=== PATIENT | male | born 1980 | race Caucasian/White ===

== ENCOUNTER 2025-07-14 10:48 | Outpatient (AMB) | payer OTHER, SELFPAY ==
--- OUTSIDE RECORDS SUMMARY | 2025-07-10 04:15 | XMS_ITS ---
Author Organization [facility] Address [address] [place] [address] Care Team Providers Care Foreman/Project Manager Name Role Phone FLORENCE WALKEREN Unavailable [phone] CESAR ADAMS Unavailable [phone] REASON FOR VISIT iv Medications Medication SIG (Take, Route, Frequency, Duration) Notes Start Date End Date Status Tamsulosin HCl 0.4 MG 2 cap Orally Once a day; Duration: 30 days 05/18/2025 Active Tamsulosin HCl 0.4 MG TAKE 1 CAPSULE BY MOUTH DAILY; Duration: 30 Active Vitamin B12 Active amLODIPine Besylate 5 MG 1 tablet Orally Once a day; Duration: 90 days 04/03/2025 Active B Complex - as directed Orally Active Magnesium Active Encounters Encounter Location Date Provider Diagnosis [facility] [address] [place] [address] 07/10/2025 CESAR ADAMS Plan Of Treatment Next Appt Details Provider Name:SERENASELINA WALKER, 08/18/2025 03:30:00 PM, [address] [facility], [place], [address], Progress Notes * Mack GOODSONDOB: [birth year] (44 yo M)Acc No.[id number]:07/10/2025 Progress Note Patient: Mack DE LA FUENTE Provider: Margo Adams MD :1980 A ge:44 Y S ex:Male Date:07/10/2025 Address:[address], [facility] [place], [id number] Subjective: * Chief Complaints: * 1 . Iv. * Medical History: * Medications: T aking Magnesium , Taking B Complex - Capsule as directed Orally , Taking Vitamin B12 , Taking amLODIPine Besylate 5 MG Tablet 1 tablet Orally Once a day , Taking Tamsulosin HCl 0.4 MG Capsule TAKE 1 CAPSULE BY MOUTH DAILY , Taking Tamsulosin HCl 0.4 MG Capsule 2 cap Orally Once a day Objective: * Vitals: Assessment: Plan: * Treatment: Care Plan: * Problems: * Images: Billing Information: * Visit Code: * Procedure Codes: Care Plan Details* * Electronic signature of MOISES ADAMS MD on 07/14/2025 at 01:00 PM EDT Sign off status: Pending * Provider: Margo Adams MD Date: 07/10/2025 Generated for Azam maher/Lj/Balwinder on: 07/14/2025 01:00 PM EDT
--- OUTSIDE RECORDS SUMMARY | 2025-07-10 05:15 | XMS_ITS ---
Author Organization [facility] [address] Address [address] [place] [address] Care Team Providers Care Plant Quality Manager Name Role Phone AARON SERENA Unavailable [phone] Allergies No Known Allergies REASON FOR VISIT patient presents for urgent visit; provider requesting 1 liter of NS be given to pt; 20 gauge IV inserted into left AC and established on first attempt; infusion began at 0835 and finished at 0925; pt tolerated well; IV removed Medications Medication SIG (Take, Route, Frequency, Duration) Notes Start Date End Date Status Tamsulosin HCl 0.4 MG 1 capsule Orally O nce a day; Duration: 90 days 07/10/2025 Active Methocarbamol 500 MG 1 tab Orally bedtim e; Duration: 14 days 07/10/2025 Active amLODIPine Besylate 5 MG 1 tablet Orally Once a day; Duration: 90 days 04/03/2025 Active B Complex - as directed Orally Active Vitamin B12 Active Magnesium Active Tamsulosin HCl 0.4 MG 2 cap Orally Once a day; Duration: 30 days 05/18/2025 Active Tamsulosin HCl 0.4 MG TAKE 1 CAPSULE BY MOUTH DAILY; Duration: 30 Active Social History Tobacco Use: Social History Observation Description Date Details (start date - stop date) Current Smoker NA - NA Tobacco Use/Smoking Question Answer Notes Are you a current smoker How often do you smoke cigarettes? 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 Patient reports severe muscle cramps at night. I suspect this is secondary to dehydration, as the patient reports that he has been having more diarrhea. We will check stool studies including C. difficile, Shigella, Salmonella, stool culture and fecal Maximus protein. If this comes back negative, we will add Imodium as needed. BRAT diet was recommended. Patient to stay hydrated with electrolytes. 1 L normal saline was administered in office today. This was performed by Allison Encarnacion RN. Patient does report overall improvement. Labs will be done to check his renal function tomorrow. Patient has an appointment with renal on the . # (?) [facility] on CKD III. Labs noted on a prephysical screening revealed a creatinine of 3.38. Patient has had been having symptoms of BPH with urinary hesitancy, and frequent bladder emptying. Patient was started on Flomax in March at 0.4 mg po daily. Will increase to Flomax 0.8 mg @ HS. There is a history of prostate cancer. PSA was negative. Due to possible KEYONNA on CKD versus regular CKD, Renal US was negative. AWaiting Urology appt, on 05/26/25, and nephrology appt for Nov 2025. I believe this is multifactorial, partially obstructive in nature, as well as uncontrolled blood pressure. Patient's systolic blood pressure on initial reading was noted to be in the 170s, repeat in the 160s. Patient attributes this to stress. He is not been checking his blood pressure at home. He denies any NSAID use. See below regarding PRABHA #HTN: BP in office was 150s. Increase to Amloidpine 10 mg po daily . Need to repeat labs. #Tobacco cessation: Patient wants to stop smoking. He has tried chantix with good results before. He has reduced to 1.25 packs per day. Will order a nicotine patch and gum. #Obstructive sleep apnea: Stable. Uses cpap. Case discussed with collaborating physician Ruchi Adams who reviewed the assessment and plan. Chart, medications, labs, vital signs reviewed. Dictation was accomplished with the use of [employer] voice recognition software, prone to medical misidentifications and grammatical errors. This is unintentional and the practitioner does try to identify and correct these, but some could still be present. Please do not hesitate to contact practitioner for clarification. All questions answered to patients satisfaction. Patient verbalized understanding of diagnosis and treatments explained. To call sooner prior to next visit it any questions/concerns arise. 07/10/2025 Diarrhea, unspecified (ICD-10 - R19.7) 44 year old male who presents for follow up # Muscle cramps. Patient reports severe muscle cramps at night. I suspect this is secondary to dehydration, as the patient reports that he has been having more diarrhea. We will check stool studies including C. difficile, Shigella, Salmonella, stool culture and fecal Maximus protein. If this comes back negative, we will add Imodium as needed. BRAT diet was recommended. Patient to stay hydrated with electrolytes. 1 L normal saline was administered in office today. This was performed by Allison Encarnacion RN. Patient does report overall improvement. Labs will be done to check his renal function tomorrow. Patient has an appointment with renal on the . # (?) [facility] on CKD III. Labs noted on a prephysical screening revealed a creatinine of 3.38. Patient has had been having symptoms of BPH with urinary hesitancy, and frequent bladder emptying. Patient was started on Flomax in March at 0.4 mg po daily. Will increase to Flomax 0.8 mg @ HS. There is a history of prostate cancer. PSA was negative. Due to possible KEYONNA on CKD versus regular CKD, Renal US was negative. AWaiting Urology appt, on 05/26/25, and nephrology appt for Nov 2025. I believe this is multifactorial, partially obstructive in nature, as well as uncontrolled blood pressure. Patient's systolic blood pressure on initial reading was noted to be in the 170s, repeat in the 160s. Patient attributes this to stress. He is not been checking his blood pressure at home. He denies any NSAID use. See below regarding PRABHA #HTN: BP in office was 150s. Increase to Amloidpine 10 mg po daily . Need to repeat labs. #Tobacco cessation: Patient wants to stop smoking. He has tried chantix with good results before. He has reduced to 1.25 packs per day. Will order a nicotine patch and gum. #Obstructive sleep apnea: Stable. Uses cpap. Case discussed with collaborating physician Ruchi Adams who reviewed the assessment and plan. Chart, medications, labs, vital signs reviewed. Dictation was accomplished with the use of [employer] voice recognition software, prone to medical misidentifications and grammatical errors. This is unintentional and the practitioner does try to identify and correct these, but some could still be present. Please do not hesitate to contact practitioner for clarification. All questions answered to patients satisfaction. Patient verbalized understanding of diagnosis and treatments explained. To call sooner prior to next visit it any questions/concerns arise. 07/10/2025 Essential (primary) hypertension (ICD-10 - I10) 44 year old male who presents for follow up # Muscle cramps. Patient reports severe muscle cramps at night. I suspect this is secondary to dehydration, as the patient reports that he has been having more diarrhea. We will check stool studies including C. difficile, Shigella, Salmonella, stool culture and fecal Maximus protein. If this comes back negative, we will add Imodium as needed. BRAT diet was recommended. Patient to stay hydrated with electrolytes. 1 L normal saline was administered in office today. This was performed by Allison Encarnacion RN. Patient does report overall improvement. Labs will be done to check his renal function tomorrow. Patient has an appointment with renal on the . # (?) [facility] on CKD III. Labs noted on a prephysical screening revealed a creatinine of 3.38. Patient has had been having symptoms of BPH with urinary hesitancy, and frequent bladder emptying. Patient was started on Flomax in March at 0.4 mg po daily. Will increase to Flomax 0.8 mg @ HS. There is a history of prostate cancer. PSA was negative. Due to possible KEYONNA on CKD versus regular CKD, Renal US was negative. AWaiting Urology appt, on 05/26/25, and nephrology appt for Nov 2025. I believe this is multifactorial, partially obstructive in nature, as well as uncontrolled blood pressure. Patient's systolic blood pressure on initial reading was noted to be in the 170s, repeat in the 160s. Patient attributes this to stress. He is not been checking his blood pressure at home. He denies any NSAID use. See below regarding PRABHA #HTN: BP in office was 150s. Increase to Amloidpine 10 mg po daily . Need to repeat labs. #Tobacco cessation: Patient wants to stop smoking. He has tried chantix with good results before. He has reduced to 1.25 packs per day. Will order a nicotine patch and gum. #Obstructive sleep apnea: Stable. Uses cpap. Case discussed with collaborating physician Ruchi Adams who reviewed the assessment and plan. Chart, medications, labs, vital signs reviewed. Dictation was accomplished with the use of [employer] voice recognition software, prone to medical misidentifications and grammatical errors. This is unintentional and the practitioner does try to identify and correct these, but some could still be present. Please do not hesitate to contact practitioner for clarification. All questions answered to patients satisfaction. Patient verbalized understanding of diagnosis and treatments explained. To call sooner prior to next visit it any questions/concerns arise. 07/10/2025 BPH loc w/o ur obs/LUTS (ICD-10 - N40.0) 44 year old male who presents for follow up # Muscle cramps. Patient reports severe muscle cramps at night. I suspect this is secondary to dehydration, as the patient reports that he has been having more diarrhea. We will check stool studies including C. difficile, Shigella, Salmonella, stool culture and fecal Maximus protein. If this comes back negative, we will add Imodium as needed. BRAT diet was recommended. Patient to stay hydrated with electrolytes. 1 L normal saline was administered in office today. This was performed by Allison Encarnacion RN. Patient does report overall improvement. Labs will be done to check his renal function tomorrow. Patient has an appointment with renal on the . # (?) [facility] on CKD III. Labs noted on a prephysical screening revealed a creatinine of 3.38. Patient has had been having symptoms of BPH with urinary hesitancy, and frequent bladder emptying. Patient was started on Flomax in March at 0.4 mg po daily. Will increase to Flomax 0.8 mg @ HS. There is a history of prostate cancer. PSA was negative. Due to possible KEYONNA on CKD versus regular CKD, Renal US was negative. AWaiting Urology appt, on 05/26/25, and nephrology appt for Nov 2025. I believe this is multifactorial, partially obstructive in nature, as well as uncontrolled blood pressure. Patient's systolic blood pressure on initial reading was noted to be in the 170s, repeat in the 160s. Patient attributes this to stress. He is not been checking his blood pressure at home. He denies any NSAID use. See below regarding PRABHA #HTN: BP in office was 150s. Increase to Amloidpine 10 mg po daily . Need to repeat labs. #Tobacco cessation: Patient wants to stop smoking. He has tried chantix with good results before. He has reduced to 1.25 packs per day. Will order a nicotine patch and gum. #Obstructive sleep apnea: Stable. Uses cpap. Case discussed with collaborating physician Ruchi Adams who reviewed the assessment and plan. Chart, medications, labs, vital signs reviewed. Dictation was accomplished with the use of [employer] voice recognition software, prone to medical misidentifications and grammatical errors. This is unintentional and the practitioner does try to identify and correct these, but some could still be present. Please do not hesitate to contact practitioner for clarification. All questions answered to patients satisfaction. Patient verbalized understanding of diagnosis and treatments explained. To call sooner prior to next visit it any questions/concerns arise. 07/10/2025 Chronic kidney disease, stage 3b (ICD-10 - N18.32) 44 year old male who presents for follow up # Muscle cramps. Patient reports severe muscle cramps at night. I suspect this is secondary to dehydration, as the patient reports that he has been having more diarrhea. We will check stool studies including C. difficile, Shigella, Salmonella, stool culture and fecal Maximus protein. If this comes back negative, we will add Imodium as needed. BRAT diet was recommended. Patient to stay hydrated with electrolytes. 1 L normal saline was administered in office today. This was performed by Allison Encarnacion RN. Patient does report overall improvement. Labs will be done to check his renal function tomorrow. Patient has an appointment with renal on the . # (?) [facility] on CKD III. Labs noted on a prephysical screening revealed a creatinine of 3.38. Patient has had been having symptoms of BPH with urinary hesitancy, and frequent bladder emptying. Patient was started on Flomax in March at 0.4 mg po daily. Will increase to Flomax 0.8 mg @ HS. There is a history of prostate cancer. PSA was negative. Due to possible KEYONNA on CKD versus regular CKD, Renal US was negative. AWaiting Urology appt, on 05/26/25, and nephrology appt for Nov 2025. I believe this is multifactorial, partially obstructive in nature, as well as uncontrolled blood pressure. Patient's systolic blood pressure on initial reading was noted to be in the 170s, repeat in the 160s. Patient attributes this to stress. He is not been checking his blood pressure at home. He denies any NSAID use. See below regarding PRABHA #HTN: BP in office was 150s. Increase to Amloidpine 10 mg po daily . Need to repeat labs. #Tobacco cessation: Patient wants to stop smoking. He has tried chantix with good results before. He has reduced to 1.25 packs per day. Will order a nicotine patch and gum. #Obstructive sleep apnea: Stable. Uses cpap. Case discussed with collaborating physician Ruchi Adams who reviewed the assessment and plan. Chart, medications, labs, vital signs reviewed. Dictation was accomplished with the use of [employer] voice recognition software, prone to medical misidentifications and grammatical errors. This is unintentional and the practitioner does try to identify and correct these, but some could still be present. Please do not hesitate to contact practitioner for clarification. All questions answered to patients satisfaction. Patient verbalized understanding of diagnosis and treatments explained. To call sooner prior to next visit it any questions/concerns arise. 07/10/2025 Tobacco abuse disorder (ICD-10 - Z72.0) 44 year old male who presents for follow up # Muscle cramps. Patient reports severe muscle cramps at night. I suspect this is secondary to dehydration, as the patient reports that he has been having more diarrhea. We will check stool studies including C. difficile, Shigella, Salmonella, stool culture and fecal Maximus protein. If this comes back negative, we will add Imodium as needed. BRAT diet was recommended. Patient to stay hydrated with electrolytes. 1 L normal saline was administered in office today. This was performed by Allison Encarnacion RN. Patient does report overall improvement. Labs will be done to check his renal function tomorrow. Patient has an appointment with renal on the . # (?) [facility] on CKD III. Labs noted on a prephysical screening revealed a creatinine of 3.38. Patient has had been having symptoms of BPH with urinary hesitancy, and frequent bladder emptying. Patient was started on Flomax in March at 0.4 mg po daily. Will increase to Flomax 0.8 mg @ HS. There is a history of prostate cancer. PSA was negative. Due to possible KEYONNA on CKD versus regular CKD, Renal US was negative. AWaiting Urology appt, on 05/26/25, and nephrology appt for Nov 2025. I believe this is multifactorial, partially obstructive in nature, as well as uncontrolled blood pressure. Patient's systolic blood pressure on initial reading was noted to be in the 170s, repeat in the 160s. Patient attributes this to stress. He is not been checking his blood pressure at home. He denies any NSAID use. See below regarding PRABHA #HTN: BP in office was 150s. Increase to Amloidpine 10 mg po daily . Need to repeat labs. #Tobacco cessation: Patient wants to stop smoking. He has tried chantix with good results before. He has reduced to 1.25 packs per day. Will order a nicotine patch and gum. #Obstructive sleep apnea: Stable. Uses cpap. Case discussed with collaborating physician Ruchi Adams who reviewed the assessment and plan. Chart, medications, labs, vital signs reviewed. Dictation was accomplished with the use of [employer] voice recognition software, prone to medical misidentifications and grammatical errors. This is unintentional and the practitioner does try to identify and correct these, but some could still be present. Please do not hesitate to contact practitioner for clarification. All questions answered to patients satisfaction. Patient verbalized understanding of diagnosis and treatments explained. To call sooner prior to next visit it any questions/concerns arise. 07/10/2025 Morbid obesity (ICD-10 - E66.01) 44 year old male who presents for follow up # Muscle cramps. Patient reports severe muscle cramps at night. I suspect this is secondary to dehydration, as the patient reports that he has been having more diarrhea. We will check stool studies including C. difficile, Shigella, Salmonella, stool culture and fecal Maximus protein. If this comes back negative, we will add Imodium as needed. BRAT diet was recommended. Patient to stay hydrated with electrolytes. 1 L normal saline was administered in office today. This was performed by Allison Encarnacion RN. Patient does report overall improvement. Labs will be done to check his renal function tomorrow. Patient has an appointment with renal on the . # (?) [facility] on CKD III. Labs noted on a prephysical screening revealed a creatinine of 3.38. Patient has had been having symptoms of BPH with urinary hesitancy, and frequent bladder emptying. Patient was started on Flomax in March at 0.4 mg po daily. Will increase to Flomax 0.8 mg @ HS. There is a history of prostate cancer. PSA was negative. Due to possible KEYONNA on CKD versus regular CKD, Renal US was negative. AWaiting Urology appt, on 05/26/25, and nephrology appt for Nov 2025. I believe this is multifactorial, partially obstructive in nature, as well as uncontrolled blood pressure. Patient's systolic blood pressure on initial reading was noted to be in the 170s, repeat in the 160s. Patient attributes this to stress. He is not been checking his blood pressure at home. He denies any NSAID use. See below regarding PRABHA #HTN: BP in office was 150s. Increase to Amloidpine 10 mg po daily . Need to repeat labs. #Tobacco cessation: Patient wants to stop smoking. He has tried chantix with good results before. He has reduced to 1.25 packs per day. Will order a nicotine patch and gum. #Obstructive sleep apnea: Stable. Uses cpap. Case discussed with collaborating physician Ruchi Adams who reviewed the assessment and plan. Chart, medications, labs, vital signs reviewed. Dictation was accomplished with the use of [employer] voice recognition software, prone to medical misidentifications and grammatical errors. This is unintentional and the practitioner does try to identify and correct these, but some could still be present. Please do not hesitate to contact practitioner for clarification. All questions answered to patients satisfaction. Patient verbalized understanding of diagnosis and treatments explained. To call sooner prior to next visit it any questions/concerns arise. 07/10/2025 HAYLEY (obstructive sleep apnea) (ICD-10 - G47.33) 44 year old male who presents for follow up # Muscle cramps. Patient reports severe muscle cramps at night. I suspect this is secondary to dehydration, as the patient reports that he has been having more diarrhea. We will check stool studies including C. difficile, Shigella, Salmonella, stool culture and fecal Maximus protein. If this comes back negative, we will add Imodium as needed. BRAT diet was recommended. Patient to stay hydrated with electrolytes. 1 L normal saline was administered in office today. This was performed by Allison Encarnacion RN. Patient does report overall improvement. Labs will be done to check his renal function tomorrow. Patient has an appointment with renal on the . # (?) [facility] on CKD III. Labs noted on a prephysical screening revealed a creatinine of 3.38. Patient has had been having symptoms of BPH with urinary hesitancy, and frequent bladder emptying. Patient was started on Flomax in March at 0.4 mg po daily. Will increase to Flomax 0.8 mg @ HS. There is a history of prostate cancer. PSA was negative. Due to possible KEYONNA on CKD versus regular CKD, Renal US was negative. AWaiting Urology appt, on 05/26/25, and nephrology appt for Nov 2025. I believe this is multifactorial, partially obstructive in nature, as well as uncontrolled blood pressure. Patient's systolic blood pressure on initial reading was noted to be in the 170s, repeat in the 160s. Patient attributes this to stress. He is not been checking his blood pressure at home. He denies any NSAID use. See below regarding PRABHA #HTN: BP in office was 150s. Increase to Amloidpine 10 mg po daily . Need to repeat labs. #Tobacco cessation: Patient wants to stop smoking. He has tried chantix with good results before. He has reduced to 1.25 packs per day. Will order a nicotine patch and gum. #Obstructive sleep apnea: Stable. Uses cpap. Case discussed with collaborating physician Ruchi Adams who reviewed the assessment and plan. Chart, medications, labs, vital signs reviewed. Dictation was accomplished with the use of [employer] voice recognition software, prone to medical misidentifications and grammatical errors. This is unintentional and the practitioner does try to identify and correct these, but some could still be present. Please do not hesitate to contact practitioner for clarification. All questions answered to patients satisfaction. Patient verbalized understanding of diagnosis and treatments explained. To call sooner prior to next visit it any questions/concerns arise. 07/10/2025 Encounter for examination of blood pressure with abnormal findings (ICD-10 - Z01.31) 44 year old male who presents for follow up # Muscle cramps. Patient reports severe muscle cramps at night. I suspect this is secondary to dehydration, as the patient reports that he has been having more diarrhea. We will check stool studies including C. difficile, Shigella, Salmonella, stool culture and fecal Maximus protein. If this comes back negative, we will add Imodium as needed. BRAT diet was recommended. Patient to stay hydrated with electrolytes. 1 L normal saline was administered in office today. This was performed by Allison Encarnacion RN. Patient does report overall improvement. Labs will be done to check his renal function tomorrow. Patient has an appointment with renal on the . # (?) [facility] on CKD III. Labs noted on a prephysical screening revealed a creatinine of 3.38. Patient has had been having symptoms of BPH with urinary hesitancy, and frequent bladder emptying. Patient was started on Flomax in March at 0.4 mg po daily. Will increase to Flomax 0.8 mg @ HS. There is a history of prostate cancer. PSA was negative. Due to possible KEYONNA on CKD versus regular CKD, Renal US was negative. AWaiting Urology appt, on 05/26/25, and nephrology appt for Nov 2025. I believe this is multifactorial, partially obstructive in nature, as well as uncontrolled blood pressure. Patient's systolic blood pressure on initial reading was noted to be in the 170s, repeat in the 160s. Patient attributes this to stress. He is not been checking his blood pressure at home. He denies any NSAID use. See below regarding PRABHA #HTN: BP in office was 150s. Increase to Amloidpine 10 mg po daily . Need to repeat labs. #Tobacco cessation: Patient wants to stop smoking. He has tried chantix with good results before. He has reduced to 1.25 packs per day. Will order a nicotine patch and gum. #Obstructive sleep apnea: Stable. Uses cpap. Case discussed with collaborating physician Ruchi Adams who reviewed the assessment and plan. Chart, medications, labs, vital signs reviewed. Dictation was accomplished with the use of Ceres voice recognition software, prone to medical misidentifications and grammatical errors. This is unintentional and the practitioner does try to identify and correct these, but some could still be present. Please do not hesitate to contact practitioner for clarification. All questions answered to patients satisfaction. Patient verbalized understanding of diagnosis and treatments explained. To call sooner prior to next visit it any questions/concerns arise. 07/10/2025 Dehydration (ICD-10 - E86.0) 44 year old male who presents for follow up # Muscle cramps. Patient reports severe muscle cramps at night. I suspect this is secondary to dehydration, as the patient reports that he has been having more diarrhea. We will check stool studies including C. difficile, Shigella, Salmonella, stool culture and fecal Maximus protein. If this comes back negative, we will add Imodium as needed. BRAT diet was recommended. Patient to stay hydrated with electrolytes. 1 L normal saline was administered in office today. This was performed by Allison Encarnacion RN. Patient does report overall improvement. Labs will be done to check his renal function tomorrow. Patient has an appointment with renal on the . # (?) KEYONNA on CKD III. Labs noted on a prephysical screening revealed a creatinine of 3.38. Patient has had been having symptoms of BPH with urinary hesitancy, and frequent bladder emptying. Patient was started on Flomax in March at 0.4 mg po daily. Will increase to Flomax 0.8 mg @ HS. There is a history of prostate cancer. PSA was negative. Due to possible KEYONNA on CKD versus regular CKD, Renal US was negative. AWaiting Urology appt, on 05/26/25, and nephrology appt for Nov 2025. I believe this is multifactorial, partially obstructive in nature, as well as uncontrolled blood pressure. Patient's systolic blood pressure on initial reading was noted to be in the 170s, repeat in the 160s. Patient attributes this to stress. He is not been checking his blood pressure at home. He denies any NSAID use. See below regarding PRABHA #HTN: BP in office was 150s. Increase to Amloidpine 10 mg po daily . Need to repeat labs. #Tobacco cessation: Patient wants to stop smoking. He has tried chantix with good results before. He has reduced to 1.25 packs per day. Will order a nicotine patch and gum. #Obstructive sleep apnea: Stable. Uses cpap. Case discussed with collaborating physician Ruchi Adams who reviewed the assessment and plan. Chart, medications, labs, vital signs reviewed. Dictation was accomplished with the use of Ce[employer] voice recognition software, prone to medical misidentifications and grammatical errors. This is unintentional and the practitioner does try to identify and correct these, but some could still be present. Please do not hesitate to contact practitioner for clarification. All questions answered to patients satisfaction. Patient verbalized understanding of diagnosis and treatments explained. To call sooner prior to next visit it any questions/concerns arise. Plan Of Treatment Medication Medication Name Sig Start Date Stop Date Notes Tamsulosin HCl 0.4 MG 1 capsule Orally O nce a day; Duration: 90 days 07/10/2025 Methocarbamol 500 MG 1 tab Orally bedtim e; Duration: 14 days 07/10/2025 Next Appt Details Provider Name:SERENA AARON, 08/18/2025 03:30:00 PM, [address] [place] [address], [place], [address], Progress Notes * Mack GOODSONDOB: [birth year] (44 yo M)Acc No.[id number]:07/10/2025 Progress Notes Patient: Mack DE LA FUENTE Provider: Olman WALKER PA-C :1980 A ge:44 Y S ex:Male Date:07/10/2025 Address:[address] [place] [address], [id number] Subjective: * Chief Complaints: * 1 . patient presents for urgent visit; provider requesting 1 liter of NS be given to pt; 20 gauge IV inserted into left AC and established on first attempt; infusion began at 0835 and finished at 0925; pt tolerated well; IV removed. * HPI: C onstitutional: Michele is a 44-year-old male with a past medical history of hypertension, asthma, previous tobacco use, sleep apnea with CPAP compliance, as well as new renal insufficiency who presents today for IV fluids. Patient reports over the past 2 weeks he has been having severe muscle cramps. He had a urology procedure done approximately 2 weeks ago, and since then has been having daily diarrhea. He reports that it is more foul-smelling in nature. He declines any recent antibiotic use. Patient states that he feels more tired and fatigued. Muscle cramps are so severe that they are waking him up at night. He is drinking Gatorade electrolytes, that do not appear to be helping his symptoms. He denies any dizziness or lightheadedness. There is no fevers or chills. Patient is scheduled to see renal in 10 days, and is rescheduled with urology next month. He is not compliant with his medications. He denies any excessive swelling, exertional dyspnea. * ROS: C onstitutional: +occassional lightheadedness, patient denies any excessive fatigue with exercise, no weight loss, no fever, no night sweats, no changes in sleep. Eyes: No eye discharge, no itching, no redness, no vision changes. Advised the significance of regular eye exams to screen for glaucoma and other eye problems. Ear nose throat: No ear pain, No sore throat, no postnasal drip, no runny nose, no sneezing, no hearing changes Cardiovascular: No chest pain, no dyspnea on exertion, no PND, no orthopnea, no irregular pulse, no palpitations, no claudication, no diaphoresis, no claudication. Respiratory: No chronic cough, no hemoptysis, no sputum, no wheezing, no SOB, no pleuritic pain. GI, No diarrhea, no constipation, no blood in the stools, no pain associated with eating, no indigestion, no difficulty swallowing, no appetite change. * Medical History: E ssential hypertension, Tobacco abuse, Gout, unspecified, Anxiety with depression, Hemorrhoids with complication, Obesity (BMI 30-39.9), Chronic kidney disease, stage 3a, Asthma, Polyp of colon, Obstructive sleep apnea, Enlarged prostate. * Surgical History: L eft inguinal herniorraphy 2009. * Hospitalization/Major Diagno stic Procedure: D enies Past Hospitalization. * Family History: F ather: . M other: . 2 son(s) , 1 daughter(s) . . Mother passed from heart attack- 50 years old family hx of polyps father passed from prostate cancer- 66 years old family hx of heart disease, hypertension and anxiety/depression. * Social History: T obacco Use: T obacco Use/Smoking A re you a c urrent smoker, H ow often do you smoke cigarettes? e very day. e gunnarineer smoking for 6 years , 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 * Medications: T aking Magnesium , Taking B Complex - Capsule as directed Orally , Taking Vitamin B12 , Taking amLODIPine Besylate 5 MG Tablet 1 tablet Orally Once a day , Taking Tamsulosin HCl 0.4 MG Capsule TAKE 1 CAPSULE BY MOUTH DAILY , Taking Tamsulosin HCl 0.4 MG Capsule 2 cap Orally Once a day * Allergies: N .K.D.A. Objective: * Vitals: * Examination: G eneral Examination: G eneral: Well appearing male, well nourished, age appropriate in no acute distress. Speaking in full, clear sentences. SKIN: Warm, dry intact. No rashes/lesions. Cap refill < 3 seconds. Tattoo noted over upper back HEENT: Normocephalic atraumatic. EOM intact. No nystagmus noted. PERRLA. No maxillary sinus tenderness. NECK: Supple without lymphadenopathy LUNGS: Clear to auscultation bilaterally, no wheezes, rales or rhonchi CARDIAC: Regular rate and rhythm, no murmurs, rubs or gallops. Abdomen: Soft, nontender, nondistended. Extremities: Warm and well perfused. No edema noted. MSK: Flexion extension bilaterally upper and lower extremities 5/5. Community Outreach Coordinator strength 5/5. Neuro: Speaking in full sentences. Hearing intact. Assessment: * Assessment: 1. M uscle cramp - R25.2 (Primary) 2 . D iarrhea, unspecified - R19.7 ? 3 . E ssential (primary) hypertension - I10 4 . B PH loc w/o ur obs/LUTS - N40.0 5 . C hronic kidney disease, stage 3b - N18.32 6 . T obacco abuse disorder - Z72.0 7 . M orbid obesity - E66.01 ?8. O SA (obstructive sleep apnea) - G47.33 9 . E ncounter for examination of blood pressure with abnormal findings - Z01.31 1 0. D ehydration - E86.0? 44 year old male who present s for follow up # Muscle cramps. Patient reports severe muscle cramps at night. I suspect this is secondary to dehydration, as the patient reports that he has been having more diarrhea. We will check stool studies including C. difficile, Shigella, Salmonella, stool culture and fecal Maximus protein. If this comes back negative, we will add Imodium as needed. BRAT diet was recommended. Patient to stay hydrated with electrolytes. 1 L normal saline was administered in office today. This was performed by Allison Encarnacion RN. Patient does report overall improvement. Labs will be done to check his renal function tomorrow. Patient has an appointment with renal on the . # (?) KEYONNA on CKD III. Labs noted on a prephysical screening revealed a creatinine of 3.38. Patient has had been having symptoms of BPH with urinary hesitancy, and frequent bladder emptying. Patient was started on Flomax in March at 0.4 mg po daily. Will increase to Flomax 0.8 mg @ HS. There is a history of prostate cancer. PSA was negative. Due to possible KEYONNA on CKD versus regular CKD, Renal US was negative. AWaiting Urology appt, on 05/26/25, and nephrology appt for Nov 2025. I believe this is multifactorial, partially obstructive in nature, as well as uncontrolled blood pressure. Patient's systolic blood pressure on initial reading was noted to be in the 170s, repeat in the 160s. Patient attributes this to stress. He is not been checking his blood pressure at home. He denies any NSAID use. See below regarding PRABHA #HTN: BP in office was 150s. Increase to A mloidpine 10 mg po daily . Need to repeat labs.? #Tobacco cessation: Patient wants to stop smoking. He has tried chantix with good results before. He has reduced to 1.25 packs per day. Will order a nicotine patch and gum. #Obstructive sleep apnea: Stable. Uses cpap. Case discussed with collaborating physician Ruchi Adams who reviewed the assessment and plan. Chart, medications, labs, vital signs reviewed. Dictation was accomplished with the use of Ceres voice recognition software, prone to medical misidentifications and grammatical errors. This is unintentional and the practitioner does try to identify and correct these, but some could still be present. Please do not hesitate to contact practitioner for clarification. All questions answered to patients satisfaction. Patient verbalized understanding of diagnosis and treatments explained. To call sooner prior to next visit it any questions/concerns arise. Plan: * Treatment: * Procedure Codes: 9 6360 HYDRATION IV INFUSION, INIT, [address] PLACE NEEDLE IN VEIN Care Plan: * Problems: * Images: Billing Information: * Visit Code: 27212 Office Visit, Est Pt., Level 5. Modifiers: SA * Procedure Codes: 85650 HYDRATION IV INFUSION, INIT. [address] PLACE NEEDLE IN VEIN. Care Plan Details* * Sign off status: Completed true * Provider: Olman WALKER PA-C Date: 0 07/10/2025 Generated for Azam maher/Lj/eTransmitting on: 0 07/14/2025 01:00 PM EDT History and Physical Notes * HPI (History of Present Illness) Category Sub-Category Detail Notes Category Not es Constitutional Michele is a 44- year-old male with a past medical history of hypertension, asthma, previous tobacco use, sleep apnea with CPAP compliance, as well as new renal insufficiency who presents today for IV fluids. Patient reports over the past 2 weeks he has been having severe muscle cramps. He had a urology procedure done approximately 2 weeks ago, and since then has been having daily diarrhea. He reports that it is more foul-smelling in nature. He declines any recent antibiotic use. Patient states that he feels more tired and fatigued. Muscle cramps are so severe that they are waking him up at night. He is drinking Gatorade electrolytes, that do not appear to be helping his symptoms. He denies any dizziness or lightheadedness. There is no fevers or chills. Patient is scheduled to see renal in 10 days, and is rescheduled with urology next month. He is not compliant with his medications. He denies any excessive swelling, exertional dyspnea. Examination Category Sub-Category Detail Notes Category Not es General Examination General: Well appearing male, well nourished, age appropriate in no acute distress. Speaking in full, clear sentences. SKIN: Warm, dry intact. No rashes/lesions. Cap refill < 3 seconds. Tattoo noted over upper back HEENT: Normocephalic atraumatic. EOM intact. No nystagmus noted. PERRLA. No maxillary sinus tenderness. NECK: Supple without lymphadenopathy LUNGS: Clear to auscultation bilaterally, no wheezes, rales or rhonchi CARDIAC: Regular rate and rhythm, no murmurs, rubs or gallops. Abdomen: Soft, nontender, nondistended. Extremities: Warm and well perfused. No edema noted. MSK: Flexion extension bilaterally upper and lower extremities 5/5. Community Outreach Coordinator strength 5/5. Neuro: Speaking in full sentences. Hearing intact.
--- OUTSIDE RECORDS SUMMARY | 2025-07-10 05:39 | XMS_ITS ---
Author Organization [facility] [address] Address [address] [place] [address] Care Team Providers Care Control Tower Operator Name Role Phone AARON, SERENA Unavailable [phone] REASON FOR VISIT Lab Orders Encounters Encounter Location Date Provider Diagnosis [facility] [address] [place] [address] 07/10/2025 SERENA WALKER Bilateral leg cramps R25.2 ; Abnormal metabolic state due to diabetes mellitus E11.9 ; Acute colitis K52.9 and Adult general medical exam Z00.00 Assessments Encounter Date Diagnosis (ICD Code) Assessment Notes Treatment Notes Treatment Clinical Notes Section Notes 07/10/2025 Bilateral leg cramps (ICD-10 - R25.2) 07/10/2025 Abnormal metabolic state due to diabetes mellitus (ICD-10 - E11.9) 07/10/2025 Acute colitis (ICD-10 - K52.9) 07/10/2025 Adult general medical exam (ICD-10 - Z00.00) Plan Of Treatment Pending Test Test Name Order Date C difficile Toxins A+B, EIA 07/10/2025 Microalb/Creat Ratio, Randm Ur Stool Culture -O&P 07/10/2025 CALPROTECTIN,FECAL 07/10/2025 Culture Salmonella and Shigella Screen 0 07/10/2025 COMPREHENSIVE METABOLIC PANEL 07/10/2025 CBC (INCLUDES DIFF/PLT) 07/10/2025 URINALYSIS, COMPLETE 07/10/2025 FECAL WHITE CELLS 07/10/2025 Next Appt Details Provider Name:SERENA WALKER, 08/18/2025 03:30:00 PM, [address] [facility], [place], [address], Progress Notes * Mack GOODSONDOB: [birth year] (44 yo M)Acc No.[id number]:07/10/2025 Patient: Mack DE LA FUENTE :1980 A ge:44 Y S ex:Male Address:[facility] [address] [facility] [place] [address] Subjective: * Chief Complaints: * L ab Orders * Medical History: * Surgical History: * Hospitalization/Major Diagno stic Procedure: * Medications: Objective: * Vitals: * Physical Examination: Assessment: * Assessment: 1. B ilateral leg cramps - R25.2 2 . A bnormal metabolic state due to diabetes mellitus - E11.9 3 . A cute colitis - K52.9 4 . A dult general medical exam - Z00.00 Plan: * Treatment: 2. A bnormal metabolic state due to diabetes mellitus L AB: Microalb/Creat Ratio, Randm Ur 3. A cute colitis L AB: C difficile Toxins A+B, EIA L AB: Stool Culture -O&P L AB: CALPROTECTIN,FECAL L AB: Culture Salmonella and Shigella Screen L AB: FECAL WHITE CELLS 4. A dult general medical exam L AB: URINALYSIS, COMPLETE * Procedure Codes: * true * Date: Generated for Azam maher/Lj/eTransmitting on: 0 07/14/2025 01:00 PM EDT
--- NOTE | 2025-07-14 10:58 | HO.NEPHOV_ITS ---
Vital Signs 07/14/25 11:01 Height 5 ft 8.5 in Weight 219 lb 8 oz BMI 32.9 BP 166/86 H Blood Pressure Location Lt brachial Position Sitting Pulse 56 Pulse Source Pulse Oximeter Pulse Oximetry (%) 98 Oxygen Delivery Method Room Air Intake Visit Reasons: ENP- Per Adult High School Instructor Required: No Accompanied by: Spouse Allergies No Known Allergies Allergy (Verified 07/14/25 12:20) HPI Comments Details: I had the privilege of seeing Mack in consultation for KEYONNA on CKD. He is 44 years of age who has H/O blood and protein in the urine in the past. He also had been hypertensive. He has seen Urology and was worked up including imaging studies which did not show any etiology for his M/S hematuria. He denied any H/O macroscopic heamturia. He was no ACEI in the past but was discontinued ( ? Had KEYONNA at that time). He had high BMI which has improved with exercise, diet and Ozempic for sometime. He has no H/O renal calculi but has been having cramps as well as joint pains which is affecting his quality of life. He is active and employed. He denies any regular excessive NSAID's. He has been having HAYLEY and is on CPAP. He has H/O gout with exacerbations more so when he was taking HCTZ for hypertension long ago. He has no H/O cardiac issues. He denies any neuropathic symptoms. CVA, CHF, CAD, PAD. He has no H/O blood clots but has was a smoker in the past. He has been having lower thoracic/ upper lumbar vertebral pain as well as B/L flank pain. He had a Urology procedure done 2 weeks ago and had some diarrhea following it. He has H/O smoking but no hemoptysis or unintentional weight loss. He is not a diabetic and has no H/O liver dysfunction. His creatinine has been in mid 3's three months ago which has gone upto 6.67 now. He has poor energy and feels cold most of the time. [facility] Medical History (Updated 07/14/25 @ 12:49 by Miguelito Chen MD) Enlarged prostate HAYLEY (obstructive sleep apnea) Polyp of colon Asthma Chronic kidney disease, stage 3a Obesity Hemorrhoids with complication Anxiety with depression Gout Tobacco use Essential (primary) hypertension Surgical History (Updated 07/14/25 @ 10:52 by Elisabet Fuentes MA) S/P left inguinal herniorrhaphy Family History Father Prostate cancer Mother Heart attack Hypertension Social History Alcohol intake: never Patient Tobacco Use Status: Current someday Tobacco user Review of Systems Const All systems reviewed & are unremarkable except as noted in HPI and below Physical Exam Vital Signs: Last Vital Signs Pulse 56 07/14/25 11:01 BP 166/86 H 07/14/25 11:01 Pulse Ox 98 07/14/25 11:01 Oxygen Delivery Method Room Air 07/14/25 11:01 BMI result Body Mass Index 32.9 Const General: comfortable and no acute distress Orientation/consciousness: patient oriented x3 HEENT Head: Yes normocephalic Mouth: Normal oral and palatal mucosa present Eyes EOM: EOMs intact bilaterally Neck Neck: Yes supple Resp Auscultation: clear to auscultation bilaterally Cardio Jugular venous distension: no JVD Rate: regular rate GI Palpation (GI): Soft to palpation Auscultation: normal bowel sounds General: Yes no CVA tenderness Back/Spine/Pelvis Back: no CVA tenderness Skin General skin exam: no rashes or lesions noted Neuro General: patient oriented x3 and moves all extremities Extrem General: Yes no pedal edema Results Reviewed Nephrology Results: Hgb, (14.0-18.0) 9.2 g/dl L Today WBC, (4.8-10.8) 9.2 X10*3/uL Today Plt Count, (160-400) 172 X10*3/uL Today Sodium Pending Today Potassium Pending Today Chloride Pending Today Carbon Dioxide Pending Today BUN Pending Today Creatinine Pending Today Calcium Pending Today Urine Protein Pending Today Assessment & Plan Assessment & Plan (1) KEYONNA (acute kidney injury): Code(s): N17.9 - Acute kidney failure, unspecified Category: Medical (2) Hypertension: Code(s): I10 - Essential (primary) hypertension Category: Medical Qualifiers: Hypertension type: secondary to other renal disorders Qualified Code(s): I15.1 - Hypertension secondary to other renal disorders (3) Proteinuria: Code(s): R80.9 - Proteinuria, unspecified Category: Medical Qualifiers: Proteinuria type: other Qualified Code(s): R80.8 - Other proteinuria Plan Mack has KEYONNA on CKD due to unknown etiology. He denies work up for hematuria/ proteinuria with hypertension many years ago. He never had a renal biopsy. DIfferential diagnosis is quite broad. Needs detailed work up, more imaging and urgent renal biopsy. He is not on any ACEI/ARB. His BP needs to be mainted at goal. He should avoid NSAID's. I have arranged hospital admission for work up and further continued care. All these have been explained in detail to him and his . I have spoken to our VULCANIZED FIBER UNIT OPERATOR Flaca Harris about the case and investigations . Patient has gone to ER for admission. Answered all questions. Further management is pending evolving data Coding Level of Care Code New Pt Level 4 (21647) Diagnoses KEYONNA (acute kidney injury) N17.9 Hypertension secondary to other renal disorders I15.1 Hypertension type: secondary to other renal disorders Other proteinuria R80.8 Proteinuria type: other
[2025-07-14 11:01] VITALS: BP 166/86; PULSE 56; O2SAT 98; BMI 32.9
--- OUTSIDE RECORDS SUMMARY | 2025-07-14 13:00 | XMS_ITS ---
Author Name [facility] Organization Unknown Care Team Organization Name Specialty Phone Email Start Date End Da te [facility] Termed, PROVIDER Primary Care 09/12/202206/05
--- OUTSIDE RECORDS SUMMARY | 2025-07-14 13:00 | XMS_ITS | Clinical Summary ---
Author Organization [address] Address [address] [place] [phone] Phone Care Team Providers Care Ragman Name Role Phone Lauren Adams MD Primary Care Provider [phone] Allergies No known active allergies Medications lisinopriL (PRINIVIL,ZESTR IL) 10 mg tablet Take 1 tablet (10 mg total) by mouth 1 (one) time each day. Active oxyBUTYnin XL (DITROPAN-XL) 10 mg 24 hr tablet Take by mouth. Do not crush, chew, or split. Active tamsulosin (FLOMAX) 0.4 mg 24 hr capsule Take 1 capsule (0.4 mg total) by mouth 1 (one) time each day. Capsules should be taken 30 minutes following the same meal each day. Active Encounters Date Type Department Care Team Description 07/02/2025 11:23 AM EDT Anesthesia Event [facility] OR [address] [place] [phone] Andre Simms DO Barnes, Tyanna R, BRIT 07/02/2025 10:30 AM EDT - 07/02/2025 12:00 PM EDT Surgery [facility] OR [address] [place] [phone] Uriel Izaguirre MD CYSTOSCOPY RANDOM BLADDER/ PROSTATE/URETHRA BIOPSIES, BILATERAL RETROGRADE PYELOGRAM SELECTIVE WASHING [83680 (CPT ) +1 more] 07/02/2025 8:59 AM EDT - 07/02/2025 2:13 PM EDT Hospital Encounter [facility] Main OR [address] [place] [address] Uriel Izaguirre MD Neoplasm of unspecified behavior of bladder; Other abnormal findings on cytological and histological examination of urine Discharge Disposition: Home or Self Care 07/02/2025 7:20 AM EDT - 07/02/2025 11:59 PM EDT Hospital Encounter [facility] Xray [address] [place] [phone] Pain Discharge Disposition: Home or Self Care 05/04/2025 Telephone Nephrology - [place] [id number] [place] [phone] Olegario Hough MD from Last 3 Months Surgical History Surgery Date Site/Laterality Comments COLONOSCOPY 2003 PROCEDURE: MS COLONOSCOPY STOMA DX INCLUDING COLLJ SPEC SPX; COMMENT: Nayeli; neg HERNIA REPAIR 10/14 PROCEDURE: REPAIR INGUINAL HERNIA; COMMENT: Left; Dr Galicia Medical History Medical History Date Comments Ankle fracture 08/06/2008 DX:Ankle fractur e; COMMENT: Leigh Ann; 07/13 Hematuria 05/17/2009 DX:Hematuria Hypertension Sleep apnea Family History Medical History Relation Name Comments Ovarian cancer Aunt Prostate cancer Father Colon cancer Maternal Grandmother Colon polyps Mother Hypertension Mother Other: Other Mother sudden d ysrhythmia Thyroid disease Mother Heart attack Paternal Grandfather Diabetes Neg Hx Relation Name Status Comments Aunt Father Maternal Grandmother Mother (Age 403/01/09) ID ag e 50 Paternal Grandfather Social History Tobacco Use Types Packs/Day Years Used Date Smoking Tobacco: Some Days Cigarettes Smokeless Tobacco: Never Alcohol Use Standard Drinks/Week Comments No 500 (1 standard drink = 0.6 oz p ure alcohol) Interpersonal Safety Answer Date Record ed Physical Abuse 07/02/2025 Verbal Abuse 07/02/2025 Sex and Gender Information Value Date Recorded Sex Assigned at Male 06/24/2025 3:17 PM EDT Legal Sex Male 7:04 PM EST Gender Identity Not on file Sexual Orientation Not on file Obstetrics History Last Filed Vital Signs Vital Sign Reading Time Taken Comments Blood Pressure 175/98 07/02/2025 1:16 PM EDT Pulse 50 07/02/2025 1:16 PM EDT Temperature 35.9 C (96.6 F) 07/02/2025 1:16 PM EDT Respiratory Rate 18 07/02/2025 1:16 PM EDT Oxygen Saturation 100% 07/02/2025 1:16 PM EDT Inhaled Oxygen Concentration - - Weight 97.1 kg (214 lb) 07/02/2025 9:20 AM EDT Height 174 cm (5' 8.5 ) 07/02/2025 9:20 AM EDT Body Mass Index 32.07 07/02/2025 9:20 AM EDT Plan of Treatment Upcoming Encounters Date Type Department Care Team (Late st Contact Info) Description 10/15/2025 3:20 PM EST Consult Gastroenterology - [place] [address] [facility] [address] [place] [phone] Sera Hunter PA [address] [facility] [address] [place] [address] 12/03/2025 4:00 PM EST Office Visit Nephrology [facility] [address] [place] [phone] Olegario Hough MD [address] [facility] [address] [place] [phone] Health Maintenance Due Date Last Done Comments Diabetes: Annual GFR (Glomerular Filtration Rate) 1978 Diabetes: Annual Foot Exam 1988 Diabetes: Annual Retina Eye Exam 1988 Hepatitis B Vaccines (1 of 3 - 19+ 3-dose series) 1997 Pneumococcal Vaccine: Pediatrics (0 to 5 Years) and At-Risk Patients (6 to 49 Years) (1 of 2 - PCV) 1997 Cholesterol Screening (Lipid Panel) 10/07/2022 Colorectal Cancer Screening: Colonoscopy 10/07/2022 HIV Screening 10/07/2022 Hepatitis C Screening 10/07/2022 Social Influencers of Health Screening 10/07/2022 Hypertension/CHF/CAD Annual BMP Blood Test 10/15/2022 Depression Screening 11/05/2024 COVID-19 Vaccine (2 - 2024-2 6 season) 2025 02/05/2021 Influenza Vaccine (#1) 2025 6, 10/31/2012 Diabetes: Annual Urine Albumin-Creatinine Ratio (uACR) 07/09/2025 Diabetes: Blood Sugar Contro l Test (HGBA1C) 07/09/2025 DTaP,Tdap,and Td Vaccines (4 - Td or Tdap) 03/12/2035 03/12/2025, 02/16/2015, 12/17/2007 Hepatitis A Vaccines Aged Out 02/16/2015 No long er eligible based on patient's age to complete this topic HIB Vaccines Aged Out No longer eligi ble based on patient's age to complete this topic HPV Vaccines Aged Out No longer eligi ble based on patient's age to complete this topic IPV Vaccines Aged Out No longer eligi ble based on patient's age to complete this topic MMR Vaccines Aged Out No longer eligi ble based on patient's age to complete this topic Meningococcal ACWY Vaccine Aged Out N o longer eligible based on patient's age to complete this topic Meningococcal B Vaccine Aged Out No l onger eligible based on patient's age to complete this topic RSV Immunization Patients Under 20 months Aged Out No longer eligible b ased on patient's age to complete this topic Varicella Vaccines Aged Out No longer eligible based on patient's age to complete this topic Procedures Procedure Name Priority Date/Time Associated Diagnosis Comments XR UROGRAM RETROGRADE Routine 07/02/2025 12:07 PM EDT Pain TISSUE EXAM Routine 07/02/2025 12:02 PM EDT Neoplasm of unspecified behavior of bladder Other abnormal findings on cytological and histological examination of urine MS BIOPSY PROSTATE NEEDLE/PUNCH SINGLE/MULTIPLE ANY APPROACH 07/02/2025 11:23 AM EDT Neoplasm of unspecified behavior of bladder Other abnormal findings on cytological and histological examination of urine Case Notes RESPIRATORY CARE ASSISTANT NEEDED Special Needs TIME CHANGE VIA PHONE W /LEILA HERRERA 06/29 MS CYSTOURETHROSCOPY WITH BIOPSY(S) 07/02/2025 11:23 AM EDT Neoplasm of unspecified behavior of bladder Other abnormal findings on cytological and histological examination of urine Case Notes RESPIRATORY CARE ASSISTANT NEEDED Special Needs TIME CHANGE VIA PHONE W /LEILA HERRERA 06/29 from Last 3 Months Results * XR Urogram Retrograde (07/02/2025 12:07 PM EDT) Anatomical Region Laterality Modality Body Radio Fluoroscop y 07/02/2025 12:1 0 PM EDT Narrative 07/02/2025 12:11 PM EDT Fluoroscopic spot radiographs obtained during a bilateral endourologic procedure are submitted. No radiologist consultation was requested or provided during this procedure and there is no radiologist professional charge. This report is generated for documentation purposes only. The dose-area product for this procedure was 3.257 Gy*cm2. PQRI CPT II G9500 -------- FINAL REPORT -------- Dictated By: Jim Bello Dictated Date: 07/02/2025 12:10 ET Assigned Physician: Jim Bello Reviewed and Electronically Signed By: Jim Bello Signed Date: 07/02/2025 12:11 ET Workstation ID: [id number] Transcribed By: Self Edit Transcribed Date: 07/02/2025 12:10 ET Procedure Note Jim Bello MD - 07/02/2025 Fluoroscopic spot radiographs obtained during a bilateral endourologicprocedure are submitted. No radiologist consultation was requested orprovided during this procedure and there is no radiologist professionalcharge. This report is generated for documentation purposes only. The dose-area product for this procedure was 3.257 Gy*cm2. PQRI CPT II G9500 -------- FINAL REPORT -------- Dictated By: Jim Bello Dictated Date: 07/02/2025 12:10 ET Assigned Physician: Jim Bello Reviewed and Electronically Signed By: Jim Bello Signed Date: 07/02/2025 12:11 ET Workstation ID: [id number] Transcribed By: Self Edit Transcribed Date: 07/02/2025 12:10 ET Uriel Izaguirre MD [facility] [place]EDURES Final Result * Tissue exam (07/02/2025 12:02 PM EDT) Final Diagnosis A. Urinary Bladder, Posterior wall, biopsy: - Benign urothelial mucosa. - Muscularis propria is present. - Negative for dysplasia. B. Urinary Bladder, Rright lateral wall, biopsy: - Benign urothelial mucosa. - Muscularis propria is present. - Negative for dysplasia. C. Urinary Bladder, Left lateral wall, biopsy: - Benign urothelial mucosa. - Muscularis propria is present. - Negative for dysplasia. D. Urethra, Prostatic, biopsy: - Benign prostatic urethral mucosa. - Negative for dysplasia. E. Urinary Bladder, Anterior wall, biopsy: - Benign urothelial mucosa. - Muscularis propria is present. - Negative for dysplasia. 07/03/2025 12:[address] [facility] Gross Description A. Urinary Bladder, Posterior wall: Labeled posterior bladder ID 4 . Received in formalin, on Telfa, is a soft, red-white, 0.35 cm in greatest diameter tissue fragment which is wrapped in paper and submitted in toto in one cassette, one piece, multiple levels. B. Urinary Bladder, Rright lateral wall: Labeled right la bladder ID 5 . Received in formalin, with Telfa is a soft, juarez-white to pink, 0.35 cm in greatest diameter tissue fragment which is wrapped in paper and submitted in toto in one cassette, one piece, multiple levels. C. Urinary Bladder, Left lateral wall: Labeled left late bladder ID 6 . Received in formalin, on Telfa, is a soft, juarez-pink to white, 0.35 cm in greatest diameter tissue fragment which is wrapped in paper and submitted in toto in one cassette, one piece, multiple levels. D. Urethra, Prostatic: Labeled prostatic urethra ID 7 . Received in formalin, on Telfa is a soft, juarez-pink, 0.3 cm in greatest diameter tissue fragment which is wrapped in paper and submitted in toto in one cassette, one piece, multiple levels. E. Urinary Bladder, Anterior wall: Labeled anterior bladder ID 8 . Received in formalin is a soft, red-white, 0.35 cm in greatest diameter tissue fragment which is wrapped in paper and submitted in toto in one cassette, one piece, multiple levels. TS 07/03/2025 12:[address] [facility] Disclaimer Unless otherwise specified, all tissue is 10% NB formalin fixed and paraffin embedded. 07/03/2025 12:35 PM EDT [facility] Tissue Urinary bladder structure / Unknown 07/02/2025 12:02 PM EDT 07/02/2025 1:12 PM EDT Tissue specimen (specimen) Urinary bladder structure / Unknown 07/02/2025 12:04 PM EDT 07/02/2025 1:12 PM EDT Tissue specimen (specimen) Urinary bladder structure / Unknown 07/02/2025 12:06 PM EDT 07/02/2025 1:12 PM EDT Tissue specimen (specimen) Urethral structure / Unknown 07/02/2025 12:06 PM EDT 07/02/2025 1:12 PM EDT Tissue specimen (specimen) Urinary bladder structure / Unknown 07/02/2025 12:10 PM EDT 07/02/2025 1:12 PM EDT us Uriel Izaguirre MD LAB PATHOLOGY ORDERABLES Final R esult [facility] [address] [place] [address], from Last 3 Months Insurance [employer] Advance Directives Documents on File Type Date Recorded Patient Outbound Call Center Representative Expl anation Health Care Decision (hx) 10/18/2010 SYLWIA MARVIN DIRECTIVE Care Teams Ragman Relationship Specialty Start Date End Date Lauren Adams MD [address] [place] [address] [facility] - General 06/28/23
--- OUTSIDE RECORDS SUMMARY | 2025-07-14 13:00 | XMS_ITS | Clinical Summary ---
Author Organization [facility] Address [address] [place] [phone] Phone Care Team Providers Care Shock Absorption Floor Layer Name Role Phone Susan Dsouza Primary Care Provider [phone] Encounters Date Type Department Care Team Description 06/16/2025 Telephone [facility] [address] [place] [address] [place], [place] new patient Appointment 06/01/2025 Telephone [facility] [address] [place] [phone] [facility] [place] New Patient Appointment from Last 3 Months Social History Tobacco Use Types Packs/Day Years Used Date Smoking Tobacco: Never Assessed Sex and Gender Information Value Date Recorded Sex Assigned at Not on file Legal Sex Male 7:24 AM MDT Gender Identity Not on file Sexual Orientation Not on file Plan of Treatment Upcoming Encounters Date Type Department Care Team (Late st Contact Info) Description 07/22/2025 9:40 AM EDT Office Visit [facility] [address] [place] [address] Kamilah Beach DO [address] [place] [address] Health Maintenance Due Date Last Done Comments Influenza Vaccine (#1) 2025 Insurance [employer] Care Teams Shock Absorption Floor Layer Relationship Specialty Start Date End Date Susan Dsouza PA [address] [place] [phone] PCP - General Internal Medicine 07/08/25
--- OUTSIDE RECORDS SUMMARY | 2025-07-14 13:01 | XMS_ITS | Patient Health Record ---
Author Organization [facility] [address] Address [address] [place] [address] Care Team Providers Care Associate Professor Of Law Name Role Phone SERENA WALKER Unavailable [phone] ADAMSCESAR RAYGOZA Unavailable [phone] ISIDRAPHU Unavailable [phone] Allergies No Known Allergies Results Component Value Reference Range Notes BASIC METABOLIC PANEL Reviewed date:03/09/2025 08:12:27 AM Interpretation: Performing Lab:[facility], [facility] [address] [place], [place] Elizabeth Ivey Notes/Report: FASTING:NO FASTING: NO GLUCOSE 101 65-139 mg/dL Non-fasting reference interval UREA NITROGEN (BUN) 64 7-25 mg/dL CREATININE 3.55 0.60-1.29 mg/dL EGFR 21 > OR = 60 mL/min/1.73m2 BUN/CREATININE RATIO 18 6-22 (calc) SODIUM 139 135-146 mmol/L POTASSIUM 4.8 3.5-5.3 mmol/L CHLORIDE 109 98-110 mmol/L CARBON DIOXIDE 24 20-32 mmol/L CALCIUM 8.5 8.6-10.3 mg/dL Your request to have a duplicate copy faxed has been acknowledged. Queued to: [id number] Comp. Metabolic Panel (14)-3 Reviewed date:07/13/2025 04:33:46 PM Interpretation: Performing Lab:[facility] Casarez, [address] [facility], Phone - [phone], Director - Job Notes/Report: Glucose 88 70-99 mg/dL BUN 97 6-24 mg/dL Creatinine 6.64 0.76-1.27 mg/dL eGFR 10 >59 mL/min/1.73 BUN/Creatinine Ratio 15 9-20 Sodium 141 134-144 mmol/L Potassium 4.9 3.5-5.2 mmol/L Chloride 108 96-106 mmol/L Carbon Dioxide, Total 12 20-29 mmol/L Veri fied by repeat analysis Calcium 8.3 8.7-10.2 mg/dL Protein, Total 5.5 6.0-8.5 g/dL Albumin 3.6 4.1-5.1 g/dL Globulin, Total 1.9 1.5-4.5 g/dL Bilirubin, Total 0.2 0.0-1.2 mg/dL Alkaline Phosphatase 48 44-121 IU/L Effective July 20, 2025 Alkaline Phosphatase reference interval will be changing to: Age Male Female 0 - 5 days 47 - 127 47 - 127 6 - 10 days 29 - 242 29 - 242 11 - 20 days 109 - 357 109 - 357 21 - 30 days 94 - 494 94 - 494 1 - 2 months 149 - 539 149 - 539 3 - 6 months 131 - 452 131 - 452 7 - 11 months 117 - 401 117 - 401 12 months - 6 years 158 - 369 158 - 369 7 - 12 years 150 - 409 150 - 409 13 years 156 - 435 78 - 227 14 years 114 - 375 64 - 161 15 years 88 - 279 56 - 134 16 years 74 - 207 51 - 121 17 years 63 - 161 47 - 113 18 - 20 years 51 - 125 42 - 106 21 - 50 years 47 - 123 41 - 116 51 - 80 years 49 - 135 51 - 125 >80 years 48 - 129 48 - 129 AST (SGOT) 36 0-40 IU/L ALT (SGPT) 31 0-44 IU/L Albumin/Creatinine Ratio,Uri [id number] Reviewed date:07/13/2025 04:34:06 PM Interpretation: Performing Lab:[facility] Casarez, [address] [facility] [address], [place], Phone - [phone], Director - Job Notes/Report: Creatinine, Urine 59.3 Not Estab. mg/dL Albumin, Urine 1234.7 Not Estab. ug/mL Results confirmed on dilution. Alb/Creat Ratio 2081 0-29 mg/g creat Normal: 0 - 29 Moderately increased: 30 - 300 Severely increased: >300 CBC With Differential/Platel et-[id number] Reviewed date:07/13/2025 04:33:56 PM Interpretation: Performing Lab:Anny Casarez, [address] [place] [address], Phone - [phone], Director - MDLorenay Notes/Report: WBC 8.2 3.4-10.8 x10E3/uL RBC 3.10 4.14-5.80 x10E6/uL Hemoglobin 9.3 13.0-17.7 g/dL Hematocrit 28.1 37.5-51.0 % MCV 91 79-97 fL MCH 30.0 26.6-33.0 pg MCHC 33.1 31.5-35.7 g/dL RDW 12.9 11.6-15.4 % Platelets 196 150-450 x10E3/uL Neutrophils 72 Not Estab. % Lymphs 17 Not Estab. % Monocytes 7 Not Estab. % Eos 2 Not Estab. % Basos 1 Not Estab. % Neutrophils (Absolute) 6.0 1.4-7.0 x10E3/uL Lymphs (Absolute) 1.4 0.7-3.1 x10E3/uL Monocytes(Absolute) 0.6 0.1-0.9 x10E3/uL Eos (Absolute) 0.1 0.0-0.4 x10E3/uL Baso (Absolute) 0.0 0.0-0.2 x10E3/uL Immature Granulocytes 1 Not Estab. % Immature Grans (Abs) 0.1 0.0-0.1 x10E3/uL Urinalysis, Complete-[id number] Reviewed date:07/13/2025 04:34:16 PM Interpretation: Performing Lab:Anny [place], [address] [facility], Phone - [phone], Director - MDJodry Notes/Report: Specific Atkins 1.013 1.005-1.030 pH 5.5 5.0-7.5 Urine-Color Yellow Yellow Appearance Clear Clear WBC Esterase Negative Negative Protein 3+ Negative/Trace Glucose Negative Negative Ketones Negative Negative Occult Blood 2+ Negative Bilirubin Negative Negative Urobilinogen,Semi-Qn 0.2 0.2-1.0 mg/dL Nitrite, Urine Negative Negative Microscopic Examination See below: Microscopic was indicated and was performed. WBC 0-5 0 - 5 /hpf RBC 3-10 0 - 2 /hpf Epithelial Cells (non renal) None seen 0 - 10 /hpf Casts None seen None seen /lpf Bacteria None seen None seen/Few T3, FREE Reviewed date:03/06/2025 08:09:24 AM Interpretation: Performing Lab:NL2, [facility] [place] [id number] [place] [address] Notes/Report: FASTING:YES FASTING: YES T3, FREE 3.0 2.3-4.2 pg/mL TSH Reviewed date:03/06/2025 08:09:24 AM Interpretation: Performing Lab:NL2, [facility] [address] Notes/Report: FASTING:YES FASTING: YES TSH 2.59 0.40-4.50 mIU/L T4, FREE Reviewed date:03/06/2025 08:09:24 AM Interpretation: Performing Lab:NL2, [facility] [address] Notes/Report: FASTING:YES FASTING: YES T4, FREE 1.2 0.8-1.8 ng/dL PSA (FREE AND TOTAL) Reviewed date:03/06/2025 12:15:53 PM Interpretation: Performing Lab:NL2, [facility] [place] [id number] [place] [address] Notes/Report: FASTING:YES FASTING: YES PSA, TOTAL 2.4 < OR = 4.0 ng/mL PSA, FREE 0.9 PSA, % FREE 38 >25 % (calc) PSA(ng/mL) Free PSA(%) Estimated(x) Probability of Cancer(as%) 0-2.5 (*) Approx. 1 2.6-4.0(1) 0-27(2) 24(3) 4.1-10(4) 0-10 56 11-15 28 16-20 20 21-25 16 >or =26 8 >10(+) N/A >50 References:(1)Greta et al.:Urology 60: 469-474 (2002) (2)Greta et al.:J.Urol 168: 922-925 (2002) Free PSA(%) Sensitivity(%) Specificity(%) < or = 25 85 19 < or = 30 93 9 (3)Catalona et al.:CUONG 277: 3072-6144 (1996) (4)Catalona et al.:CUONG 279: 5140-4146 (1997) (x)These estimates vary with age, ethnicity, family history and ERASTO results. (*)The diagnostic usefulness of % Free PSA has not been established in patients with total PSA below 2.6 ng/mL (+)In men with PSA above 10 ng/mL, prostate cancer risk is determined by total PSA alone. The Total PSA value from this assay system is standardized against the equimolar PSA standard. The test result will be approximately 20% higher when compared to the WHO-standardized Total PSA (Siemens assay). Comparison of serial PSA results should be interpreted with this fact in mind. PSA was performed using the Lauri [place] Immunoassay method. Values obtained from different assay methods cannot be used interchangeably. PSA levels, regardless of value, should not be interpreted as absolute evidence of the presence or absence of disease. VITAMIN B12 Reviewed date:03/06/2025 08:09:24 AM Interpretation: Performing Lab:NL2, [facility] Rashel Phillips Notes/Report: FASTING:YES FASTING: YES VITAMIN B12 751 196-5348 pg/mL HEMOGLOBIN A1c Reviewed date:03/06/2025 08:09:24 AM Interpretation: Performing Lab:NL2, [facility] Rashel Phillips Notes/Report: FASTING:YES FASTING: YES HEMOGLOBIN A1c 5.2 <5.7 % For the purpose of screening for the presence of diabetes: <5.7% Consistent with the absence of diabetes 5.7-6.4% Consistent with increased risk for diabetes (prediabetes) > or =6.5% Consistent with diabetes This assay result is consistent with a decreased risk of diabetes. Currently, no consensus exists regarding use of hemoglobin A1c for diagnosis of diabetes in children. According to [place] Diabetes Association (ADA) guidelines, hemoglobin A1c <7.0% represents optimal control in non- diabetic patients. Different metrics may apply to specific patient populations. Standards of Medical Care in Diabetes(ADA). URINALYSIS, COMPLETE Reviewed date:03/06/2025 08:09:14 AM Interpretation: Performing Lab:NL2, [facility] Rashel Phillips Notes/Report: FASTING:YES FASTING: YES COLOR YELLOW YELLOW APPEARANCE CLEAR CLEAR SPECIFIC GRAVITY 1.013 1.001-1.035 PH 5.5 5.0-8.0 GLUCOSE NEGATIVE NEGATIVE BILIRUBIN NEGATIVE NEGATIVE KETONES NEGATIVE NEGATIVE OCCULT BLOOD TRACE NEGATIVE PROTEIN 3+ NEGATIVE NITRITE NEGATIVE NEGATIVE LEUKOCYTE ESTERASE NEGATIVE NEGATIVE WBC 0-5 < OR = 5 /HPF RBC 3-10 < OR = 2 /HPF SQUAMOUS EPITHELIAL CELLS NONE SEEN < OR = 5 /HPF BACTERIA NONE SEEN NONE SEEN /HPF HYALINE CAST NONE SEEN NONE SEEN /LPF NOTE This urine was analyzed for the presence of WBC, RBC, bacteria, casts, and other formed elements. Only those elements seen were reported. CBC (INCLUDES DIFF/PLT) Reviewed date:03/06/2025 08:07:58 AM Interpretation: Performing Lab:NL2, [facility] [address] Rashel Phillips Notes/Report: FASTING:YES FASTING: YES WHITE BLOOD CELL COUNT 8.9 3.8-10.8 Thousand/uL RED BLOOD CELL COUNT 4.06 4.20-5.80 Million/uL HEMOGLOBIN 12.1 13.2-17.1 g/dL HEMATOCRIT 37.1 38.5-50.0 % MCV 91.4 80.0-100.0 fL MCH 29.8 27.0-33.0 pg MCHC 32.6 32.0-36.0 g/dL For adults, a slight decrease in the calculated MCHC value (in the range of 30 to 32 g/dL) is most likely not clinically significant; however, it should be interpreted with caution in correlation with other red cell parameters and the patient's clinical condition. RDW 12.7 11.0-15.0 % PLATELET COUNT 203 140-400 Thousand/uL MPV 10.9 7.5-12.5 fL ABSOLUTE NEUTROPHILS 6542 0634-0422 cells/uL ABSOLUTE LYMPHOCYTES 7385 857-8888 cells/uL ABSOLUTE MONOCYTES 721 200-950 cells/uL ABSOLUTE EOSINOPHILS 142 15-500 cells/uL ABSOLUTE BASOPHILS 36 0-200 cells/uL NEUTROPHILS 73.5 LYMPHOCYTES 16.4 MONOCYTES 8.1 EOSINOPHILS 1.6 BASOPHILS 0.4 [address]PREH[address]IVE METABOLIC PANE L Reviewed date:03/06/2025 09:49:26 AM Interpretation: Performing Lab:NL2, [facility] [address] Rashel Phillips Notes/Report: FASTING:YES FASTING: YES GLUCOSE 103 65-99 mg/dL Fasting reference interval For someone without known diabetes, a glucose value between 100 and 125 mg/dL is consistent with prediabetes and should be confirmed with a follow-up test. UREA NITROGEN (BUN) 71 7-25 mg/dL CREATININE 3.38 0.60-1.29 mg/dL EGFR 22 > OR = 60 mL/min/1.73m2 BUN/CREATININE RATIO 21 6-22 (calc) SODIUM 139 135-146 mmol/L POTASSIUM 5.2 3.5-5.3 mmol/L CHLORIDE 110 98-110 mmol/L CARBON DIOXIDE 24 20-32 mmol/L CALCIUM 8.8 8.6-10.3 mg/dL PROTEIN, TOTAL 5.7 6.1-8.1 g/dL ALBUMIN 3.6 3.6-5.1 g/dL GLOBULIN 2.1 1.9-3.7 g/dL (calc) ALBUMIN/GLOBULIN RATIO 1.7 1.0-2.5 (calc) BILIRUBIN, TOTAL 0.2 0.2-1.2 mg/dL ALKALINE PHOSPHATASE 46 36-130 U/L AST 28 10-40 U/L ALT 31 9-46 U/L LIPID PANEL, STANDARD Reviewed date:03/06/2025 08:09:24 AM Interpretation: Performing Lab:RAYSHAWN2, [facility] [address] Rashel Phillips Notes/Report: FASTING:YES FASTING: YES CHOLESTEROL, TOTAL 162 <200 mg/dL HDL CHOLESTEROL 53 > OR = 40 mg/dL TRIGLYCERIDES 78 <150 mg/dL LDL-CHOLESTEROL 92 Reference range: <100 Desirable range <100 mg/dL for primary prevention; <70 mg/dL for patients with CHD or diabetic patients with > or = 2 CHD risk factors. LDL-C is now calculated using the Aure calculation, which is a validated novel method providing better accuracy than the Friedewald equation in the estimation of LDL-C. Ramiro SHIPLEY et al. CUONG. 2013;310(19): 6540-6455 (http://education.[employer]/faq/F AQ164) CHOL/HDLC RATIO 3.1 <5.0 (calc) NON HDL CHOLESTEROL 109 <130 mg/dL (calc) For patients with diabetes plus 1 major ASCVD risk factor, treating to a non-HDL-C goal of <100 mg/dL (LDL-C of <70 mg/dL) is considered a therapeutic option. NON-GYNECOLOGIC CYTOLOGY Reviewed date:07/08/2025 11:09:57 AM Interpretation: Performing Lab: Notes/Report: Final Diagnosis A. Urinary Bladder, Urine, ThinPrep: Negative for high grade urothelial carcinoma. Note: UroVysion testing to follow. B. Ureter, Left, washing, ThinPrep: Negative for high grade urothelial carcinoma. Note: UroVysion testing to follow. C. Ureter, Right, washing, ThinPrep: Negative for high grade urothelial carcinoma. Note: UroVysion testing to follow. Specimen A Adequacy Satisfactory for evaluation Specimen B Adequacy Satisfactory for evaluation Gross Description A. Urinary Bladder, urovision and cytology: Received is 60 ml of clear yellow fluid. One ThinPrep and one Urovision slide made. B. Ureter, Left, washing -urovision and cytology: Recived is 10 ml of clear fluid. One ThinPrep and one Urovision slide made. C. Ureter, Right, washing - urovision and cytology: Received is 10 ml of clear fluid. One ThinPrep and one Urovision slide made. Disclaimer Unless otherwise specified, all tissue is 10% NB formalin fixed and paraffin embedded. Technical cytopathology services provided by [facility], at [address] [place] [address], [place] [address] (CLIA # [id number]/Marian Jerez MD, Manager Of Organizational Development.) Specimen C Adequacy Satisfactory for evaluation TISSUE EXAM Reviewed date:07/08/2025 11:09:57 AM Interpretation: Performing Lab: Notes/Report: Final Diagnosis A. Urinary Bladder, Posterior wall, [...] propria is present. - Negative for dysplasia. Gross Description A. Urinary Bladder, Posterior wall: [...] one cassette, one piece, multiple levels. TS Disclaimer Unless otherwise specified, all tissue is 10% NB formalin fixed and paraffin embedded. XR UROGRAM RETROGRADE Reviewed date:07/13/2025 02:57:05 PM Interpretation: Performing Lab: Notes/Report: Note See Note [facility], a member of [employer] Patient Name: MARIAN GOODSON Date of : 1980 Reason for Exam: pain Exam Date: 07/02/2025 [id number] EST Report Status: Final Ordering Provider: JULISSA WOODS PCP: CESAR ADAMS Fluoroscopic spot radiographs obtained during a bilateral endourologic procedure are submitted. No radiologist consultation was requested or provided during this procedure and there is no radiologist professional charge. This report is generated for documentation purposes only. The dose-area produc t for this procedure was 3.257 Gy*cm2. PQRI CPT II G9500 -------- FINAL REPOR T -------- Dictated By: Jim Bello Dictated Date: 07/02/2025 12:10 ET Assigned Physician: Jim Bello Reviewed and Electronically Signed By: Jim Bello Signed Date: 025 12:11 ET Workstation ID: [id number] Transcribed By: Self Edit Transcribed Date: 07/02/2025 12:10 ET Reason For Referral Reason evaluate & treat. (i ncrease sofyane) Diagnosis 1 Enlarged prostate (N 40.0) Referral Organization [facility] Referring Provider First Name SERENA Referring Provider Last Name AARON Referring Provider Speciality Internal edicine Referred Provider Specialty Urology Clinical Notes Grey Correia 07/2025 02:52:06 PM > faxed pt info to [facility]. p) [phone] f) [phone], David Sam 04/02/2025 01:29:45 PM > Spoke with Ada. Booked on April 16 1:40PM Referral Priority Routine Reason evaluate & treat. ( 3.38) Diagnosis 1 Creatinine elevation (R79.89) Diagnosis 2 Acute kidney failure , unspecified (N17.9) Diagnosis 3 Chronic kidney disea se, unspecified (N18.9) Referral Organization [facility] [address] Referring Provider First Name SERENA Referring Provider Last Name AARON Referring Provider Speciality Internal edicine Referred Provider Specialty Nephrology Clinical Notes Grey Correia 07/2025 02:56:50 PM > [facility] p) [phone] f) [phone], David Sam 03/24/2025 03:27:27 PM > Spoke with Maria C, she gave me this fax [phone]. Refaxed twice. Booking out until the end of the year. Sent task to MACecy Earl Bari 05/06/2025 03:21:20 PM > Spoke with Mayi, they called patient and lvm but they haven't heard back. Mayi said [facility] [place] can accommodate pt sooner. LVM to patient, David Sam 05/13/2025 02:21:44 PM > Spoke with the patient and gave him the number. [facility] call [facility], elma momin 05/19/2025 08:24:09 AM >olga into april 2026- needs scott sent to [facility], [address], [place] [address], , fax # [phone], and [facility] phone # [phone], fax# [phone], David Sam Bari 06/11/2025 01:51:55 PM > spoke with Elizabeth ([facility]), they left a msg on 06/01 to book an appt. LVM to ptCecy Earl Bari 07/08/2025 02:49:38 PM > He already have an appt in November but he was asking if there are offices having sooner appt. I gave him number of [facility]. Referral Priority Urgent Reason evaluate and treat colonic finding on ct Diagnosis 1 Abdominal pain, lowe r (R10.30) Referral Organization [facility] [address] Referring Provider First Name SERENA Referring Provider Last Name AARON Referring Provider Speciality Internal M edicine Referred Provider Specialty Gastrointest inal surgeon General Notes faxed to dr.muslu fuentes schafer seen there better for colonoscopy Clinical Notes elma momin 0 06/26/2025 08:53:16 AM > Referral Priority Routine Medications Medication SIG (Take, Route, Frequency, Duration) Notes Start Date End Date Status Magnesium Active Tamsulosin HCl 0.4 MG 1 capsule Orally O nce a day; Duration: 90 days 07/10/2025 Active Methocarbamol 500 MG 1 tab Orally bedtim e; Duration: 14 days 07/10/2025 Active Tamsulosin HCl 0.4 MG 2 cap Orally Once a day; Duration: 30 days 05/18/2025 Active amLODIPine Besylate 5 MG 1 tablet Orally Once a day; Duration: 90 days 04/03/2025 Active Tamsulosin HCl 0.4 MG TAKE 1 CAPSULE BY MOUTH DAILY; Duration: 30 Active B Complex - as directed Orally Active Vitamin B12 Active Immunizations Vaccine Route Administration Date Status Comme nts Tdap IM Intramuscular 03/12/2025 Administered Social History Tobacco Use: Social History Observation Description Date Details (start date - stop date) Current Smoker NA - NA Tobacco Use/Smoking Question Answer Notes Are you a current smoker How often do you smoke cigarettes? every day Alcohol Screen (Audit-C) Question Answer Notes Did you have a drink containing alcohol in the p ast year? 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 Problems Problem Type SNOMED Code ICD Code Onset Dates Problem Status W/U Status Risk Notes Problem Localized adiposity (112412963) Localized adiposity (E65) Active confirmed Problem Essential hypertension (21320366) Essential (primary) hypertension (I10) Active confirmed Problem Melena (0157621) Melena (K92.1) Active confirme d Problem Backache (590298010) Dorsalgia, unspecified (M54.9) Active confirmed Problem Chronic kidney disease (010968931) Chronic kidney disease, unspecified (N18.9) Active confirmed Problem Abnormal blood pressure (98301740) Encounter for examination of blood pressure with abnormal findings (Z01.31) Active confirmed Problem Screening for malignant neoplasm of prostate (846205174) Encounter for screening for malignant neoplasm of prostate (Z12.5) Active confirmed Problem Diabetes mellitus screening (574585239) Encounter for screening for diabetes mellitus (Z13.1) Active confirmed Problem Lipid screening (461866256) Encounter for screening for lipoid disorders (Z13.220) Active confirmed Problem Morbid obesity (757121411) Morbid obesity (E66.01) Active confirmed Problem Acquired hypothyroidism (127078570) Acquired hypothyroidism (E03.9) Active confirmed Problem Hyperlipoproteinemia (0889089) Acquired hyperlipoproteinemia (E78.5) Active confirmed Problem Adult health examination (438881582) Adult general medical exam (Z00.00) Active confirmed Problem Abdominal pain (15197106) Abdominal pain, unspecified abdominal location (R10.9) Active confirmed Problem Annual health maintenance examination (24584361) Annual physical exam (Z00.00) Active confirmed Problem Vitamin D deficiency (90198642) Vitamin D deficiency (E55.9) Active confirmed Problem Male hypogonadism (30886690) Hypogonadism in male (E29.1) Active confirmed Problem Enlarged prostate (697568302) Enlarged prostate (N40.0) Active confirmed Problem Blood in stool (511543953) Blood in stool (K92.1) Active confirmed Problem Obstructive sleep apnea syndrome (58178062) HAYLEY (obstructive sleep apnea) (G47.33) Active confirmed Problem Diabetes mellitus screening (974737824) Diabetes mellitus screening (Z13.1) Active confirmed Problem Obesity (365337439) Obesity (BMI 30-39.9) (E66.9) Active confirmed Problem Chronic kidney disease stage 3B (disorder) (607424691) Chronic kidney disease, stage 3b (N18.32) Active confirmed Problem Obese class II (007515088936694) BMI 37.0-37.9, adult (Z68.37) Active confirmed Problem Vitamin B>12< deficiency anaemia (18893882) Anemia due to vitamin B12 deficiency, 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) Active confirmed Problem Body mass index 30.0 0 to 34.99 (859297015155613) BMI 31.0-31.9,adult (Z68.31) Active confirmed Problem Blood chemistry abnormal (051008211) Creatinine elevation (R79.89) Active confirmed Problem Benign prostatic hypertrophy without outflow obstruction (092945858) BPH loc w/o ur obs/LUTS (N40.0) Active confirmed Problem Microcytic anemia (165099308) Microcytic anemia (D50.9) Active confirmed Problem Rib pain (257453493) Rib pain (R07.81) Active c onfirmed Problem Right sided abdomina l pain (692971408) Right sided abdominal pain (R10.9) Active confirmed Problem Avitaminosis D (31566072) Avitaminosis D (E55.9) Active confirmed Problem Endocrine/metabolic screening (141147127) Encounter for screening for endocrine disorder (Z13.29) Active confirmed Problem Abnormal metabolic state due to diabetes mellitus (413644714) Abnormal metabolic state due to diabetes mellitus (E11.9) Active confirmed Problem Lipid screening (430910255) Lipid screening (Z13.220) Active confirmed Problem Blood chemistry abnormal (168731210) Abnormal blood creatinine level (R79.89) Active confirmed Problem Chronic kidney disease stage 4 (020979206) CKD (chronic kidney disease), stage IV (N18.4) Active confirmed Vital Signs Heart Rate 91 /min 05/18/2025 Blood pressure diastolic 94 mm Hg 05/18/2025 Oximetry 98 % 05/18/2025 Height 68 in 05/18/2025 Blood pressure systolic 166 mm Hg 05/18/2025 Weight 215.4 lbs 05/18/2025 BMI 32.75 kg/m2 05/18/2025 Encounters Encounter Location Date Provider Diagnosis [facility] [address] [place], [place] 03/12/2025 SERENA WALKER Hematochezia K92.1 ; Annual physical exam Z00.00 ; Essential (primary) hypertension I10 ; Tobacco abuse disorder Z72.0 ; Morbid obesity E66.01 ; HAYLEY (obstructive sleep apnea) G47.33 ; Encounter for examination of blood pressure with abnormal findings Z01.31 ; Chronic kidney disease, stage 3b N18.32 and Encounter for immunization Z23 [address] 04/03/2025 SERENA WALKER Essential (primary) hypertension I10 ; Tobacco abuse disorder Z72.0 ; Morbid obesity E66.01 ; HAYLEY (obstructive sleep apnea) G47.33 ; Encounter for examination of blood pressure with abnormal findings Z01.31 ; Chronic kidney disease, stage 3b N18.32 ; Encounter for immunization Z23 ; KEYONNA (acute kidney injury) N17.9 and BPH loc w/o ur obs/LUTS N40.[address] 05/18/2025 SERENA WALKER Essential (primary) hypertension I10 ; BPH loc w/o ur obs/LUTS N40.0 ; KEYONNA (acute kidney injury) N17.9 ; Tobacco abuse disorder Z72.0 ; Morbid obesity E66.01 ; HAYLEY (obstructive sleep apnea) G47.33 ; Chronic kidney disease, stage 3b N18.32 and Encounter for examination of blood pressure with abnormal findings Z01.[address] 07/10/2025 SERENA WALKER Muscle cramp R25.2 ; Diarrhea, unspecified R19.7 ; Essential (primary) hypertension I10 ; BPH loc w/o ur obs/LUTS N40.0 ; Chronic kidney disease, stage 3b N18.32 ; Tobacco abuse disorder Z72.0 ; Morbid obesity E66.01 ; HAYLEY (obstructive sleep apnea) G47.33 ; Encounter for examination of blood pressure with abnormal findings Z01.31 and Dehydration E86.[address] 12/25/2024 SERENA WALKER Annual physical exam Z00.00 ; Lipid screening Z13.220 ; Encounter for screening for diabetes mellitus Z13.1 ; Acquired hypothyroidism E03.9 ; Anemia due to vitamin B12 deficiency, unspecified B12 deficiency type D51.9 and Encounter for screening for malignant neoplasm of prostate Z12.5 [facility] [address] [facility] [address] [place] [address] 03/06/2025 SERENA AARON Creatinine elevation R79.[address] [facility] [address] [place] [address] 03/06/2025 SERENA AARON [facility] [address] [facility] [address] [place] [address] 03/09/2025 SERENA AARON Creatinine elevation R79.[address] [address] [place], [place] 03/24/2025 SERENA AARON [facility] [address] [address] 06/26/2025 SERENA AARON [facility] [address] [place] [address] 07/10/2025 SERENA AARON Bilateral leg cramps R25.2 ; Abnormal metabolic state due to diabetes mellitus E11.9 ; Acute colitis K52.9 and Adult general medical exam Z00.[address] [facility] [address] [place] [address] 07/13/2025 SERENA AARON [facility] [address] [facility] [address] [place] [address] 07/13/2025 SERENA AARON Assessments Encounter Date Diagnosis (ICD Code) Assessment Notes Treatment Notes Treatment Clinical Notes Section Notes 12/25/2024 Annual physical exam (ICD-10 - Z00.00) 03/06/2025 Creatinine elevation (ICD-10 - R79.89) 03/09/2025 Creatinine elevation (ICD-10 - R79.89) 03/12/2025 Annual physical exam (ICD-10 - Z00.00) 44 year old male who presents for CPE # (?) KEYONNA on CKD III. Patient's last creatinine was mildly elevated at 1.3., Labs noted on a prephysical screening revealed a creatinine of 3.38. Patient has had been having symptoms of BPH with urinary hesitancy, and frequent bladder emptying. Patient was started on Flomax, has been taking about 5 days now. He denies any back discomfort, or difficulty moving his bowels. Patient reports that he is never seen a urologist in the past. There is a history of prostate cancer. PSA was negative. Due to possible KEYONNA on CKD versus regular CKD, I will order a urologist consultation, and will resume the Flomax until he sees. I believe this is multifactorial, partially obstructive in nature, as well as uncontrolled blood pressure. Patient's systolic blood pressure on initial reading was noted to be in the 170s, repeat in the 160s. Patient attributes this to stress. He is not been checking his blood pressure at home. He denies any NSAID use. #HTN: BP in office was 170/82. Patient is take blood pressure daily over the weekend, and call back with results. Patient will likely need to go back on antihypertensive medications however will be unable to go on an DIEGO or an ARB secondary to his renal dysfunction.Consider adding Jardiance for renal protection. Ultrasound of the kidneys and bladder was done, showing no intrinsic medical renal disease. We will check a microalbumin creatinine ratio. #Tobacco cessation: Patient wants to stop smoking. He has tried chantix with good results before. He has reduced to 1.25 packs per day. Will order a nicotine patch and gum. #Obstructive sleep apnea: Stable. Uses cpap. # Vaccines. Tdap given today # Screenings: Colonoscopy 2023. Physical Men Patient seen and examined. Comprehensive discussion was done on the following. 1. Nutrition: It is important to follow a healthy diet based on lots of vegetables and legumes and good fat. Avoid processed food and processed carbohydrates. Learn to prepare your own meals. Learn to read labels and avoid high fructose corn syrup, processed chemicals added to increase shelf life and preprepared meals. Avoid fast foods. Learn to eat slowly and plan meals for a week. Try to count calories and be mindful off daily calorie intake. Get into the habit of keeping an eye on your weight by using an appropriate scale. Learn to log exercise and discussed fitness Apps like BTCJam which can help keep log off calories taken versus calories burned. Local food should be preferred. Discussed Dirty Dozen Versus Clean Fifteen. Discussed healthy supplements like fish oil, Tumeric, Curcumin, Melatonin, Resveratrol, Probiotics, Vitamin-D, Alpha-Lipoic acid, Vitamin-D and coconut oil. 2. It is important to exercise regularly. Is a good habit to walk at least 30-45 minutes a day. Gentle weightlifting with standard precautions to protect the back. Finding activity like cycling or hiking and get into the habit of engaging in it. Stretching before and after the exercises important. It is also important to contact me if there are any problems like shortness of breath, chest pain, back pain and joint or muscle pain associated with the exercise. 3. Discussed age appropriate screening guidelines. Colonoscopy needs to start at age 50 with stool for occult blood as appropriate. There is a new test that can test for genetic abnormalities in the stool sample. This would not replace a colonoscopy but could be used as a screening tool for patients who do not want a colonoscopy. We discussed the importance of early detection of colon cancer. 4. Discussed current PSA screening. PSA screening can be done in most patients between age 50 and 65. However early detection of prostate cancer needs to carefully be balanced with complications with treatment. These include incontinence, impotence etc. Each patient should decide if they would like to have this test. 5. Discussed safe driving and no use of smart phone while driving 6. Age-appropriate immunizations were discussed. A tetanus booster is needed every 10 years. Flu vaccine is recommended every year just before the start of the flu season. Shingles vaccine is recommended after age 50 but not all insurances cover it. Pneumonia vaccine is given after age 65 unless there are certain comorbidities for which it is started earlier. 7. Diagnostic labs were discussed. These could include CBC CMP and lipids with fasting blood glucose and insulin levels. Vitamin D and hemoglobin A1c testing might be appropriate. Case discussed with collaborating physician Ruchi Adams who reviewed the assessment and plan. Chart, medications, labs, vital signs reviewed. Dictation was accomplished with the use of [employer] voice recognition software, prone to medical misidentifications and grammatical errors. This is unintentional and the practitioner does try to identify and correct these, but some could still be present. Please do not hesitate to contact practitioner for clarification. All questions answered to patients satisfaction. Patient verbalized understanding of diagnosis and treatments explained. To call sooner prior to next visit it any questions/concerns arise. 03/12/2025 Hematochezia (ICD-10 - K92.1) 44 year old male who presents for CPE # (?) KEYONNA on CKD III. Patient's last creatinine was mildly elevated at 1.3., Labs noted on a prephysical screening revealed a creatinine of 3.38. Patient has had been having symptoms of BPH with urinary hesitancy, and frequent bladder emptying. Patient was started on Flomax, has been taking about 5 days now. He denies any back discomfort, or difficulty moving his bowels. Patient reports that he is never seen a urologist in the past. There is a history of prostate cancer. PSA was negative. Due to possible KEYONNA on CKD versus regular CKD, I will order a urologist consultation, and will resume the Flomax until he sees. I believe this is multifactorial, partially obstructive in nature, as well as uncontrolled blood pressure. Patient's systolic blood pressure on initial reading was noted to be in the 170s, repeat in the 160s. Patient attributes this to stress. He is not been checking his blood pressure at home. He denies any NSAID use. #HTN: BP in office was 170/82. Patient is take blood pressure daily over the weekend, and call back with results. Patient will likely need to go back on antihypertensive medications however will be unable to go on an DIEGO or an ARB secondary to his renal dysfunction.Consider adding Jardiance for renal protection. Ultrasound of the kidneys and bladder was done, showing no intrinsic medical renal disease. We will check a microalbumin creatinine ratio. #Tobacco cessation: Patient wants to stop smoking. He has tried chantix with good results before. He has reduced to 1.25 packs per day. Will order a nicotine patch and gum. #Obstructive sleep apnea: Stable. Uses cpap. # Vaccines. Tdap given today # Screenings: Colonoscopy 2023. Physical Men Patient seen and examined. Comprehensive discussion was done on the following. 1. Nutrition: It is important to follow a healthy diet based on lots of vegetables and legumes and good fat. Avoid processed food and processed carbohydrates. Learn to prepare your own meals. Learn to read labels and avoid high fructose corn syrup, processed chemicals added to increase shelf life and preprepared meals. Avoid fast foods. Learn to eat slowly and plan meals for a week. Try to count calories and be mindful off daily calorie intake. Get into the habit of keeping an eye on your weight by using an appropriate scale. Learn to log exercise and discussed fitness Apps like myfitnesspal which can help keep log off calories taken versus calories burned. Local food should be preferred. Discussed Dirty Dozen Versus Clean Fifteen. Discussed healthy supplements like fish oil, Tumeric, Curcumin, Melatonin, Resveratrol, Probiotics, Vitamin-D, Alpha-Lipoic acid, Vitamin-D and coconut oil. 2. It is important to exercise regularly. Is a good habit to walk at least 30-45 minutes a day. Gentle weightlifting with standard precautions to protect the back. Finding activity like cycling or hiking and get into the habit of engaging in it. Stretching before and after the exercises important. It is also important to contact me if there are any problems like shortness of breath, chest pain, back pain and joint or muscle pain associated with the exercise. 3. Discussed age appropriate screening guidelines. Colonoscopy needs to start at age 50 with stool for occult blood as appropriate. There is a new test that can test for genetic abnormalities in the stool sample. This would not replace a colonoscopy but could be used as a screening tool for patients who do not want a colonoscopy. We discussed the importance of early detection of colon cancer. 4. Discussed current PSA screening. PSA screening can be done in most patients between age 50 and 65. However early detection of prostate cancer needs to carefully be balanced with complications with treatment. These include incontinence, impotence etc. Each patient should decide if they would like to have this test. 5. Discussed safe driving and no use of smart phone while driving 6. Age-appropriate immunizations were discussed. A tetanus booster is needed every 10 years. Flu vaccine is recommended every year just before the start of the flu season. Shingles vaccine is recommended after age 50 but not all insurances cover it. Pneumonia vaccine is given after age 65 unless there are certain comorbidities for which it is started earlier. 7. Diagnostic labs were discussed. These could include CBC CMP and lipids with fasting blood glucose and insulin levels. Vitamin D and hemoglobin A1c testing might be appropriate. Case discussed with collaborating physician Ruchi Adams who reviewed the assessment and plan. Chart, medications, labs, vital signs reviewed. Dictation was accomplished with the use of [employer] voice recognition software, prone to medical misidentifications and grammatical errors. This is unintentional and the practitioner does try to identify and correct these, but some could still be present. Please do not hesitate to contact practitioner for clarification. All questions answered to patients satisfaction. Patient verbalized understanding of diagnosis and treatments explained. To call sooner prior to next visit it any questions/concerns arise. 04/03/2025 Essential (primary) hypertension (ICD-10 - I10) 44 year old male who presents for CPE # (?) KEYONNA on CKD III. Labs noted on a prephysical screening revealed a creatinine of 3.38. Patient has had been having symptoms of BPH with urinary hesitancy, and frequent bladder emptying. Patient was started on Flomax, has been taking about 5 days now. He denies any back discomfort, or difficulty moving his bowels. Patient reports that he is never seen a urologist in the past. There is a history of prostate cancer. PSA was negative. Due to possible KEYONNA on CKD versus regular CKD, I will order a urologist consultation, and will resume the Flomax until he sees. I believe this is multifactorial, partially obstructive in nature, as well as uncontrolled blood pressure. Patient's systolic blood pressure on initial reading was noted to be in the 170s, repeat in the 160s. Patient attributes this to stress. He is not been checking his blood pressure at home. He denies any NSAID use. #HTN: BP in office was 140s. Add Amloidpine. Need to repeat labs. #Tobacco cessation: Patient [...] Dictation was accomplished with the use of [employer] voice recognition software, prone to medical misidentifications and grammatical errors. This is unintentional and the practitioner does try to identify and correct these, but some could still be present. Please do not hesitate to contact practitioner for clarification. All questions answered to patients satisfaction. Patient verbalized understanding of diagnosis and treatments explained. To call sooner prior to next visit it any questions/concerns arise. 04/03/2025 Tobacco abuse disorder (ICD-10 - Z72.0) 44 year old male who presents for CPE # (?) KEYONNA on CKD III. Labs noted on a prephysical screening revealed a creatinine of 3.38. Patient has had been having symptoms of BPH with urinary hesitancy, and frequent bladder emptying. Patient was started on Flomax, has been taking about 5 days now. He denies any back discomfort, or difficulty moving his bowels. Patient reports that he is never seen a urologist in the past. There is a history of prostate cancer. PSA was negative. Due to possible KEYONNA on CKD versus regular CKD, I will order a urologist consultation, and will resume the Flomax until he sees. I believe this is multifactorial, partially obstructive in nature, as well as uncontrolled blood pressure. Patient's systolic blood pressure on initial reading was noted to be in the 170s, repeat in the 160s. Patient attributes this to stress. He is not been checking his blood pressure at home. He denies any NSAID use. #HTN: BP in office was 140s. Add Amloidpine. Need to repeat labs. #Tobacco cessation: Patient [...] Dictation was accomplished with the use of [employer] voice recognition software, prone to medical misidentifications and grammatical errors. This is unintentional and the practitioner does try to identify and correct these, but some could still be present. Please do not hesitate to contact practitioner for clarification. All questions answered to patients satisfaction. Patient verbalized understanding of diagnosis and treatments explained. To call sooner prior to next visit it any questions/concerns arise. 05/18/2025 Essential (primary) hypertension (ICD-10 - I10) 44 year old male who presents for follow up # (?) KEYONNA on CKD III. Labs [...] Dictation was accomplished with the use of [employer] voice recognition software, prone to medical misidentifications and grammatical errors. This is unintentional and the practitioner does try to identify and correct these, but some could still be present. Please do not hesitate to contact practitioner for clarification. All questions answered to patients satisfaction. Patient verbalized understanding of diagnosis and treatments explained. To call sooner prior to next visit it any questions/concerns arise. 05/18/2025 BPH loc w/o ur obs/LUTS (ICD-10 - N40.0) 44 year old male who presents for follow up # (?) KEYONNA on CKD III. Labs [...] Dictation was accomplished with the use of [employer] voice recognition software, prone to medical misidentifications [...] in office today. This was performed by Phu Encarnacion RN. Patient does report overall improvement. [...] Dictation was accomplished with the use of [employer] voice recognition software, prone to medical misidentifications [...] next visit it any questions/concerns arise. 07/10/2025 Muscle cramp (ICD-10 - R25.2) 44 [...] in office today. This was performed by Phu Encarnacion RN. Patient does report overall improvement. [...] Dictation was accomplished with the use of [employer] voice recognition software, prone to medical misidentifications [...] next visit it any questions/concerns arise. 07/10/2025 Bilateral leg cramps (ICD-10 - R25.2) 07/10/2025 Abnormal metabolic state due to diabetes mellitus (ICD-10 - E11.9) 07/10/2025 Essential (primary) hypertension (ICD-10 - I10) [...] in office today. This was performed by Phu Encarnacion RN. Patient does report overall improvement. [...] Dictation was accomplished with the use of [employer] voice recognition software, prone to medical misidentifications and grammatical errors. This is unintentional and the practitioner does try to identify and correct these, but some could still be present. Please do not hesitate to contact practitioner for clarification. All questions answered to patients satisfaction. Patient verbalized understanding of diagnosis and treatments explained. To call sooner prior to next visit it any questions/concerns arise. 05/18/2025 KEYONNA (acute kidney injury) (ICD-10 - N17.9) 44 year old male who presents for follow up # (?) KEYONNA on CKD III. Labs [...] Dictation was accomplished with the use of [employer] voice recognition software, prone to medical misidentifications and grammatical errors. This is unintentional and the practitioner does try to identify and correct these, but some could still be present. Please do not hesitate to contact practitioner for clarification. All questions answered to patients satisfaction. Patient verbalized understanding of diagnosis and treatments explained. To call sooner prior to next visit it any questions/concerns arise. 04/03/2025 Morbid obesity (ICD-10 - E66.01) 44 year old male who presents for CPE # (?) KEYONNA on CKD III. Labs noted on a prephysical screening revealed a creatinine of 3.38. Patient has had been having symptoms of BPH with urinary hesitancy, and frequent bladder emptying. Patient was started on Flomax, has been taking about 5 days now. He denies any back discomfort, or difficulty moving his bowels. Patient reports that he is never seen a urologist in the past. There is a history of prostate cancer. PSA was negative. Due to possible KEYONNA on CKD versus regular CKD, I will order a urologist consultation, and will resume the Flomax until he sees. I believe this is multifactorial, partially obstructive in nature, as well as uncontrolled blood pressure. Patient's systolic blood pressure on initial reading was noted to be in the 170s, repeat in the 160s. Patient attributes this to stress. He is not been checking his blood pressure at home. He denies any NSAID use. #HTN: BP in office was 140s. Add Amloidpine. Need to repeat labs. #Tobacco cessation: Patient [...] Dictation was accomplished with the use of [employer] voice recognition software, prone to medical misidentifications and grammatical errors. This is unintentional and the practitioner does try to identify and correct these, but some could still be present. Please do not hesitate to contact practitioner for clarification. All questions answered to patients satisfaction. Patient verbalized understanding of diagnosis and treatments explained. To call sooner prior to next visit it any questions/concerns arise. 03/12/2025 Essential (primary) hypertension (ICD-10 - I10) 44 year old male who presents for CPE # (?) KEYONNA on CKD III. Patient's last creatinine was mildly elevated at 1.3., Labs noted on a prephysical screening revealed a creatinine of 3.38. Patient has had been having symptoms of BPH with urinary hesitancy, and frequent bladder emptying. Patient was started on Flomax, has been taking about 5 days now. He denies any back discomfort, or difficulty moving his bowels. Patient reports that he is never seen a urologist in the past. There is a history of prostate cancer. PSA was negative. Due to possible KEYONNA on CKD versus regular CKD, I will order a urologist consultation, and will resume the Flomax until he sees. I believe this is multifactorial, partially obstructive in nature, as well as uncontrolled blood pressure. Patient's systolic blood pressure on initial reading was noted to be in the 170s, repeat in the 160s. Patient attributes this to stress. He is not been checking his blood pressure at home. He denies any NSAID use. #HTN: BP in office was 170/82. Patient is take blood pressure daily over the weekend, and call back with results. Patient will likely need to go back on antihypertensive medications however will be unable to go on an DIEGO or an ARB secondary to his renal dysfunction.Consider adding Jardiance for renal protection. Ultrasound of the kidneys and bladder was done, showing no intrinsic medical renal disease. We will check a microalbumin creatinine ratio. #Tobacco cessation: Patient wants to stop smoking. He has tried chantix with good results before. He has reduced to 1.25 packs per day. Will order a nicotine patch and gum. #Obstructive sleep apnea: Stable. Uses cpap. # Vaccines. Tdap given today # Screenings: Colonoscopy 2023. Physical Men Patient seen and examined. Comprehensive discussion was done on the following. 1. Nutrition: It is important to follow a healthy diet based on lots of vegetables and legumes and good fat. Avoid processed food and processed carbohydrates. Learn to prepare your own meals. Learn to read labels and avoid high fructose corn syrup, processed chemicals added to increase shelf life and preprepared meals. Avoid fast foods. Learn to eat slowly and plan meals for a week. Try to count calories and be mindful off daily calorie intake. Get into the habit of keeping an eye on your weight by using an appropriate scale. Learn to log exercise and discussed fitness Apps like [employer]Jam which can help keep log off calories taken versus calories burned. Local food should be preferred. Discussed Dirty Dozen Versus Clean Fifteen. Discussed healthy supplements like fish oil, Tumeric, Curcumin, Melatonin, Resveratrol, Probiotics, Vitamin-D, Alpha-Lipoic acid, Vitamin-D and coconut oil. 2. It is important to exercise regularly. Is a good habit to walk at least 30-45 minutes a day. Gentle weightlifting with standard precautions to protect the back. Finding activity like cycling or hiking and get into the habit of engaging in it. Stretching before and after the exercises important. It is also important to contact me if there are any problems like shortness of breath, chest pain, back pain and joint or muscle pain associated with the exercise. 3. Discussed age appropriate screening guidelines. Colonoscopy needs to start at age 50 with stool for occult blood as appropriate. There is a new test that can test for genetic abnormalities in the stool sample. This would not replace a colonoscopy but could be used as a screening tool for patients who do not want a colonoscopy. We discussed the importance of early detection of colon cancer. 4. Discussed current PSA screening. PSA screening can be done in most patients between age 50 and 65. However early detection of prostate cancer needs to carefully be balanced with complications with treatment. These include incontinence, impotence etc. Each patient should decide if they would like to have this test. 5. Discussed safe driving and no use of smart phone while driving 6. Age-appropriate immunizations were discussed. A tetanus booster is needed every 10 years. Flu vaccine is recommended every year just before the start of the flu season. Shingles vaccine is recommended after age 50 but not all insurances cover it. Pneumonia vaccine is given after age 65 unless there are certain comorbidities for which it is started earlier. 7. Diagnostic labs were discussed. These could include CBC CMP and lipids with fasting blood glucose and insulin levels. Vitamin D and hemoglobin A1c testing might be appropriate. Case discussed with collaborating physician Ruchi Adams who reviewed the assessment and plan. Chart, medications, labs, vital signs reviewed. Dictation was accomplished with the use of [employer] voice recognition software, prone to medical misidentifications and grammatical errors. This is unintentional and the practitioner does try to identify and correct these, but some could still be present. Please do not hesitate to contact practitioner for clarification. All questions answered to patients satisfaction. Patient verbalized understanding of diagnosis and treatments explained. To call sooner prior to next visit it any questions/concerns arise. 12/25/2024 Lipid screening (ICD-10 - Z13.220) 12/25/2024 Encounter for screening for diabetes mellitus (ICD-10 - Z13.1) 04/03/2025 HAYLEY (obstructive sleep apnea) (ICD-10 - G47.33) 44 year old male who presents for CPE # (?) KEYONNA on CKD III. Labs noted on a prephysical screening revealed a creatinine of 3.38. Patient has had been having symptoms of BPH with urinary hesitancy, and frequent bladder emptying. Patient was started on Flomax, has been taking about 5 days now. He denies any back discomfort, or difficulty moving his bowels. Patient reports that he is never seen a urologist in the past. There is a history of prostate cancer. PSA was negative. Due to possible KEYONNA on CKD versus regular CKD, I will order a urologist consultation, and will resume the Flomax until he sees. I believe this is multifactorial, partially obstructive in nature, as well as uncontrolled blood pressure. Patient's systolic blood pressure on initial reading was noted to be in the 170s, repeat in the 160s. Patient attributes this to stress. He is not been checking his blood pressure at home. He denies any NSAID use. #HTN: BP in office was 140s. Add Amloidpine. Need to repeat labs. #Tobacco cessation: Patient [...] Dictation was accomplished with the use of [employer] voice recognition software, prone to medical misidentifications and grammatical errors. This is unintentional and the practitioner does try to identify and correct these, but some could still be present. Please do not hesitate to contact practitioner for clarification. All questions answered to patients satisfaction. Patient verbalized understanding of diagnosis and treatments explained. To call sooner prior to next visit it any questions/concerns arise. 03/12/2025 Tobacco abuse disorder (ICD-10 - Z72.0) 44 year old male who presents for CPE # (?) KEYONNA on CKD III. Patient's last creatinine was mildly elevated at 1.3., Labs noted on a prephysical screening revealed a creatinine of 3.38. Patient has had been having symptoms of BPH with urinary hesitancy, and frequent bladder emptying. Patient was started on Flomax, has been taking about 5 days now. He denies any back discomfort, or difficulty moving his bowels. Patient reports that he is never seen a urologist in the past. There is a history of prostate cancer. PSA was negative. Due to possible KEYONNA on CKD versus regular CKD, I will order a urologist consultation, and will resume the Flomax until he sees. I believe this is multifactorial, partially obstructive in nature, as well as uncontrolled blood pressure. Patient's systolic blood pressure on initial reading was noted to be in the 170s, repeat in the 160s. Patient attributes this to stress. He is not been checking his blood pressure at home. He denies any NSAID use. #HTN: BP in office was 170/82. Patient is take blood pressure daily over the weekend, and call back with results. Patient will likely need to go back on antihypertensive medications however will be unable to go on an DIEGO or an ARB secondary to his renal dysfunction.Consider adding Jardiance for renal protection. Ultrasound of the kidneys and bladder was done, showing no intrinsic medical renal disease. We will check a microalbumin creatinine ratio. #Tobacco cessation: Patient wants to stop smoking. He has tried chantix with good results before. He has reduced to 1.25 packs per day. Will order a nicotine patch and gum. #Obstructive sleep apnea: Stable. Uses cpap. # Vaccines. Tdap given today # Screenings: Colonoscopy 2023. Physical Men Patient seen and examined. Comprehensive discussion was done on the following. 1. Nutrition: It is important to follow a healthy diet based on lots of vegetables and legumes and good fat. Avoid processed food and processed carbohydrates. Learn to prepare your own meals. Learn to read labels and avoid high fructose corn syrup, processed chemicals added to increase shelf life and preprepared meals. Avoid fast foods. Learn to eat slowly and plan meals for a week. Try to count calories and be mindful off daily calorie intake. Get into the habit of keeping an eye on your weight by using an appropriate scale. Learn to log exercise and discussed fitness Apps like [employer] which can help keep log off calories taken versus calories burned. Local food should be preferred. Discussed Dirty Dozen Versus Clean Fifteen. Discussed healthy supplements like fish oil, Tumeric, Curcumin, Melatonin, Resveratrol, Probiotics, Vitamin-D, Alpha-Lipoic acid, Vitamin-D and coconut oil. 2. It is important to exercise regularly. Is a good habit to walk at least 30-45 minutes a day. Gentle weightlifting with standard precautions to protect the back. Finding activity like cycling or hiking and get into the habit of engaging in it. Stretching before and after the exercises important. It is also important to contact me if there are any problems like shortness of breath, chest pain, back pain and joint or muscle pain associated with the exercise. 3. Discussed age appropriate screening guidelines. Colonoscopy needs to start at age 50 with stool for occult blood as appropriate. There is a new test that can test for genetic abnormalities in the stool sample. This would not replace a colonoscopy but could be used as a screening tool for patients who do not want a colonoscopy. We discussed the importance of early detection of colon cancer. 4. Discussed current PSA screening. PSA screening can be done in most patients between age 50 and 65. However early detection of prostate cancer needs to carefully be balanced with complications with treatment. These include incontinence, impotence etc. Each patient should decide if they would like to have this test. 5. Discussed safe driving and no use of smart phone while driving 6. Age-appropriate immunizations were discussed. A tetanus booster is needed every 10 years. Flu vaccine is recommended every year just before the start of the flu season. Shingles vaccine is recommended after age 50 but not all insurances cover it. Pneumonia vaccine is given after age 65 unless there are certain comorbidities for which it is started earlier. 7. Diagnostic labs were discussed. These could include CBC CMP and lipids with fasting blood glucose and insulin levels. Vitamin D and hemoglobin A1c testing might be appropriate. Case discussed with collaborating physician Ruchi Adams who reviewed the assessment and plan. Chart, medications, labs, vital signs reviewed. Dictation was accomplished with the use of [employer] voice recognition software, prone to medical misidentifications and grammatical errors. This is unintentional and the practitioner does try to identify and correct these, but some could still be present. Please do not hesitate to contact practitioner for clarification. All questions answered to patients satisfaction. Patient verbalized understanding of diagnosis and treatments explained. To call sooner prior to next visit it any questions/concerns arise. 05/18/2025 Tobacco abuse disorder (ICD-10 - Z72.0) 44 year old male who presents for follow up # (?) KEYONNA on CKD III. Labs [...] Dictation was accomplished with the use of [employer] voice recognition software, prone to medical misidentifications [...] next visit it any questions/concerns arise. 07/10/2025 Acute colitis (ICD-10 - K52.9) 07/10/2025 BPH loc w/o ur obs/LUTS (ICD-10 [...] in office today. This was performed by Phu Encarnacion RN. Patient does report overall improvement. [...] Dictation was accomplished with the use of [employer] voice recognition software, prone to medical misidentifications [...] next visit it any questions/concerns arise. 07/10/2025 Adult general medical exam (ICD-10 - Z00.00) 07/10/2025 Chronic kidney disease, stage 3b (ICD-10 [...] in office today. This was performed by Phu Encarnacion RN. Patient does report overall improvement. [...] Dictation was accomplished with the use of [employer] voice recognition software, prone to medical misidentifications and grammatical errors. This is unintentional and the practitioner does try to identify and correct these, but some could still be present. Please do not hesitate to contact practitioner for clarification. All questions answered to patients satisfaction. Patient verbalized understanding of diagnosis and treatments explained. To call sooner prior to next visit it any questions/concerns arise. 03/12/2025 Morbid obesity (ICD-10 - E66.01) 44 year old male who presents for CPE # (?) KEYONNA on CKD III. Patient's last creatinine was mildly elevated at 1.3., Labs noted on a prephysical screening revealed a creatinine of 3.38. Patient has had been having symptoms of BPH with urinary hesitancy, and frequent bladder emptying. Patient was started on Flomax, has been taking about 5 days now. He denies any back discomfort, or difficulty moving his bowels. Patient reports that he is never seen a urologist in the past. There is a history of prostate cancer. PSA was negative. Due to possible KEYONNA on CKD versus regular CKD, I will order a urologist consultation, and will resume the Flomax until he sees. I believe this is multifactorial, partially obstructive in nature, as well as uncontrolled blood pressure. Patient's systolic blood pressure on initial reading was noted to be in the 170s, repeat in the 160s. Patient attributes this to stress. He is not been checking his blood pressure at home. He denies any NSAID use. #HTN: BP in office was 170/82. Patient is take blood pressure daily over the weekend, and call back with results. Patient will likely need to go back on antihypertensive medications however will be unable to go on an DIEGO or an ARB secondary to his renal dysfunction.Consider adding Jardiance for renal protection. Ultrasound of the kidneys and bladder was done, showing no intrinsic medical renal disease. We will check a microalbumin creatinine ratio. #Tobacco cessation: Patient wants to stop smoking. He has tried chantix with good results before. He has reduced to 1.25 packs per day. Will order a nicotine patch and gum. #Obstructive sleep apnea: Stable. Uses cpap. # Vaccines. Tdap given today # Screenings: Colonoscopy 2023. Physical Men Patient seen and examined. Comprehensive discussion was done on the following. 1. Nutrition: It is important to follow a healthy diet based on lots of vegetables and legumes and good fat. Avoid processed food and processed carbohydrates. Learn to prepare your own meals. Learn to read labels and avoid high fructose corn syrup, processed chemicals added to increase shelf life and preprepared meals. Avoid fast foods. Learn to eat slowly and plan meals for a week. Try to count calories and be mindful off daily calorie intake. Get into the habit of keeping an eye on your weight by using an appropriate scale. Learn to log exercise and discussed fitness Apps like [employer] which can help keep log off calories taken versus calories burned. Local food should be preferred. Discussed Dirty Dozen Versus Clean Fifteen. Discussed healthy supplements like fish oil, Tumeric, Curcumin, Melatonin, Resveratrol, Probiotics, Vitamin-D, Alpha-Lipoic acid, Vitamin-D and coconut oil. 2. It is important to exercise regularly. Is a good habit to walk at least 30-45 minutes a day. Gentle weightlifting with standard precautions to protect the back. Finding activity like cycling or hiking and get into the habit of engaging in it. Stretching before and after the exercises important. It is also important to contact me if there are any problems like shortness of breath, chest pain, back pain and joint or muscle pain associated with the exercise. 3. Discussed age appropriate screening guidelines. Colonoscopy needs to start at age 50 with stool for occult blood as appropriate. There is a new test that can test for genetic abnormalities in the stool sample. This would not replace a colonoscopy but could be used as a screening tool for patients who do not want a colonoscopy. We discussed the importance of early detection of colon cancer. 4. Discussed current PSA screening. PSA screening can be done in most patients between age 50 and 65. However early detection of prostate cancer needs to carefully be balanced with complications with treatment. These include incontinence, impotence etc. Each patient should decide if they would like to have this test. 5. Discussed safe driving and no use of smart phone while driving 6. Age-appropriate immunizations were discussed. A tetanus booster is needed every 10 years. Flu vaccine is recommended every year just before the start of the flu season. Shingles vaccine is recommended after age 50 but not all insurances cover it. Pneumonia vaccine is given after age 65 unless there are certain comorbidities for which it is started earlier. 7. Diagnostic labs were discussed. These could include CBC CMP and lipids with fasting blood glucose and insulin levels. Vitamin D and hemoglobin A1c testing might be appropriate. Case discussed with collaborating physician Ruchi Adams who reviewed the assessment and plan. Chart, medications, labs, vital signs reviewed. Dictation was accomplished with the use of [employer] voice recognition software, prone to medical misidentifications and grammatical errors. This is unintentional and the practitioner does try to identify and correct these, but some could still be present. Please do not hesitate to contact practitioner for clarification. All questions answered to patients satisfaction. Patient verbalized understanding of diagnosis and treatments explained. To call sooner prior to next visit it any questions/concerns arise. 05/18/2025 Morbid obesity (ICD-10 - E66.01) 44 year old male who presents for follow up # (?) KEYONNA on CKD III. Labs [...] Dictation was accomplished with the use of [employer] voice recognition software, prone to medical misidentifications and grammatical errors. This is unintentional and the practitioner does try to identify and correct these, but some could still be present. Please do not hesitate to contact practitioner for clarification. All questions answered to patients satisfaction. Patient verbalized understanding of diagnosis and treatments explained. To call sooner prior to next visit it any questions/concerns arise. 04/03/2025 Encounter for examination of blood pressure with abnormal findings (ICD-10 - Z01.31) 44 year old male who presents for CPE # (?) KEYONNA on CKD III. Labs noted on a prephysical screening revealed a creatinine of 3.38. Patient has had been having symptoms of BPH with urinary hesitancy, and frequent bladder emptying. Patient was started on Flomax, has been taking about 5 days now. He denies any back discomfort, or difficulty moving his bowels. Patient reports that he is never seen a urologist in the past. There is a history of prostate cancer. PSA was negative. Due to possible KEYONNA on CKD versus regular CKD, I will order a urologist consultation, and will resume the Flomax until he sees. I believe this is multifactorial, partially obstructive in nature, as well as uncontrolled blood pressure. Patient's systolic blood pressure on initial reading was noted to be in the 170s, repeat in the 160s. Patient attributes this to stress. He is not been checking his blood pressure at home. He denies any NSAID use. #HTN: BP in office was 140s. Add Amloidpine. Need to repeat labs. #Tobacco cessation: Patient [...] Dictation was accomplished with the use of [employer] voice recognition software, prone to medical misidentifications and grammatical errors. This is unintentional and the practitioner does try to identify and correct these, but some could still be present. Please do not hesitate to contact practitioner for clarification. All questions answered to patients satisfaction. Patient verbalized understanding of diagnosis and treatments explained. To call sooner prior to next visit it any questions/concerns arise. 12/25/2024 Acquired hypothyroidism (ICD-10 - E03.9) 05/18/2025 HAYLEY (obstructive sleep apnea) (ICD-10 - G47.33) 44 year old male who presents for follow up # (?) KEYONNA on CKD III. Labs [...] Dictation was accomplished with the use of [employer] voice recognition software, prone to medical misidentifications and grammatical errors. This is unintentional and the practitioner does try to identify and correct these, but some could still be present. Please do not hesitate to contact practitioner for clarification. All questions answered to patients satisfaction. Patient verbalized understanding of diagnosis and treatments explained. To call sooner prior to next visit it any questions/concerns arise. 03/12/2025 HAYLEY (obstructive sleep apnea) (ICD-10 - G47.33) 44 year old male who presents for CPE # (?) KEYONNA on CKD III. Patient's last creatinine was mildly elevated at 1.3., Labs noted on a prephysical screening revealed a creatinine of 3.38. Patient has had been having symptoms of BPH with urinary hesitancy, and frequent bladder emptying. Patient was started on Flomax, has been taking about 5 days now. He denies any back discomfort, or difficulty moving his bowels. Patient reports that he is never seen a urologist in the past. There is a history of prostate cancer. PSA was negative. Due to possible KEYONNA on CKD versus regular CKD, I will order a urologist consultation, and will resume the Flomax until he sees. I believe this is multifactorial, partially obstructive in nature, as well as uncontrolled blood pressure. Patient's systolic blood pressure on initial reading was noted to be in the 170s, repeat in the 160s. Patient attributes this to stress. He is not been checking his blood pressure at home. He denies any NSAID use. #HTN: BP in office was 170/82. Patient is take blood pressure daily over the weekend, and call back with results. Patient will likely need to go back on antihypertensive medications however will be unable to go on an DIEGO or an ARB secondary to his renal dysfunction.Consider adding Jardiance for renal protection. Ultrasound of the kidneys and bladder was done, showing no intrinsic medical renal disease. We will check a microalbumin creatinine ratio. #Tobacco cessation: Patient wants to stop smoking. He has tried chantix with good results before. He has reduced to 1.25 packs per day. Will order a nicotine patch and gum. #Obstructive sleep apnea: Stable. Uses cpap. # Vaccines. Tdap given today # Screenings: Colonoscopy 2023. Physical Men Patient seen and examined. Comprehensive discussion was done on the following. 1. Nutrition: It is important to follow a healthy diet based on lots of vegetables and legumes and good fat. Avoid processed food and processed carbohydrates. Learn to prepare your own meals. Learn to read labels and avoid high fructose corn syrup, processed chemicals added to increase shelf life and preprepared meals. Avoid fast foods. Learn to eat slowly and plan meals for a week. Try to count calories and be mindful off daily calorie intake. Get into the habit of keeping an eye on your weight by using an appropriate scale. Learn to log exercise and discussed fitness Apps like [employer] which can help keep log off calories taken versus calories burned. Local food should be preferred. Discussed Dirty Dozen Versus Clean Fifteen. Discussed healthy supplements like fish oil, Tumeric, Curcumin, Melatonin, Resveratrol, Probiotics, Vitamin-D, Alpha-Lipoic acid, Vitamin-D and coconut oil. 2. It is important to exercise regularly. Is a good habit to walk at least 30-45 minutes a day. Gentle weightlifting with standard precautions to protect the back. Finding activity like cycling or hiking and get into the habit of engaging in it. Stretching before and after the exercises important. It is also important to contact me if there are any problems like shortness of breath, chest pain, back pain and joint or muscle pain associated with the exercise. 3. Discussed age appropriate screening guidelines. Colonoscopy needs to start at age 50 with stool for occult blood as appropriate. There is a new test that can test for genetic abnormalities in the stool sample. This would not replace a colonoscopy but could be used as a screening tool for patients who do not want a colonoscopy. We discussed the importance of early detection of colon cancer. 4. Discussed current PSA screening. PSA screening can be done in most patients between age 50 and 65. However early detection of prostate cancer needs to carefully be balanced with complications with treatment. These include incontinence, impotence etc. Each patient should decide if they would like to have this test. 5. Discussed safe driving and no use of smart phone while driving 6. Age-appropriate immunizations were discussed. A tetanus booster is needed every 10 years. Flu vaccine is recommended every year just before the start of the flu season. Shingles vaccine is recommended after age 50 but not all insurances cover it. Pneumonia vaccine is given after age 65 unless there are certain comorbidities for which it is started earlier. 7. Diagnostic labs were discussed. These could include CBC CMP and lipids with fasting blood glucose and insulin levels. Vitamin D and hemoglobin A1c testing might be appropriate. Case discussed with collaborating physician Ruchi Adams who reviewed the assessment and plan. Chart, medications, labs, vital signs reviewed. Dictation was accomplished with the use of [employer] voice recognition software, prone to medical misidentifications and grammatical errors. This is unintentional and the practitioner does try to identify and correct these, but some could still be present. Please do not hesitate to contact practitioner for clarification. All questions answered to patients satisfaction. Patient verbalized understanding of diagnosis and treatments explained. To call sooner prior to next visit it any questions/concerns arise. 04/03/2025 Chronic kidney disease, stage 3b (ICD-10 - N18.32) 44 year old male who presents for CPE # (?) KEYONNA on CKD III. Labs noted on a prephysical screening revealed a creatinine of 3.38. Patient has had been having symptoms of BPH with urinary hesitancy, and frequent bladder emptying. Patient was started on Flomax, has been taking about 5 days now. He denies any back discomfort, or difficulty moving his bowels. Patient reports that he is never seen a urologist in the past. There is a history of prostate cancer. PSA was negative. Due to possible KEYONNA on CKD versus regular CKD, I will order a urologist consultation, and will resume the Flomax until he sees. I believe this is multifactorial, partially obstructive in nature, as well as uncontrolled blood pressure. Patient's systolic blood pressure on initial reading was noted to be in the 170s, repeat in the 160s. Patient attributes this to stress. He is not been checking his blood pressure at home. He denies any NSAID use. #HTN: BP in office was 140s. Add Amloidpine. Need to repeat labs. #Tobacco cessation: Patient [...] Dictation was accomplished with the use of [employer] voice recognition software, prone to medical misidentifications and grammatical errors. This is unintentional and the practitioner does try to identify and correct these, but some could still be present. Please do not hesitate to contact practitioner for clarification. All questions answered to patients satisfaction. Patient verbalized understanding of diagnosis and treatments explained. To call sooner prior to next visit it any questions/concerns arise. 12/25/2024 Anemia due to vitamin B12 deficiency, unspecified B12 deficiency type (ICD-10 - D51.9) 07/10/2025 Tobacco abuse disorder (ICD-10 - Z72.0) [...] in office today. This was performed by Phu Encarnacion RN. Patient does report overall improvement. [...] Dictation was accomplished with the use of [employer] voice recognition software, prone to medical misidentifications and grammatical errors. This is unintentional and the practitioner does try to identify and correct these, but some could still be present. Please do not hesitate to contact practitioner for clarification. All questions answered to patients satisfaction. Patient verbalized understanding of diagnosis and treatments explained. To call sooner prior to next visit it any questions/concerns arise. 12/25/2024 Encounter for screening for malignant neoplasm of prostate (ICD-10 - Z12.5) 03/12/2025 Encounter for examination of blood pressure with abnormal findings (ICD-10 - Z01.31) 44 year old male who presents for CPE # (?) KEYONNA on CKD III. Patient's last creatinine was mildly elevated at 1.3., Labs noted on a prephysical screening revealed a creatinine of 3.38. Patient has had been having symptoms of BPH with urinary hesitancy, and frequent bladder emptying. Patient was started on Flomax, has been taking about 5 days now. He denies any back discomfort, or difficulty moving his bowels. Patient reports that he is never seen a urologist in the past. There is a history of prostate cancer. PSA was negative. Due to possible KEYONNA on CKD versus regular CKD, I will order a urologist consultation, and will resume the Flomax until he sees. I believe this is multifactorial, partially obstructive in nature, as well as uncontrolled blood pressure. Patient's systolic blood pressure on initial reading was noted to be in the 170s, repeat in the 160s. Patient attributes this to stress. He is not been checking his blood pressure at home. He denies any NSAID use. #HTN: BP in office was 170/82. Patient is take blood pressure daily over the weekend, and call back with results. Patient will likely need to go back on antihypertensive medications however will be unable to go on an DIEGO or an ARB secondary to his renal dysfunction.Consider adding Jardiance for renal protection. Ultrasound of the kidneys and bladder was done, showing no intrinsic medical renal disease. We will check a microalbumin creatinine ratio. #Tobacco cessation: Patient wants to stop smoking. He has tried chantix with good results before. He has reduced to 1.25 packs per day. Will order a nicotine patch and gum. #Obstructive sleep apnea: Stable. Uses cpap. # Vaccines. Tdap given today # Screenings: Colonoscopy 2023. Physical Men Patient seen and examined. Comprehensive discussion was done on the following. 1. Nutrition: It is important to follow a healthy diet based on lots of vegetables and legumes and good fat. Avoid processed food and processed carbohydrates. Learn to prepare your own meals. Learn to read labels and avoid high fructose corn syrup, processed chemicals added to increase shelf life and preprepared meals. Avoid fast foods. Learn to eat slowly and plan meals for a week. Try to count calories and be mindful off daily calorie intake. Get into the habit of keeping an eye on your weight by using an appropriate scale. Learn to log exercise and discussed fitness Apps like [employer] which can help keep log off calories taken versus calories burned. Local food should be preferred. Discussed Dirty Dozen Versus Clean Fifteen. Discussed healthy supplements like fish oil, Tumeric, Curcumin, Melatonin, Resveratrol, Probiotics, Vitamin-D, Alpha-Lipoic acid, Vitamin-D and coconut oil. 2. It is important to exercise regularly. Is a good habit to walk at least 30-45 minutes a day. Gentle weightlifting with standard precautions to protect the back. Finding activity like cycling or hiking and get into the habit of engaging in it. Stretching before and after the exercises important. It is also important to contact me if there are any problems like shortness of breath, chest pain, back pain and joint or muscle pain associated with the exercise. 3. Discussed age appropriate screening guidelines. Colonoscopy needs to start at age 50 with stool for occult blood as appropriate. There is a new test that can test for genetic abnormalities in the stool sample. This would not replace a colonoscopy but could be used as a screening tool for patients who do not want a colonoscopy. We discussed the importance of early detection of colon cancer. 4. Discussed current PSA screening. PSA screening can be done in most patients between age 50 and 65. However early detection of prostate cancer needs to carefully be balanced with complications with treatment. These include incontinence, impotence etc. Each patient should decide if they would like to have this test. 5. Discussed safe driving and no use of smart phone while driving 6. Age-appropriate immunizations were discussed. A tetanus booster is needed every 10 years. Flu vaccine is recommended every year just before the start of the flu season. Shingles vaccine is recommended after age 50 but not all insurances cover it. Pneumonia vaccine is given after age 65 unless there are certain comorbidities for which it is started earlier. 7. Diagnostic labs were discussed. These could include CBC CMP and lipids with fasting blood glucose and insulin levels. Vitamin D and hemoglobin A1c testing might be appropriate. Case discussed with collaborating physician Ruchi Adams who reviewed the assessment and plan. Chart, medications, labs, vital signs reviewed. Dictation was accomplished with the use of [employer] voice recognition software, prone to medical misidentifications and grammatical errors. This is unintentional and the practitioner does try to identify and correct these, but some could still be present. Please do not hesitate to contact practitioner for clarification. All questions answered to patients satisfaction. Patient verbalized understanding of diagnosis and treatments explained. To call sooner prior to next visit it any questions/concerns arise. 05/18/2025 Chronic kidney disease, stage 3b (ICD-10 - N18.32) 44 year old male who presents for follow up # (?) KEYONNA on CKD III. Labs [...] Dictation was accomplished with the use of [employer] voice recognition software, prone to medical misidentifications and grammatical errors. This is unintentional and the practitioner does try to identify and correct these, but some could still be present. Please do not hesitate to contact practitioner for clarification. All questions answered to patients satisfaction. Patient verbalized understanding of diagnosis and treatments explained. To call sooner prior to next visit it any questions/concerns arise. 04/03/2025 Encounter for immunization (ICD-10 - Z23) 44 year old male who presents for CPE # (?) KEYONNA on CKD III. Labs noted on a prephysical screening revealed a creatinine of 3.38. Patient has had been having symptoms of BPH with urinary hesitancy, and frequent bladder emptying. Patient was started on Flomax, has been taking about 5 days now. He denies any back discomfort, or difficulty moving his bowels. Patient reports that he is never seen a urologist in the past. There is a history of prostate cancer. PSA was negative. Due to possible KEYONNA on CKD versus regular CKD, I will order a urologist consultation, and will resume the Flomax until he sees. I believe this is multifactorial, partially obstructive in nature, as well as uncontrolled blood pressure. Patient's systolic blood pressure on initial reading was noted to be in the 170s, repeat in the 160s. Patient attributes this to stress. He is not been checking his blood pressure at home. He denies any NSAID use. #HTN: BP in office was 140s. Add Amloidpine. Need to repeat labs. #Tobacco cessation: Patient [...] Dictation was accomplished with the use of [employer] voice recognition software, prone to medical misidentifications [...] in office today. This was performed by Phu Encarnacion RN. Patient does report overall improvement. [...] Dictation was accomplished with the use of [employer] voice recognition software, prone to medical misidentifications [...] in office today. This was performed by Phu Encarnacion RN. Patient does report overall improvement. [...] Dictation was accomplished with the use of [employer] voice recognition software, prone to medical misidentifications and grammatical errors. This is unintentional and the practitioner does try to identify and correct these, but some could still be present. Please do not hesitate to contact practitioner for clarification. All questions answered to patients satisfaction. Patient verbalized understanding of diagnosis and treatments explained. To call sooner prior to next visit it any questions/concerns arise. 05/18/2025 Encounter for examination of blood pressure with abnormal findings (ICD-10 - Z01.31) 44 year old male who presents for follow up # (?) KEYONNA on CKD III. Labs [...] Dictation was accomplished with the use of [employer] voice recognition software, prone to medical misidentifications and grammatical errors. This is unintentional and the practitioner does try to identify and correct these, but some could still be present. Please do not hesitate to contact practitioner for clarification. All questions answered to patients satisfaction. Patient verbalized understanding of diagnosis and treatments explained. To call sooner prior to next visit it any questions/concerns arise. 04/03/2025 KEYONNA (acute kidney injury) (ICD-10 - N17.9) 44 year old male who presents for CPE # (?) KEYONNA on CKD III. Labs noted on a prephysical screening revealed a creatinine of 3.38. Patient has had been having symptoms of BPH with urinary hesitancy, and frequent bladder emptying. Patient was started on Flomax, has been taking about 5 days now. He denies any back discomfort, or difficulty moving his bowels. Patient reports that he is never seen a urologist in the past. There is a history of prostate cancer. PSA was negative. Due to possible KEYONNA on CKD versus regular CKD, I will order a urologist consultation, and will resume the Flomax until he sees. I believe this is multifactorial, partially obstructive in nature, as well as uncontrolled blood pressure. Patient's systolic blood pressure on initial reading was noted to be in the 170s, repeat in the 160s. Patient attributes this to stress. He is not been checking his blood pressure at home. He denies any NSAID use. #HTN: BP in office was 140s. Add Amloidpine. Need to repeat labs. #Tobacco cessation: Patient [...] Dictation was accomplished with the use of [employer] voice recognition software, prone to medical misidentifications and grammatical errors. This is unintentional and the practitioner does try to identify and correct these, but some could still be present. Please do not hesitate to contact practitioner for clarification. All questions answered to patients satisfaction. Patient verbalized understanding of diagnosis and treatments explained. To call sooner prior to next visit it any questions/concerns arise. 03/12/2025 Chronic kidney disease, stage 3b (ICD-10 - N18.32) 44 year old male who presents for CPE # (?) KEYONNA on CKD III. Patient's last creatinine was mildly elevated at 1.3., Labs noted on a prephysical screening revealed a creatinine of 3.38. Patient has had been having symptoms of BPH with urinary hesitancy, and frequent bladder emptying. Patient was started on Flomax, has been taking about 5 days now. He denies any back discomfort, or difficulty moving his bowels. Patient reports that he is never seen a urologist in the past. There is a history of prostate cancer. PSA was negative. Due to possible KEYONNA on CKD versus regular CKD, I will order a urologist consultation, and will resume the Flomax until he sees. I believe this is multifactorial, partially obstructive in nature, as well as uncontrolled blood pressure. Patient's systolic blood pressure on initial reading was noted to be in the 170s, repeat in the 160s. Patient attributes this to stress. He is not been checking his blood pressure at home. He denies any NSAID use. #HTN: BP in office was 170/82. Patient is take blood pressure daily over the weekend, and call back with results. Patient will likely need to go back on antihypertensive medications however will be unable to go on an DIEGO or an ARB secondary to his renal dysfunction.Consider adding Jardiance for renal protection. Ultrasound of the kidneys and bladder was done, showing no intrinsic medical renal disease. We will check a microalbumin creatinine ratio. #Tobacco cessation: Patient wants to stop smoking. He has tried chantix with good results before. He has reduced to 1.25 packs per day. Will order a nicotine patch and gum. #Obstructive sleep apnea: Stable. Uses cpap. # Vaccines. Tdap given today # Screenings: Colonoscopy 2023. Physical Men Patient seen and examined. Comprehensive discussion was done on the following. 1. Nutrition: It is important to follow a healthy diet based on lots of vegetables and legumes and good fat. Avoid processed food and processed carbohydrates. Learn to prepare your own meals. Learn to read labels and avoid high fructose corn syrup, processed chemicals added to increase shelf life and preprepared meals. Avoid fast foods. Learn to eat slowly and plan meals for a week. Try to count calories and be mindful off daily calorie intake. Get into the habit of keeping an eye on your weight by using an appropriate scale. Learn to log exercise and discussed fitness Apps like [employer] which can help keep log off calories taken versus calories burned. Local food should be preferred. Discussed Dirty Dozen Versus Clean Fifteen. Discussed healthy supplements like fish oil, Tumeric, Curcumin, Melatonin, Resveratrol, Probiotics, Vitamin-D, Alpha-Lipoic acid, Vitamin-D and coconut oil. 2. It is important to exercise regularly. Is a good habit to walk at least 30-45 minutes a day. Gentle weightlifting with standard precautions to protect the back. Finding activity like cycling or hiking and get into the habit of engaging in it. Stretching before and after the exercises important. It is also important to contact me if there are any problems like shortness of breath, chest pain, back pain and joint or muscle pain associated with the exercise. 3. Discussed age appropriate screening guidelines. Colonoscopy needs to start at age 50 with stool for occult blood as appropriate. There is a new test that can test for genetic abnormalities in the stool sample. This would not replace a colonoscopy but could be used as a screening tool for patients who do not want a colonoscopy. We discussed the importance of early detection of colon cancer. 4. Discussed current PSA screening. PSA screening can be done in most patients between age 50 and 65. However early detection of prostate cancer needs to carefully be balanced with complications with treatment. These include incontinence, impotence etc. Each patient should decide if they would like to have this test. 5. Discussed safe driving and no use of smart phone while driving 6. Age-appropriate immunizations were discussed. A tetanus booster is needed every 10 years. Flu vaccine is recommended every year just before the start of the flu season. Shingles vaccine is recommended after age 50 but not all insurances cover it. Pneumonia vaccine is given after age 65 unless there are certain comorbidities for which it is started earlier. 7. Diagnostic labs were discussed. These could include CBC CMP and lipids with fasting blood glucose and insulin levels. Vitamin D and hemoglobin A1c testing might be appropriate. Case discussed with collaborating physician Ruchi Adams who reviewed the assessment and plan. Chart, medications, labs, vital signs reviewed. Dictation was accomplished with the use of [employer] voice recognition software, prone to medical misidentifications and grammatical errors. This is unintentional and the practitioner does try to identify and correct these, but some could still be present. Please do not hesitate to contact practitioner for clarification. All questions answered to patients satisfaction. Patient verbalized understanding of diagnosis and treatments explained. To call sooner prior to next visit it any questions/concerns arise. 04/03/2025 BPH loc w/o ur obs/LUTS (ICD-10 - N40.0) 44 year old male who presents for CPE # (?) KEYONNA on CKD III. Labs noted on a prephysical screening revealed a creatinine of 3.38. Patient has had been having symptoms of BPH with urinary hesitancy, and frequent bladder emptying. Patient was started on Flomax, has been taking about 5 days now. He denies any back discomfort, or difficulty moving his bowels. Patient reports that he is never seen a urologist in the past. There is a history of prostate cancer. PSA was negative. Due to possible KEYONNA on CKD versus regular CKD, I will order a urologist consultation, and will resume the Flomax until he sees. I believe this is multifactorial, partially obstructive in nature, as well as uncontrolled blood pressure. Patient's systolic blood pressure on initial reading was noted to be in the 170s, repeat in the 160s. Patient attributes this to stress. He is not been checking his blood pressure at home. He denies any NSAID use. #HTN: BP in office was 140s. Add Amloidpine. Need to repeat labs. #Tobacco cessation: Patient [...] Dictation was accomplished with the use of [employer] voice recognition software, prone to medical misidentifications and grammatical errors. This is unintentional and the practitioner does try to identify and correct these, but some could still be present. Please do not hesitate to contact practitioner for clarification. All questions answered to patients satisfaction. Patient verbalized understanding of diagnosis and treatments explained. To call sooner prior to next visit it any questions/concerns arise. 03/12/2025 Encounter for immunization (ICD-10 - Z23) 44 year old male who presents for CPE # (?) KEYONNA on CKD III. Patient's last creatinine was mildly elevated at 1.3., Labs noted on a prephysical screening revealed a creatinine of 3.38. Patient has had been having symptoms of BPH with urinary hesitancy, and frequent bladder emptying. Patient was started on Flomax, has been taking about 5 days now. He denies any back discomfort, or difficulty moving his bowels. Patient reports that he is never seen a urologist in the past. There is a history of prostate cancer. PSA was negative. Due to possible KEYONNA on CKD versus regular CKD, I will order a urologist consultation, and will resume the Flomax until he sees. I believe this is multifactorial, partially obstructive in nature, as well as uncontrolled blood pressure. Patient's systolic blood pressure on initial reading was noted to be in the 170s, repeat in the 160s. Patient attributes this to stress. He is not been checking his blood pressure at home. He denies any NSAID use. #HTN: BP in office was 170/82. Patient is take blood pressure daily over the weekend, and call back with results. Patient will likely need to go back on antihypertensive medications however will be unable to go on an DIEGO or an ARB secondary to his renal dysfunction.Consider adding Jardiance for renal protection. Ultrasound of the kidneys and bladder was done, showing no intrinsic medical renal disease. We will check a microalbumin creatinine ratio. #Tobacco cessation: Patient wants to stop smoking. He has tried chantix with good results before. He has reduced to 1.25 packs per day. Will order a nicotine patch and gum. #Obstructive sleep apnea: Stable. Uses cpap. # Vaccines. Tdap given today # Screenings: Colonoscopy 2023. Physical Men Patient seen and examined. Comprehensive discussion was done on the following. 1. Nutrition: It is important to follow a healthy diet based on lots of vegetables and legumes and good fat. Avoid processed food and processed carbohydrates. Learn to prepare your own meals. Learn to read labels and avoid high fructose corn syrup, processed chemicals added to increase shelf life and preprepared meals. Avoid fast foods. Learn to eat slowly and plan meals for a week. Try to count calories and be mindful off daily calorie intake. Get into the habit of keeping an eye on your weight by using an appropriate scale. Learn to log exercise and discussed fitness Apps like [employer] which can help keep log off calories taken versus calories burned. Local food should be preferred. Discussed Dirty Dozen Versus Clean Fifteen. Discussed healthy supplements like fish oil, Tumeric, Curcumin, Melatonin, Resveratrol, Probiotics, Vitamin-D, Alpha-Lipoic acid, Vitamin-D and coconut oil. 2. It is important to exercise regularly. Is a good habit to walk at least 30-45 minutes a day. Gentle weightlifting with standard precautions to protect the back. Finding activity like cycling or hiking and get into the habit of engaging in it. Stretching before and after the exercises important. It is also important to contact me if there are any problems like shortness of breath, chest pain, back pain and joint or muscle pain associated with the exercise. 3. Discussed age appropriate screening guidelines. Colonoscopy needs to start at age 50 with stool for occult blood as appropriate. There is a new test that can test for genetic abnormalities in the stool sample. This would not replace a colonoscopy but could be used as a screening tool for patients who do not want a colonoscopy. We discussed the importance of early detection of colon cancer. 4. Discussed current PSA screening. PSA screening can be done in most patients between age 50 and 65. However early detection of prostate cancer needs to carefully be balanced with complications with treatment. These include incontinence, impotence etc. Each patient should decide if they would like to have this test. 5. Discussed safe driving and no use of smart phone while driving 6. Age-appropriate immunizations were discussed. A tetanus booster is needed every 10 years. Flu vaccine is recommended every year just before the start of the flu season. Shingles vaccine is recommended after age 50 but not all insurances cover it. Pneumonia vaccine is given after age 65 unless there are certain comorbidities for which it is started earlier. 7. Diagnostic labs were discussed. These could include CBC CMP and lipids with fasting blood glucose and insulin levels. Vitamin D and hemoglobin A1c testing might be appropriate. Case discussed with collaborating physician Ruchi Adams who reviewed the assessment and plan. Chart, medications, labs, vital signs reviewed. Dictation was accomplished with the use of Storitz voice recognition software, prone to medical misidentifications [...] in office today. This was performed by Phu Encarnacion RN. Patient does report overall improvement. [...] Dictation was accomplished with the use of Storitz voice recognition software, prone to medical misidentifications [...] in office today. This was performed by Phu Encarnacion RN. Patient does report overall improvement. [...] Dictation was accomplished with the use of Storitz voice recognition software, prone to medical misidentifications [...] it any questions/concerns arise. Plan Of Treatment Pending Test Test Name Order Date X ray : Thoracic spine 2 views 3 C difficile Toxins A+B, EIA 07/10/2025 Microalb/Creat Ratio, Randm Ur 5 Microalb/Creat Ratio, Rand Ur 5 Stool Culture -O&P 07/10/2025 CT Abdomen and Pelvis 04/12/2023 CALPROTECTIN,FECAL 07/10/2025 SEX HORMONE BINDING GLOBULIN (SHBG) 05/05 TRANSFERRIN 05/11/2023 Culture Salmonella and Shigella Screen 0 07/10/2025 CT Abdomen w/o Contrast 12/20/2023 LIPID PANEL, STANDARD 12/25/2024 LIPID PANEL, STANDARD 01/21/2024 MICROALBUMIN, RANDOM URINE (W/CREATININE ) 03/12/2025 IRON, TIBC AND FERRITIN PANEL 05/11/2023 COMPREHENSIVE METABOLIC PANEL 05/18/2025 COMPREHENSIVE METABOLIC PANEL 07/10/2025 COMPREHENSIVE METABOLIC PANEL 03/12/2025 COMPREHENSIVE METABOLIC PANEL 12/25/2024 COMPREHENSIVE METABOLIC PANEL 01/21/2024 COMPREHENSIVE METABOLIC PANEL 01/29/2023 CBC (INCLUDES DIFF/PLT) 01/21/2024 CBC (INCLUDES DIFF/PLT) 12/25/2024 CBC (INCLUDES DIFF/PLT) 07/10/2025 CBC (INCLUDES DIFF/PLT) 05/18/2025 URINALYSIS, COMPLETE 05/18/2025 URINALYSIS, COMPLETE 07/10/2025 URINALYSIS, COMPLETE 12/25/2024 URINALYSIS, COMPLETE 03/12/2025 URINALYSIS, COMPLETE 01/29/2023 URINALYSIS, COMPLETE 01/21/2024 HEMOGLOBIN A1c 09/25/2022 HEMOGLOBIN A1c 01/21/2024 INSULIN 09/25/2022 VITAMIN B12 12/25/2024 PSA (FREE AND TOTAL) 12/25/2024 TSH 01/21/2024 VITAMIN D,25-OH,TOTAL,IA 01/21/2024 CT Abdomen Pelvis W Cont 12/25/2023 US Renal 03/09/2025 FECAL WHITE CELLS 07/10/2025 CT Chest W/ Contrast 04/12/2023 TESTOSTERONE 05/18/2025 Hemoglobin [id number] 12/25/2024 TSH+T4F+T3Free 12/25/2024 Next Appt Details Provider Name:SERENA WALKER, 08/18/2025 03:30:00 PM, [address], [place], [address], Insurance Providers Payer Name Payer Address Payer Phone Subscriber Number Group Number Insured Name Patient Relationship to Insured Coverage Start Date Coverage End Date [employer] [address] [place] [address] [phone] [id number] Marian Goodson Self - patient is the insured 9 Medications Administered Medication Instructions Date of Administration Dosage Notes MICC B12 INJECTION 03/12/2023 lot # [id number] Medical (General) History Medical History History ICD Code Essential hypertension I10 Tobacco abuse Z72.0 Gout, unspecified M10.9 Anxiety with depression F41.8 Hemorrhoids with complication K64.8 Obesity (BMI 30-39.9) E66.9 Chronic kidney disease, stage 3a N18.31 Asthma J45.909 Polyp of colon K63.5 Obstructive sleep apnea G47.33 Enlarged prostate N40.0 Surgical History Surgery Date(Month/Year) Left inguinal herniorraphy 2009
== END 2025-07-14 12:07 | disposition home or self-care (01) ==
LOC: HO.HKAS 10:48
PROVIDERS: PCP Internal Medicine; Visit Provider Internal Medicine Nephrology
DX: N17.9 Acute kidney failure, unspecified (principal); I15.1 Hypertension secondary to other renal disorders; R80.8 Other proteinuria
CPT/HCPCS: 99204

== ENCOUNTER 2025-07-14 11:53 | Inpatient (IN) | payer OTHER, SELFPAY ==
--- NOTE | ~2025-07-14 | US_ITS ---
. EXAMINATION: Ultrasound renal Doppler, bilaterally. CLINICAL INFORMATION: KEYONNA on CKD COMPARISON: Correlated to renal ultrasound dated July 14, 2025. TECHNIQUE: Ultrasound renal Doppler the main renal arteries the abdominal aorta at the main renal artery origin and segmental resistive indicis in the upper mid and lower poles of the kidneys. FINDINGS: SPECTRAL DOPPLER ANALYSIS: Right Kidney: -Peak systolic velocity in the proximal right renal artery = 92 cm/s. Normal waveforms. -Peak systolic velocity in the mid right renal artery = 63 cm/s. Normal waveforms. -Peak systolic velocity in the distal right renal artery = 56 cm/s. Normal waveforms. -Patent right renal vein. -Upper pole interlobar artery resistive index of 0.81. -Midpole interlobar artery resistive index of 0.84. -Lower pole interlobar artery resistive index of 0.81. RAR right = 2.19 Left Kidney: -Peak systolic velocity in the proximal left renal artery = 76 cm/s. Normal waveforms. -Peak systolic velocity in the mid left renal artery = 148 cm/s. Normal waveforms. -Peak systolic velocity in the distal left renal artery = 122 cm/s. Normal waveforms. -Patent left renal vein. -Upper pole interlobar artery resistive index of 0.77. -Mid pole interlobar artery resistive index of 0.77. -lower pole interlobar artery resistive index of 0.72. RAR left = 3.6 Aorta: -Peak systolic velocity = 42 cm/s. US/US renal doppler IMPRESSION: Abnormal segmental resistive indicis in the right kidney likely related to renal disease. Hemodynamically significant stenosis according to renal/ aorta ratio, left main renal artery. Electronically signed by: Willian Miller MD 07/15/2025 12:32 PM EDT
--- NOTE | ~2025-07-14 | US_ITS ---
EXAMINATION: US RETROPERITONEAL COMPLETE (RENAL) CLINICAL INFORMATION: KEYONNA on CKD, rhabdo. COMPARISON: Correlated to CT dated July 14, 2025 TECHNIQUE: Real-time imaging of the kidneys and bladder. FINDINGS: RIGHT KIDNEY: 10 x 5 x 6 cm (SAG x AP x TRV). Volume: 135 cc. Increased echotexture. Normal renal cortical thickness. No hydronephrosis. There are a 1.2 cm and a 2.1 cm anechoic lesions in the midportion without nodular components were flow on color Doppler interrogation. LEFT KIDNEY: 10 x 6 x 6 cm (SAG x AP x TRV). Volume: 180 cc. Increased echotexture. Normal renal cortical thickness. No hydronephrosis. There are multiple well-defined anechoic lesions without septations or nodular components in the midportion and lower pole measuring 1.3 cm, 1.7 cm and 1.6 cm. BLADDER: There are a few there are irregular isoechoic abnormality is seen in the urinary bladder wall without flow on color Doppler interrogation. Bilateral ureteral jets are demonstrated. Prevoid bladder volume is 299. mL. Postvoid bladder volume is 33 mL. The bladder has an heterogeneous morphology and measures 3.5 x 3.3 x 3.9 cm with volume: 24 cc. US/US retroperitoneal comp IMPRESSION: No hydronephrosis. Bilateral renal cysts. Concerning medical renal disease. 33 cc residual urine in a post void image. Prostate gland is not enlarged with volume: 24 cc... Electronically signed by: Willian Miller MD 07/14/2025 03:52 PM EDT
--- NOTE | ~2025-07-14 | XR_ITS ---
EXAMINATION: XR CHEST CLINICAL INFORMATION: esrd COMPARISON: None available. TECHNIQUE: Frontal view of the chest was obtained. FINDINGS: No significant abnormality is noted involving the heart, lungs, mediastinum, bony thorax or soft tissues. XR/XR chest 1V IMPRESSION: No acute disease. Electronically signed by: Daniel Luke MD 07/14/2025 04:49 PM EDT RP
--- NOTE | ~2025-07-14 | CT_ITS ---
EXAMINATION: CT ABDOMEN AND PELVIS WITHOUT CONTRAST CLINICAL INFORMATION: Chronic kidney disease with evidence of acute kidney injury COMPARISON: None available. TECHNIQUE: Multidetector volumetric imaging was performed from the superior aspect of the liver through the pubic symphysis. Sagittal and coronal reformatted images were obtained on the technologist's workstation. This CT examination was performed using dose optimization techniques as appropriate, variously including the following: *Automated exposure control *Adjustment of mA and/or kV according to patient size (this includes techniques or standardized protocols for targeted exams where dose is matched to indication/reason for exam; i.e. extremities or head) *Use of iterative reconstruction technique DLP: 597 mGY*cm FINDINGS: LUNG BASES: The visualized lung bases are unremarkable. LIVER, GALLBLADDER, AND BILIARY TREE: The liver is normal in size, shape, and attenuation. No focal hepatic lesion or biliary ductal dilatation is present. The gallbladder is unremarkable with no evidence of radiopaque gallstones, gallbladder wall thickening, or obvious pericholecystic inflammatory changes. PANCREAS: Unremarkable. SPLEEN: Unremarkable. ADRENAL GLANDS: Unremarkable. KIDNEYS AND URETERS: Benign simple renal cysts are present bilaterally. No kidney stones are evident. There is no hydronephrosis. BLADDER: Unremarkable. GASTROINTESTINAL TRACT: The small and large bowel are unremarkable. The appendix is unremarkable. ABDOMINAL WALL: No significant hernia is appreciated. LYMPH NODES: Normal. VASCULAR: Atherosclerotic calcifications are present. PELVIC VISCERA: Unremarkable. OSSEOUS STRUCTURES: Serpentine bands of hypoattenuation are present in the right femoral head involving 75% of the subchondral bone cephalad to the fovea. There is no subchondral lucency. Joint space is preserved. CT/CT abdomen pelvis wo IV con IMPRESSION: Unremarkable abdomen and pelvis CT. 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 Approximately 75% of the weightbearing subchondral bone is involved. Fleischner guidelines were followed. Electronically signed by: Daniel Luke MD 07/14/2025 03:03 PM EDT
--- NOTE | ~2025-07-14 | CT_ITS ---
PROCEDURE: CT GUIDED BIOPSY, KIDNEY CLINICAL INFORMATION: KEYONNA. COMPARISON: None available. TECHNIQUE: Following explaining CT fluoroscopy guided kidney biopsy procedure, benefits and risk, a written consent was obtained for conscious sedation and biopsy. Patient was placed prone on CT fluoroscopy table and preliminary CT imaging was obtained through the upper abdomen. An lead markers were placed along the left posterior lateral abdomen repeat CT imaging was performed. An axial slice was selected along the left posterior lateral abdomen and leg markers were placed over the skin. An optimal marker was selected and marked on the skin. The area was cleaned and draped with 2% chlorhexidine solution. 1% lidocaine was administered at puncture site. Conscious sedation was given during the exam. There is small skin incision a 20-gauge long guiding needle was advanced from this marked site into the lower pole cortex left kidney. Coaxially a 20-gauge achieve biopsy gun was administered and a 3 pass cortical biopsy was performed. Gelfoam was injected through the guide needle to achieve hemostasis. The guide and the biopsy was removed and repeat CT imaging was obtained. Sterile dressing applied at the puncture site. Patient tolerated procedure extremely well. Conscious sedation was administered during exam and patient monitored by a nurse and IR physician. This CT examination was performed using dose optimization techniques as appropriate, variously including the following: *Automated exposure control *Adjustment of mA and/or kV according to patient size (this includes techniques or standardized protocols for targeted exams where dose is matched to indication/reason for exam; i.e. extremities or head) *Use of iterative reconstruction technique FINDINGS: On preliminary CT imaging there are lower pole bilateral renal cysts. There is a 2.3 cm cyst lower pole right kidney and a smaller 10.4 cm cyst lower pole right kidney. CT fluoroscopy guided core biopsy lower pole right kidney was obtained x 3. Post procedure CT imaging revealed Gelfoam and minimal hematoma in the perinephric space. CT/CT biopsy renal LT IMPRESSION: Successful CT fluoroscopy guided right renal lower pole biopsy performed. Dose area product: 381 mGy/cm. Sedation time: 15 minutes. Electronically signed by: Jaylon Dhillon MD 07/16/2025 03:39 PM EDT
[2025-07-14 12:16] VITALS: BP 204/91; PULSE 59; RESP 18; TEMP 36.7; O2SAT 98; BMI 32.6
--- NOTE | 2025-07-14 12:17 | ED_ITS ---
HPI - General Adult General Chief complaint: Recheck/Abnormal Lab/Rx Stated complaint: Sent by KEYONNA Polo Time Seen by Provider: 07/14/25 14:03 Source: patient, RN notes reviewed and old records reviewed Mode of arrival: ambulatory Limitations: no limitations History of Present Illness ED Provider: [facility] narrative: Patient is a 44-year-old male with history of CKD, HTN referred to the emergency department by asphalt paving machine operator, Dr. Chen, for admission and evaluation of KEYONNA. Patient reports that he has had ongoing symptoms of hematuria and proteinuria in the past as well as hypertension, was evaluated by Urology and had imaging studies without any definite diagnosis regarding this hematuria and proteinuria. He states that for a time his symptoms of leg cramps, hand cramping, chills and urinary frequency were occasional but over the past few weeks have become constant. States that he does power lift several times per week. According to nephrology note, creatinine has been around 3 but recently increased to 6. Dr. Chen referred patient to the ED for inpatient admission for renal biopsy and additional imaging. MD complaint: abnormal creatinine Related Data Home Medications ?Medication ?Instructions ?Recorded ?Confirmed amlodipine 5 mg tablet 10 mg PO DAILY 07/14/25 oxybutynin chloride 10 mg 10 mg PO DAILY 07/14/25 tablet,extended release 24 hr tamsulosin 0.4 mg capsule 0.4 mg PO DAILY 07/14/25 Allergies Allergy/AdvReac Type Severity Reaction Status Date / Time No Known Allergies Allergy Verified 07/14/25 12:20 Review of Systems 2 Review of Systems: as per HPI Yes all other systems are reviewed and are negative Constitutional: Constitutional: Reports as per HPI [facility] Past Medical History Medical History (Updated 07/14/25 @ 16:04 by Sharita Martinez NP) Enlarged prostate HAYLEY (obstructive sleep apnea) Polyp of colon Asthma Chronic kidney disease, stage 3a Obesity Hemorrhoids with complication Anxiety with depression Gout Tobacco use Essential (primary) hypertension Surgical History (Updated 07/14/25 @ 10:52 by Elisabet Fuentes MA) S/P left inguinal herniorrhaphy Family History Family History Father Prostate cancer Mother Heart attack Hypertension Social History Social History Alcohol intake: never Patient Tobacco Use Status: Current someday Tobacco user Advance Directives: No Advance Directives Information Provided: Yes Physical Exam ED Vital Signs: Vital Signs - 24 hr 07/14/25 12:16 07/14/25 13:58 Temperature 98.1 F 98.3 F Pulse Rate 59 52 Respiratory Rate 18 16 Blood Pressure 204/91 H 157/70 H Pulse Oximetry 98 100 Oxygen Delivery Method Room Air Room Air BMI result Body Mass Index 32.6 Vital signs have been reviewed and appear to be correct. Blood pressure normal. Heart rate normal. Respiratory rate normal. Temperature normal. Oxygen saturation normal. Const General: cooperative, healthy appearing and no acute distress Orientation/consciousness: oriented to person, oriented to place, oriented to time and patient oriented x3 Limitations: no limitations HENMT Head: Yes normocephalic and Yes atraumatic Ears: external ears normal General nose exam: Normal external nose present Face and sinus: Yes face symmetric Mouth: oropharynx normal and moist mucous membranes Throat: Yes uvula midline Eyes Pupils: Equal, round and reactive pupils present Neck Neck: Yes normal visual inspection and Yes supple Resp Effort & Inspection: normal respiratory effort and able to speak in complete sentences Auscultation: clear to auscultation bilaterally Cardio Rate: regular rate Rhythm: regular rhythm Heart sounds: S1 normal heart sound present and S2 normal heart sound present GI Palpation (GI): Soft to palpation and nontender Auscultation: normoactive bowel sounds General: Yes no CVA tenderness Back/Spine/Pelvis Back: no CVA tenderness Skin General skin exam: elasticity normal and turgor normal Neuro General: oriented to person, oriented to place, oriented to time, patient oriented x3, moves all extremities, no focal motor deficits and CN's II-XI intact bilaterally Cranial nerves: Yes Equal, round and reactive pupils present Cognition (Neuro): normal cognition Extrem General: Yes full ROM, Yes no pedal edema and Yes no calf tenderness Psych Mental Status: mental status grossly normal Affect: normal affect Thought process: Normal thought process present Course Course Course Narrative: This is an RME: Additional HPI, ROS, PE not included below will be deferred to primary provider. RME assessment and note performed by: Leihgann Jaimes PA-C This is a 89-bmmh-fjy-male, with a hx of HTN, who presents to the ER with complaints of BL leg cramping, urinary frequency. Reports that his kidney function has been worsening over the last several days. Patient went to Dr. Leahy and was told to come to the emergency room as patient is in kidney failure. Patient does report he goes to the gym 4 to 5 times a week, primarily strength training. No supplement use. Does admit to having some shortness of breath. Plan: Labs, UA, EKG, further ER evaluation needed. Medications Administered Discontinued Medications Generic Name Dose Route Start Last Admin Trade Name Freq PRN Reason Stop Dose Admin Sodium Chloride 1,000 mls @ 999 mls/hr 07/14/25 14:15 07/14/25 14:14 Ns IV 07/14/25 15:15 999 mls/hr .Q1H1M [facility] Administration Medical Decision Making Medical Decision Making [facility] Narrative: Patient is a 44-year-old male with history of CKD, HTN referred to the emergency department by asphalt paving machine operator, Dr. Chen, for admission and evaluation of KEYONNA. On exam patient is awake, A+Ox3, VS WNL, afebrile, normal neurological exam without focal deficits, physical exam findings as above. Given reported symptoms and physical exam findings, initial differential includes but is not limited to KEYONNA on CKD, rhabdomyolysis, electrolyte abnormality. Labs notable for anemia of 9.2/26, BUN/Cr of 116/7.59, CK of 3202, mildly elevated transaminases. CT A/P unremarkable but notable for AVN of right femoral head. Retroperitoneum ultrasound notable for bilateral renal cysts, concerning medical renal disease. My interpretation is in agreement with the radiologist's interpretation. IV fluids ordered, case discussed with Dr. Campa who accepts admission to medicine. Differential Diagnosis Differential Diagnoses: The differential diagnosis associated with the presentation includes as per [facility] Admission/Observation Consideration of admission/observation: Escalation of care including admission/observation considered Consult Healthcare Provider Management of the patient was discussed with: Hospitalist Lab Data [facility] Lab Attestation statement: I reviewed the patient's lab results. as per [facility] 07/14/25 12:32 07/14/25 12:32 Labs: Lab Results 07/14/25 07/14/25 07/14/25 Range/Units 12:32 12:38 15:36 WBC 9.2 (4.8-10.8) X10*3/uL RBC 3.12 L (4.60-5.80) X10*6/uL Hgb 9.2 L (14.0-18.0) g/dl Hct 26.0 L (42.0-52.0) % MCV 83.3 (80.0-98.0) fL MCH 29.5 (27.0-33.0) pg MCHC 35.4 (31.0-36.0) g/dl RDW 13.0 (11.0-16.0) % Plt Count 172 (160-400) X10*3/uL MPV 9.3 L (9.4-12.4) fL Immature Gran % (Auto) 0.8 H (0.0-0.4) % Neut % (Auto) 77.7 H (45-73) % Lymph % (Auto) 13.7 L (20-40) % Lawrence % (Auto) 6.6 (2-11) % Eos % (Auto) 0.8 (0-4) % Baso % (Auto) 0.4 (0-2) % Lymph # (Auto) 1.3 (1.2-4.9) X10*3/uL Lawrence # (Auto) 0.6 (0.1-1.2) X10*3/uL Eos # (Auto) 0.1 (0.0-0.4) X10*3/uL Baso # (Auto) 0.0 (0.0-0.2) X10*3/uL Abs Immat Gran (auto) 0.07 H (0.00-0.03) X10*3/uL Absolute Neuts (auto) 7.1 (2.0-8.3) x10*3/uL Absolute Nucleated RBC 0.000 (0.0-0.012) X10*3/uL Nucleated RBC % (auto) 0.0 (0.0-0.2) /100WBC PT 10.9 (10.9-12.4) SEC INR 1.0 (0.9-1.1) Sodium 139 (135-145) mmol/L Potassium 4.9 (3.3-5.1) mmol/L Chloride 112 H (96-108) mmol/L Carbon Dioxide 17 L (22-29) mmol/L Anion Gap 15 (12-20) BUN 116 H (9-16) mg/dL Creatinine 7.59 H* (0.5-1.4) mg/dL Estim Creat Clear Calc 13.8 Estimated GFR 8 Random Glucose 102 (60-115) mg/dL Calcium 8.6 (8.4-10.2) mg/dL Magnesium 2.2 (1.6-2.6) mg/dL Total Bilirubin 0.3 (0.0-1.0) mg/dL Direct Bilirubin 0.1 (0.0-0.5) mg/dL AST 65 H (5-37) U/L ALT 43 H (0-40) U/L Alkaline Phosphatase 47 (39-117) U/L Total Creatine Kinase 3202 H (38-174) U/L Troponin I High Sens 7.0 (<3.5-35.0) ng/L B-Natriuretic Peptide 28 (<100) pg/mL Total Protein 6.3 L (6.5-8.0) g/dL Albumin 4.0 (3.5-5.0) g/dL Urine Color Yellow Urine Appearance Clear Urine pH 5.5 (5.0-9.0) Ur Specific [place] 1.010 (1.005-1.025) Urine Protein 300 (3+) H (Neg-Trace) mg/dL Urine Glucose (UA) Negative (Negative) mg/dL Urine Ketones Negative (Negative) mg/dL Urine Blood Moderate (2+) H (Negative) Urine Nitrite Negative (Negative) Ur Leukocyte Esterase Negative (Negative) Urine RBC 6-10 H (0-2) /HPF Urine WBC 0-5 (0-5) /HPF Ur Squamous Epith Cells 0-2 (0-2) /HPF Urine Bacteria None Seen (None Seen) Hyaline Casts 3-5 (0-2) /LPF Independent Interpretation I performed an independent interpretation of an: Ultrasound and CT Scan Interpretation: CT A/P unremarkable but notable for AVN of right femoral head. Retroperitoneum ultrasound notable for bilateral renal cysts, concerning medical renal disease. Radiology Impression Discussion of test interpretation with radiology: I have reviewed the radiologist's reading. Radiologist Impression: US/US retroperitoneal comp IMPRESSION: No hydronephrosis. Bilateral renal cysts. Concerning medical renal disease. 33 cc residual urine in a post void image. CT/CT abdomen pelvis wo IV con IMPRESSION: Unremarkable abdomen and pelvis CT. 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 Approximately 75% of the weightbearing subchondral bone is involved. External Record Review External record reviewed: Inpatient record, Office record and Outpatient record Discharge Plan Discharge Patient Disposition: Admitted As Inpatient Print Language: Macedonian
--- NOTE | 2025-07-14 12:20 | ECG_ITS ---
Test Reason : DYSPNEA Blood Pressure : */* mmHG Vent. Rate : 52 BPM Atrial Rate : 52 BPM P-R Int : 186 ms QRS Dur : 104 ms QT Int : 430 ms P-R-T Axes : 59 56 32 degrees QTcB Int : 399 ms Sinus bradycardia Otherwise normal ECG No previous ECGs available Referred By: Leighann Jaimes Electronically Signed By: HERRERA BRADEN MD
[2025-07-14 12:37] LABS: MANUAL DIFF FLAG NO
[2025-07-14 12:38] LABS: Hematocrit 26.0 % (42.0-52.0); Hemoglobin 9.2 g/dl (14.0-18.0); Imm Gran Abs Auto 0.07 X10*3/uL (0.00-0.03); Imm Gran Pct Auto 0.8 % (0.0-0.4); Lymphocytes Absolute Auto 1.3 X10*3/uL (1.2-4.9); Mean Corpuscular HGB Conc 35.4 g/dl (31.0-36.0); Mean Corpuscular Hemoglobin 29.5 pg (27.0-33.0); Mean Corpuscular Volume 83.3 fL (80.0-98.0); NRBC Abs Auto 0.000 X10*3/uL (0.0-0.012); NRBC Pct Auto 0.0 /100WBC (0.0-0.2); Platelet Count 172 X10*3/uL (160-400); Red Blood Count 3.12 X10*6/uL (4.60-5.80); White Blood Count 9.2 X10*3/uL (4.8-10.8)
[2025-07-14 12:57] LABS: Appearance Urine Clear; Glucose Urine UA Negative (Negative); PH 5.5 (5.0-9.0); Specific Gravity - Urine 1.010 (1.005-1.025); UMIC TRIGGER UACC YES
[2025-07-14 13:03] LABS: B Type Natriuretic Peptide 28 pg/mL (<100)
[2025-07-14 13:05] LABS: Troponin-I High Sensitivity 7.0 ng/L (<3.5-35.0)
[2025-07-14 13:09] LABS: Alanine Aminotransferase 43 U/L (0-40); Albumin Level 4.0 g/dL (3.5-5.0); Alkaline Phosphatase 47 U/L (39-117); Anion Gap 15 (12-20); Aspartate Amino Transferase 65 U/L (5-37); Blood Urea Nitrogen 116 mg/dL (9-16); Calcium 8.6 mg/dL (8.4-10.2); Carbon Dioxide 17 mmol/L (22-29); Chloride 112 mmol/L (96-108); Creatinine Clr Calc Pharmacy 13.8; Estimated Glomerular Filt Rate 8; Magnesium 2.2 mg/dL (1.6-2.6); Potassium 4.9 mmol/L (3.3-5.1); Sodium 139 mmol/L (135-145); Total Protein 6.3 g/dL (6.5-8.0)
[2025-07-14 13:58] VITALS: BP 157/70; PULSE 52; RESP 16; TEMP 36.8; O2SAT 100
--- OUTSIDE RECORDS SUMMARY | 2025-07-14 15:03 | XMS_ITS | Encounter Summary ---
Author Organization [facility] Address [address] [place] [address] Care Team Providers Care Manager Testing Name Role Phone Avinash Kwon MD Primary Care Provider Unavail able Alana David MD Primary Care Provider Susan Chowdhury PA-C Primary Care Provider Unavail able Lauren Adams MD Primary Care Provider Unavailabl e Encounter Details Date Type Department Care Team Description 01/29/2018 [facility] Medical Records [address] [place] [address] Abstract, Provider Social History Tobacco Use Types Packs/Day Years Used Date Smoking Tobacco: Some Days Cigarettes 1 Last attempted to quit: 11/28/2014 Smokeless Tobacco: Never Alcohol Use Standard Drinks/Week Comments No 500 (1 standard drink = 0.6 oz p ure alcohol) stopped 3 yrs ago 02/2013 Sex Assigned at Date Recorded Male 11/11/2020 6:[address] documented as of this encounter Plan of Treatment Not on file documented as of this encounter Visit Diagnoses Not on filedocumented in this encounter Care Teams Manager Testing Relationship Specialty Start Date End Date Avinash Kwon MD PCP - General 08/21/05 05/14/22 Alana David MD PCP - General Family Practice 05/15/22 10/23/22 Susan Dsouza PA-C PCP - General Internal Medicine 10/24/22 06/27/23 Lauren Adams MD PCP - General Internal Medicine 06/28/23 documented as of this encounter
--- OUTSIDE RECORDS SUMMARY | 2025-07-14 15:03 | XMS_ITS | Encounter Summary ---
Author Organization [facility] Address [address] [place] [address] Care Team Providers Care Cutter Operator Helper Name Role Phone Avinash Kwon MD Primary Care Provider Unavail able Alana David MD Primary Care Provider Susan Chowdhury PA-C Primary Care Provider Unavail able Lauren Adams MD Primary Care Provider Unavailabl e Encounter Details Date Type Department Care Team Description 10/18/2010 [facility] Medical Records [address] [place] [address] Seb Galicia MD Social History Tobacco Use Types Packs/Day Years Used Date Smoking Tobacco: Some Days Cigarettes 1 2.5 Smokeless Tobacco: Never Alcohol Use Standard Drinks/Week Comments No 500 (1 standard drink = 0.6 oz p ure alcohol) stopped 3 yrs ago 02/2013 Sex Assigned at Date Recorded Male 11/11/2020 6:[address] documented as of this encounter Plan of Treatment Not on file documented as of this encounter Visit Diagnoses Not on filedocumented in this encounter Care Teams Cutter Operator Helper Relationship Specialty Start Date End Date Avinash Kwon MD PCP - General 08/21/05 05/14/22 Alana David MD PCP - General Family Practice 05/15/22 10/23/22 Susan Dsouza PA-C PCP - General Internal Medicine 10/24/22 06/27/23 Lauren Adams MD PCP - General Internal Medicine 06/28/23 documented as of this encounter
--- OUTSIDE RECORDS SUMMARY | 2025-07-14 15:03 | XMS_ITS | Encounter Summary ---
Author Organization [facility] Address [address] [place] [address] Care Team Providers Care Costing Manager Name Role Phone Alana David MD Primary Care Provider Susan Chowdhury PA-C Primary Care Provider Lauren Palencia MD Primary Care Provider Unavailabl e Reason for Visit * Reason Comments E-prescribe Rx Request Encounter Details Date Type Department Care Team Description 07/14/2022 Refill Adult Medicine - [place] [address] [place] [address] Alana David MD E-prescribe Rx Request Social History Tobacco Use Types Packs/Day Years Used Date Smoking Tobacco: Some Days Cigarettes 1 Last attempted to quit: 03/05/2019 Smokeless Tobacco: Never Comments:1.5 pack per week Alcohol Use Standard Drinks/Week Comments No 500 (1 standard drink = 0.6 oz p ure alcohol) stopped 3 yrs ago 02/2013 Sex Assigned at Date Recorded Male 11/11/2020 6:[address] documented as of this encounter Miscellaneous Notes * Telephone Encounter - Alana David MD - 07/17/2022 8:59 AM EDT 90-day supply can be sent at upcoming visit. Patient had recent cancellation and not seen since October 2021. New to me. * Telephone Encounter - Karly Segovia M.A. - 07/17/2022 8:30 AM EDT Pt requesting 90 day supply Last Office Visit: 10/11/2021, pending appt 08/23/22 * Telephone Encounter - Paola Cruz - 07/16/2022 3:50 PM EDT Patient would like script to be: E-PRESCRIBED/FAXED TO PHARMACY WHEN WAS THE PATIENT'S LAST APPOINTMENT IN ADULT MEDICINE? 10-11-21 WHEN WAS THE LAST TIME THE PATIENT SAW THEIR PCP? Has not seen pcp Does patient have an upcoming appointment? Yes 08-23-22 (THE MEDICATION REQUESTED IS ON THE MED LIST ABOVE) All of the medications requested were on the CURRENT MEDS list Did you check the Pharmacy information above?: YES Patient wants: 30 -day supply Is this a mail order prescription request ? NO If the refill is from a FAXED refill request what is the RX # listed on the fax? N/A Patients current insurance carrier is: Payor: AC / Plan: PPO $0 BRANDI [id number] / Product Type: PPO [id number] documented in this encounter Plan of Treatment Not on file documented as of this encounter Visit Diagnoses Not on filedocumented in this encounter Care Teams Costing Manager Relationship Specialty Start Date End Date Alana David MD PCP - General Family Practice 05/15/22 10/23/22 Susan Dsouza PA-C PCP - General Internal Medicine 10/24/22 06/27/23 Lauren Adams MD PCP - General Internal Medicine 06/28/23 documented as of this encounter
--- OUTSIDE RECORDS SUMMARY | 2025-07-14 15:03 | XMS_ITS | Encounter Summary ---
Author Organization [facility] Address [address] [place] [address] Care Team Providers Care Scalp Treatment Operator Name Role Phone Avinash Kwon MD Primary Care Provider Unavail Alana King MD Primary Care Provider Susan Chowdhury PA-C Primary Care Provider Unavail able Lauren Adams MD Primary Care Provider Unavailabl e Reason for Referral * Non XAVI (Routine) - Authorized/Booked Specialty Diagnoses / Procedures Referred By Ricardo jarvis Referred To Contact Physical Therapy Procedures REFERRAL TO PHYSICAL THERAPY Avinash Kwon MD [address] [place] [address] External Phys Thrpy Referral ID Status Reason Start Date Expiration Date V isits Requested Visits Authorized SEE NOTE Authorized/B ooked 11/29/2015 11/28/2016 1 1 Reason for Visit * Reason Onset Date Comments Switch Operators Supervisor Feedback 11/29/2015 Encounter Details Date Type Department Care Team Description 11/29/2015 Telephone Medicine/Pediatrics [address] [phone] Avinash Kwon MD Switch Operators Supervisor Feedback Social History Tobacco Use Types Packs/Day Years Used Date Smoking Tobacco: Former Cigarettes 1 Q uit: 11/28/2014 Smokeless Tobacco: Never Alcohol Use Standard Drinks/Week Comments No 500 (1 standard drink = 0.6 oz p ure alcohol) stopped 3 yrs ago 02/2013 Sex Assigned at Date Recorded Male 11/11/2020 6:[address] documented as of this encounter Miscellaneous Notes * Telephone Encounter - Sunitha Connors - 11/29/2015 10:43 AM EST Please review this patients new referral request. The referral has been pended. Please complete thefollowing: If approved> sign order If denied>please give instructions and route to your practice nursing pool. Practice nurse should inform referrals and the patient if denied. * Telephone Encounter - Paula Mckeon - 11/29/2015 10:39 AM EST Did you verify this is patients current insurance? YES Payor: AC / Plan: PPO $0 BRANDI [id number] / Product Type: PPO [id number] Effective 08/05/09: [employer] will not retro referral requests over 90 days. If request is for this please instruct patient to call the 800# on their insurance card to appeal. Do not submit a request. Referrals cannot be processed if the insurance is not accurate. If the insurance listed above in red is NO BILLING INFORMATION FOUND FOR THIS ENCOUTNER The patients correct insurance must be obtained and registered in [facility] or their referral can not be processed. Who is calling to request this referral? Mack If the caller is not the patient, what is their name? N/A FIRST and LAST NAME of SPECIALIST PATIENT is seeing: Attain therapy What specialty is this? Physical therapy DIAGNOSIS Patient is being seen for (Not a body part or a procedure): vertigo Have you seen this SPECIALIST for this PROBLEM/DX before?YES If YES, when:10/19/2015 Have you checked REVIEW or the APPT DESK to see if this referral has already been done or has visits left? YES Who referred the patient to this specialty? Avinash Kwon Is this visit:Follow Up Address of Specialist: [address] [place] [address] Phone # of Specialist:[phone] Fax #: (if applicable):[phone] Does patient have an appointment scheduled?: YES Date of appointment- (including a retro-request): 12/03/2015 - past referral has run out Is this appointment related to: Not MVA, WC or Surgery related documented in this encounter Plan of Treatment Not on file documented as of this encounter Visit Diagnoses Not on filedocumented in this encounter Care Teams Scalp Treatment Operator Relationship Specialty Start Date End Date Avinash Kwon MD PCP - General 08/21/05 05/14/22 Alana David MD PCP - General Family Practice 05/15/22 10/23/22 Susan Dsouza PA-C PCP - General Internal Medicine 10/24/22 06/27/23 Lauren Adams MD PCP - General Internal Medicine 06/28/23 documented as of this encounter
--- OUTSIDE RECORDS SUMMARY | 2025-07-14 15:03 | XMS_ITS | Encounter Summary ---
Author Organization [facility] Address [address] [place] [address] Care Team Providers Care Weatherization And Housing Inspector Name Role Phone Avinash Kwon MD Primary Care Provider Unavail able Alana David MD Primary Care Provider Susan Chowdhury PA-C Primary Care Provider Unavail able Lauren Adams MD Primary Care Provider Unavailabl e Reason for Visit * Reason Onset Date Comments Prior Authorization 08/12/2019 Sidenafil Ci trate Encounter Details Date Type Department Care Team Description 08/12/2019 Telephone Medicine/Pediatrics - [address] [phone] Avinash Kwon MD Prior Authorization (Sidenafil Citrate ) Social History Tobacco Use Types Packs/Day Years Used Date Smoking Tobacco: Former Cigarettes 1 Q uit: 03/05/2019 Smokeless Tobacco: Never Alcohol Use Standard Drinks/Week Comments No 500 (1 standard drink = 0.6 oz p ure alcohol) stopped 3 yrs ago 02/2013 Sex Assigned at Date Recorded Male 11/11/2020 6:[address] documented as of this encounter Miscellaneous Notes * Telephone Encounter - Jeanette Thurman M.A. - 08/14/2019 8:37 AM EDT Prior authorization for the sildenafil 100mg tablet Approved Approved from 07/13/19 until 08/11/2020 Approval faxed to [facility] at [phone] * Telephone Encounter - Jeanette Thurman M.A. - 08/12/2019 3:34 PM EDT Prior auth completed on cover my meds for [facility], it wouldn't go through and then I did iton arianne and it stated that the date of service was keeping it from being accepted. Called [facility] and spoke with anton who stated this goes through [facility] and connected me with Vijaya who did the prior authorization over the phone. Its been approved from 07/13/19 until 08/11/2020 * Telephone Encounter - Teresa Henry - 08/12/2019 2:02 PM EDT Prior Authorization for Medication-do not complete and send this encounter unless you have the fax from the pharmacy. Is this a Cover My Meds request: Yes -- Miller Code [id number] Name of Medication Sildenafil Citrate Dose of Medication 100 mg What is the RX # from the faxed refill? N/a How does patient take this med? unknown What Pharmacy did the fax come from: [facility] fax #: n/a [facility] Party Information from fax: What Prescription Plan does the patient have? [facility] BIN/PCN if applicable: na Cardholder ID: n/a Person Code: n/a Relationship Code: na Help desk phone: [phone] documented in this encounter Plan of Treatment Not on file documented as of this encounter Visit Diagnoses Not on filedocumented in this encounter Care Teams Weatherization And Housing Inspector Relationship Specialty Start Date End Date Avinash Kwon MD PCP - General 08/21/05 05/14/22 Alana David MD PCP - General Family Practice 05/15/22 10/23/22 Susan Dsouza PA-C PCP - General Internal Medicine 10/24/22 06/27/23 Laruen Adams MD PCP - General Internal Medicine 06/28/23 documented as of this encounter
--- OUTSIDE RECORDS SUMMARY | 2025-07-14 15:03 | XMS_ITS | Encounter Summary ---
Author Organization [facility] Address [address] [place] [address] Care Team Providers Care Security Engineer Name Role Phone Avinash Kwon MD Primary Care Provider Unavail able Alana David MD Primary Care Provider Susan Chowdhury PA-C Primary Care Provider Unavail able Lauren Adams MD Primary Care Provider Unavailabl e Encounter Details Date Type Department Care Team Description 04/04/2015 Transfer Records Medical Records [address] [place] [address] Abstract, Provider Social History Tobacco Use Types Packs/Day Years Used Date Smoking Tobacco: Former Cigarettes 1 Q uit: 11/28/2014 Smokeless Tobacco: Never Alcohol Use Standard Drinks/Week Comments Yes 500 (1 standard drink = 0.6 oz p ure alcohol) occ glass of wine Sex Assigned at Date Recorded Male 11/11/2020 6:[address] documented as of this encounter Plan of Treatment Not on file documented as of this encounter Visit Diagnoses Not on filedocumented in this encounter Care Teams Security Engineer Relationship Specialty Start Date End Date Avinash Kwon MD PCP - General 08/21/05 05/14/22 Alana David MD PCP - General Family Practice 05/15/22 10/23/22 Susan Dsouza PA-C PCP - General Internal Medicine 10/24/22 06/27/23 Lauren Adams MD PCP - General Internal Medicine 06/28/23 documented as of this encounter
--- OUTSIDE RECORDS SUMMARY | 2025-07-14 15:03 | XMS_ITS | Encounter Summary ---
Author Organization [facility] Address [address] [place] [address] Care Team Providers Care Driver Helper Name Role Phone Avinash Kwon MD Primary Care Provider Unavail Alana King MD Primary Care Provider Susan Chowdhury PA-C Primary Care Provider Unavail able Lauren Adams MD Primary Care Provider Unavailabl e Reason for Visit * Reason Onset Date Comments Faxed Refill 05/16/2016 Encounter Details Date Type Department Care Team Description 05/16/2016 Refill Medicine/Pediatrics [address] [phone] Avinash Kwon MD Faxed Refill Social History Tobacco Use Types Packs/Day Years Used Date Smoking Tobacco: Former Cigarettes 1 Q uit: 11/28/2014 Smokeless Tobacco: Never Alcohol Use Standard Drinks/Week Comments No 500 (1 standard drink = 0.6 oz p ure alcohol) stopped 3 yrs ago 02/2013 Sex Assigned at Date Recorded Male 11/11/2020 6:[address] documented as of this encounter Miscellaneous Notes * Telephone Encounter - Janny Harper M.A. - 05/16/2016 11:30 AM EDT Last office visit 12/27/15 no pending appt Not on contract Last filled 03/08/16 #60 * Telephone Encounter - Monica Mcneil - 05/16/2016 8:57 AM EDT Patient would like script to be: E-PRESCRIBED/FAXED TO PHARMACY WHEN WAS THE PATIENT'S LAST APPOINTMENT IN ADULT MEDICINE? 12/27/2015 WHEN WAS THE LAST TIME THE PATIENT SAW THEIR PCP? Same as above Does patient have an upcoming appointment? no (THE MEDICATION REQUESTED IS ON THE MED LIST ABOVE) All of the medications requested were on the CURRENT MEDS list Did you check the Pharmacy information above?: NO Patient wants: 30 -day supply Is this a mail order prescription request ? NO Patients current insurance carrier is: Payor: AC / Plan: PPO $0 BRANDI [id number] / Product Type: PPO [id number] documented in this encounter Plan of Treatment Not on file documented as of this encounter Visit Diagnoses Not on filedocumented in this encounter Care Teams Driver Helper Relationship Specialty Start Date End Date Avinash Kwon MD PCP - General 08/21/05 05/14/22 Alana David MD PCP - General Family Practice 05/15/22 10/23/22 Susan Dsouza PA-C PCP - General Internal Medicine 10/24/22 06/27/23 Lauren Adams MD PCP - General Internal Medicine 06/28/23 documented as of this encounter
--- OUTSIDE RECORDS SUMMARY | 2025-07-14 15:03 | XMS_ITS | Encounter Summary ---
Author Organization [facility] Address [address] [place] [address] Care Team Providers Care Front End Driver Name Role Phone Alana David MD Primary Care Provider Susan Chowduhry PA-C Primary Care Provider Lauren Palencia MD Primary Care Provider Unavailabl e Encounter Details Date Type Department Care Team Description 10/23/2022 Pt. Non Urgent Medical Question Medicine/Pediatrics - [place] [address] [place] [address] Alana David MD Social History Tobacco Use Types Packs/Day Years Used Date Smoking Tobacco: Some Days Cigarettes 1 2.5 Smokeless Tobacco: Never Alcohol Use Standard Drinks/Week Comments No 500 (1 standard drink = 0.6 oz p ure alcohol) stopped 3 yrs ago 02/2013 Sex Assigned at Date Recorded Male 11/11/2020 6:[address] COVID-19 Exposure Response Date Recorded In the last 10 days, have yo u been in contact with someone who was confirmed or suspected to have Coronavirus/COVID-19? Unable to assess 10/03/2022 8:34 AM EST documented as of this encounter Miscellaneous Notes * Telephone Encounter - Laura Delaney M.A. - 10/23/2022 9:06 AM ESTFrom: Mack Goodson To: Margo David Sent: 10/23/2022 9:05 AM EST Subject: Gastroenterology Hello, I still have not received a referral for a colonoscopy. Please send me confirmation of the referralso I can give it to gastroenterology personally. documented in this encounter Plan of Treatment Not on file documented as of this encounter Visit Diagnoses Not on filedocumented in this encounter Care Teams Front End Driver Relationship Specialty Start Date End Date Alana David MD PCP - General Family Practice 05/15/22 10/23/22 Susan Dsouza PA-C PCP - General Internal Medicine 10/24/22 06/27/23 Lauren Adams MD PCP - General Internal Medicine 06/28/23 documented as of this encounter
--- OUTSIDE RECORDS SUMMARY | 2025-07-14 15:03 | XMS_ITS | Encounter Summary ---
Author Organization [facility] Address [address] [place] [address] Care Team Providers Care Assistant Financial Accountant Name Role Phone Avinash Kwon MD Primary Care Provider Unavail able Alana David MD Primary Care Provider Susan Chowdhury PA-C Primary Care Provider Unavail able Lauren Adams MD Primary Care Provider Unavailabl e Encounter Details Date Type Department Care Team Description 06/10/2010 Retail Sales Consultant Report Medical Records [address] [place] [address] Matti Christine MD [address] [place] [address] Social History Tobacco Use Types Packs/Day Years Used Date Smoking Tobacco: Every Day Cigarettes 0.5 Alcohol Use Standard Drinks/Week Comments Yes 500 (1 standard drink = 0.6 oz p ure alcohol) 10-12 oz liquor/every 3 days Sex Assigned at Date Recorded Male 11/11/2020 6:[address] documented as of this encounter Plan of Treatment Not on file documented as of this encounter Visit Diagnoses Not on filedocumented in this encounter Care Teams Assistant Financial Accountant Relationship Specialty Start Date End Date Avinash Kwon MD PCP - General 08/21/05 05/14/22 Alana David MD PCP - General Family Practice 05/15/22 10/23/22 Susan Dsouza PA-C PCP - General Internal Medicine 10/24/22 06/27/23 Lauren Adams MD PCP - General Internal Medicine 06/28/23 documented as of this encounter
--- OUTSIDE RECORDS SUMMARY | 2025-07-14 15:03 | XMS_ITS | Encounter Summary ---
Author Organization [facility] Address [address] [place] [address] Care Team Providers Care Dehydrator Name Role Phone Avinash Kwon MD Primary Care Provider Unavail Alana King MD Primary Care Provider Susan Chowdhury PA-C Primary Care Provider Unavail able Lauren Adams MD Primary Care Provider Unavailabl e Encounter Details Date Type Department Care Team Description 10/21/2021 Pt. Non Urgent Medical Question Medicine/Pediatrics - [address] [phone] Andrzej Thornton PA-C Social History Tobacco Use Types Packs/Day Years [...] Exposure Response Date Recorded In the last month, have you been in contact with someone who was confirmed or suspected to have Coronavirus / COVID-19? No / Unsure 10/11/2021 10:08 AM EST documented as of this encounter Miscellaneous Notes * Telephone Encounter - Iram Augustine M.A. - 10/21/2021 9:31 AM ESTFrom: Mack Hamzah To: Chris Thornton Sent: 10/21/2021 8:27 AM EST Subject: Orthopedic Hi Andrzej, Would it be possible to get me into see an orthopedic immediately, or as soon as possible? I fell on my left shoulder yesterday and now I cannot lift it up far at all and I am in a lot of pain. I think I may have damaged the shoulder/back more. Thanks, Michele documented in this encounter Plan of Treatment Not on file documented as of this encounter Visit Diagnoses Not on filedocumented in this encounter Care Teams Dehydrator Relationship Specialty Start Date End Date Avinash Kwon MD PCP - General 08/21/05 05/14/22 Alana David MD PCP - General Family Practice 05/15/22 10/23/22 Susan Dsouza PA-C PCP - General Internal Medicine 10/24/22 06/27/23 Lauren Adams MD PCP - General Internal Medicine 06/28/23 documented as of this encounter
--- OUTSIDE RECORDS SUMMARY | 2025-07-14 15:03 | XMS_ITS | Encounter Summary ---
Author Organization [facility] Address [address] [place] [address] Care Team Providers Care Airframe Design Engineer Name Role Phone Avinash Kwon MD Primary Care Provider Unavail Alana King MD Primary Care Provider Susan Chowdhury PA-C Primary Care Provider Unavail Lauren Esparza MD Primary Care Provider Unavailabl e Encounter Details Date Type Department Care Team Description 10/05/2021 Pt. Non Urgent Medical Question Medicine/Pediatrics - [address] [phone] Avinash Kwon MD Social History Tobacco Use Types Packs/Day [...] have Coronavirus / COVID-19? No / Unsure 09/12/2021 8:54 AM EST documented as of this encounter Miscellaneous Notes * Telephone Encounter - Barbara Velazquez M.A. - 10/05/2021 8:41 AM ESTFrom: Mack Goodson To: Mary Beth Kwon Sent: 10/05/2021 8:38 AM EST Subject: Back Issues Sohan Da Silva, Would I be able to come in for a back issue I am having? It has been happening off and on for some time, becoming constant about a month or so ago, and now I think it is affecting my shoulders and sciatica. I am hesitant to go to a chiropractor for obvious reasons, but would if you suggested it. Also, I have booked my appointment with Nephrology. Let me know your thoughts, Michele documented in this encounter Plan of Treatment Not on file documented as of this encounter Visit Diagnoses Not on filedocumented in this encounter Care Teams Airframe Design Engineer Relationship Specialty Start Date End Date Avinash Kwon MD PCP - General 08/21/05 05/14/22 Alana David MD PCP - General Family Practice 05/15/22 10/23/22 Susan Dsouza PA-C PCP - General Internal Medicine 10/24/22 06/27/23 Lauren Adams MD PCP - General Internal Medicine 06/28/23 documented as of this encounter
--- OUTSIDE RECORDS SUMMARY | 2025-07-14 15:03 | XMS_ITS | Encounter Summary ---
Author Organization [facility] Address [address] [place] [address] Care Team Providers Care Skilled Labor Name Role Phone Avinash Kwon MD Primary Care Provider Unavail Alana King MD Primary Care Provider Susan Chowdhury PA-C Primary Care Provider Unavail able Lauren Adams MD Primary Care Provider Unavailabl e Encounter Details Date Type Department Care Team Description 06/28/2013 Telephone Adult Medicine - [address] [address] Cody Dolan PA-C Social History Tobacco Use Types Packs/Day Years Used Date Smoking Tobacco: Every Day Cigarettes 0.5 Last attempted to quit: 10/16/2010 Smokeless Tobacco: Never Alcohol Use Standard Drinks/Week Comments Yes 500 (1 standard drink = 0.6 oz p ure alcohol) occ glass of wine Sex Assigned at Date Recorded Male 11/11/2020 6:[address] documented as of this encounter Miscellaneous Notes * Telephone Encounter - Cody Dolan PA-C - 06/28/2013 12:39 PM EDT I spoke with the patient regarding his recent uric acid level test. I informed him that it appears that he has a gouty flare in the right knee. I have called in a prescription for indomethacin to [facility] for him to be taking as directed. He understands and agrees with this plan. I have answered all of his questions to his satisfaction. documented in this encounter Plan of Treatment Not on file documented as of this encounter Visit Diagnoses Not on filedocumented in this encounter Care Teams Skilled Labor Relationship Specialty Start Date End Date Avinash Kwon MD PCP - General 08/21/05 05/14/22 Alana David MD PCP - General Family Practice 05/15/22 10/23/22 Susan Dsouza PA-C PCP - General Internal Medicine 10/24/22 06/27/23 Lauren Adams MD PCP - General Internal Medicine 06/28/23 documented as of this encounter
--- OUTSIDE RECORDS SUMMARY | 2025-07-14 15:03 | XMS_ITS | Encounter Summary ---
Author Organization [facility] Address [address] [place] [address] Care Team Providers Care Operational Intelligence Officer Name Role Phone Avinash Kwon MD Primary Care Provider Unavail able Alana David MD Primary Care Provider Susan Chowdhury PA-C Primary Care Provider Unavail able Lauren Adams MD Primary Care Provider Unavailabl e Encounter Details Date Type Department Care Team Description 02/25/2020 Guard Range Report Medical Records [address] [place] [address] Jere Shen MD Social History Tobacco Use Types Packs/Day [...] on filedocumented in this encounter Care Teams Operational Intelligence Officer Relationship Specialty Start Date End Date Avinash Kwon MD PCP - General 08/21/05 05/14/22 Alana David MD PCP - General Family Practice 05/15/22 10/23/22 Susan Dsouza PA-C PCP - General Internal Medicine 10/24/22 06/27/23 Lauren Adams MD PCP - General Internal Medicine 06/28/23 documented as of this encounter
--- OUTSIDE RECORDS SUMMARY | 2025-07-14 15:03 | XMS_ITS | Encounter Summary ---
Author Organization [facility] Address [address] [place] [address] Care Team Providers Care Industrial Truck Mechanic Name Role Phone Avinash Kwon MD Primary Care Provider Unavail able Alana David MD Primary Care Provider Susan Chowdhury PA-C Primary Care Provider Unavail able Lauren Adams MD Primary Care Provider Unavailabl e Encounter Details Date Type Department Care Team Description 06/28/2013 Orders Only Adult Medicine - [address] [address] Cody Dolan PA-C Social History Tobacco Use [...] on filedocumented in this encounter Care Teams Industrial Truck Mechanic Relationship Specialty Start Date End Date Avinash Kwon MD PCP - General 08/21/05 05/14/22 Alana David MD PCP - General Family Practice 05/15/22 10/23/22 Susan Dsouza PA-C PCP - General Internal Medicine 10/24/22 06/27/23 Lauren Adams MD PCP - General Internal Medicine 06/28/23 documented as of this encounter
--- OUTSIDE RECORDS SUMMARY | 2025-07-14 15:03 | XMS_ITS | Encounter Summary ---
Author Organization [facility] Address [address] [place] [address] Care Team Providers Care Medical Sociologist Name Role Phone Alana David MD Primary Care Provider Susan Chowdhury PA-C Primary Care Provider Lauren Palencia MD Primary Care Provider Unavailabl e Encounter Details Date Type Department Care Team Description 10/02/2022 Pt. Non Urgent Medical Question Medicine/Pediatrics - [address] [phone] Alana David MD Social History Tobacco Use [...] Telephone Encounter - Laura Delaney M.A. - 10/02/2022 2:28 PM ESTFrom: Mack Guzmangan To: Margo David Sent: 10/02/2022 2:17 PM EST Subject: Gastroenterology Referral Per your instructions, I called [facility] today to check about the referral you sent. They have no such referral. Nor do they have the one that Ms. Min sent. Currently they are booking out to the middle of next year, which is a concern since I am troubled by the blood in my stool and my family history, compounded by the length of time from my last screening. Please resend the referral and possibly antonino it urgent so I can have some peace of mind. Regards, documented in this encounter Plan of Treatment Not on file documented as of this encounter Visit Diagnoses Not on filedocumented in this encounter Care Teams Medical Sociologist Relationship Specialty Start Date End Date Alana David MD PCP - General Family Practice 05/15/22 10/23/22 Susan Dsouza PA-C PCP - General Internal Medicine 10/24/22 06/27/23 Lauren Adams MD PCP - General Internal Medicine 06/28/23 documented as of this encounter
--- OUTSIDE RECORDS SUMMARY | 2025-07-14 15:03 | XMS_ITS | Encounter Summary ---
Author Organization [facility] Address [address] [place] [address] Care Team Providers Care Forging Engineer Name Role Phone Avinash Kwon MD Primary Care Provider Unavail Alana King MD Primary Care Provider Susan Chowdhury PA-C Primary Care Provider Unavail able Lauren Adams MD Primary Care Provider Unavailabl e Reason for Visit * Reason Onset Date Comments Faxed Refill 12/10/2017 Encounter Details Date Type Department Care Team Description 12/10/2017 Refill Adult Medicine [facility] [address] [place] [address] Avinash Kwon MD Faxed Refill Social History [...] encounter Miscellaneous Notes * Telephone Encounter - Luda Montero L.P.NRobert - 12/10/2017 11:36 AM EST Last office visit 11/13/17 Lab Results Component Value Date ALB 4.5 01/26/2017 SGOT 23 01/26/2017 SGPT 56 01/26/2017 TBILI 0.6 01/26/2017 ALKPHOS 67 01/26/2017 TP 7.2 01/26/2017 * Telephone Encounter - Evangelina Chapman - 12/10/2017 8:51 AM EST Patient would like script to be: E-PRESCRIBED/FAXED TO PHARMACY WHEN WAS THE PATIENT'S LAST APPOINTMENT IN ADULT MEDICINE? 11/13/17 WHEN WAS THE LAST TIME THE PATIENT SAW THEIR PCP? 01/26/17 Does patient have an upcoming appointment? no (THE MEDICATION REQUESTED IS ON THE MED LIST ABOVE) All of the medications requested were on the CURRENT MEDS list Did you check the Pharmacy information above?: YES Patient wants: 30 -day supply Is this a mail order prescription request ? NO Patients current insurance carrier is: Payor: [employer] / Plan: PPO $0 [id number] / Product Type: PPO [id number] documented in this encounter Plan of Treatment Not on file documented as of this encounter Visit Diagnoses Not on filedocumented in this encounter Care Teams Forging Engineer Relationship Specialty Start Date End Date Avinash Kwon MD PCP - General 08/21/05 05/14/22 Alana David MD PCP - General Family Practice 05/15/22 10/23/22 Susan Dsouza PA-C PCP - General Internal Medicine 10/24/22 06/27/23 Lauren Adams MD PCP - General Internal Medicine 06/28/23 documented as of this encounter
--- OUTSIDE RECORDS SUMMARY | 2025-07-14 15:03 | XMS_ITS | Encounter Summary ---
Author Organization [facility] Address [address] [place] [address] Care Team Providers Care Ceramic Tile Installer Name Role Phone Avinash Kwon MD Primary Care Provider Unavail Alana King MD Primary Care Provider Susan Chowdhury PA-C Primary Care Provider Unavail able Lauren Adams MD Primary Care Provider Unavailabl e Encounter Details Date Type Department Care Team Description 10/05/2020 Pt. Non Urgent Medical Question Pulmonology - [address] [place] [id number] Rakel Simental FNP [address] [place] [address] Social History Tobacco Use Types Packs/Day Years [...] E ST documented as of this encounter Progress Notes * DANIEL Escobar - 10/05/2020 10:22 AM ESTFrom: Mack Goodson To: DANIEL Escobar Sent: 10/05/2020 9:33 AM EST Subject: PAP pressure change Sohan Ellington, I wonder if my machine needs to be adjusted. My has reported that I still snore while using the mask. Currently, I use a medium sized nasal mask. Please adviseMichele documented in this encounter Plan of Treatment Not on file documented as of this encounter Visit Diagnoses Not on filedocumented in this encounter Care Teams Ceramic Tile Installer Relationship Specialty Start Date End Date Avinash Kwon MD PCP - General 08/21/05 05/14/22 Alana David MD PCP - General Family Practice 05/15/22 10/23/22 Susan Dsouza PA-C PCP - General Internal Medicine 10/24/22 06/27/23 Lauren Adams MD PCP - General Internal Medicine 06/28/23 documented as of this encounter
--- OUTSIDE RECORDS SUMMARY | 2025-07-14 15:03 | XMS_ITS | Clinical Summary ---
Author Organization [facility] Address [address] [place] [address] Care Team Providers Care Public Utilities Sales Representative Name Role Phone Lauren Adams MD Primary Care Provider Unavailabl e Allergies Active Allergy Reactions Severity Noted Date Comments Sulfisoxazole 12/01/2005 Unsure reaction Medications Medication Sig Dispensed Refills Start Date End Date Status lisinopril (PRINIVIL,ZESTRIL) 20 MG tabletIndications:Es sential hypertension, benign Take 1.5 Tablets by mouth daily. 135 Tablet 1 08/23/2022 Active amlodipine (NORVASC) 10 MG tabletIndications:Es sential hypertension, benign Take 1 Tablet by mouth daily. 90 Tablet 1 08/23/2022 Active citalopram (CELEXA) 20 MG tabletIndications:An xiety and depression TAKE 1 AND 1/2 TABLETS BY MOUTH DAILY 135 Tablet 1 08/23/2022 Active Dulaglutide 0.75 MG/0.5ML Solution Pen-injector Inject 0.75 mg into the skin every 7 days. 0 Active Active Problems Problem Noted Date Hyperlipidemia 08/27/2021 Overview: [place] 6.5% Elevated serum creatinine 08/15/2021 Erectile dysfunction 04/12/2021 Obstructive sleep apnea mild AHI 12 08/06 Overview: [facility] Polysomnogram: Date 08/22/2019; Wt 250#; BMI 38; SE 87%; SM 91%; REM 11%; RDI 20 (AHI 12), REM (RDI 51 - AHI 48), Central apneas 0; Obstructive apneas 1; Mixed apneas 0; hypopneas 82; RERAs 56; average oxygen saturation 91% (lowest 78% - with saturations <88% for 5% or more of study); PLMs 0. Prestudy ESS 10; 3/4 RLS symptoms. - Obstructive Sleep Apnea - mild overall and severe in REM; mostly hypopneas; with sleep related hypoventilation by 2019 polysomnogram. Snoring 06/06/2019 Overview: 05/2019 Home Sleep Study did not reveal sleep apnea or nocturnal hypoxia. Tobacco use disorder 01/29/2018 Gout 01/28/2018 Overview: likely RAD (reactive airway disease) 05/28/2017 Anxiety state, unspecified 07/07/2015 History of alcohol abuse 08/26/2011 Overview: None since 2012 Family history of colon cancer 0 Overview: Needs colo 2011 Palpitations 06/16/2010 Overview: 06/14 Dr Christine; sinus tach, no arrythmias on loop recorder Depression 11/08/2007 HYPERTENSION 12/01/2005 GERD 12/01/2005 Obesity (BMI 30.0-34.9) 12/01/2005 Resolved Problems Problem Noted Date Resolved Date Hyperuricemia 09/14/2012 01/27/2017 Dysfunctional alcohol use 08/24/20112010 Tobacco use disorder 09/28/2010 01/23/2011 Family history of colonic polyps 09/01/2010 01/27/2017 Left inguinal hernia 06/26/2010 10/23/2010 Ulcerative colitis 05/09/2010 09/28/2010 Overview: Per patient; however, colonoscopy reports from 04/08 and 05/11, both by Dr Tyler, do not mention anything along these lines; colonoscopy 04/08 showed diverticulosis, and 05/11 was normal, with repeat recommended in 5yrs due to FH colon polyps Alcohol abuse 11/07/2009 01/23/2011 Hematuria 05/17/2009 01/27/2017 Ankle fracture 08/06/2008 09/28/2010 Overview: Leigh Ann; 07/13 Mild intermittent asthma 05/03/2006 017 Immunizations Name Administration Dates Next Due COVID-19 (JUSTIN AND JUSTIN) 02/05/2021 Hepatitis A-2 dose (<19yrs) 02/16/2015 Influenza (> 6 Months) 11/12/2015,10/31/2012 Tdap 02/16/2015,12/17/2007 Typhoid 02/16/2015 Family History Medical History Relation Name Comments CA Ovarian Aunt CA Prostate Father Cancer of the Colon Maternal Grandmother Colon Polyps Mother Hypertension Mother Other Mother sudden d ysrhythmia Thyroid Disorder Mother AR Paternal Grandfather Diabetes Negative Hx Relation Name Status Comments Aunt Father Maternal Grandmother Mother (Age 403/01/09) AR ag e 50 Paternal Grandfather Social History Tobacco Use Types Packs/Day Years Used Date Smoking Tobacco: Some Days Cigarettes 1 2.5 Smokeless Tobacco: Never Tobacco Cessation:Ready to Q uit: Not Asked; Counseling Given: Not Answered Alcohol Use Standard Drinks/Week Comments No 500 (1 standard drink = 0.6 oz p ure alcohol) stopped 3 yrs ago 02/2013 Sex Assigned at Date Recorded Male 11/11/2020 6:[address] Last Filed Vital Signs Vital Sign Reading Time Taken Comments Blood Pressure 134/84 09/26/2022 3:18 PM EST Pulse 68 09/26/2022 2:35 PM EST Temperature 36.7 C (98 F) 08/08/2018 11:33 AM EDT Respiratory Rate 14 08/23/2022 8:48 AM EDT Oxygen Saturation 96% 08/08/2018 11: 33 AM EDT Inhaled Oxygen Concentration - - Weight 113.8 kg (250 lb 12.8 oz) 09/26/2022 2:35 PM EST Height 172.7 cm (5' 8 ) 09/26/2022 2:35 PM EST Body Mass Index 38.13 09/26/2022 2:35 PM EST Plan of Treatment Health Maintenance Due Date Last Done Comments BASELINE HEALTH EXAM 40-64 2018 11/12/2015, BMI CHECK/ADVISE 11/05/2024 09/26/2022, , 08/23/2022 (Completed), Additional history exists DTAP/TDAP/TD (3 - Td or Tdap) 02/16/2025 02/16/2015, 12/17/2007 Covid-19 Vaccine (2 - 2022-2 4 season) 2025 02/05/2021 INFLUENZA (#1) 2025 11/12/2015, 10/31/2012 CHOLESTEROL SCREENING 10/03/2027 10/03/2022 , 08/12/2021, 01/26/2017, Additional history exists PNEUMOCOCCAL VACCINE FOR HIG H RISK PATIENTS (#2) 2043 08/23/2017 (Refused) Care Teams Public Utilities Sales Representative Relationship Specialty Start Date End Date Lauren Adams MD PCP - General Internal Medicine 06/28/23
--- OUTSIDE RECORDS SUMMARY | 2025-07-14 15:03 | XMS_ITS | Encounter Summary ---
Author Organization [facility] Address [address] [place] [address] Care Team Providers Care Cna Gna Name Role Phone Avinash Kwon MD Primary Care Provider Unavail able Alana David MD Primary Care Provider Susan Chowdhury PA-C Primary Care Provider Unavail able Lauren Adams MD Primary Care Provider Unavailabl e Encounter Details Date Type Department Care Team Description 12/05/2021 Crusher Loader Equipment Operator Report Medical Records [address] [place] [address] William Iniguez Social History Tobacco Use Types Packs/Day Years [...] on filedocumented in this encounter Care Teams Cna Gna Relationship Specialty Start Date End Date Avinash Kwon MD PCP - General 08/21/05 05/14/22 Aalna David MD PCP - General Family Practice 05/15/22 10/23/22 Susan Dsouza PA-C PCP - General Internal Medicine 10/24/22 06/27/23 Lauren Adams MD PCP - General Internal Medicine 06/28/23 documented as of this encounter
--- NOTE | 2025-07-14 15:20 | P.CONNP_ITS ---
History of Present Illness Reason for Consult Consult date: 07/14/25 Chief Complaint Chief complaint: Sent by KEYONNA Polo History of Present Illness Narrative: 44 y/o male with history of blood and protein in the urine, HTN, gout, former smoker who has been feeling unwell for some, with significant cramping that has gotten severe, worse at nighttime but significant during the day as well in legs, hands chest and neck. He has also been having significant low back pain in his spine. He is also having chills and feels very cold. Had recent significant weight loss with ozempic and lifestyle changes. Reports he had a recent urethral biopsy through urology due to microscopic hematuria (denies gross hematuria in urine). Has been on nicolasa inhibitor in the past but was discontinued due to KEYONNA. He was seen in the outpatient nephrology office for a new patient visit by Dr Gustavo king, who sent patient to the ED due to his symptoms along with creatinine of almost 7, three months ago was around 3. patient denies chest pain, dizziness, shortness of breath, abdominal pain, flank pain. He is making urine regularly and denies urinary symptoms. Review of Systems Review of Systems Yes all other systems are reviewed and are negative PMFSH Past Medical History Medical History (Updated 07/14/25 @ 15:28 by Flaca Harris, DNP, PHOTO STYLIST-BC) Enlarged prostate HAYLEY (obstructive sleep apnea) Polyp of colon Asthma Chronic kidney disease, stage 3a Obesity Hemorrhoids with complication Anxiety with depression Gout Tobacco use Essential (primary) hypertension Family History Family History Father Prostate cancer Mother Heart attack Hypertension Surgical History Surgical History (Updated 07/14/25 @ 10:52 by Elisabet Fuentes MA) S/P left inguinal herniorrhaphy Social History Social History Alcohol intake: never Patient Tobacco Use Status: Current someday Tobacco user Advance Directives: No Advance Directives Information Provided: Yes Meds Allergies Allergy/AdvReac Type Severity Reaction Status Date / Time No Known Allergies Allergy Verified 07/14/25 12:20 Active Medications: Current Medications Desmopressin Acetate 20 mcg/ (Sodium Chloride) 55 mls @ 100 mls/hr IV ONCE ONE Stop: 07/15/25 08:32 Home Medications ?Medication ?Instructions ?Recorded ?Confirmed ?Last Taken ?Type amlodipine 5 mg tablet 10 mg PO DAILY 07/14/25 Unk nown History oxybutynin chloride 10 mg 10 mg PO DAILY 07/14/25 Unk nown History tablet,extended release 24 hr tamsulosin 0.4 mg capsule 0.4 mg PO DAILY 07/14/25 Un known History Physical Exam Vital Signs: Last Vital Signs Temp 98.3 F 07/14/25 13:58 Pulse 52 07/14/25 13:58 Resp 16 07/14/25 13:58 BP 157/70 H 07/14/25 13:58 Pulse Ox 100 07/14/25 13:58 O2 Del Method Room Air 07/14/25 13:58 BMI result Body Mass Index 32.6 Const General: no acute distress, alert and awake Resp Effort & Inspection: normal respiratory effort and able to speak in complete sentences Auscultation: clear to auscultation bilaterally Cardio Rate: regular rate Rhythm: regular rhythm Heart sounds: S1 normal heart sound present and S2 normal heart sound present GI Palpation (GI): Soft to palpation and nontender Skin Lesions: no lesions Rashes: no rashes Neuro Other: no asterixis Extrem General: No edema Results Lab Results 07/14/25 12:32 07/14/25 12:32 Lab results: Chemistry 07/14/25 12:32 Sodium 139 Potassium 4.9 Carbon Dioxide 17 L BUN 116 H Creatinine 7.59 H* Calcium 8.6 Hematology 07/14/25 12:32 WBC 9.2 Hgb 9.2 L Plt Count 172 Urinalysis 07/14/25 12:38 Urine Color Yellow Urine Appearance Clear Urine pH 5.5 Ur Specific [place] 1.010 Urine Protein 300 (3+) H Urine Glucose (UA) Negative Urine Ketones Negative Urine Blood Moderate (2+) H Urine Nitrite Negative Ur Leukocyte Esterase Negative Urine RBC 6-10 H Urine WBC 0-5 Ur Squamous Epith Cells 0-2 Hyaline Casts 3-5 Assessment and Plan (1) Acute kidney injury superimposed on CKD: Status: Acute (2) KEYONNA (acute kidney injury): Status: Acute (3) Proteinuria: Qualifiers: Proteinuria type: other Qualified Code(s): R80.8 - Other proteinuria Status: Acute (4) Hypertension: Qualifiers: Hypertension type: secondary to other renal disorders Qualified Code(s): I15.1 - Hypertension secondary to other renal disorders Status: Acute Plan New KEYONNA on CKD with significant muscle cramps, joint pain and chills. Differential is broad and includes vasculitis and proliferating GN. Will check GN serologies including serum/urine immunofixation, ANCA vasculitides, complements, antiGM antibody, phospholipase receptor ab, hepatitis panel, LDH, liver function tests. Will check echocardiogram given chills, rule out subacute endocarditis. Will check chest xray as well. he has not been on any recent medication that would explain his symptoms and renal function decline. He will need an urgent renal biopsy- discussed with IR who will perform tomorrow. I've ordered DDAVP to be administered beforehand given patient's elevated BUN he is at higher risk for bleeding. Recommend amlodipine 5mg PO daily and add hydralazine 25mg PO TID for blood pressure control prior to biopsy (SBP needs to be <140 for biopsy). Discussed with Dr Chen and Dr Macedo. Procedures Date of Service Date of Service: 07/14/25
[2025-07-14 15:52] LABS: INTERNATIONAL NORM RATIO 1.0 (0.9-1.1); Prothrombin Time 10.9 SEC (10.9-12.4)
[2025-07-14 16:07] LABS: Hemoglobin A1C 64.5526 umol/L; Total Hemoglobin (HGBA1C) 2246.9665 umol/L
[2025-07-14] MEDS: Lactated Ringers 1,000 ML 100 ML IVCONT (17:15)
--- NOTE | 2025-07-14 18:39 | PM.IMHP ---
History of Present Illness Date of Service: 08/12/25 Attending physician on admission: Kelvin Bishop Chief Complaint: renal failure 44y/o M with past medical history of hypertension, protein in the urine, also had urological workup recently with bladder biopsy as per the patient(with [facility])-he says he has proteinuria from long time (? Since 2004), not on any RONNELL inhibitors or NSAID use, he had high BMI-which it tried exercise, diet,? Ozempic use in the past, he says he lost weight. He was still doing exercise, before exercise in beginning of this year 3-4 month he was using pre exercise wrap with the caffeine?, Recently from last 3-4 months patient was having excessive cramping to the point that he has to wake up in the night due to pain and cramping for which she decided to go to his primary doctor and renal function was checked which was elevated, subsequently referred to the Nephrology and was being followed there for last few months and creatinine is keep getting worsen. He has H/O gout with exacerbations more so when he was taking HCTZ for hypertension long ago, denies any new rash. Patient denies any family history of any vascular disease or renal disease . Has history of hypertension. Mother from [place] He has HAYLEY uses CPAP. He uses half pack a day for smoking every day Denies any recreational drugs or alcohol use. Lab imaging reviewed: H&H .12/31 Mild elevated LFTs, LDH CPK is 3202 bnp: 28 EKG NSR sinus bradycardia Review of Systems Review of Systems: as above. Yes all other systems are reviewed and are negative [facility] Medical History Enlarged prostate HAYLEY (obstructive sleep apnea) Polyp of colon Asthma Chronic kidney disease, stage 3a Obesity Hemorrhoids with complication Anxiety with depression Gout Tobacco use Essential (primary) hypertension Family History Father Prostate cancer Mother Heart attack Hypertension Surgical History S/P left inguinal herniorrhaphy Social History Alcohol intake: never Patient Tobacco Use Status: Current someday Tobacco user Meds Allergies Allergy/AdvReac Type Severity Reaction Status Date / Time No Known Allergies Allergy Verified 07/14/25 12:20 Active Medications: Current Medications Acetaminophen (Acetaminophen 325 Mg Tablet) 650 mg PO Q6H PRN PRN Reason: Pain, Mild 1-3,fever,headache Al Hydroxide/Mg Hydroxide (Magnesium Hydrox/Alum Hydrox 30 Ml Oral.Susp) 30 ml PO Q4H PRN PRN Reason: Heartburn Calcium Carbonate (Calcium Carbonate 750 Mg Tab.Chew) 750 mg PO Q4H PRN PRN Reason: Heartburn Enoxaparin Sodium (Enoxaparin Sodium 30 Mg/0.3 Ml Syringe) 30 mg SUBCUT DAILY [facility] Desmopressin Acetate 20 mcg/ (Sodium Chloride) 55 mls @ 100 mls/hr IV ONCE ONE Stop: 07/15/25 08:32 Lactated Ringer's (Lr) 1,000 mls @ 100 mls/hr IVCONT .Q10H NAYLA Last Admin: 07/14/25 17:15 Dose: 100 mls/hr Magnesium Hydroxide (Milk Of Magnesia 30 Ml Oral.Susp) 30 ml PO DAILY PRN PRN Reason: Constipation Melatonin (Melatonin 3 Mg Tablet) 6 mg PO BEDTIME PRN PRN Reason: Insomnia Melatonin (Melatonin 3 Mg Tablet) 6 mg PO BEDTIME PRN PRN Reason: Insomnia Polyethylene Glycol (Polyethylene Glycol 3350 17 Gm Powd.Pack) 17 gm PO DAILY PRN PRN Reason: Constipation Sodium Chloride (0.9 % Sodium Chloride Flush 3 Ml Syringe) 3 ml IVFLUSH QSHIFT [facility] Sodium Chloride (0.9 % Sodium Chloride Flush 3 Ml Syringe) 3 ml IVFLUSH QSHIFT [facility] Home Medications ?Medication ?Instructions ?Recorded ?Confirmed ?Last Taken ?Type amlodipine 5 mg tablet 10 mg PO DAILY 07/14/25 Unknown History oxybutynin chloride 10 mg 10 mg PO DAILY 07/14/25 Unknown History tablet,extended release 24 hr tamsulosin 0.4 mg capsule 0.4 mg PO DAILY 07/14/25 Unknown History Physical Exam Vital Signs and Narrative: Vital Signs: Last Vital Signs Temp 98.3 F 07/14/25 13:58 Pulse 52 07/14/25 13:58 Resp 16 07/14/25 13:58 BP 157/70 H 07/14/25 13:58 Pulse Ox 100 07/14/25 13:58 O2 Del Method Room Air 07/14/25 13:58 BMI result Body Mass Index 32.6 Appearance: Alert.? Oriented X3.? cvs: rrr, [id number]. res: clear to auscultation ,no rhonchii or wheezing abd: no rebound or guarding ,nt, bs present. ext pulses present , no cyanosis . skin-no rash neuro: axo3 , nonfocal. Results Labs 07/14/25 12:32 07/14/25 12:32 Labs: Laboratory Results - last 24 hr 07/14/25 07/14/25 07/14/25 12:32 12:38 15:36 MCV 83.3 MCH 29.5 MCHC 35.4 RDW 13.0 Plt Count 172 MPV 9.3 L Immature Gran % (Auto) 0.8 H Neut % (Auto) 77.7 H Lymph % (Auto) 13.7 L [place] % (Auto) 6.6 Eos % (Auto) 0.8 Baso % (Auto) 0.4 Lymph # (Auto) 1.3 [place] # (Auto) 0.6 Eos # (Auto) 0.1 Baso # (Auto) 0.0 Abs Immat Gran (auto) 0.07 H Absolute Neuts (auto) 7.1 Absolute Nucleated RBC 0.000 Nucleated RBC % (auto) 0.0 PT 10.9 INR 1.0 Anion Gap 15 Estim Creat Clear Calc 13.8 Estimated GFR 8 Random Glucose 102 Estimat Average Glucose 91 Hemoglobin A1c % 4.8 Calcium 8.6 Magnesium 2.2 Total Bilirubin 0.3 Direct Bilirubin 0.1 AST 65 H ALT 43 H Alkaline Phosphatase 47 Lactate Dehydrogenase 292 H Total Creatine Kinase 3202 H B-Natriuretic Peptide 28 Total Protein 6.3 L Albumin 4.0 Urine Color Yellow Urine Appearance Clear Urine pH 5.5 Ur Specific [place] 1.010 Urine Protein 300 (3+) H Urine Glucose (UA) Negative Urine Ketones Negative Urine Blood Moderate (2+) H Urine Nitrite Negative Ur Leukocyte Esterase Negative Urine RBC 6-10 H Urine WBC 0-5 Ur Squamous Epith Cells 0-2 Urine Bacteria None Seen Hyaline Casts 3-5 Imaging Radiologist's Impressions: Impressions Abdomen/Pelvis CT 07/14/25 14:23 IMPRESSION: Unremarkable abdomen and pelvis CT. 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 Approximately 75% of the weightbearing subchondral bone is involved. Fleischner guidelines were followed. Retroperitoneum Ultrasound 07/14/25 14:51 IMPRESSION: No hydronephrosis. Bilateral renal cysts. Concerning medical renal disease. 33 cc residual urine in a post void image. Prostate gland is not enlarged with volume: 24 cc... Chest X-Ray 07/14/25 16:38 IMPRESSION: No acute disease. Assessment and Plan (1) KEYONNA (acute kidney injury): Status: Acute (2) Hypertension: Qualifiers: Hypertension type: secondary to other renal disorders Qualified Code(s): I15.1 - Hypertension secondary to other renal disorders Status: Acute (3) Proteinuria: Qualifiers: Proteinuria type: other Qualified Code(s): R80.8 - Other proteinuria Status: Acute Plan 44-year-old male with advanced renal failure-unclear etiology KEYONNA : Unclear etiology Rhabdomyolysis Differential is broad and includes vasculitis and proliferating GN. ua -shows proteinuria Retroperitoneal ultrasound-no hydronephrosis GN serologies,echocardiogram. renal biopsy- discussed with IR who will perform tomorrow per Nephrology chest xray-negative . added ivf considering KEYONNA/rhabdo. nephrology eval -please check nephro notes for further info. Avoid NSAID or Ronnell or any medications that can cause anal function deterioration. Elevated LFTs: Mild ? Related to rhabdo versus underlying or assess seem as KEYONNA Hepatitis serology added, continue to monitor LFTs if needed consider GI evaluation. Hypotension: Continue amlodipine once reconciled Sleep apnea: Continue CPAP Asthma mild intermittent not in exacerbation P.r.n. 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 Approximately 75% of the weightbearing subchondral bone is involved. he says joint pain/cramps consider checking with ortho if need any intervention. DVT prophylaxis: SCD in case need biopsy Ongoing need for stay-Keyonna, rhabdomyolysis unclear etiology-need IV hydration, renal function electrolyte monitoring, close monitoring of blood pressure. Need further workup. Above management discussed with the patient and his sister at bedside in detail length they both understand and in agreement with the above plan, time spent 70 minute, all question answered. Patient is full code. Quality Stroke Does the patient have a stroke diagnosis?: No VTE Prior VTE?: No VTE Risk Level:: Medical - moderate - high VTE Device Contraindication: Treatment Not Indicated VTE Drug Contraindication: N/A - Med Ordered
--- NOTE | 2025-07-14 19:17 | PHA.MEDREC ---
Addendum entered by Ruby Amos RPh 07/14/25 19:20: REVIEWED BY PHARMACIST Original Note: Pharmacy Consult ? Medication Reconciliation Pharmacy has completed the medication reconciliation. Patient was able to confirm all his medications. Patient states he takes Amlodipine 10 mg , however there are claim for Amlodipine 5 mg daily.
[2025-07-14 19:55] VITALS: BP 158/84; PULSE 61; RESP 20; TEMP 36.5; O2SAT 98
--- NOTE | 2025-07-14 20:34 | PC.NURSE ---
RT came down and provided sterile water to pt for his home CPAP machine.
[2025-07-14 20:35] VITALS: O2SAT 96
--- NOTE | 2025-07-14 21:52 | MHC.EDTECH ---
called [facility] service entered a routine consult for the morning
[2025-07-14 23:38] LABS: Protein/Creatinine Ratio, Ur 3.69 (<0.2); Total Protein Urine Random 150 mg/dL (<12)
[2025-07-15] VITALS (17 sets, daily range): BP systolic 136–168; BP diastolic 60–92; PULSE 55–77; RESP 14–20; TEMP 36.6–37.7; O2SAT 97–99; BMI 32.6; BMI 31.7
[2025-07-15] MEDS: Lactated Ringers 1,000 ML 100 ML IVCONT ×3 (03:23→23:43)
--- NOTE | 2025-07-15 03:24 | PC.NURSE ---
pt LR switched out. Pt wearing Cpap, respirations even and unlabored.
[2025-07-15 03:53] LABS: HBS Num1 1.09 mIU/mL (0-7.99); HBc Num1 0.08 S/CO (0.00-0.79); HBsAGNum1 0.48 S/CO (0.00-0.99); Hepatitis B Surface Antigen Negative (Negative); ~HepC Num1 0.06 S/CO (0.00-0.79); ~Hepatitis B Surface Antibody NONREACTIVE (Nonreactive); ~Hepatitis C Antibody Nonreactive (Nonreactive)
[2025-07-15 05:12] LABS: INTERNATIONAL NORM RATIO 1.0 (0.9-1.1); Prothrombin Time 11.1 SEC (10.9-12.4)
[2025-07-15 05:28] LABS: Parathyroid Hormone Intact 298.2 pg/mL (8.7-77.1)
[2025-07-15 05:54] LABS: Alanine Aminotransferase 33 U/L (0-40); Albumin Level 3.2 g/dL (3.5-5.0); Alkaline Phosphatase 38 U/L (39-117); Anion Gap 14 (12-20); Aspartate Amino Transferase 53 U/L (5-37); Blood Urea Nitrogen 107 mg/dL (9-16); Calcium 7.9 mg/dL (8.4-10.2); Carbon Dioxide 16 mmol/L (22-29); Chloride 115 mmol/L (96-108); Creatinine Clr Calc Pharmacy 13.8; Estimated Glomerular Filt Rate 8; Iron 82 mcg/dL (45-160); Percent Iron Saturation 37 % (15-50); Potassium 4.2 mmol/L (3.3-5.1); Sodium 141 mmol/L (135-145); Total Iron Binding Capacity 221 mcg/dL (228-428); Total Protein 5.2 g/dL (6.5-8.0); Unsaturated Iron Binding 139 ug/dL
--- NOTE | 2025-07-15 06:40 | PC.NURSE ---
pt resting, no distress, respirations even and unlabored with Cpap.
--- NOTE | 2025-07-15 07:00 | CA_ITS ---
Transthoracic Echocardiogram Patient (Last, First, Middle): Mack Goodson, Gender: Gerry Date of : 1980 Age: 44 Procedure Date: 07/15/2025 Procedure Type: Transthoracic Echocardiogram Location: [facility] [place] Height: 172.72 cm Weight: 98.43 kg BSA: 2.12 m2 Heart Rate: bpm Roll Threader Operator: BUBBA/QUOC Referring MD: Flaca Harris DNP [facility]- Sonar Technician: Zaid Gramajo MD Symptoms: Acute renal failure, chills Study Quality: Adequate ECG Rhythm: Sinus Conclusions: - 1. Normal LV systolic function 2. Mildly dilated left atrium 3. Normal cardiac valvular Dopplers 4. Normal RVSP 5. No pericardial effusion. Findings Left Ventricle Normal left ventricular size, thickness, and systolic function. The visually estimated ejection fraction is between 55-60%. Spectral Doppler is indicative of a normal filling pattern. Right Ventricle Normal right ventricular cavity size and systolic function. Atria The left atrium is mildly dilated. There is no evidence of interatrial shunt. The right atrium is normal in size. Aortic Valve Normal aortic valve structure and function. There is mild calcification of the aortic valve. There is mild thickening of the aortic valve. There is no aortic valve stenosis. There is no aortic valve regurgitation. Mitral Valve Normal mitral valve structure and function. There is trace mitral valve regurgitation. There is no mitral valve stenosis. Pulmonic Valve The pulmonic valve was not well visualized. Tricuspid Valve Normal tricuspid valve structure. There is trace tricuspid valve regurgitation. The right ventricular systolic pressure is 23 mmHg. Normal right atrial pressure. There is no evidence of pulmonary hypertension. Great Vessels All visible segments of the aorta are normal in size. The pulmonary artery was not well visualized. Venous The inferior vena cava is normal in size and collapses greater than 50% with inspiration. Pericardium/Pleural There is no evidence of pericardial effusion. Prior Study Comparison No prior study available for comparison. Measurements 2D Linear Measurements IVSd: 1.08 0.6-0.9/0.6-1.0 cm LVIDd: 5.53 3.9-5.3/4.2-5.9 cm LVIDd Index: 2.61 2.4-3.2/2.2-3.1 cm/m2 LVIDs: 2.99 2.0-3.6 cm LVPWd: 1.10 0.7-1.1 cm Ao Root: 3.20 2.1-3.5 cm LA Diam: 4.30 2.7-3.8/3.0-4.0 cm LAIDs Index: 2.03 1.5-2.3 cm/m2 LV Mass: 300.77 67-162/88-224 g LV Mass Index: 141.87 43-95/49-115 g/m2 LVOT Diam: 2.30 3.0+(-)1.3 cm 2D Systolic Function EF 4C: 57.60 >55% EF 2C: 60.50 >55% EF BiP: 58.90 >55% Mitral Valve MV Pk E: 1.27 MV PK A: 0.95 MV Decel Time: 240.00 E/A: 1.30 E'Lateral: 9.14 E'Medial: 11.60 E/E' Med: 10.90 E/E' Lat: 13.90 PHT: 70.00 MVA PHT: 3.14 Decel [place]: 5.29 Aortic Valve AoV Pk Jalen: 1.83 AoV Mn Jalen: 1.30 AoV VTI: 0.42 AoV Pk Grad: 13.00 Aov Mn Grad: 7.00 MARCELLA Cont.VTI: 3.78 LVOT LVOT Pk Jalen: 1.74 LVOT Mn Jalen: 1.08 LVOT VTI: 0.38 LVOT Pk Grad: 12.00 LVOT Mn Grad: 6.00 LVOT Diam: 2.30 LVOT Area: 4.15 Diastolic Function MV Pk E: 1.27 MV Pk A: 0.95 E/A: 1.30 E'Medial: 11.60 E/E' Med: 10.90 E' Laterial: 9.14 E/E' Lat: 13.90 Tricuspid Valve TR Pk Jalen: 1.92 TR Pk Grad: 15.00 RA Press: 8.00 RVSP: 23.00 Great Vessels Aorta Ao Root-2D: 3.20 2.0-3.7 cm Ao Asc: 3.90 2.1-3.4 cm Ao Arch: 3.30 Pulmonary Veins Pulm Vein S/D 1.40 Pulmonary Valve PV Pk Jalen: 1.26 Peak PV Grad: 6.00 Updated in Other Vendor System with Status of Final Zaid Gramajo MD electronically signed on 07/15/2025 1:13:27 PM with status of Final
--- NOTE | 2025-07-15 11:33 | PM.PNNEP ---
Subjective Subjective Date of Service: 07/15/25 Interval history: Patient with CKD here with acute renal failure. Reports he is feeling significant improvement in his muscle cramping since IVF started yesterday. No other complaints/concerns. Denies nausea/vomiting, shortness of breath, chest pain, abdominal pain, flank pain, urinary symptoms, reduced urination, pruritus, confusion/lethargy. No events noted overnight. Physical Exam Vital Signs: Vital Signs: Last Vital Signs Temp 98 F 07/15/25 06:39 Pulse 58 07/15/25 11:15 Resp 16 07/15/25 10:41 BP 144/77 H 07/15/25 11:15 Pulse Ox 99 07/15/25 10:41 O2 Del Method Room Air 07/15/25 10:41 BMI result Body Mass Index 32.6 Const: General: no acute distress, alert and awake Resp: Effort & Inspection: normal respiratory effort and able to speak in complete sentences Auscultation: clear to auscultation bilaterally Cardio: Rate: regular rate Rhythm: regular rhythm Heart sounds: S1 normal heart sound present and S2 normal heart sound present GI: Palpation (GI): Soft to palpation and nontender Skin: Lesions: no lesions Rashes: no rashes Neuro: Other: no asterixis Extrem: General: No edema Objective Data Labs 07/14/25 12:32 07/15/25 03:54 Labs: Laboratory Results - last 24 hr 07/14/25 07/14/25 07/14/25 12:32 12:38 15:36 WBC 9.2 RBC 3.12 L Hgb 9.2 L Hct 26.0 L MCV 83.3 MCH 29.5 MCHC 35.4 RDW 13.0 Plt Count 172 MPV 9.3 L Immature Gran % (Auto) 0.8 H Neut % (Auto) 77.7 H Lymph % (Auto) 13.7 L [place] % (Auto) 6.6 Eos % (Auto) 0.8 Baso % (Auto) 0.4 Lymph # (Auto) 1.3 [place] # (Auto) 0.6 Eos # (Auto) 0.1 Baso # (Auto) 0.0 Abs Immat Gran (auto) 0.07 H Absolute Neuts (auto) 7.1 Absolute Nucleated RBC 0.000 Nucleated RBC % (auto) 0.0 PT 10.9 INR 1.0 Sodium 139 Potassium 4.9 Chloride 112 H Carbon Dioxide 17 L Anion Gap 15 BUN 116 H Creatinine 7.59 H* Estim Creat Clear Calc 13.8 Estimated GFR 8 Random Glucose 102 Estimat Average Glucose 91 Hemoglobin A1c % 4.8 Calcium 8.6 Magnesium 2.2 Iron TIBC % Saturation Unsat Iron Binding Total Bilirubin 0.3 Direct Bilirubin 0.1 AST 65 H ALT 43 H Alkaline Phosphatase 47 Lactate Dehydrogenase 292 H Total Creatine Kinase 3202 H Troponin I High Sens 7.0 B-Natriuretic Peptide 28 Total Protein 6.3 L Albumin 4.0 25-OH Vitamin D Total PTH Intact Urine Color Yellow Urine Appearance Clear Urine pH 5.5 Ur Specific [place] 1.010 Urine Protein 300 (3+) H Urine Glucose (UA) Negative Urine Ketones Negative Urine Blood Moderate (2+) H Urine Nitrite Negative Ur Leukocyte Esterase Negative Urine RBC 6-10 H Urine WBC 0-5 Ur Squamous Epith Cells 0-2 Urine Bacteria None Seen Hyaline Casts 3-5 U Random Total Protein Urine Creatinine Protein/Creatinin Ratio Hep Bs Antigen Negative Hep Bs Antibody NONREACTIVE Hep B Core Total Ab Nonreactive Hepatitis C Ab (EIA) Nonreactive 07/14/25 07/15/25 23:10 03:54 WBC RBC Hgb Hct MCV MCH MCHC RDW Plt Count MPV Immature Gran % (Auto) Neut % (Auto) Lymph % (Auto) [place] % (Auto) Eos % (Auto) Baso % (Auto) Lymph # (Auto) [place] # (Auto) Eos # (Auto) Baso # (Auto) Abs Immat Gran (auto) Absolute Neuts (auto) Absolute Nucleated RBC Nucleated RBC % (auto) PT 11.1 INR 1.0 Sodium 141 Potassium 4.2 Chloride 115 H Carbon Dioxide 16 L Anion Gap 14 BUN 107 H Creatinine 7.60 H* Estim Creat Clear Calc 13.8 Estimated GFR 8 Random Glucose 86 Estimat Average Glucose Hemoglobin A1c % Calcium 7.9 L D Magnesium Iron 82 TIBC 221 L % Saturation 37 Unsat Iron Binding 139 Total Bilirubin 0.2 Direct Bilirubin AST 53 H ALT 33 Alkaline Phosphatase 38 L Lactate Dehydrogenase 229 Total Creatine Kinase Troponin I High Sens B-Natriuretic Peptide Total Protein 5.2 L Albumin 3.2 L 25-OH Vitamin D Total 30.5 PTH Intact 298.2 H Urine Color Urine Appearance Urine pH Ur Specific [place] Urine Protein Urine Glucose (UA) Urine Ketones Urine Blood Urine Nitrite Ur Leukocyte Esterase Urine RBC Urine WBC Ur Squamous Epith Cells Urine Bacteria Hyaline Casts U Random Total Protein 150 H Urine Creatinine 40.61 Protein/Creatinin Ratio 3.69 H Hep Bs Antigen Hep Bs Antibody Hep B Core Total Ab Hepatitis C Ab (EIA) Procedures Date of Service Date of Service: 07/15/25 Assessment & Plan Assessment and plan (1) Acute kidney injury superimposed on CKD: Status: Acute (2) Proteinuria: Status: Acute Plan New KEYONNA on CKD with significant muscle cramps, joint pain and chills. Differential is broad and includes vasculitis and proliferating GN. creatinine relatively stable from yesterday- 7.66. serum bicarb is 16, started sodium bicarbonate 650mg PO TID. continue IV hydration Imaging: echocardiogram- pending chest xray- unremarkable CT abdomen/pelvis- unremarkable renal US- no hydronephrosis. bilateral renal cysts. Increased echotexture with normal cortical thickness bilaterally. Abnormal segmental resistive indices in the right kidney related to renal disease; hemodynamically significant stenosis according to renal/aorta ratio, left main renal artery Hematology/chemistry/urine: CBC- H&H 9.2/26, platelets within normal limits 172. WBC normal. Transferrin saturation 27%. CMP- mild AST/ALT elevation 65/43, respectively. Bilirubin 0.2. Serum albumin 4.0. Potassium 4.2. Serum bicarb 16. LDH normal. CK 3202. Hgb A1c 4.8. Calcium mildly low at 7.9, phosphorus pending. vitamin D levels normal at 30.5. PTH 298.2. UA- + blood, +protein. No WBCs or other cells. urine protein/creatinine ratio 3.69 Immunology: serum and urine immunofixation pending CEASAR and titers pending ANCA vasculitides pending DS DNA ab pending glomerular basement membrane antibody pending complements pending Serology- Hep C and Hep B screening negative HIV - pending phospholipase A2 receptor ab - pending he has not been on any recent medication that would explain his symptoms and renal function decline. He will need an urgent renal biopsy- discussed with IR, plan for first thing tomorrow morning. DDAVP ordered to be administered prior to biospy due to elevated bleeding risk with BUN>100. Continue amlodipine 5mg PO daily and hydralazine 50mg PO TID. Labetolol IVP PRN ordered for elevated pressures to ensure BP control prior to renal biopsy. Goal of SBP<140 for renal biopsy 07/15/25 at 07:30. recommend daily electrolyte and renal function studies. Recommend regular blood pressure checks, I&O monitoring avoid nephrotoxins continue supportive care Discussed with Dr Chen and Dr Remington Stringer. Time Spent With Patient Time: Total time managing care of this patient today ____ minutes. Progress Note: Quality Stroke Does the patient have a stroke diagnosis?: No
--- NOTE | 2025-07-15 12:03 | PC.NURSE ---
Pt A&O X4 VSS, Bp elevated after renal US. Pt in NAD. Transport taking to inpatient bed.
--- NOTE | 2025-07-15 12:19 | HO.PM.IMPN ---
Subjective Subjective Date of Service: 07/15/25 Interval History: no complaints Physical Exam Exam: Exam: General: AO X 3, no acute distress Resp: CTA bilateral, no accessory muscles used CVS: S1,S2,RRR GI: soft, non tender, non distended Neuro: motor grossly intact, alert Psych: appropriate affect, appropriate insight Vital Signs: Vital Signs: Last Vital Signs Temp 98 F 07/15/25 06:39 Pulse 58 07/15/25 12:00 Resp 15 07/15/25 12:00 BP 154/81 H 07/15/25 12:00 Pulse Ox 99 07/15/25 12:00 O2 Del Method Room Air 07/15/25 12:00 BMI result Body Mass Index 32.6 Objective Data Active Medications Acetaminophen (Acetaminophen 325 Mg Tablet) 650 mg PO Q6H PRN PRN Reason: Pain, Mild 1-3,fever,headache Al Hydroxide/Mg Hydroxide (Magnesium Hydrox/Alum Hydrox 30 Ml Oral.Susp) 30 ml PO Q4H PRN PRN Reason: Heartburn Amlodipine Besylate (Amlodipine Besylate 5 Mg Tablet) 5 mg PO DAILY [facility]; Protocol Last Admin: 07/15/25 09:45 Dose: 5 mg Documented By: AHSAN Calcium Carbonate (Calcium Carbonate 750 Mg Tab.Chew) 750 mg PO Q4H PRN PRN Reason: Heartburn Enoxaparin Sodium (Enoxaparin Sodium 30 Mg/0.3 Ml Syringe) 30 mg SUBCUT DAILY [facility] Last Admin: 07/15/25 07:50 Dose: Not Given Documented By: AHSAN Non-Admin Reason: amadeo Harris PA- pt is preop renal BX Hydralazine HCl (Hydralazine Hcl 50 Mg Tablet) 50 mg PO TID [facility]; Protocol Last Admin: 07/15/25 07:42 Dose: 50 mg Documented By: AHSAN Lactated Ringer's (Lr) 1,000 mls @ 100 mls/hr IVCONT .Q10H NAYLA Last Admin: 07/15/25 03:23 Dose: 100 mls/hr Documented By: LAURA Labetalol HCl (Labetalol Hcl 100 Mg/20 Ml Vial) 20 mg IVPUSH Q10M PRN PRN Reason: SBP > 140 Last Admin: 07/15/25 11:15 Dose: 20 mg Documented By: AHSAN Magnesium Hydroxide (Milk Of Magnesia 30 Ml Oral.Susp) 30 ml PO DAILY PRN PRN Reason: Constipation Melatonin (Melatonin 3 Mg Tablet) 6 mg PO BEDTIME PRN PRN Reason: Insomnia Melatonin (Melatonin 3 Mg Tablet) 6 mg PO BEDTIME PRN PRN Reason: Insomnia Polyethylene Glycol (Polyethylene Glycol 3350 17 Gm Powd.Pack) 17 gm PO DAILY PRN PRN Reason: Constipation Sodium Bicarbonate (Sodium Bicarbonate 650 Mg Tablet) 650 mg PO TID [facility] Sodium Chloride (0.9 % Sodium Chloride Flush 3 Ml Syringe) 3 ml IVFLUSH [facility] Last Admin: 07/15/25 08:41 Dose: Not Given Documented By: AHSAN Non-Admin Reason: IV Running Sodium Chloride (0.9 % Sodium Chloride Flush 3 Ml Syringe) 3 ml IVFLUSH [facility] Last Admin: 07/15/25 08:41 Dose: Not Given Documented By: AHSAN Non-Admin Reason: IV Running Tamsulosin HCl (Tamsulosin Hcl 0.4 Mg Capsule) 0.4 mg PO BEDTIME [facility] Labs 07/14/25 12:32 07/15/25 03:54 Labs: Laboratory Results - last 24 hr 07/14/25 07/14/25 07/14/25 12:32 12:38 15:36 MCV 83.3 MCH 29.5 MCHC 35.4 RDW 13.0 Plt Count 172 MPV 9.3 L Immature Gran % (Auto) 0.8 H Neut % (Auto) 77.7 H Lymph % (Auto) 13.7 L [place] % (Auto) 6.6 Eos % (Auto) 0.8 Baso % (Auto) 0.4 Lymph # (Auto) 1.3 [place] # (Auto) 0.6 Eos # (Auto) 0.1 Baso # (Auto) 0.0 Abs Immat Gran (auto) 0.07 H Absolute Neuts (auto) 7.1 Absolute Nucleated RBC 0.000 Nucleated RBC % (auto) 0.0 PT 10.9 INR 1.0 Anion Gap 15 Estim Creat Clear Calc 13.8 Estimated GFR 8 Random Glucose 102 Estimat Average Glucose 91 Hemoglobin A1c % 4.8 Calcium 8.6 Magnesium 2.2 Iron TIBC % Saturation Unsat Iron Binding Total Bilirubin 0.3 Direct Bilirubin 0.1 AST 65 H ALT 43 H Alkaline Phosphatase 47 Lactate Dehydrogenase 292 H Total Creatine Kinase 3202 H B-Natriuretic Peptide 28 Total Protein 6.3 L Albumin 4.0 25-OH Vitamin D Total PTH Intact Urine Color Yellow Urine Appearance Clear Urine pH 5.5 Ur Specific [place] 1.010 Urine Protein 300 (3+) H Urine Glucose (UA) Negative Urine Ketones Negative Urine Blood Moderate (2+) H Urine Nitrite Negative Ur Leukocyte Esterase Negative Urine RBC 6-10 H Urine WBC 0-5 Ur Squamous Epith Cells 0-2 Urine Bacteria None Seen Hyaline Casts 3-5 U Random Total Protein Urine Creatinine Protein/Creatinin Ratio Hep Bs Antigen Negative Hep Bs Antibody NONREACTIVE Hep B Core Total Ab Nonreactive Hepatitis C Ab (EIA) Nonreactive 07/14/25 07/15/25 23:10 03:54 MCV MCH MCHC RDW Plt Count MPV Immature Gran % (Auto) Neut % (Auto) Lymph % (Auto) [place] % (Auto) Eos % (Auto) Baso % (Auto) Lymph # (Auto) [place] # (Auto) Eos # (Auto) Baso # (Auto) Abs Immat Gran (auto) Absolute Neuts (auto) Absolute Nucleated RBC Nucleated RBC % (auto) PT 11.1 INR 1.0 Anion Gap 14 Estim Creat Clear Calc 13.8 Estimated GFR 8 Random Glucose 86 Estimat Average Glucose Hemoglobin A1c % Calcium 7.9 L D Magnesium Iron 82 TIBC 221 L % Saturation 37 Unsat Iron Binding 139 Total Bilirubin 0.2 Direct Bilirubin AST 53 H ALT 33 Alkaline Phosphatase 38 L Lactate Dehydrogenase 229 Total Creatine Kinase B-Natriuretic Peptide Total Protein 5.2 L Albumin 3.2 L 25-OH Vitamin D Total 30.5 PTH Intact 298.2 H Urine Color Urine Appearance Urine pH Ur Specific [place] Urine Protein Urine Glucose (UA) Urine Ketones Urine Blood Urine Nitrite Ur Leukocyte Esterase Urine RBC Urine WBC Ur Squamous Epith Cells Urine Bacteria Hyaline Casts U Random Total Protein 150 H Urine Creatinine 40.61 Protein/Creatinin Ratio 3.69 H Hep Bs Antigen Hep Bs Antibody Hep B Core Total Ab Hepatitis C Ab (EIA) Assessment and Plan (1) KEYONNA (acute kidney injury): Status: Acute Plan 44M PMH hypertension, proteinuria, CKD 4, obesity, 0SA, sent in for worsening renal function Acute kidney injury on CKD 4 with proteinuria and acute metabolic acidosis Plan for renal biopsy today Nephrology following Monitor Sodium bicarb p.o. HAYLEY CPAP at night Hypertension Amlodipine, hydralazine BPH Flomax Obesity Weight loss recommended DVT prophylaxis with Lovenox Full Code reason for continued hospitalization: Renal failure workup Quality Stroke Does the patient have a stroke diagnosis?: No VTE Prior VTE?: No VTE Risk Level:: Medical - moderate - high VTE Device Contraindication: Treatment Not Indicated VTE Drug Contraindication: N/A - Med Ordered
--- NOTE | 2025-07-15 13:33 | MHC.CM.PN ---
pt lives with is working dc plan home n/s
[2025-07-15 16:30] LABS: Appearance Urine Clear; Glucose Urine UA 100 mg/dL (Negative); PH 5.5 (5.0-9.0); Specific Gravity - Urine 1.010 (1.005-1.025); UMIC TRIGGER UA YES
--- NOTE | 2025-07-15 18:05 | PC.NURSE ---
Pt rang for the nurse to report a breif but severe cramp in his left index finger. Pt states that hi [employer] salesperson told him to report any cramps immediately. Pt denies need for pain medication at this time and reports that the cramping and pain has since resolved. Will cotninue to monitor/;
[2025-07-15 21:04] LABS: Anti Glomerular Basement Memb <1.0 AI; Proteinase 3 PR3 Antibodies <1.0 AI
[2025-07-16] VITALS (11 sets, daily range): BP systolic 140–187; BP diastolic 71–98; PULSE 57–77; RESP 11–18; TEMP 36.3–36.6; O2SAT 95–100
[2025-07-16 06:33] LABS: Hematocrit 24.4 % (42.0-52.0); Hemoglobin 8.5 g/dl (14.0-18.0); Mean Corpuscular HGB Conc 34.8 g/dl (31.0-36.0); Mean Corpuscular Hemoglobin 29.5 pg (27.0-33.0); Mean Corpuscular Volume 84.7 fL (80.0-98.0); NRBC Abs Auto 0.000 X10*3/uL (0.0-0.012); NRBC Pct Auto 0.0 /100WBC (0.0-0.2); Platelet Count 161 X10*3/uL (160-400); Red Blood Count 2.88 X10*6/uL (4.60-5.80); White Blood Count 10.0 X10*3/uL (4.8-10.8)
[2025-07-16 06:59] LABS: Anion Gap 15 (12-20); Blood Urea Nitrogen 98 mg/dL (9-16); Calcium 8.0 mg/dL (8.4-10.2); Carbon Dioxide 16 mmol/L (22-29); Chloride 113 mmol/L (96-108); Creatinine Clr Calc Pharmacy 14.6; Estimated Glomerular Filt Rate 8; Potassium 4.1 mmol/L (3.3-5.1); Sodium 140 mmol/L (135-145)
[2025-07-16] MEDS: Lidocaine HCl 1 % MPF 30 ML VIAL 10 ML SUBCUT (08:38)
[2025-07-16] MEDS: 0.9 % Sodium Chloride Flush 3 ML SYRINGE IVFLUSH ×2 (09:47→09:55)
--- NOTE | 2025-07-16 11:42 | PM.DS ---
DS: Providers Provider Date of Service: 07/16/25 Date of admission: 07/14/25 16:21 Date of discharge: 07/16/25 Primary care physician: Lauren Adams MD Consults: 07/14/25 16:32 Consult to Nephrology Routine Consulting Provider: [facility] Reason for consultation: esrd DS: Diagnosis Discharge Diagnosis (1) Acute kidney injury superimposed on CKD: Status: Acute (2) Proteinuria: Status: Acute DS: Summary Hospital Course Hospital Course: from initial hpi: 44y/o M with past medical history of hypertension, protein in the urine, also had urological workup recently with bladder biopsy as per the patient(with [facility])-he says he has proteinuria from long time (? Since 2004), not on any DIEGO inhibitors or NSAID use, he had high BMI-which it tried exercise, diet,? Ozempic use in the past, he says he lost weight. He was still doing exercise, before exercise in beginning of this year 3-4 month he was using pre exercise wrap with the caffeine?, Recently from last 3-4 months patient was having excessive cramping to the point that he has to wake up in the night due to pain and cramping for which she decided to go to his primary doctor and renal function was checked which was elevated, subsequently referred to the Nephrology and was being followed there for last few months and creatinine is keep getting worsen. He has H/O gout with exacerbations more so when he was taking HCTZ for hypertension long ago, denies any new rash. Patient denies any family history of any vascular disease or renal disease . Has history of hypertension. Mother from [place] He has HAYLEY uses CPAP. He uses half pack a day for smoking every day Denies any recreational drugs or alcohol use. Lab imaging reviewed: H&H .12/31 Mild elevated LFTs, LDH CPK is 3202 bnp: 28 EKG NSR sinus bradycardia hospital course: Patient was admitted for acute kidney injury on CKD 4 with proteinuria and acute metabolic acidosis. Underwent kidney biopsy and results are pending and should be follow up with Nephrology. Was seen by Nephrology started patient on phosphate binder, sodium bicarb. For hypertension which was uncontrolled was continued on amlodipine and added hydralazine. Blood pressure became better controlled. For HAYLEY was continued on CPAP at night. For BPH who was continued on Flomax. For obesity weight loss recommended. Patient tolerated biopsy well and will be discharged home. Time Attestation Discharge Coordination Time (in mins): 34 Quality: Safe Use of Opioids Does Pt have an Active Cancer Diagnosis on the Problem List?: No Quality: Stroke Does the patient have a stroke diagnosis?: No Physical Exam Exam: Exam: General: AO X 3, no acute distress Resp: CTA bilateral, no accessory muscles used CVS: S1,S2,RRR GI: soft, non tender, non distended Neuro: motor grossly intact, alert Psych: appropriate affect, appropriate insight Vital Signs: Vital Signs: Last Vital Signs Temp 97.8 F 07/16/25 11:14 Pulse 64 07/16/25 11:14 Resp 18 07/16/25 11:14 BP 145/75 H 07/16/25 11:14 Pulse Ox 96 07/16/25 11:14 O2 Del Method Room Air 07/16/25 11:14 O2 Flow Rate 2 07/16/25 08:05 BMI result Body Mass Index 31.7 DS: Data Data Completed and Pending Completed studies during hospitalization [Text1]: Pending at discharge 07/16/25 08:11 Surgical [PTH] Routine Labs on day of discharge: Laboratory Results - last 24 hr 07/14/25 07/15/25 07/16/25 15:36 16:08 06:03 WBC 10.0 RBC 2.88 L Hgb 8.5 L Hct 24.4 L MCV 84.7 MCH 29.5 MCHC 34.8 RDW 13.2 Plt Count 161 MPV 9.9 Absolute Nucleated RBC 0.000 Nucleated RBC % (auto) 0.0 Sodium 140 Potassium 4.1 Chloride 113 H Carbon Dioxide 16 L Anion Gap 15 BUN 98 H Creatinine 7.07 H* Estim Creat Clear Calc 14.6 Estimated GFR 8 Random Glucose 98 Calcium 8.0 L Phosphorus 6.6 H Urine Color Yellow Urine Appearance Clear Urine pH 5.5 Ur Specific [place] 1.010 Urine Protein 300 (3+) H Urine Glucose (UA) 100 H Urine Ketones Negative Urine Blood Moderate (2+) H Urine Nitrite Negative Ur Leukocyte Esterase Negative Urine RBC >20 H Urine WBC 0-5 Ur Squamous Epith Cells 0-2 Urine Bacteria None Seen Hyaline Casts 0-2 Proteinase 3 (PR3) Ab <1.0 Myeloperoxidase Ab <1.0 Double Strand DNA Ab <1 Glomerular Base Memb Ab <1.0 Complement C3 90 Complement C4 25 Discharge Plan Discharge Anticipated Discharge Date/Time: 07/16/25 11:39 Patient Disposition: Home, Self-Care Discharge Diagnosis: james Referrals: Miguelito Chen MD [Physician, Nephrology] - 1 Week Lauren Adams MD [Primary Care Provider, Primary Care] - 1 Week Discharge Medications: New hydralazine 25 mg Tablet 75 mg PO TID 90 Days Qty: 810 0RF Protocol: Hold for SBP< HOLD for SBP < : 90 sodium bicarbonate 650 mg Tablet 650 mg PO TID 90 Days Qty: 270 0RF amlodipine 10 mg Tablet 10 mg PO DAILY Qty: 90 0RF Protocol: Hold for SBP< HOLD for SBP < : 90 calcitriol 0.25 mcg Capsule 0.25 mcg PO MoWeFr 90 Days Qty: 39 0RF calcium acetate(phosphat bind) 667 mg Capsule 667 mg PO TIDWM 90 Days Qty: 270 0RF Continued methocarbamol 500 mg tablet 500 mg PO BEDTIME PRN (Reason: Muscle Spasm) oxybutynin chloride 10 mg tablet extended release 24hr 10 mg PO DAILY tamsulosin 0.4 mg capsule 0.4 mg PO BEDTIME Discontinued amlodipine 5 mg tablet 10 mg PO DAILY Discharge Orders: Discharge Order (Routine); Ordered 07/16/25 Ordered By: Yovany Fay Diet: Advance to usual diet Activity on Discharge: As tolerated Stand Alone Forms: Patient Portal Discharge page Print Language: Uz[place] Care Plan Goals: work up james Health Concerns: james on ckd Plan of Treatment: med changes per med rec, follow up with nephro for biopsy results Assessment: see above
--- NOTE | 2025-07-16 11:54 | MHC.CM.PN ---
Pt has been medically cleared to MD, he will go home via private transport, plan is self care.
--- NOTE | 2025-07-16 12:28 | P.PNNP_ITS ---
Subjective Subjective Date of Service: 07/16/25 Interval history: Patient with CKD here with acute renal failure. Some muscle cramping has returned but not as significant as pre-admission. No other complaints/concerns. Denies nausea/vomiting, shortness of breath, chest pain, abdominal pain, flank pain, urinary symptoms, reduced urination, pruritus, confusion/lethargy. He had his renal biopsy this a.m. and tolerated well. Denies dez hematuria. No events noted overnight. Physical Exam 2 Vital Signs: Vital Signs: Last Vital Signs Temp 97.8 F 07/16/25 11:14 Pulse 64 07/16/25 11:14 Resp 18 07/16/25 11:14 BP 145/75 H 07/16/25 11:14 Pulse Ox 96 07/16/25 11:14 O2 Del Method Room Air 07/16/25 11:14 O2 Flow Rate 2 07/16/25 08:05 BMI result Body Mass Index 31.7 Const: General: no acute distress, alert and awake Resp: Effort & Inspection: normal respiratory effort and able to speak in complete sentences Auscultation: clear to auscultation bilaterally Cardio: Rate: regular rate Rhythm: regular rhythm Heart sounds: S1 normal heart sound present and S2 normal heart sound present GI: Palpation (GI): Soft to palpation and nontender Skin: Lesions: no lesions Rashes: no rashes Neuro: Other: no asterixis Extrem: General: No edema Objective Data Labs 07/16/25 06:03 07/16/25 06:03 Labs: Laboratory Results - last 24 hr 07/14/25 07/15/25 07/16/25 15:36 16:08 06:03 WBC 10.0 RBC 2.88 L Hgb 8.5 L Hct 24.4 L MCV 84.7 MCH 29.5 MCHC 34.8 RDW 13.2 Plt Count 161 MPV 9.9 Absolute Nucleated RBC 0.000 Nucleated RBC % (auto) 0.0 Sodium 140 Potassium 4.1 Chloride 113 H Carbon Dioxide 16 L Anion Gap 15 BUN 98 H Creatinine 7.07 H* Estim Creat Clear Calc 14.6 Estimated GFR 8 Random Glucose 98 Calcium 8.0 L Phosphorus 6.6 H Urine Color Yellow Urine Appearance Clear Urine pH 5.5 Ur Specific [place] 1.010 Urine Protein 300 (3+) H Urine Glucose (UA) 100 H Urine Ketones Negative Urine Blood Moderate (2+) H Urine Nitrite Negative Ur Leukocyte Esterase Negative Urine RBC >20 H Urine WBC 0-5 Ur Squamous Epith Cells 0-2 Urine Bacteria None Seen Hyaline Casts 0-2 IgG Total 599 L IgA Total 222 IgM 74 DAISY Interpretation SEE NOTE Proteinase 3 (PR3) Ab <1.0 Myeloperoxidase Ab <1.0 Double Strand DNA Ab <1 Glomerular Base Memb Ab <1.0 Complement C3 90 Complement C4 25 Procedures Date of Service Date of Service: 07/16/25 Assessment & Plan Assessment and plan (1) Acute kidney injury superimposed on CKD: Status: Acute (2) Proteinuria: Status: Acute Plan New KEYONNA on CKD with significant muscle cramps, joint pain and chills. Differential is broad and includes vasculitis and proliferating GN. May have burnt out IgA nephropathy. creatinine relatively stable from yesterday, slight improvement- 7.07 today. serum bicarb is 16- continue sodium bicarbonate 650mg PO TID. continue to encourage oral hydration. calcium is 8.0, phos 6.6- added calcitriol 0.25mcg PO 3x weekly and calcium acetate 667mg PO TID, which will also help with cramping. Will also add gabapentin to help with cramping. Imaging: echocardiogram- normal LV systolic function, normal valvular dopplers, mildly dilated left atrium. chest xray- unremarkable CT abdomen/pelvis- unremarkable renal US- no hydronephrosis. bilateral renal cysts. Increased echotexture with normal cortical thickness bilaterally. Abnormal segmental resistive indices in the right kidney related to renal disease; hemodynamically significant stenosis according to renal/aorta ratio, left main renal artery Hematology/chemistry/urine: CBC- H&H 9.2/26, platelets within normal limits 172. WBC normal. Transferrin saturation 27%. CMP- mild AST/ALT elevation 65/43, respectively. Bilirubin 0.2. Serum albumin 4.0. Potassium 4.2. Serum bicarb 16. LDH normal. CK 3202. Hgb A1c 4.8. Calcium mildly low at 8.0, phosphorus 6.6. vitamin D levels normal at 30.5. PTH 298.2. UA- + blood, +protein. No WBCs or other cells. urine protein/creatinine ratio 3.69 Immunology: serum immunofixation- no monoclonal proteins detected. urine immunofixation- pending CEASAR and titers pending ANCA vasculitides- negative DS DNA ab- negative glomerular basement membrane antibody- negative complements- normal Serology- Hep C and Hep B screening negative HIV - pending phospholipase A2 receptor ab - pending he has not been on any recent medication that would explain his symptoms and renal function decline. Blood pressures suboptimal- increase amlodipine to 10mg daily, hydralazine to 75mg PO TID. Patient is ok for discharge this evening if he continues to have normal- appearing urine without dez hematuria. We will arrange close outpatient follow up. Discussed with Dr Chen and Dr Chen, Dr Macedo. Time Spent With Patient Time: Total time managing care of this patient today ____ minutes. Progress Note: Quality Stroke Does the patient have a stroke diagnosis?: No
[2025-07-17 10:18] LABS: Anti Nuclear Antibody Screen NEGATIVE (NEGATIVE)
[2025-07-19 00:18] LABS: Phospholipase A2 IgG ELISA <4 RU/mL; Phospholipase A2 IgG IFA NEGATIVE (NEGATIVE)
[2025-07-20 20:48] LABS: HIV RNA PCR Qn Copies Not Detected Copies/mL; HIV RNA PCR Qn Log Copies Not Detected Log cps/mL
== END 2025-07-16 18:35 | disposition home or self-care (01) | DRG 683 ==
LOC: HO.ED 16:04 → HO.EDOVER 16:41 → HO.S3 07-15 10:16 → HO.IMC 07-15 19:00
PROVIDERS: Internal Medicine; Internal Medicine Nephrology; Nurse Practitioner Family; Physician Assistant Medical; Radiology Diagnostic Radiology; Admitting Provider Internal Medicine; Emergency Provider Emergency Medicine; PCP Internal Medicine; Visit Provider Internal Medicine
PROC: 0TB03ZX Excision of Right Kidney, Percutaneous Approach, Diagnostic (ICD-10-PCS; principal; 2025-07-16 07:30)
DX: N17.9 Acute kidney failure, unspecified (principal); E87.21 Acute metabolic acidosis; M62.82 Rhabdomyolysis; M87.9 Osteonecrosis, unspecified; G47.33 Obstructive sleep apnea (adult) (pediatric); J45.20 Mild intermittent asthma, uncomplicated; I12.9 Hypertensive chronic kidney disease with stage 1 through stage 4 chronic kidney disease, or unspecified chronic kidney disease; N18.4 Chronic kidney disease, stage 4 (severe); F17.210 Nicotine dependence, cigarettes, uncomplicated; Z71.6 Tobacco abuse counseling; I95.9 Hypotension, unspecified; N40.0 Benign prostatic hyperplasia without lower urinary tract symptoms; E66.9 Obesity, unspecified; Z68.31 Body mass index [BMI] 31.0-31.9, adult; Z71.3 Dietary counseling and surveillance; Z79.899 Other long term (current) drug therapy
CPT/HCPCS: 36415; 50200; 71045; 74176; 76770; 77012; 80048; 80053; 80076; 81001; 82306; 82550; 82570; 82784; 83036; 83520; 83540; 83615; 83735; 83880; 83970; 84100; 84156; 84484; 85025; 85027; 85610; 86021; 86038; 86160; 86225; 86255; 86334; 86335; 86704; 86706; 86803; 87340; 87536; 87900; 88300; 88305; 88313; 88346; 88348; 88350; 93005; 93306; 93975; 99152; 99285; J1920; J2003; J2250; J2597; J3010; J7120; Q5106; Q9957

== ENCOUNTER → 2025-07-14 12:20 | Outpatient (BNV) | payer OTHER, SELFPAY | PROVIDERS: Emergency Provider Emergency Medicine; PCP Internal Medicine; Visit Provider Internal Medicine Cardiovascular Disease | DX: R00.1 Bradycardia, unspecified (principal) | CPT/HCPCS: 93010 ==

== ENCOUNTER → 2025-07-14 12:34 | Outpatient (BNV) | payer OTHER, SELFPAY | PROVIDERS: Emergency Provider Emergency Medicine; PCP Internal Medicine; Visit Provider Nurse Practitioner Family | DX: N17.9 Acute kidney failure, unspecified (principal); N18.9 Chronic kidney disease, unspecified; R80.8 Other proteinuria | CPT/HCPCS: 99223; 99233 ==

== ENCOUNTER → 2025-07-14 14:16 | Outpatient (BNV) | payer OTHER, SELFPAY | PROVIDERS: Emergency Provider Emergency Medicine; PCP Internal Medicine; Visit Provider Radiology Diagnostic Radiology | DX: M87.851 Other osteonecrosis, right femur (principal); N17.9 Acute kidney failure, unspecified | CPT/HCPCS: 71045; 74176; 76770 ==

== ENCOUNTER 2025-07-14 16:21 | Outpatient (BNV) | payer OTHER, SELFPAY | END 2025-07-15 07:00 | PROVIDERS: Admitting Provider Internal Medicine; Emergency Provider Emergency Medicine; PCP Internal Medicine; Visit Provider Internal Medicine Cardiovascular Disease | DX: I35.8 Other nonrheumatic aortic valve disorders (principal) | CPT/HCPCS: 93306 ==

== ENCOUNTER 2025-07-14 16:21 | Outpatient (BNV) | payer OTHER, SELFPAY | END 2025-07-16 07:27 | PROVIDERS: Admitting Provider Internal Medicine; Emergency Provider Emergency Medicine; PCP Internal Medicine; Visit Provider Radiology Diagnostic Radiology | DX: N17.9 Acute kidney failure, unspecified (principal) | CPT/HCPCS: 50200; 77012 ==

== ENCOUNTER 2025-07-14 16:21 | Outpatient (BNV) | payer OTHER, SELFPAY | END 2025-07-15 07:00 | PROVIDERS: Admitting Provider Internal Medicine; Emergency Provider Emergency Medicine; PCP Internal Medicine; Visit Provider Radiology Diagnostic Radiology | DX: I70.1 Atherosclerosis of renal artery (principal) | CPT/HCPCS: 93975 ==

== ENCOUNTER → 2025-07-14 16:21 | Outpatient (BNV) | payer OTHER, SELFPAY | PROVIDERS: Admitting Provider Internal Medicine; Emergency Provider Emergency Medicine; PCP Internal Medicine; Visit Provider Internal Medicine | DX: N17.9 Acute kidney failure, unspecified (principal) | CPT/HCPCS: 99222; 99232 ==

== ENCOUNTER 2025-07-23 10:23 | Outpatient (AMB) | payer OTHER, SELFPAY ==
--- NOTE | 2025-07-23 10:27 | HO.NEPHOV ---
Vital Signs 07/23/25 10:34 Height 5 ft 8.5 in Weight 220 lb 6 oz BMI 33.0 BP 160/90 H Blood Pressure Location Lt brachial Position Sitting Pulse 60 Pulse Source Pulse Oximeter Pulse Oximetry (%) 97 Oxygen Delivery Method Room Air Intake Visit Reasons: [facility] [place] [facility] General Ophthalmologist Required: No Accompanied by: Spouse Allergies No Known Allergies Allergy (Verified 07/23/25 10:34) HPI Comments Details: Mack was seen in follow up for CKD and hypertension . He is 44 years of age who has hypertension as well as H/O blood and protein in the urine in the past.He has seen Urology and was worked up including imaging studies which did not show any etiology for his M/S hematuria. He denied any H/O macroscopic heamturia. He was no ACEI in the past but was discontinued ( ? Had KEYONNA at that time). He had high BMI which has improved with exercise, diet and Ozempic for sometime. He has no H/O renal calculi . He recently had cramps as well as joint pains which is better. He is active and employed. He denies any regular excessive NSAID's. He has been having HAYLEY and is on CPAP. He has H/O gout with exacerbations more so when he was taking HCTZ for hypertension long ago. He has no H/O cardiac issues. He denies any neuropathic symptoms. CVA, CHF, CAD, PAD. He has no H/O blood clots but has was a smoker in the past. He had a Urology procedure done few weeks ago and had some diarrhea following it. He has H/O smoking but no hemoptysis or unintentional weight loss. He is not a diabetic and has no H/O liver dysfunction. His creatinine has been in mid 3's three months ago which has gone up over 7 now. He has poor energy but better. He underwent extensive work up including renal biopsy. Renal biopsy showed advanced chronic changes with close to 70 % glomerulosclerosis as well as interstitial fibrosis. He also had marked vascular sclerosis. His BP has been high and carvedilol has been initiated with improvement [facility] Medical History Enlarged prostate HAYLEY (obstructive sleep apnea) Polyp of colon Asthma Chronic kidney disease, stage 3a Obesity Hemorrhoids with complication Anxiety with depression Gout Tobacco use Essential (primary) hypertension Surgical History S/P left inguinal herniorrhaphy Family History Father Prostate cancer Mother Heart attack Hypertension Social History Household Members: Spouse and Children Housing: House Do you presently have visiting nurse or other home services: No Alcohol intake: never Patient Tobacco Use Status: Current everyday Tobacco user Tobacco use type: Cigarette Second Hand Smoke Exposure: No service: No Review of Systems Const All systems reviewed & are unremarkable except as noted in HPI and below Physical Exam Vital Signs: Last Vital Signs Pulse 60 07/23/25 10:34 BP 160/90 H 07/23/25 10:34 Pulse Ox 97 07/23/25 10:34 Oxygen Delivery Method Room Air 07/23/25 10:34 BMI result Body Mass Index 33.0 Const General: comfortable and no acute distress Orientation/consciousness: patient oriented x3 HEENT Head: Yes normocephalic Mouth: Normal oral and palatal mucosa present Eyes EOM: EOMs intact bilaterally Neck Neck: Yes supple Resp Auscultation: clear to auscultation bilaterally Cardio Jugular venous distension: no JVD Rate: regular rate GI Palpation (GI): Soft to palpation Auscultation: normal bowel sounds General: Yes no CVA tenderness Back/Spine/Pelvis Back: no CVA tenderness Skin General skin exam: no rashes or lesions noted Neuro General: patient oriented x3 and moves all extremities Extrem General: Yes no pedal edema Results Reviewed Nephrology Results: Hgb, (14.0-18.0) 8.5 g/dl L 07/16/25 WBC, (4.8-10.8) 10.0 X10*3/uL 07/16/25 Plt Count, (160-400) 161 X10*3/uL 07/16/25 Sodium, (135-145) 140 mmol/L 07/16/25 Potassium, (3.3-5.1) 4.1 mmol/L 07/16/25 Chloride, (96-108) 113 mmol/L H 07/16/25 Carbon Dioxide, (22-29) 16 mmol/L L 07/16/25 BUN, (9-16) 98 mg/dL H 07/16/25 Creatinine, (0.5-1.4) 7.07 mg/dL H* 07/16/25 Calcium, (8.4-10.2) 8.0 mg/dL L 07/16/25 Phosphorus, (2.7-4.5) 6.6 mg/dL H 07/16/25 PTH Intact, (8.7-77.1) 298.2 pg/mL H 07/15/25 Urine Protein, (Neg-Trace) 300 (3+) mg/dL H 07/15/25 Urine Creatinine 40.61 mg/dL 07/14/25 Protein/Creatinin Ratio, (<0.2) 3.69 H 07/14/25 Renal US 07/15/25 Assessment & Plan Assessment & Plan (1) Acute kidney injury superimposed on CKD: Code(s): N17.9 - Acute kidney failure, unspecified; N18.9 - Chronic kidney disease, unspecified Category: Medical (2) Proteinuria: Code(s): R80.9 - Proteinuria, unspecified Category: Medical Qualifiers: Proteinuria type: other Qualified Code(s): R80.8 - Other proteinuria (3) Hypertension: Code(s): I10 - Essential (primary) hypertension Category: Medical Qualifiers: Hypertension type: secondary to other renal disorders Qualified Code(s): I15.1 - Hypertension secondary to other renal disorders (4) IgA nephropathy: Code(s): N02.B9 - Other recurrent and persistent immunoglobulin A nephropathy Category: Medical (5) High phosphate levels: Code(s): E83.39 - Other disorders of phosphorus metabolism Category: Medical (6) Iron deficiency: Code(s): E61.1 - Iron deficiency Category: Medical (7) Anemia in chronic kidney disease: Code(s): N18.9 - Chronic kidney disease, unspecified; D63.1 - Anemia in chronic kidney disease Category: Medical Qualifiers: Chronic kidney disease stage: stage 5 (GFR < 15), not on chronic dialysis Qualified Code(s): N18.5 - Chronic kidney disease, stage 5; D63.1 - Anemia in chronic kidney disease (8) Secondary hyperparathyroidism (of renal origin): Code(s): N25.81 - Secondary hyperparathyroidism of renal origin Category: Medical Plan Mack has a new KEYONNA on CKD from biopsy proven IgA nephropathy. Clinically denying uremic symptoms; Serum HCO3 better on replacement Phosphorus high- counseled about low Phos containing food- On Ca acetate( before meals) On calcitriol 0.25mcg PO 3x weekly and calcium acetate 667mg PO TID Asked to take Iron tablets. When T Sat is > 20 %, will need Procrit( through my office) Discontinued Amlodipine and started Nifedipine, dose of which may have to be increased Discussed about biopsy report, advanced CKD, need for HD/ renal transplantation Referral made for renal transplant evaluation to get listed Discussed about waiting list on Tx as well living donor tx( Blood type A +) Copy of biopsy report given to patient; Answered his and his 's questions Follow up appointment given Investigation done so far Renal Biopsy- report scanned in chart Imagin. echocardiogram- normal LV systolic function, normal valvular dopplers, mildly dilated left atrium. 2. chest xray- unremarkable 3. CT abdomen/pelvis- unremarkable 4. renal US- no hydronephrosis. bilateral renal cysts. Increased echotexture with normal cortical thickness bilaterally. Abnormal segmental resistive indices in the right kidney related to renal disease; hemodynamically significant stenosis according to renal/aorta ratio, left main renal artery Hematology/chemistry/urine: CBC- H&H 9.2/26, platelets within normal limits 172. WBC normal. Transferrin saturation 27%. - being monitored CMP- mild AST/ALT elevation 65/43, respectively. Bilirubin 0.2. Serum albumin 4.0. Potassium 4.2. Serum bicarb 16. LDH normal. CK 3202. Hgb A1c 4.8. Calcium mildly low at 8.0, phosphorus 6.6. - being monitored vitamin D levels normal at 30.5. PTH 298.2. UA- + blood, +protein. No WBCs or other cells. urine protein/creatinine ratio 3.69 Immunology: 1. serum immunofixation- no monoclonal proteins detected. 2.urine immunofixation reviewed 3. CEASAR and titers reviewed 4. ANCA vasculitides- negative 5. DS DNA ab- negative 6. glomerular basement membrane antibody- negative 7. complements- normal Serology- 1. Hep C and Hep B screening negative 2. HIV - negative 3. phospholipase A2 receptor ab - reviewed Time spent reviewing records, biopsy, patient encounter, phone calls , documentation included 50 minutes; Follow up given Orders: Orders ABO RH Type 07/23/25 I15.1 - Hypertension secondary to other renal disorders, N02.B9 - Other recurrent and persistent immunoglobulin A nephropathy, N17.9 - Acute kidney failure, unspecified, N18.9 - Chronic kidney disease, unspecified, R80.8 - Other proteinuria Creatinine 07/23/25 I15.1 - Hypertension secondary to other renal disorders, N02.B9 - Other recurrent and persistent immunoglobulin A nephropathy, N17.9 - Acute kidney failure, unspecified, N18.9 - Chronic kidney disease, unspecified, R80.8 - Other proteinuria Blood Urea Nitrogen 07/23/25 I15.1 - Hypertension secondary to other renal disorders, N02.B9 - Other recurrent and persistent immunoglobulin A nephropathy, N17.9 - Acute kidney failure, unspecified, N18.9 - Chronic kidney disease, unspecified, R80.8 - Other proteinuria Electrolytes 07/23/25 I15.1 - Hypertension secondary to other renal disorders, N02.B9 - Other recurrent and persistent immunoglobulin A nephropathy, N17.9 - Acute kidney failure, unspecified, N18.9 - Chronic kidney disease, unspecified, R80.8 - Other proteinuria Calcium 07/23/25 I15.1 - Hypertension secondary to other renal disorders, N02.B9 - Other recurrent and persistent immunoglobulin A nephropathy, N17.9 - Acute kidney failure, unspecified, N18.9 - Chronic kidney disease, unspecified, R80.8 - Other proteinuria Phosphorus 07/23/25 I15.1 - Hypertension secondary to other renal disorders, N02.B9 - Other recurrent and persistent immunoglobulin A nephropathy, N17.9 - Acute kidney failure, unspecified, N18.9 - Chronic kidney disease, unspecified, R80.8 - Other proteinuria IRON PROFILE 07/23/25 I15.1 - Hypertension secondary to other renal disorders, N02.B9 - Other recurrent and persistent immunoglobulin A nephropathy, N17.9 - Acute kidney failure, unspecified, N18.9 - Chronic kidney disease, unspecified, R80.8 - Other proteinuria Complete Blood Count Auto Diff 3 Weeks I15.1 - Hypertension secondary to other renal disorders, N02.B9 - Other recurrent and persistent immunoglobulin A nephropathy, N17.9 - Acute kidney failure, unspecified, N18.9 - Chronic kidney disease, unspecified, R80.8 - Other proteinuria Blood Urea Nitrogen 3 Weeks I15.1 - Hypertension secondary to other renal disorders, N02.B9 - Other recurrent and persistent immunoglobulin A nephropathy, N17.9 - Acute kidney failure, unspecified, N18.9 - Chronic kidney disease, unspecified, R80.8 - Other proteinuria Creatinine 3 Weeks I15.1 - Hypertension secondary to other renal disorders, N02.B9 - Other recurrent and persistent immunoglobulin A nephropathy, N17.9 - Acute kidney failure, unspecified, N18.9 - Chronic kidney disease, unspecified, R80.8 - Other proteinuria Phosphorus 3 Weeks I15.1 - Hypertension secondary to other renal disorders, N02.B9 - Other recurrent and persistent immunoglobulin A nephropathy, N17.9 - Acute kidney failure, unspecified, N18.9 - Chronic kidney disease, unspecified, R80.8 - Other proteinuria Vitamin D 25-OH Total 07/23/25 I15.1 - Hypertension secondary to other renal disorders, N02.B9 - Other recurrent and persistent immunoglobulin A nephropathy, N17.9 - Acute kidney failure, unspecified, N18.9 - Chronic kidney disease, unspecified, R80.8 - Other proteinuria Complete Blood Count Auto Diff 07/23/25 I15.1 - Hypertension secondary to other renal disorders, N02.B9 - Other recurrent and persistent immunoglobulin A nephropathy, N17.9 - Acute kidney failure, unspecified, N18.9 - Chronic kidney disease, unspecified, R80.8 - Other proteinuria Electrolytes 3 Weeks I15.1 - Hypertension secondary to other renal disorders, N02.B9 - Other recurrent and persistent immunoglobulin A nephropathy, N17.9 - Acute kidney failure, unspecified, N18.9 - Chronic kidney disease, unspecified, R80.8 - Other proteinuria Calcium 3 Weeks I15.1 - Hypertension secondary to other renal disorders, N02.B9 - Other recurrent and persistent immunoglobulin A nephropathy, N17.9 - Acute kidney failure, unspecified, N18.9 - Chronic kidney disease, unspecified, R80.8 - Other proteinuria Parathyroid Hormone Intact 07/23/25 I15.1 - Hypertension secondary to other renal disorders, N02.B9 - Other recurrent and persistent immunoglobulin A nephropathy, N17.9 - Acute kidney failure, unspecified, N18.9 - Chronic kidney disease, unspecified, R80.8 - Other proteinuria Medications: New nifedipine ER 30 mg PO DAILY 90 tabs 2RF Discontinued amlodipine Discontinued Reason: Doctor's Order 10 mg See Protocol PO DAILY 90 tabs 0RF Coding Level of Care Code Est Pt Level 5 (43986) Diagnoses Acute kidney injury superimposed on CKD N17.9; N18.9 Other proteinuria R80.8 Proteinuria type: other Hypertension secondary to other renal disorders I15.1 Hypertension type: secondary to other renal disorders IgA nephropathy N02.B9 High phosphate levels E83.39 Iron deficiency E61.1 Anemia in stage 5 chronic kidney disease, not on chronic dialysis N18.5; D63.1 Chronic kidney disease stage: stage 5 (GFR < 15), not on chronic dialysis Secondary hyperparathyroidism (of renal origin) N25.81
[2025-07-23 10:34] VITALS: BP 160/90; PULSE 60; O2SAT 97; BMI 33.0
--- OUTSIDE RECORDS SUMMARY | 2025-07-23 12:22 | XMS_ITS | Clinical Summary ---
Author Organization [facility] Address [address] [place] [id number] Phone Care Team Providers Care Weapons Engineer Name Role Phone Susan Dsouza Primary Care Provider [phone] Encounters Date Type Department Care Team Description 06/16/2025 Telephone [facility] [address] [place] [id number] [facility] Appointment 06/01/2025 Telephone [facility] [address] [place] [id number] [facility] Patient Appointment from Last 3 Months Social History Tobacco Use Types Packs/Day Years Used Date Smoking Tobacco: Never Assessed Sex and Gender Information Value Date Recorded Sex Assigned at Not on file Legal Sex Male 7:24 AM MDT Gender Identity Not on file Sexual Orientation Not on file Plan of Treatment Health Maintenance Due Date Last Done Comments Influenza Vaccine (#1) 2025 Insurance [employer] Care Teams Weapons Engineer Relationship Specialty Start Date End Date Susan Dsouza PA [address] [place] [id number] PCP - General Internal Medicine 07/08/25
--- OUTSIDE RECORDS SUMMARY | 2025-07-23 12:22 | XMS_ITS | Clinical Summary ---
Author Organization [address] Address [address] [place] [phone] Phone Care Team Providers Care Emergency Telecommunications Dispatcher Name Role Phone Lauren Adams MD Primary Care Provider [phone] Allergies No known active allergies Medications lisinopriL [...] Description 07/02/2025 11:23 AM EDT Anesthesia Event [facility] OR [address] [place] [phone] Andre Simms DO Barnes, Tyanna R, BRIT 07/02/2025 10:30 AM EDT - 07/02/2025 12:00 PM EDT Surgery [facility] OR [address] [place] [phone] Uriel Izaguirre MD CYSTOSCOPY RANDOM BLADDER/ PROSTATE/URETHRA BIOPSIES, BILATERAL RETROGRADE PYELOGRAM SELECTIVE WASHING [39408 (CPT ) +1 more] 07/02/2025 8:59 AM EDT - 07/02/2025 2:13 PM EDT Hospital Encounter [facility] Main OR [address] [place] [phone] Uriel Izaguirre MD Neoplasm of unspecified behavior of bladder; Other abnormal findings on cytological and histological examination of urine Discharge Disposition: Home or Self Care 07/02/2025 7:20 AM EDT - 07/02/2025 11:59 PM EDT Hospital Encounter [facility] Xray [address] [place] [phone] Pain Discharge Disposition: Home or Self Care 05/04/2025 Telephone Nephrology - [place] [id number] [place] [phone] Olegario Hough MD from Last 3 Months Surgical History Surgery Date Site/Laterality Comments COLONOSCOPY 2003 PROCEDURE: TN COLONOSCOPY STOMA DX INCLUDING COLLJ SPEC SPX; [...] Aunt Father Maternal Grandmother Mother (Age 403/01/09) [place] ag e 50 Paternal Grandfather Social History [...] 10/15/2025 3:20 PM EST Consult Gastroenterology - [place] [address] [facility] [address] [place] [phone] Sera Hunter PA [address] [facility] [address] [place] [address] 12/03/2025 4:00 PM EST Office Visit Nephrology [facility] [address] [place] [phone] Olegario Hough MD [address] [facility] [address] [place] [phone] Health Maintenance Due Date Last Done Comments [...] on cytological and histological examination of urine NON-GYNECOLOGIC CYTOLOGY Routine 07/02/2025 11:41 AM EDT Neoplasm of unspecified behavior of bladder Other abnormal findings on cytological and histological examination of urine TN BIOPSY PROSTATE NEEDLE/PUNCH SINGLE/MULTIPLE ANY APPROACH 07/02/2025 11:23 AM EDT Neoplasm of unspecified behavior of bladder Other abnormal findings on cytological and histological examination of urine Case Notes PICTURE FRAMES INSPECTOR NEEDED Special Needs TIME CHANGE VIA PHONE W /LEILA CB 06/29 TN CYSTOURETHROSCOPY WITH BIOPSY(S) 07/02/2025 11:23 AM EDT Neoplasm of unspecified behavior of bladder Other abnormal findings on cytological and histological examination of urine Case Notes PICTURE FRAMES INSPECTOR NEEDED Special Needs TIME CHANGE VIA PHONE [...] Signed Date: 07/02/2025 12:11 ET Workstation ID: [id number] Transcribed By: Self Edit Transcribed Date: 07/02/2025 [...] Signed Date: 07/02/2025 12:11 ET Workstation ID: [id number] Transcribed By: Self Edit Transcribed Date: 07/02/2025 12:10 ET us Uriel Izaguirre MD IMG FLUOROSCOPY PROCEDURES Final Result * Tissue exam [...] Negative for dysplasia. 07/03/2025 12:35 PM EDT [facility] Gross Description A. Urinary Bladder, [...] multiple levels. TS 07/03/2025 12:35 PM EDT [facility] Disclaimer Unless otherwise specified, all tissue is 10% NB formalin fixed and paraffin embedded. 07/03/2025 12:35 PM EDT [facility] Tissue Urinary bladder structure / Unknown [...] MD LAB PATHOLOGY ORDERABLES Final R esult [facility]) [facility] [address] [place] [address], * Non-gynecologic cytology (07/02/2025 11:41 AM EDT) Addendum A. Urinary Bladder, urovision: Results of UroVysion fluorescence in situ hybridization (FISH) testing: CEP3: Normal CEP7: Normal CEP17: Normal LSI 9p21: Normal Interpretation: Normal profile Controls stained appropriately. Note: The results are intended as a screening device and should be interpreted in association with other clinical and pathological findings. B. Ureter, Left, washing -urovision: Results of UroVysion fluorescence in situ hybridization (FISH) testing: CEP3: Normal CEP7: Normal CEP17: Normal LSI 9p21: Normal Interpretation: Normal profile Controls stained appropriately. Note: The results are intended as a screening device and should be interpreted in association with other clinical and pathological findings. C. Ureter, Right, washing - urovision: Results of UroVysion fluorescence in situ hybridization (FISH) testing: CEP3: Normal CEP7: Normal CEP17: Normal LSI 9p21: Normal Interpretation: Normal profile Controls stained appropriately. Note: The results are intended as a screening device and should be interpreted in association with other clinical and pathological findings. 07/15/2025 2:39 PM [facility] Addendum electronically signed by Mack Jerez MD on 07/15/2025 at 2:39 PM Final Diagnosis A. Urinary Bladder, Urine, ThinPrep: Negative for high grade urothelial carcinoma. Note: UroVysion testing to follow. B. Ureter, Left, washing, ThinPrep: Negative for high grade urothelial carcinoma. Note: UroVysion testing to follow. C. Ureter, Right, washing, ThinPrep: Negative for high grade urothelial carcinoma. Note: UroVysion testing to follow. 07/15/2025 2:39 PM [facility] Specimen A Adequacy Satisfactory for evaluation 07/15/2025 2:39 PM [facility] Specimen B Adequacy Satisfactory for evaluation 07/15/2025 2:39 PM [facility] Specimen C Adequacy Satisfactory for evaluation 07/15/2025 2:39 PM [facility] Gross Description A. Urinary Bladder, urovision and [...] One ThinPrep and one Urovision slide made. 07/15/2025 2:39 PM [facility] Disclaimer Unless otherwise specified, all tissue is 10% NB formalin fixed and paraffin embedded. Technical cytopathology services provided by [facility], at [address] [place] [address] ([facility] # [id number]/Tino Jerez MD, Vice President Sales.) 07/15/2025 2:39 PM EDT [facility] Urine Urinary bladder structure / Unknown 07/02/2025 11:41 AM EDT 07/03/2025 4:33 AM EDT Urine specimen (specimen) Structure of left ureter / Unknown 07/02/2025 11:44 AM EDT 07/03/2025 4:33 AM EDT Urine specimen (specimen) Structure of right ureter / Unknown 07/02/2025 11:44 AM EDT 07/03/2025 4:33 AM EDT us Uriel Izaguirre MD LAB CYTOLOGY ORDERABLES Edited R esult - Final [facility] [address] [place] [address], from Last 3 Months Insurance [employer] Advance Directives Documents on File Type Date Recorded Patient Mortuary Operations Manager Expl anation Health Care Decision (hx) 10/18/2010 AD SHAVONNE DIRECTIVE Care Teams Emergency Telecommunications Dispatcher Relationship Specialty Start Date End Date Lauren Adams MD [address] [place] [phone] PCP - General 06/28/23
== END 2025-07-23 11:28 | disposition home or self-care (01) ==
LOC: HO.HKAS 10:24
PROVIDERS: PCP Internal Medicine; Visit Provider Internal Medicine Nephrology
DX: N17.9 Acute kidney failure, unspecified (principal); N18.5 Chronic kidney disease, stage 5; I15.1 Hypertension secondary to other renal disorders; N02.B9 Other recurrent and persistent immunoglobulin A nephropathy; R80.8 Other proteinuria; E83.39 Other disorders of phosphorus metabolism; E61.1 Iron deficiency; D63.1 Anemia in chronic kidney disease; N25.81 Secondary hyperparathyroidism of renal origin
CPT/HCPCS: 99215

== ENCOUNTER 2025-08-20 13:28 | Outpatient (AMB) | payer OTHER, SELFPAY ==
--- OUTSIDE RECORDS SUMMARY | 2025-07-10 04:15 | XMS_ITS ---
Author Organization [facility] Address [address] [place] [address] Care Team Providers Care Mapping Editor Name Role Phone SERENA WALKER Unavailable [phone] CESAR ADAMS Unavailable [phone] REASON FOR VISIT iv Medications Medication SIG [...] Active Encounters Encounter Location Date Provider Diagnosis [facility] [address] [place] [address] 07/10/2025 CESAR ADAMS Plan Of Treatment Next Appt Details Provider Name:SERENASELINA WALKER, 10/19/2025 03:30:00 PM, [address] [facility], [place], [address], Progress Notes * Mack GOODSONDOB: [birth year] (44 yo M)Acc No.[id number]:07/10/2025 Progress Note Patient: Mack DE LA FUENTE Provider: Margo Adams MD :1980 A ge:44 Y S ex:Male Date:07/10/2025 Address:[address], [facility] [place], [id number] Subjective: * Chief Complaints: * 1 . [...] Electronic signature of MOISES ADAMS MD on 08/20/2025 at 04:56 PM EDT Sign off status: Pending * Provider: Margo Adams MD Date: 0 07/10/2025 Generated for Azam maher/Lj/Balwinder on: 04:56 PM EDT
--- OUTSIDE RECORDS SUMMARY | 2025-08-18 11:30 | XMS_ITS ---
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 Manager Name Role Phone SERENA WALKER Unavailable [phone] Allergies No Known Allergies REASON FOR VISIT pt here for a f/u Medications Medication SIG (Take, Route, Frequency, Duration) Notes Start Date End Date Status B Complex - as directed Orally Active Magnesium Active hydrALAZINE HCl 25 MG TAKE 3 TABLETS BY MOUTH THREE TIMES DAILY Oral; Duration: 30 Days Active Sodium Bicarbonate 650 MG TAKE 1 TABLET BY MOUTH THREE TIMES DAILY Oral; Duration: 30 Days Active Calcium Acetate (Phos Binder) 667 MG TAKE 1 CAPSULE BY MOUTH THREE TIMES DAILY WITH MEALS Oral; Duration: 30 Days Active Calcitriol 0.25 MCG 1 capsule Oral daily ; Duration: 30 days Active Carvedilol 6.25 MG 1 tablet with food O rally Twice a day; Duration: 30 days 07/17/2025 Active Ondansetron HCl 4 MG 1 tablet Orally Onc e a day; Duration: 30 days 07/17/2025 Active amLODIPine Besylate 5 MG 1 tablet Orally Once a day; Duration: 90 days 04/03/2025 Active Vitamin B12 Active Tamsulosin HCl 0.4 MG 2 cap Orally Once a day; Duration: 30 days 05/18/2025 Active Social History Tobacco Use: Social History Observation Description Date Details (start date - stop date) Current Smoker NA - NA Tobacco Use/Smoking Question Answer Notes Are you a current smoker How often do you smoke cigarettes? 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 Problems Problem Type SNOMED Code ICD Code Onset Dates Problem Status W/U Status Risk Notes Problem End stage renal disease (59610174) End stage renal disease (N18.6) Active confirmed Vital Signs Blood pressure systolic 148 mm Hg 08/18/20 25 Blood pressure diastolic 80 mm Hg 025 Heart Rate 89 /min 08/18/2025 Height 68 in 08/18/2025 Weight 206 lbs 08/18/2025 BMI 31.32 kg/m2 08/18/2025 Oximetry 99 % 08/18/2025 Encounters Encounter Location Date Provider Diagnosis [facility] [address] [place] [address] 08/18/2025 SERENA WALKER Essential (primary) hypertension I10 ; End stage renal disease N18.6 ; BPH loc w/o ur obs/LUTS N40.0 ; Tobacco abuse disorder Z72.0 ; HAYLEY (obstructive sleep apnea) G47.33 and Encounter for examination of blood pressure with abnormal findings Z01.31 Assessments Encounter Date Diagnosis (ICD Code) Assessment Notes Treatment Notes Treatment Clinical Notes Section Notes 08/18/2025 Essential (primary) hypertension (ICD-10 - I10) 44 year old male who presents for follow up # IgA Nephropathy: Following Dr. Leahy. Going on transplant list. Still making urine. Seeing them on . Questions about diet, as well as possible fistula. Continue Calcitriol, and Phos binder. #HTN: Carvedilol 6.25 mg and Hydralazine. Continue Amloidipine. #Tobacco cessation: No longer smoking #Obstructive sleep apnea: Stable. Uses cpap. Case discussed with collaborating physician Ruchi Adams who reviewed the assessment and plan. Chart, medications, labs, vital signs reviewed. Dictation was accomplished with the use of [employer] voice recognition software, prone to medical misidentifications and grammatical errors. This is unintentional and the practitioner does try to identify and correct these, but some could still be present. Please do not hesitate to contact practitioner for clarification. All questions answered to patients satisfaction. Patient verbalized understanding of diagnosis and treatments explained. To call sooner prior to next visit it any questions/concerns arise. 08/18/2025 End stage renal disease (ICD-10 - N18.6) 44 year old male who presents for follow up # IgA Nephropathy: Following Dr. Leahy. Going on transplant list. Still making urine. Seeing them on . Questions about diet, as well as possible fistula. Continue Calcitriol, and Phos binder. #HTN: Carvedilol 6.25 mg and Hydralazine. Continue Amloidipine. #Tobacco cessation: No longer smoking #Obstructive sleep apnea: Stable. Uses cpap. Case discussed with collaborating physician Ruchi Adams who reviewed the assessment and plan. Chart, medications, labs, vital signs reviewed. Dictation was accomplished with the use of [employer] voice recognition software, prone to medical misidentifications and grammatical errors. This is unintentional and the practitioner does try to identify and correct these, but some could still be present. Please do not hesitate to contact practitioner for clarification. All questions answered to patients satisfaction. Patient verbalized understanding of diagnosis and treatments explained. To call sooner prior to next visit it any questions/concerns arise. 08/18/2025 BPH loc w/o ur obs/LUTS (ICD-10 - N40.0) 44 year old male who presents for follow up # IgA Nephropathy: Following Dr. Leahy. Going on transplant list. Still making urine. Seeing them on . Questions about diet, as well as possible fistula. Continue Calcitriol, and Phos binder. #HTN: Carvedilol 6.25 mg and Hydralazine. Continue Amloidipine. #Tobacco cessation: No longer smoking #Obstructive sleep apnea: Stable. Uses cpap. Case discussed with collaborating physician Ruchi Adams who reviewed the assessment and plan. Chart, medications, labs, vital signs reviewed. Dictation was accomplished with the use of [employer] voice recognition software, prone to medical misidentifications and grammatical errors. This is unintentional and the practitioner does try to identify and correct these, but some could still be present. Please do not hesitate to contact practitioner for clarification. All questions answered to patients satisfaction. Patient verbalized understanding of diagnosis and treatments explained. To call sooner prior to next visit it any questions/concerns arise. 08/18/2025 Tobacco abuse disorder (ICD-10 - Z72.0) 44 year old male who presents for follow up # IgA Nephropathy: Following Dr. Leahy. Going on transplant list. Still making urine. Seeing them on . Questions about diet, as well as possible fistula. Continue Calcitriol, and Phos binder. #HTN: Carvedilol 6.25 mg and Hydralazine. Continue Amloidipine. #Tobacco cessation: No longer smoking #Obstructive sleep apnea: Stable. Uses cpap. Case discussed with collaborating physician Ruchi Adams who reviewed the assessment and plan. Chart, medications, labs, vital signs reviewed. Dictation was accomplished with the use of [employer] voice recognition software, prone to medical misidentifications and grammatical errors. This is unintentional and the practitioner does try to identify and correct these, but some could still be present. Please do not hesitate to contact practitioner for clarification. All questions answered to patients satisfaction. Patient verbalized understanding of diagnosis and treatments explained. To call sooner prior to next visit it any questions/concerns arise. 08/18/2025 HAYLEY (obstructive sleep apnea) (ICD-10 - G47.33) 44 year old male who presents for follow up # IgA Nephropathy: Following Dr. Leahy. Going on transplant list. Still making urine. Seeing them on . Questions about diet, as well as possible fistula. Continue Calcitriol, and Phos binder. #HTN: Carvedilol 6.25 mg and Hydralazine. Continue Amloidipine. #Tobacco cessation: No longer smoking #Obstructive sleep apnea: Stable. Uses cpap. Case discussed with collaborating physician Ruchi Adams who reviewed the assessment and plan. Chart, medications, labs, vital signs reviewed. Dictation was accomplished with the use of [employer] voice recognition software, prone to medical misidentifications and grammatical errors. This is unintentional and the practitioner does try to identify and correct these, but some could still be present. Please do not hesitate to contact practitioner for clarification. All questions answered to patients satisfaction. Patient verbalized understanding of diagnosis and treatments explained. To call sooner prior to next visit it any questions/concerns arise. 08/18/2025 Encounter for examination of blood pressure with abnormal findings (ICD-10 - Z01.31) 44 year old male who presents for follow up # IgA Nephropathy: Following Dr. Leahy. Going on transplant list. Still making urine. Seeing them on . Questions about diet, as well as possible fistula. Continue Calcitriol, and Phos binder. #HTN: Carvedilol 6.25 mg and Hydralazine. Continue Amloidipine. #Tobacco cessation: No longer smoking #Obstructive sleep apnea: Stable. Uses cpap. Case discussed with collaborating physician Ruchi Adams who reviewed the assessment and plan. Chart, medications, labs, vital signs reviewed. Dictation was accomplished with the use of [employer] voice recognition software, prone to medical misidentifications [...] it any questions/concerns arise. Plan Of Treatment Next Appt Details Provider Name:SERENA AARON, 10/19/2025 03:30:00 PM, [address], [place], [phone], Progress Notes * Mack GOODSONDOB: [birth year] (44 yo M)Acc No.[id number]:08/18/2025 Progress Notes Patient: Mack DE LA FUENTE Provider: Olman WALKER PA-C :1980 A ge:44 Y S ex:Male Date:08/18/2025 Address:[address] [place] [address], [place], [phone] Subjective: * Chief Complaints: * 1 . Pt here for a f/u. * HPI: C onstitutional: Michele is a 44 year old male with a pmhx of obesity, HTN, hyperlipidemia, HAYLEY who presents today after being hospitalized for worsening renal function. Patient was last seen about 6 weeks ago for severe muscle cramps.Patient had blood work done, and showed a creatinine of greater than 6. He was sent to [facility], where he had a renal biopsy which showed IgA nephropathy. Patient had difficult to control blood pressure, and medications were changed around. Since then, he has had several appointments with nephrology, and is currently being awaited to put on a transplant list through [facility]. Patient has been compliant with his medications. He denies any chest pain. He denies any shortness of breath. He is made several dietary changes. He denies any dizziness or lightheadedness.Patient reports that he has a follow-up with Dr. Chen on . He denies any nausea or vomiting. Patient reports that he is still making plenty urine, and his nocturia has improved. * ROS: C onstitutional: +occassional lightheadedness, patient [...] depression, Hemorrhoids with complication, Obesity (BMI 30-39.9), Asthma, Polyp of colon, Obstructive sleep apnea, Enlarged prostate, Blood Type A+, IgA Nephropathy, ESRD. * Surgical History: L eft inguinal herniorraphy [...] you smoke cigarettes? e very day. e ngineer smoking for 6 years , 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 * Medications: T aking Magnesium , Taking B Complex - Capsule as directed Orally , Taking Vitamin B12 , Taking amLODIPine Besylate 5 MG Tablet 1 tablet Orally Once a day , Taking Tamsulosin HCl 0.4 MG Capsule 2 cap Orally Once a day , Taking Ondansetron HCl 4 MG Tablet 1 tablet Orally Once a day , Taking Carvedilol 6.25 MG Tablet 1 tablet with food Orally Twice a day , Taking Calcium Acetate (Phos Binder) 667 MG Capsule TAKE 1 CAPSULE BY MOUTH THREE TIMES DAILY WITH MEALS Oral , Taking Sodium Bicarbonate 650 MG Tablet TAKE 1 TABLET BY MOUTH THREE TIMES DAILY Oral , Taking Calcitriol 0.25 MCG Capsule 1 capsule Oral daily , Taking hydrALAZINE HCl 25 MG Tablet TAKE 3 TABLETS BY MOUTH THREE TIMES DAILY Oral , Discontinued Tamsulosin HCl 0.4 MG Capsule TAKE 1 CAPSULE BY MOUTH DAILY , Discontinued Tamsulosin HCl 0.4 MG Capsule 1 capsule Orally Once a day , Medication List reviewed and reconciled with the patient * Allergies: N .K.D.A. Objective: * Vitals: H R:89/min, BP:148/80mm Hg, Wt:206lbs, BMI:31.32Index, Ht: 68 in, Oxygen sat %:99%. * Examination: G eneral Examination: G eneral: Well appearing male, well nourished, age appropriate in no acute distress. Speaking in full, clear sentences. SKIN: Warm, dry intact. No rashes/lesions. Cap refill < 3 seconds. Tattoo noted over upper back HEENT: Normocephalic atraumatic. EOM intact. No nystagmus noted. PERRLA. No maxillary sinus tenderness. LUNGS: Clear to auscultation bilaterally, no wheezes, rales or rhonchi CARDIAC: Regular rate and rhythm, no murmurs, rubs or gallops. Abdomen: Soft, nontender, nondistended. Extremities: Warm and well perfused. No edema noted. MSK: Flexion extension bilaterally upper and lower extremities 5/5. Jig Grinder strength 5/5. Neuro: Speaking in full sentences. Hearing intact. Assessment: * Assessment: 1. E ssential (primary) hypertension - I10 (Primary) 2 . E nd stage renal disease - N18.6 3 . B PH loc w/o ur obs/LUTS - N40.0 4 . T obacco abuse disorder - Z72.0 5 . O SA (obstructive sleep apnea) - G47.33 & #160; 6 . E ncounter for examination of blood pressure with abnormal findings - Z01.31 ? 44 year old male who present s for follow up # IgA Nephropathy: Following Dr. Leahy. Going on transplant list. Still making urine. Seeing them on . Questions about diet, as well as possible fistula. Continue Calcitriol, and Phos binder. #HTN: Carvedilol 6.25 mg and Hydralazine. Continue Amloidipine. #Tobacco cessation: No longer smoking #Obstructive sleep apnea: Stable. Uses cpap. Case discussed with collaborating physician Ruchi Adams who reviewed the assessment and plan. Chart, medications, labs, vital signs reviewed. Dictation was accomplished with the use of [employer] voice recognition software, prone to medical misidentifications [...] arise. Plan: * Treatment: * Procedure Codes: 3 077F SYST BP = 140 MM HG6 IT, 3079F DIAST BP 80-89 MM HG * Images: Billing Information: * Visit Code: 96063 Office Visit, Est Pt., Level 4. Modifiers: SA * Procedure Codes: 3077F SYST BP = 140 MM HG6 IT. 3079F DIAST BP 80-89 MM HG. Care Plan Details* * Sign off status: Completed true * Provider: Olman WALKER PA-C Date: Generated for Azam maher/Lj/Sjitting on: 04:56 PM EDT History and Physical Notes * HPI (History of Present Illness) Category Sub-Category Detail Notes Category Not es Constitutional Michele is a 44 year old male with a pmhx of obesity, HTN, hyperlipidemia, HAYLEY who presents today after being hospitalized for worsening renal function. Patient was last seen about 6 weeks ago for severe muscle cramps.Patient had blood work done, and showed a creatinine of greater than 6. He was sent to [facility], where he had a renal biopsy which showed IgA nephropathy. Patient had difficult to control blood pressure, and medications were changed around. Since then, he has had several appointments with nephrology, and is currently being awaited to put on a transplant list through [facility]. Patient has been compliant with his medications. He denies any chest pain. He denies any shortness of breath. He is made several dietary changes. He denies any dizziness or lightheadedness.Patient reports that he has a follow-up with Dr. Chen on . He denies any nausea or vomiting. Patient reports that he is still making plenty urine, and his nocturia has improved. Examination Category Sub-Category Detail Notes Category Not es General Examination General: Well appearing male, well nourished, age appropriate in no acute distress. Speaking in full, clear sentences. SKIN: Warm, dry intact. No rashes/lesions. Cap refill < 3 seconds. Tattoo noted over upper back HEENT: Normocephalic atraumatic. EOM intact. No nystagmus noted. PERRLA. No maxillary sinus tenderness. LUNGS: Clear to auscultation bilaterally, no wheezes, rales or rhonchi CARDIAC: Regular rate and rhythm, no murmurs, rubs or gallops. Abdomen: Soft, nontender, nondistended. Extremities: Warm and well perfused. No edema noted. MSK: Flexion extension bilaterally upper and lower extremities 5/5. Jig Grinder strength 5/5. Neuro: Speaking in full sentences. Hearing intact.
--- NOTE | 2025-08-20 13:33 | HO.NEPHOV ---
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 He is 44 years of age who has hypertension as well as H/O blood and protein in the urine in the past.He has seen Urology and was worked up including imaging studies which did not show any etiology for his M/S hematuria. He denied any H/O macroscopic heamturia. He was no ACEI in the past but was discontinued ( ? Had KEYONNA at that time). He had high BMI which has improved with exercise, diet and Ozempic for sometime. He has no H/O renal calculi . He recently had cramps as well as joint pains which is better. He is active and employed. He denies any regular excessive NSAID's. He has been having HAYLEY and is on CPAP. He has H/O gout with exacerbations more so when he was taking HCTZ for hypertension long ago. He has no H/O cardiac issues. He denies any neuropathic symptoms. CVA, CHF, CAD, PAD. He has no H/O blood clots but has was a smoker in the past. He has H/O smoking but no hemoptysis or unintentional weight loss( quit now) . He is not a diabetic and has no H/O liver dysfunction. His creatinine has been in mid 3's three months ago which has gone up over 7 now. He has poor energy but better. He underwent extensive work up including renal biopsy. Renal biopsy showed advanced chronic changes with close to 70 % glomerulosclerosis as well as interstitial fibrosis( IgA nephropathy). He also had marked vascular sclerosis. His BP has been high and carvedilol has been initiated with improvement. He denies uremic symptoms. [facility] Medical History Enlarged prostate HAYLEY (obstructive sleep apnea) Polyp of colon Asthma Chronic kidney disease, stage 3a Obesity Hemorrhoids with complication Anxiety with depression Gout Tobacco use Essential (primary) hypertension Surgical History S/P left inguinal herniorrhaphy Family History Father Prostate cancer Mother Heart attack Hypertension Social History Household Members: Spouse and Children Housing: House Do you presently have visiting nurse or other home services: No Alcohol intake: never Patient Tobacco Use Status: Current everyday Tobacco user Tobacco use type: Cigarette Second Hand Smoke Exposure: No service: No Review of Systems Const All systems reviewed & are unremarkable except as noted in HPI and below Physical Exam Vital Signs: Last Vital Signs Pulse 54 08/20/25 13:35 BP 148/90 H 08/20/25 13:35 Pulse Ox 98 08/20/25 13:35 Oxygen Delivery Method Room Air 08/20/25 13:35 BMI result Body Mass Index 30.5 Const General: comfortable and no acute distress Orientation/consciousness: patient oriented x3 HEENT Head: Yes normocephalic Mouth: Normal oral and palatal mucosa present Eyes EOM: EOMs intact bilaterally Neck Neck: Yes supple Resp Auscultation: clear to auscultation bilaterally Cardio Jugular venous distension: no JVD Rate: regular rate GI Palpation (GI): Soft to palpation Auscultation: normal bowel sounds General: Yes no CVA tenderness Back/Spine/Pelvis Back: no CVA tenderness Skin General skin exam: no rashes or lesions noted Neuro General: patient oriented x3 and moves all extremities Extrem General: Yes no pedal edema Results Reviewed Nephrology Results: Hgb, (14.0-18.0) 8.5 g/dl L 07/16/25 WBC, (4.8-10.8) 10.0 X10*3/uL 07/16/25 Plt Count, (160-400) 161 X10*3/uL 07/16/25 Sodium, (135-145) 140 mmol/L 07/16/25 Potassium, (3.3-5.1) 4.1 mmol/L 07/16/25 Chloride, (96-108) 113 mmol/L H 07/16/25 Carbon Dioxide, (22-29) 16 mmol/L L 07/16/25 BUN, (9-16) 98 mg/dL H 07/16/25 Creatinine, (0.5-1.4) 7.07 mg/dL H* 07/16/25 Calcium, (8.4-10.2) 8.0 mg/dL L 07/16/25 Phosphorus, (2.7-4.5) 6.6 mg/dL H 07/16/25 PTH Intact, (8.7-77.1) 298.2 pg/mL H 07/15/25 Urine Protein, (Neg-Trace) 300 (3+) mg/dL H 07/15/25 Urine Creatinine 40.61 mg/dL 07/14/25 Protein/Creatinin Ratio, (<0.2) 3.69 H 07/14/25 Renal US 07/15/25 Assessment & Plan Assessment & Plan (1) Hypertension: Code(s): I10 - Essential (primary) hypertension Category: Medical Qualifiers: Hypertension type: secondary to other renal disorders Qualified Code(s): I15.1 - Hypertension secondary to other renal disorders (2) CKD (chronic kidney disease) stage 5, GFR less than 15 ml/min: Code(s): N18.5 - Chronic kidney disease, stage 5 Category: Medical (3) IgA nephropathy: Code(s): N02.B9 - Other recurrent and persistent immunoglobulin A nephropathy Category: Medical (4) Anemia in chronic kidney disease: Code(s): N18.9 - Chronic kidney disease, unspecified; D63.1 - Anemia in chronic kidney disease Category: Medical Qualifiers: Chronic kidney disease stage: stage 5 (GFR < 15), not on chronic dialysis Qualified Code(s): N18.5 - Chronic kidney disease, stage 5; D63.1 - Anemia in chronic kidney disease (5) High phosphate levels: Code(s): E83.39 - Other disorders of phosphorus metabolism Category: Medical Plan Mack has CKD 5 from biopsy proven IgA nephropathy. Clinically denying uremic symptoms; Serum HCO3 better on replacement Phosphorus high/better- counseled about low Phos containing food- On Ca acetate( before meals) On calcitriol 0.25mcg PO 3x weekly and calcium acetate 667mg PO TID C/W Iron tablets. When T Sat is > 20 %, will need Procrit( through my office)- likely at nexy visit On Nifedipine, dose of which may have to be increased Discussed about biopsy report, advanced CKD, need for HD/ renal transplantation Referral made for renal transplant evaluation to get listed Discussed about waiting list on Tx as well living donor tx( Blood type A +) Copy of biopsy report was given to patient; Answered his and his 's questions Follow up appointment given Investigation done so far Renal Biopsy- report scanned in chart Imagin. echocardiogram- normal LV systolic function, normal valvular dopplers, mildly dilated left atrium. 2. chest xray- unremarkable 3. CT abdomen/pelvis- unremarkable 4. renal US- no hydronephrosis. bilateral renal cysts. Increased echotexture with normal cortical thickness bilaterally. Abnormal segmental resistive indices in the right kidney related to renal disease; hemodynamically significant stenosis according to renal/aorta ratio, left main renal artery Hematology/chemistry/urine: CBC- H&H 9.2/26, platelets within normal limits 172. WBC normal. Transferrin saturation 27%. - being monitored CMP- mild AST/ALT elevation 65/43, respectively. Bilirubin 0.2. Serum albumin 4.0. Potassium 4.2. Serum bicarb 16. LDH normal. CK 3202. Hgb A1c 4.8. Calcium mildly low at 8.0, phosphorus 6.6. - being monitored vitamin D levels normal at 30.5. PTH 298.2. UA- + blood, +protein. No WBCs or other cells. urine protein/creatinine ratio 3.69 Immunology: 1. serum immunofixation- no monoclonal proteins detected. 2.urine immunofixation reviewed 3. CEASAR and titers reviewed 4. ANCA vasculitides- negative 5. DS DNA ab- negative 6. glomerular basement membrane antibody- negative 7. complements- normal Serology- 1. Hep C and Hep B screening negative 2. HIV - negative 3. phospholipase A2 receptor ab - reviewed Orders: Orders Ferritin 3 Weeks I15.1 - Hypertension secondary to other renal disorders, N18.5 - Chronic kidney disease, stage 5 Electrolytes 3 Weeks I15.1 - Hypertension secondary to other renal disorders, N18.5 - Chronic kidney disease, stage 5 Blood Urea Nitrogen 3 Weeks I15.1 - Hypertension secondary to other renal disorders, N18.5 - Chronic kidney disease, stage 5 Creatinine 3 Weeks I15.1 - Hypertension secondary to other renal disorders, N18.5 - Chronic kidney disease, stage 5 Complete Blood Count Auto Diff 3 Weeks I15.1 - Hypertension secondary to other renal disorders, N18.5 - Chronic kidney disease, stage 5 IRON PROFILE 3 Weeks I15.1 - Hypertension secondary to other renal disorders, N18.5 - Chronic kidney disease, stage 5 Calcium 3 Weeks I15.1 - Hypertension secondary to other renal disorders, N18.5 - Chronic kidney disease, stage 5 Phosphorus 3 Weeks I15.1 - Hypertension secondary to other renal disorders, N18.5 - Chronic kidney disease, stage 5 Referrals Transplant Surgery Referral N02.B9 - Other recurrent and persistent immunoglobulin A nephropathy, N18.5 - Chronic kidney disease, stage 5 Transplant Surgery Referral N02.B9 - Other recurrent and persistent immunoglobulin A nephropathy, N18.5 - Chronic kidney disease, stage 5 Coding Level of Care Code Est Pt Level 4 (51260) Diagnoses Hypertension secondary to other renal disorders I15.1 Hypertension type: secondary to other renal disorders CKD (chronic kidney disease) stage 5, GFR less than 15 ml/min N18.5 IgA nephropathy N02.B9 Anemia in stage 5 chronic kidney disease, not on chronic dialysis N18.5; D63.1 Chronic kidney disease stage: stage 5 (GFR < 15), not on chronic dialysis High phosphate levels E83.39
[2025-08-20 13:35] VITALS: BP 148/90; PULSE 54; O2SAT 98; BMI 30.5
--- OUTSIDE RECORDS SUMMARY | 2025-08-20 16:56 | XMS_ITS | Patient Health Record ---
[facility] Address [address] [place] [address] Care Team Providers Care Tailor Apprentice Name Role Phone SERENA WALKER Unavailable [phone] CESAR ADAMS Unavailable [phone] ISIDRAPHU Gardner Unavailable [phone] Allergies No Known Allergies Results Component Value Reference Range Notes NON-GYNECOLOGIC CYTOLOGY Reviewed date:07/28/2025 03:17:46 PM Interpretation: Performing Lab: Notes/Report: Results of UroVysion fluorescence in situ hybridization [...] association with other clinical and pathological findings. Addendum electronically signed by Marian Jerez MD on 07/15/2025 at 2:39 PM [...] paraffin embedded. Technical cytopathology services provided by [facility], at [address] [place] [address] (CLIA # [id number]/Marian Jerez MD, Seed Cleaning Manager.) Addendum A. Urinary Bladder, urovision: Specimen C Adequacy Satisfactory for evaluation Comp. Metabolic Panel (14)-[id number] Reviewed date:07/13/2025 04:33:46 PM Interpretation: Performing Lab:[facility], [address] [place] [address], [place], Phone - [phone], Director - Job Notes/Report: Glucose 88 70-99 [...] ALT (SGPT) 31 0-44 IU/L Albumin/Creatinine Ratio,Uri ne-[id number] Reviewed date:07/13/2025 04:34:06 PM Interpretation: Performing Lab:Anny Casarez, [address] [facility], Phone - [phone], Director - MDJodry Notes/Report: Creatinine, Urine 59.3 Not Estab. mg/dL Albumin, Urine 1234.7 Not Estab. ug/mL Results confirmed on dilution. Alb/Creat Ratio 2081 0-29 mg/g creat Normal: 0 - 29 Moderately increased: 30 - 300 Severely increased: >300 CBC With Differential/Platel et-[id number] Reviewed date:07/13/2025 04:33:56 PM Interpretation: Performing Lab:[facility] Casarez, [address] [facility], [place], Phone - [phone], Director - MDJodry Notes/Report: WBC 8.2 3.4-10.8 x10E3/uL RBC 3.10 [...] Immature Grans (Abs) 0.1 0.0-0.1 x10E3/uL Urinalysis, Complete-[id number] Reviewed date:07/13/2025 04:34:16 PM Interpretation: Performing Lab:[facility], [address] [place] [address], Phone - [phone], Director - Job Notes/Report: Specific [place] 1.013 1.005-1.030 pH 5.5 5.0-7.5 Urine-Color Yellow Yellow Appearance Clear Clear WBC Esterase Negative Negative Protein 3+ Negative/Trace Glucose Negative Negative Ketones Negative Negative Occult Blood 2+ Negative Bilirubin Negative Negative Urobilinogen,Semi-Qn 0.2 0.2-1.0 mg/dL Nitrite, Urine Negative Negative Microscopic Examination See below: Micr oscopic was indicated and was performed. WBC 0-5 0 - 5 /hpf RBC 3-10 0 - 2 /hpf Epithelial Cells (non renal) None seen 0 - 10 /hpf Casts None seen None seen /lpf Bacteria None seen None seen/Few XR UROGRAM RETROGRADE Reviewed date:07/13/2025 02:57:05 PM Interpretation: Performing Lab: Notes/Report: Note See Note [facility], a member of [employer] Patient Name: MARIAN GOODSON Date of : 1980 Reason for Exam: pain Exam Date: 07/02/2025 [id number] EST Report Status: Final Ordering Provider: JULISSA [...] Signed Date: 025 12:11 ET Workstation ID: [id number] Transcribed By: Self Edit Transcribed Date: 07/02/2025 12:10 ET TISSUE EXAM Reviewed date:07/08/2025 11:09:57 AM Interpretation: [...] 10% NB formalin fixed and paraffin embedded. Calprotectin, Fecal-[id number] Reviewed date:07/17/2025 08:13:56 AM Interpretation: Performing Lab:[facility] [place], [address] [place] [address], Phone - [phone], Director - Job Notes/Report: Clinical Information:SRC:[facility] SRC:AM Calprotectin, Fecal 84 0-120 ug/g Concentration Interpretation Follow-Up < 5 - 50 ug/g Normal None >50 -120 ug/g Borderline Re-evaluate in 4-6 weeks >120 ug/g Abnormal Repeat as clinically indicated C difficile Toxins A+B, EIA- [id number] Reviewed date:07/17/2025 08:13:45 AM Interpretation: Performing Lab:[facility] [place], [address] [place] [address], Phone - [phone], Director - Job Notes/Report: Clinical Information:SRC:[facility] SRC:AM C difficile Toxins A+B, EIA Negative Negative White Blood Cells (WBC), Rust ol-[id number] Reviewed date:07/17/2025 08:13:28 AM Interpretation: Performing Lab:[facility] [address], Phone - [phone], Director - Job Notes/Report: Clinical Information:SRC:[facility] SRC:AM White Blood Cells (WBC), Stool TNP Test not performed. No Ova / Parasite transport containers received. Request Problem TNP Test not performed. No Ova / Parasite transport containers received. TEST: [id number] Ova + Parasite Exam [id number] White Blood Cells (WBC), Stool Ova + Parasite Exam-[id number] Reviewed date:07/17/2025 08:13:15 AM Interpretation: Performing Lab:[facility] [place], [address] [place] [address], [place], Phone - [phone], Director - Job Notes/Report: Clinical Information:SRC:[facility] SRC:AM Ova + Parasite Exam TNP Test not performed. No Ova / Parasite transport containers received. These results were obtained using wet preparation(s) and trichrome stained smear. This test does not include testing for Cryptosporidium parvum, Cyclospora, or Microsporidia. Stool Culture-[id number] Reviewed date:07/17/2025 08:13:41 AM Interpretation: Performing Lab:[facility] [place], [address] [place] [address], [place], Phone - [phone], Director - Job Notes/Report: Clinical Information:SRC:[facility] SRC:AM Clinical Information:SRC:[facility] SRC:AM Clinical Information:SRC:[facility] SRC:AM Salmonella/Shigella Screen Final report Campylobacter Culture Final report E coli Shiga Toxin EIA Negative Negative Result 1 No Salmonella o r Shigella recovered. Result 1 No Campylobacte r species isolated. URINALYSIS, COMPLETE Reviewed date:03/06/2025 08:09:14 AM Interpretation: Performing Lab:[facility], [facility] [place], [place] [address] Rashel Phillips Notes/Report: FASTING: YES FASTING:YES COLOR YELLOW YELLOW APPEARANCE CLEAR CLEAR SPECIFIC [...] Reviewed date:03/06/2025 08:07:58 AM Interpretation: Performing Lab:NL2, [facility] [place], [place] [address] Rashel Phillips Notes/Report: FASTING: YES FASTING:YES WHITE BLOOD CELL COUNT 8.9 3.8-10.8 Thousand/uL [...] MPV 10.9 7.5-12.5 fL ABSOLUTE NEUTROPHILS 6542 7470-7371 cells/uL ABSOLUTE LYMPHOCYTES 3594 758-5379 cells/uL ABSOLUTE MONOCYTES 721 200-950 cells/uL ABSOLUTE EOSINOPHILS 142 15-500 cells/uL ABSOLUTE BASOPHILS 36 0-200 cells/uL NEUTROPHILS 73.5 LYMPHOCYTES 16.4 MONOCYTES 8.1 EOSINOPHILS 1.6 BASOPHILS 0.4 [address]PREHENSIVE METABOLIC PANE L Reviewed date:03/06/2025 09:49:26 AM Interpretation: Performing Lab:NL2, Mister [facility] Pnfacuaa[address] Rashel Phillips Notes/Report: FASTING:YES FASTING: YES [...] 28 10-40 U/L ALT 31 9-46 U/L T3, FREE Reviewed date:03/06/2025 08:09:24 AM Interpretation: Performing Lab:NL2, [facility] Boys[facility]ionizStephan[place] [phone] [place] [address] Notes/Report: FASTING: YES FASTING:YES T3, FREE 3.0 2.3-4.2 pg/mL TSH Reviewed date:03/06/2025 08:09:24 AM Interpretation: Performing Lab:NAIF, [facility]Ste[facility] [place] [id number] Notes/Report: FASTING:YES FASTING: YES TSH 2.59 0.40-4.50 mIU/L T4, FREE Reviewed date:03/06/2025 08:09:24 AM Interpretation: Performing Lab:NAIF, [facility] [place] [id number] Notes/Report: FASTING:YES FASTING: YES T4, FREE 1.2 0.8-1.8 ng/dL PSA (FREE AND TOTAL) Reviewed date:03/06/2025 12:15:53 PM Interpretation: Performing Lab:Quip [facility] [phone] [place] [address] Notes/Report: FASTING:YES FASTING: YES PSA, TOTAL 2.4 < OR = 4.0 ng/mL PSA, FREE 0.9 PSA, % FREE 38 >25 % (calc) PSA(ng/mL) Free PSA(%) Estimated(x) Probability of Cancer(as%) 0-2.5 (*) Approx. 1 2.6-4.0(1) 0-27(2) 24(3) 4.1-10(4) 0-10 56 11-15 28 16-20 20 21-25 16 >or =26 8 >10(+) N/A >50 References:(1)Greta et al.:Urology 60: 469-474 (2002) (2)Greta et al.:J.Urol 168: 922-925 (2001) Free PSA(%) Sensitivity(%) Specificity(%) < or = 25 85 19 < or = 30 93 9 (3)Catalona et al.:CUONG 277: 8549-0504 (1996) (4)Catalona et al.:CUONG 279: 5478-9166 (1997) (x)These estimates vary with age, ethnicity, [...] mind. PSA was performed using the Lauri Willis Immunoassay method. Values obtained from different assay methods cannot be used interchangeably. PSA levels, regardless of value, should not be interpreted as absolute evidence of the presence or absence of disease. VITAMIN B12 Reviewed date:03/06/2025 08:09:24 AM Interpretation: Performing Lab:[facility], [facility] Rashel Phillips Notes/Report: FASTING:YES FASTING: YES VITAMIN B12 879 934-0241 pg/mL HEMOGLOBIN A1c Reviewed date:03/06/2025 08:09:24 AM Interpretation: Performing Lab:NL2, [facility] Rashel Phillips Notes/Report: FASTING:YES FASTING: YES [...] diagnosis of diabetes in children. According to [place] Diabetes Association (ADA) guidelines, hemoglobin A1c <7.0% represents optimal control in non- diabetic patients. Different metrics may apply to specific patient populations. Standards of Medical Care in Diabetes(ADA). BASIC METABOLIC PANEL Reviewed date:03/09/2025 08:12:27 AM Interpretation: Performing Lab:LizWA [facility] [address] [address]mygFT[address] Elizabeth Ivey Notes/Report: FASTING:NO FASTING: NO GLUCOSE [...] copy faxed has been acknowledged. Queued to: [phone] LIPID PANEL, STANDARD Reviewed date:03/06/2025 08:09:24 AM Interpretation: Performing Lab:NL2, Mister [facility] [place] Prakiujg[address] [facility] PennsylvaniaMoxbeovbubvKT[address] Jarvisbrad Cash Phillips Notes/Report: FASTING:YES FASTING: YES CHOLESTEROL, TOTAL [...] LDL-C. Ramiro SHIPLEY et al. CUONG. 2013;310(19): 2242-5737 (http://education.NitroSecurity.com/faq/F AQ164) CHOL/HDLC RATIO 3.1 <5.0 (calc) NON HDL CHOLESTEROL 109 <130 mg/dL (calc) For patients with diabetes plus 1 major ASCVD risk factor, treating to a non-HDL-C goal of <100 mg/dL (LDL-C of <70 mg/dL) is considered a therapeutic option. Reason For Referral Reason evaluate & treat. (i montserrat cook) Diagnosis 1 Enlarged prostate (N 40.0) Referral Organization [facility] [address] Referring Provider First Name SERENA Referring Provider Last Name AARON Referring Provider Speciality Internal edicine Referred Provider Specialty Urology Clinical Notes Grey Correia 07/2025 02:52:06 PM > faxed pt info to [facility]. p) [phone] f) [phone] Earl Adam 04/02/2025 01:29:45 PM > Spoke with Radha. Booked on April 16 1:40PM Referral Priority Routine Reason evaluate & treat. ( 3.38) Diagnosis 1 Creatinine elevation (R79.89) Diagnosis 2 Acute kidney failure , unspecified (N17.9) Diagnosis 3 Chronic kidney disea se, unspecified (N18.9) Referral Organization [facility] [address] Referring Provider First Name SERENA Referring Provider Last Name AARON [facility] Referred Provider Specialty Nephrology Clinical Notes Grey Correia 07/2025 02:56:50 PM > [facility] p) [phone] f) [phone] Earl Adam 03/24/2025 03:27:27 PM > Spoke with Maria C, she gave me this fax [phone]. Refaxed twice. Booking out until the end of the year. Sent task to Cecy CASTANEDA Earl Adam 05/06/2025 03:21:20 PM > Spoke with Mayi, they called patient and lvm but they haven't heard back. Mayi said [facility] [place] can accommodate pt sooner. LVM to Cecy ruff Earl Adam 05/13/2025 02:21:44 PM > Spoke with the patient and gave him the number. [facility] 05/19/2025 08:24:09 AM >latoniaIngewhitney into april 2026- needs scott sent to [facility] [address], [address], [place] [address], , fax # [phone], and [facility] phone # [phone], fax# [phone], David Sam 06/11/2025 01:51:55 PM > spoke with Elizabeth ([facility]), they left a msg on 06/01 to book an appt. LVM to pt, David Sam 07/08/2025 02:49:38 PM > He already have an appt in November but he was asking if there are offices having sooner appt. I gave him number of [facility]. Referral Priority Urgent Reason evaluate and treat colonic finding on ct Diagnosis 1 Abdominal pain, lowe r (R10.30) Referral Organization [facility] Referring Provider First Name SERENA Referring Provider Last Name AARON Referring Provider Speciality Internal M edicine Referred Provider Specialty Gastrointest inal surgeon General Notes faxed to dr.muslu dill s seen there better for colonoscopy Clinical Notes elma momin 0 06/26/2025 08:53:16 AM > Referral Priority Routine Medications Medication SIG (Take, Route, Frequency, Duration) Notes Start Date End Date Status B Complex - as directed Orally Active Magnesium Active amLODIPine Besylate 5 MG 1 tablet Orally Once a day; Duration: 90 days 04/03/2025 Active Vitamin B12 Active Sodium Bicarbonate 650 MG TAKE 1 TABLET BY MOUTH THREE TIMES DAILY Oral; Duration: 30 Days Active Calcium Acetate (Phos Binder) 667 MG TAKE 1 CAPSULE BY MOUTH THREE TIMES DAILY WITH MEALS Oral; Duration: 30 Days Active hydrALAZINE HCl 25 MG TAKE 3 TABLETS BY MOUTH THREE TIMES DAILY Oral; Duration: 30 Days Active Calcitriol 0.25 MCG 1 capsule Oral daily ; Duration: 30 days Active Carvedilol 6.25 MG 1 tablet with food O rally Twice a day; Duration: 30 days 07/17/2025 Active Ondansetron HCl 4 MG 1 tablet Orally Onc e a day; Duration: 30 days 07/17/2025 Active Tamsulosin HCl 0.4 MG 2 cap Orally Once a day; Duration: 30 days 05/18/2025 Active Immunizations Vaccine Route Administration Date Status [...] Yes Points 0 Interpretation Negative Section Notes: 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 Problems Problem Type SNOMED Code ICD Code Onset Dates Problem Status W/U Status Risk Notes Problem Localized adiposity (469847911) Localized adiposity (E65) Active confirmed Problem Essential hypertension (11449498) Essential (primary) hypertension (I10) Active confirmed Problem Melena (0247336) Melena (K92.1) Active confirme d Problem Backache (579373418) Dorsalgia, unspecified (M54.9) Active confirmed Problem End stage renal disease (46871102) End stage renal disease (N18.6) Active confirmed Problem Chronic kidney disease (222101660) Chronic kidney disease, unspecified (N18.9) Active confirmed Problem Abnormal blood pressure (37288471) Encounter for examination of blood pressure with abnormal findings (Z01.31) Active confirmed Problem Screening for malignant neoplasm of prostate (347430460) Encounter for screening for malignant neoplasm of prostate (Z12.5) Active confirmed Problem Diabetes mellitus screening (982903127) Encounter for screening for diabetes mellitus (Z13.1) Active confirmed Problem Lipid screening (504730921) Encounter for screening for lipoid disorders (Z13.220) Active confirmed Problem Morbid obesity (775721036) Morbid obesity (E66.01) Active confirmed Problem Acquired hypothyroidism (190436227) Acquired hypothyroidism (E03.9) Active confirmed Problem Hyperlipoproteinemia (6537131) Acquired hyperlipoproteinemia (E78.5) Active confirmed Problem Adult health examination (517439308) Adult general medical exam (Z00.00) Active confirmed Problem Abdominal pain (20020243) Abdominal pain, unspecified abdominal location (R10.9) Active confirmed Problem Annual health maintenance examination (74016246) Annual physical exam (Z00.00) Active confirmed Problem Vitamin D deficiency (21241763) Vitamin D deficiency (E55.9) Active confirmed Problem Male hypogonadism (18331650) Hypogonadism in male (E29.1) Active confirmed Problem Enlarged prostate (466474744) Enlarged prostate (N40.0) Active confirmed Problem Blood in stool (265949507) Blood in stool (K92.1) Active confirmed Problem Obstructive sleep apnea syndrome (71564425) HAYLEY (obstructive sleep apnea) (G47.33) Active confirmed Problem Diabetes mellitus screening (159975877) Diabetes mellitus screening (Z13.1) Active confirmed Problem Obesity (900572654) Obesity (BMI 30-39.9) (E66.9) Active confirmed Problem Chronic kidney disease stage 3B (disorder) (719139776) Chronic kidney disease, stage 3b (N18.32) Active confirmed Problem Obese class II (336305186772092) BMI 37.0-37.9, adult (Z68.37) Active confirmed Problem Vitamin B>12< deficiency anaemia (94837491) Anemia due to vitamin B12 deficiency, 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) Active confirmed Problem Body mass index 30.0 0 to 34.99 (199166528607301) BMI 31.0-31.9,adult (Z68.31) Active confirmed Problem Blood chemistry abnormal (336360775) Creatinine elevation (R79.89) Active confirmed Problem Benign prostatic hypertrophy without outflow obstruction (387977365) BPH loc w/o ur obs/LUTS (N40.0) Active confirmed Problem Microcytic anemia (616152357) Microcytic anemia (D50.9) Active confirmed Problem Rib pain (529470139) Rib pain (R07.81) Active c onfirmed Problem Right sided abdomina l pain (421750397) Right sided abdominal pain (R10.9) Active confirmed Problem Avitaminosis D (09678228) Avitaminosis D (E55.9) Active confirmed Problem Endocrine/metabolic screening (246193577) Encounter for screening for endocrine disorder (Z13.29) Active confirmed Problem Abnormal metabolic state due to diabetes mellitus (064234026) Abnormal metabolic state due to diabetes mellitus (E11.9) Active confirmed Problem Lipid screening (555929295) Lipid screening (Z13.220) Active confirmed Problem Blood chemistry abnormal (719511101) Abnormal blood creatinine level (R79.89) Active confirmed Problem Chronic kidney disease stage 4 (639190913) CKD (chronic kidney disease), stage IV (N18.4) Active confirmed Vital Signs Heart Rate 89 /min 08/18/2025 Oximetry 99 % 08/18/2025 Blood pressure diastolic 80 mm Hg 08/18/2025 Height 68 in 08/18/2025 Blood pressure systolic 148 mm Hg 08/18/2025 Weight 206 lbs 08/18/2025 BMI 31.32 kg/m2 08/18/2025 Encounters Encounter Location Date Provider Diagnosis [facility] [address] [place] [address] 03/12/2025 SERENA WALKER Hematochezia K92.1 ; Annual physical exam Z00.00 ; Essential (primary) hypertension I10 ; Tobacco abuse disorder Z72.0 ; Morbid obesity E66.01 ; HAYLEY (obstructive sleep apnea) G47.33 ; Encounter for examination of blood pressure with abnormal findings Z01.31 ; Chronic kidney disease, stage 3b N18.32 and Encounter for immunization Z23 [facility] [address] [place] [address] 04/03/2025 SERENA AARON Essential (primary) hypertension I10 ; Tobacco abuse disorder Z72.0 ; Morbid obesity E66.01 ; HAYLEY (obstructive sleep apnea) G47.33 ; Encounter for examination of blood pressure with abnormal findings Z01.31 ; Chronic kidney disease, stage 3b N18.32 ; Encounter for immunization Z23 ; KEYONNA (acute kidney injury) N17.9 and BPH loc w/o ur obs/LUTS N40.0 [facility] [address] [place] [address] 05/18/2025 SERENA AARON Essential (primary) hypertension I10 ; BPH loc w/o ur obs/LUTS N40.0 ; KEYONNA (acute kidney injury) N17.9 ; Tobacco abuse disorder Z72.0 ; Morbid obesity E66.01 ; HAYLEY (obstructive sleep apnea) G47.33 ; Chronic kidney disease, stage 3b N18.32 and Encounter for examination of blood pressure with abnormal findings Z01.31 [facility] [address] [place] [address] 07/10/2025 SERENA AARON Muscle cramp R25.2 ; Diarrhea, unspecified R19.7 ; Essential (primary) hypertension I10 ; BPH loc w/o ur obs/LUTS N40.0 ; Chronic kidney disease, stage 3b N18.32 ; Tobacco abuse disorder Z72.0 ; Morbid obesity E66.01 ; HAYLEY (obstructive sleep apnea) G47.33 ; Encounter for examination of blood pressure with abnormal findings Z01.31 and Dehydration E86.0 [facility] [address] [place] [address] 08/18/2025 SERENA AARON Essential (primary) hypertension I10 ; End stage renal disease N18.6 ; BPH loc w/o ur obs/LUTS N40.0 ; Tobacco abuse disorder Z72.0 ; HAYLEY (obstructive sleep apnea) G47.33 and Encounter for examination of blood pressure with abnormal findings Z01.31 [facility] [address] [place] [address] 12/25/2024 SERENA WALKER Annual physical exam Z00.00 ; Lipid screening Z13.220 ; Encounter for screening for diabetes mellitus Z13.1 ; Acquired hypothyroidism E03.9 ; Anemia due to vitamin B12 deficiency, unspecified B12 deficiency type D51.9 and Encounter for screening for malignant neoplasm of prostate Z12.5 [facility] [address] [facility] [address] [place], [place] 03/06/2025 SERENA AARON Creatinine elevation R79.[address] [facility] [address] [place] [address] 03/06/2025 SERENA AARON [facility] [address] [facility] [address] [place], [place] 03/09/2025 SERENA AARON Creatinine elevation R79.[address] [facility] [address] [place] [address] 03/24/2025 SERENA AARON [facility] [address] [facility] [address] [place], [place] 06/26/2025 SERENA AARON [facility] [address] [place] [address] 07/10/2025 SERENA AARON Bilateral leg cramps R25.2 ; Abnormal metabolic state due to diabetes mellitus E11.9 ; Acute colitis K52.9 and Adult general medical exam Z00.[address] [facility] [address] [place] [address] 07/13/2025 SERENA AARON [facility] [address] [facility] [address] [place], [place] 07/13/2025 SERENA AARON [facility] [address] [place] [address] 07/17/2025 TALAL ADAMS [facility] [address] [place], [place] 07/30/2025 SERENA WALKER Assessments Encounter Date Diagnosis (ICD Code) Assessment [...] log exercise and discussed fitness Apps like [employer] which can help keep log off calories [...] Dictation was accomplished with the use of [employer] voice recognition software, prone to medical misidentifications [...] log exercise and discussed fitness Apps like [employer] which can help keep log off calories [...] Dictation was accomplished with the use of [employer] voice recognition software, prone to medical misidentifications [...] Dictation was accomplished with the use of [employer] voice recognition software, prone to medical misidentifications [...] Dictation was accomplished with the use of [employer] voice recognition software, prone to medical misidentifications [...] Dictation was accomplished with the use of [employer] voice recognition software, prone to medical misidentifications [...] Dictation was accomplished with the use of [employer] voice recognition software, prone to medical misidentifications [...] Dictation was accomplished with the use of [employer] voice recognition software, prone to medical misidentifications [...] Dictation was accomplished with the use of [employer] voice recognition software, prone to medical misidentifications [...] 07/10/2025 Bilateral leg cramps (ICD-10 - R25.2) 08/18/2025 Essential (primary) hypertension (ICD-10 - I10) [...] Dictation was accomplished with the use of [employer] voice recognition software, prone to medical misidentifications [...] Dictation was accomplished with the use of [employer] voice recognition software, prone to medical misidentifications [...] next visit it any questions/concerns arise. 07/10/2025 Abnormal metabolic state due to diabetes mellitus (ICD-10 - E11.9) 08/18/2025 BPH loc w/o ur obs/LUTS (ICD-10 [...] Dictation was accomplished with the use of [employer] voice recognition software, prone to medical misidentifications [...] Dictation was accomplished with the use of [employer] voice recognition software, prone to medical misidentifications [...] Dictation was accomplished with the use of Dragon voice recognition software, prone to medical misidentifications [...] Dictation was accomplished with the use of [employer] voice recognition software, prone to medical misidentifications [...] arise. 12/25/2024 Lipid screening (ICD-10 - Z13.220) 03/12/2025 Essential (primary) hypertension (ICD-10 - I10) [...] log exercise and discussed fitness Apps like [employer] which can help keep log off calories [...] Dictation was accomplished with the use of [employer] voice recognition software, prone to medical misidentifications [...] questions/concerns arise. 12/25/2024 Encounter for screening for diabetes mellitus (ICD-10 - Z13.1) 03/12/2025 Tobacco abuse disorder (ICD-10 - Z72.0) [...] log exercise and discussed fitness Apps like [employer] which can help keep log off calories [...] Dictation was accomplished with the use of [employer] voice recognition software, prone to medical misidentifications [...] next visit it any questions/concerns arise. 04/03/2025 HAYLEY (obstructive sleep apnea) (ICD-10 - [...] Dictation was accomplished with the use of [employer] voice recognition software, prone to medical misidentifications [...] Dictation was accomplished with the use of [employer] voice recognition software, prone to medical misidentifications [...] Dictation was accomplished with the use of [employer] voice recognition software, prone to medical misidentifications [...] Dictation was accomplished with the use of [employer] voice recognition software, prone to medical misidentifications [...] Dictation was accomplished with the use of [employer] voice recognition software, prone to medical misidentifications [...] Dictation was accomplished with the use of Dragon voice recognition software, prone to medical misidentifications [...] log exercise and discussed fitness Apps like [employer] which can help keep log off calories [...] Dictation was accomplished with the use of [employer] voice recognition software, prone to medical misidentifications [...] Dictation was accomplished with the use of [employer] voice recognition software, prone to medical misidentifications [...] Dictation was accomplished with the use of [employer] voice recognition software, prone to medical misidentifications [...] arise. 12/25/2024 Acquired hypothyroidism (ICD-10 - E03.9) 12/25/2024 Anemia due to vitamin B12 deficiency, unspecified B12 deficiency type (ICD-10 - D51.9) 03/12/2025 HAYLEY (obstructive sleep apnea) (ICD-10 - [...] log exercise and discussed fitness Apps like [employer] which can help keep log off calories [...] Dictation was accomplished with the use of [employer] voice recognition software, prone to medical misidentifications [...] next visit it any questions/concerns arise. 05/18/2025 HAYLEY (obstructive sleep apnea) (ICD-10 - [...] Dictation was accomplished with the use of [employer] voice recognition software, prone to medical misidentifications [...] Dictation was accomplished with the use of [employer] voice recognition software, prone to medical misidentifications [...] Dictation was accomplished with the use of [employer] voice recognition software, prone to medical misidentifications [...] Dictation was accomplished with the use of [employer] voice recognition software, prone to medical misidentifications [...] Dictation was accomplished with the use of [employer] voice recognition software, prone to medical misidentifications [...] Dictation was accomplished with the use of [employer] voice recognition software, prone to medical misidentifications [...] malignant neoplasm of prostate (ICD-10 - Z12.5) 04/03/2025 Encounter for immunization (ICD-10 - Z23) [...] Dictation was accomplished with the use of [employer] voice recognition software, prone to medical misidentifications [...] it any questions/concerns arise. 03/12/2025 Encounter for examination of blood pressure [...] log exercise and discussed fitness Apps like [employer] which can help keep log off calories [...] Dictation was accomplished with the use of [employer] voice recognition software, prone to medical misidentifications [...] log exercise and discussed fitness Apps like [employer] which can help keep log off calories [...] Dictation was accomplished with the use of [employer] voice recognition software, prone to medical misidentifications [...] Dictation was accomplished with the use of [employer] voice recognition software, prone to medical misidentifications [...] Dictation was accomplished with the use of [employer] voice recognition software, prone to medical misidentifications [...] Dictation was accomplished with the use of [employer] voice recognition software, prone to medical misidentifications [...] Dictation was accomplished with the use of [employer] voice recognition software, prone to medical misidentifications [...] Dictation was accomplished with the use of [employer] voice recognition software, prone to medical misidentifications [...] log exercise and discussed fitness Apps like [employer] which can help keep log off calories [...] Dictation was accomplished with the use of [employer] voice recognition software, prone to medical misidentifications [...] Dictation was accomplished with the use of [employer] voice recognition software, prone to medical misidentifications [...] Microalb/Creat Ratio, [facility] Ur 5 Microalb/Creat Ratio, [facility] Ur Stool Culture -O&P 07/10/2025 CT Abdomen and Pelvis 04/12/2023 CALPROTECTIN,FECAL 07/10/2025 SEX HORMONE BINDING GLOBULIN (SHBG) 05/05 TRANSFERRIN 05/11/2023 Culture Salmonella and Shigella Screen 0 07/10/2025 CT Abdomen w/o Contrast 12/20/2023 LIPID PANEL, STANDARD 01/21/2024 LIPID PANEL, STANDARD 12/25/2024 MICROALBUMIN, RANDOM URINE (W/CREATININE ) 03/12/2025 IRON, TIBC AND FERRITIN PANEL 05/11/2023 COMPREHENSIVE METABOLIC PANEL 01/21/2024 COMPREHENSIVE METABOLIC PANEL 03/12/2025 COMPREHENSIVE METABOLIC PANEL 01/29/2023 COMPREHENSIVE METABOLIC PANEL 12/25/2024 COMPREHENSIVE METABOLIC PANEL 05/18/2025 COMPREHENSIVE METABOLIC PANEL 07/10/2025 CBC (INCLUDES DIFF/PLT) 07/10/2025 CBC (INCLUDES DIFF/PLT) 05/18/2025 CBC (INCLUDES DIFF/PLT) 12/25/2024 CBC (INCLUDES DIFF/PLT) 01/21/2024 URINALYSIS, COMPLETE 01/21/2024 URINALYSIS, COMPLETE 03/12/2025 URINALYSIS, COMPLETE 01/29/2023 URINALYSIS, COMPLETE 12/25/2024 URINALYSIS, COMPLETE 05/18/2025 URINALYSIS, COMPLETE 07/10/2025 HEMOGLOBIN A1c 09/25/2022 HEMOGLOBIN A1c 01/21/2024 INSULIN 09/25/2022 VITAMIN B12 12/25/2024 PSA (FREE AND TOTAL) 12/25/2024 TSH 01/21/2024 VITAMIN D,25-OH,TOTAL,IA 01/21/2024 CT Abdomen Pelvis W Cont 12/25/2023 US Renal 03/09/2025 FECAL WHITE CELLS 07/10/2025 CT Chest W/ Contrast 04/12/2023 TESTOSTERONE 05/18/2025 Hemoglobin [id number] 12/25/2024 TSH+T4F+T3Free 12/25/2024 Next Appt Details Provider Name:SERENA WALKER, 10/19/2025 03:30:00 PM, [address], [place], [address], Insurance Providers Payer Name Payer Address Payer Phone Subscriber Number Group Number Insured Name Patient Relationship to Insured Coverage Start Date Coverage End Date [employer] [address] [place] [address] [id number] Marian Goodson Self - patient is the insured 9 Medications Administered Medication Instructions Date of Administration Dosage Notes MICC B12 INJECTION 03/12/2023 lot # [id number] Medical (General) History Medical History History ICD Code Essential hypertension I10 Tobacco abuse Z72.0 Gout, unspecified M10.9 Anxiety with depression F41.8 Hemorrhoids with complication K64.8 Obesity (BMI 30-39.9) E66.9 Asthma J45.909 Polyp of colon K63.5 Obstructive sleep apnea G47.33 Enlarged prostate N40.0 Blood Type A+ IgA Nephropathy ESRD Surgical History Surgery Date(Month/Year) Left inguinal herniorraphy 2009
--- OUTSIDE RECORDS SUMMARY | 2025-08-20 16:56 | XMS_ITS | Clinical Summary ---
Author Organization [address] Address [address] [place] [phone] Phone Care Team Providers Care Overhead Worker Name Role Phone Lauren Adams MD Primary Care Provider [phone] Allergies No known active allergies Medications lisinopriL [...] Description 07/02/2025 11:23 AM EDT Anesthesia Event [facility] OR [address] [place] [phone] Andre Simms DO Barnes, Tyanna R, BRTI 07/02/2025 10:30 AM EDT - 07/02/2025 12:00 PM EDT Surgery [facility] OR [address] [place] [phone] Uriel Izaguirre MD CYSTOSCOPY RANDOM BLADDER/ PROSTATE/URETHRA BIOPSIES, BILATERAL RETROGRADE PYELOGRAM SELECTIVE WASHING [65363 (CPT ) +1 more] 07/02/2025 8:59 AM EDT - 07/02/2025 2:13 PM EDT Hospital Encounter [facility] Main OR [address] [place] [address] Uriel Izaguirre MD Neoplasm of unspecified behavior of bladder; Other abnormal findings on cytological and histological examination of urine Discharge Disposition: Home or Self Care 07/02/2025 7:20 AM EDT - 07/02/2025 11:59 PM EDT Hospital Encounter [facility] Xray [address] [place] [phone] Pain Discharge Disposition: Home or Self Care from Last 3 Months Surgical History Surgery Date Site/Laterality Comments COLONOSCOPY 2003 PROCEDURE: UT COLONOSCOPY STOMA DX INCLUDING COLLJ SPEC SPX; [...] Aunt Father Maternal Grandmother Mother (Age 403/01/09) [place] ag e 50 Paternal Grandfather Social History Tobacco Use Types Packs/Day Years Used Date Smoking Tobacco: Some Days Cigarettes Smokeless Tobacco: Never Alcohol Use Standard Drinks/Week Comments No 500 (1 standard drink = 0.6 oz p ure alcohol) Interpersonal Safety Answer Date Record ed Physical Abuse Unrecognized value 07/02/2025 Verbal Abuse Unrecognized value 07/02/2025 Sex and Gender Information Value Date [...] 10/15/2025 3:20 PM EST Consult Gastroenterology - [place] [address] [facility] [address] [place] [address] Sera Hunter PA [address] [facility] [address] [place] [address] 12/03/2025 4:00 PM EST Office Visit [facility]ph[facility] [place] [address] [place] [address] Olegario Hough MD [address] [facility] [address] [place] [phone] Health Maintenance Due Date Last Done Comments Colorectal Cancer Screening: Colonoscopy 1978 Diabetes: Annual GFR (Glomerular Filtration Rate) 1978 Diabetes: Annual Foot Exam 1988 Diabetes: Annual Retina Eye Exam 1988 Hepatitis B Vaccines (1 of 3 - 19+ 3-dose series) 1997 Pneumococcal Vaccine: Pediatrics (0 to 5 Years) and At-Risk Patients (6 to 49 Years) (1 of 2 - PCV) 1997 Cholesterol Screening (Lipid Panel) 10/07/2022 HIV Screening 10/07/2022 Hepatitis C Screening [...] Td or Tdap) 03/12/2035 03/12/2025, 02/16/2015, 12/17/2007 RSV Immunization Adult Patients (1 - 1-dose 75+ series) 2053 Hepatitis A Vaccines Aged Out 02/16/2015 No [...] on cytological and histological examination of urine UT BIOPSY PROSTATE NEEDLE/PUNCH SINGLE/MULTIPLE ANY APPROACH 07/02/2025 11:23 AM EDT Neoplasm of unspecified behavior of bladder Other abnormal findings on cytological and histological examination of urine Case Notes ELECTRIC APPLIANCE INSTALLER NEEDED Special Needs TIME CHANGE VIA PHONE W /LEILA HERRERA 06/29 UT CYSTOURETHROSCOPY WITH BIOPSY(S) 07/02/2025 11:23 AM EDT Neoplasm of unspecified behavior of bladder Other abnormal findings on cytological and histological examination of urine Case Notes ELECTRIC APPLIANCE INSTALLER NEEDED Special Needs TIME CHANGE VIA PHONE [...] Signed Date: 07/02/2025 12:11 ET Workstation ID: [id number] Transcribed By: Self Edit Transcribed Date: 07/02/2025 [...] Signed Date: 07/02/2025 12:11 ET Workstation ID: [id number] Transcribed By: Self Edit Transcribed Date: 07/02/2025 12:10 ET Uriel Izaguirre MD IM FLUOROSCOPY PROCEDURES Final Result * Tissue exam [...] Negative for dysplasia. 07/03/2025 12:35 PM EDT [email or web address] Gross Description A. Urinary [...] multiple levels. TS 07/03/2025 12:35 PM EDT [facility] Disclaimer Unless otherwise specified, all tissue is 10% NB formalin fixed and paraffin embedded. 07/03/2025 12:35 PM EDT [facility] Tissue Urinary bladder structure / [...] MD LAB PATHOLOGY ORDERABLES Final R esult [facility] [address] [place] [address], * Non-gynecologic cytology (07/02/2025 11:41 AM EDT) [...] clinical and pathological findings. 07/15/2025 2:39 PM [facility] Addendum electronically signed by Mack [...] UroVysion testing to follow. 07/15/2025 2:39 PM [facility] Specimen A Adequacy Satisfactory for evaluation 07/15/2025 2:39 PM [facility] Specimen B Adequacy Satisfactory for evaluation 07/15/2025 2:39 PM [facility] Specimen C Adequacy Satisfactory for evaluation 07/15/2025 2:39 PM [facility] Gross Description A. Urinary Bladder, [...] one Urovision slide made. 07/15/2025 2:39 PM [facility] Disclaimer Unless otherwise specified, all tissue is 10% NB formalin fixed and paraffin embedded. Technical cytopathology services provided by [facility], at [address] [place] [id number] (CLIA # [id number]/Tino Jerez MD, Purchasing Manager.) 07/15/2025 2:39 PM EDT [email or web address] Urine Urinary bladder structure / Unknown 07/02/2025 11:41 AM EDT 07/03/2025 4:33 AM EDT Urine specimen (specimen) Structure of left ureter / Unknown 07/02/2025 11:44 AM EDT 07/03/2025 4:33 AM EDT Urine specimen (specimen) Structure of right ureter / Unknown 07/02/2025 11:44 AM EDT 07/03/2025 4:33 AM EDT us Ureil Izaguirre MD LAB CYTOLOGY ORDERABLES Edited R esult - Final [email or web address] [address] [place] [address], from Last 3 Months Insurance [employer] Advance Directives Documents on File Type Date Recorded Patient Senior Escrow Officer Expl anation Health Care Decision (hx) 10/18/2010 AD SHAVONNE DIRECTIVE Care Teams Overhead Worker Relationship Specialty Start Date End Date Lauren Adams MD [address] [place] [phone] PCP - General 06/28/23
== END 2025-08-20 14:16 | disposition home or self-care (01) ==
LOC: HO.HKAS 13:29
PROVIDERS: PCP Internal Medicine; Visit Provider Internal Medicine Nephrology
DX: I15.1 Hypertension secondary to other renal disorders (principal); N18.5 Chronic kidney disease, stage 5; N02.B9 Other recurrent and persistent immunoglobulin A nephropathy; D63.1 Anemia in chronic kidney disease; E83.39 Other disorders of phosphorus metabolism
CPT/HCPCS: 99214

== ENCOUNTER 2025-10-08 15:11 | Outpatient (AMB) | payer OTHER, SELFPAY ==
--- OUTSIDE RECORDS SUMMARY | 2025-02-17 09:30 | XMS_ITS ---
Author Organization [facility] [address] Address [address] [place] [address] Care Team Providers Care Ct Manager Name Role Phone AARONFLORENCE ZaidiEN Unavailable [phone] PHU MINER Unavailable [phone] Encounters Encounter Location Date Provider Diagnosis [facility] [address] [place] [address] 02/17/2025 PHU MINER Plan Of Treatment Next Appt Details Provider Name:SERENA WALKER, 10/19/2025 03:30:00 PM, [address], [place], [address], Progress Notes * HAMZAH MichelealiciaDOB: [birth year] (44 yo M)Acc No.[id number]:02/17/2025 CPE Patient: Mack Morrissey Provider: Seth MINER PA-C :1980 A ge:44 Y S ex:Male Date:02/17/2025 Address:[address], [place], [id number] Care Plan Details* * Electronic signature of NAV MINER PA-C on 10/08/2025 at 11:46 AM EST Sign off status: Pending * Provider: Seth MINER PA-C Date: 0 02/17/2025 Generated for Azam maher/Fafarhat/eTransmitting on: 1 12/09/2024 11:46 AM EST
--- OUTSIDE RECORDS SUMMARY | 2025-10-05 10:30 | XMS_ITS | Encounter Summary ---
Author Organization [facility] Address [address] [place] [address] Care Team Providers Care Personal Caregiver Name Role Phone Lauren Adams MD Primary Care Provider [phone] Reason for Visit * Transplant (Routine) - Closed Specialty Diagnoses / Procedures Referred By Contact Referred To Contact Surgery, Transplant / Transplant Diagnoses ESRD (end stage renal disease) ([facility]) Miguelito Chen MD [address] [place] [address] [place] [address] Phone: tel: fax: [facility] & [address] [address] Phone: tel: fax: Referral ID Status Reason Start Date Expiration Date V isits Requested Visits Authorized [id number] Closed Consult 08/25/2025 08/26/2026 1 1 Encounter Details Date Type Department Care Team (Late st Contact Info) Description 10/05/2025 10:30 AM EST Clinical Support [facility] & [facility] Liver [address] [phone] Yusuf Samson MD [address] [place] [address] Ruth Villagran MD [address] [place] [address] Pietro Gamboa RN [address] [place] [address], [place] [address] Social History Tobacco Use Types Packs/Day Years Used Date Smoking Tobacco: Never Assessed Sex and Gender Information Value Date Recorded Sex Assigned at Male 08/28/2025 3:07 PM EDT Legal Sex Male 4:38 PM EDT Gender Identity Male 08/28/2025 3:07 PM EDT Sexual Orientation Heterosexual (straight) 08/28 3:07 PM EDT documented as of this encounter Last Filed Vital Signs Vital Sign Reading Time Taken Comments Blood Pressure 140/80 10/05/2025 10:24 AM EST Pulse 60 10/05/2025 10:24 AM EST Temperature 36.3 C (97.4 F) 10/05/2025 10:24 AM EST Respiratory Rate - - Oxygen Saturation 99% 10/05/2025 10:24 AM EST Inhaled Oxygen Concentration - - Weight 96.4 kg (212 lb 8.4 oz) 10/05/2025 10:24 AM EST Height 170 cm (5' 6.93 ) 10/05/2025 10:24 AM EST Body Mass Index 33.36 10/05/2025 10:24 AM EST documented in this encounter Plan of Treatment Upcoming Encounters Date Type Department Care Team (Late st Contact Info) Description 10/19/2025 3:00 PM EST Appointment [facility] [address] [facility], [address] [place] [phone] Ruth Villagran MD [address] [facility] [address] [place] [address] documented as of this encounter Visit Diagnoses Not on filedocumented in this encounter Care Teams Personal Caregiver Relationship Specialty Start Date End Date Lauren Adams MD [address] [place] [phone] PCP - General Internal Medicine 08/28/25 documented as of this encounter
--- OUTSIDE RECORDS SUMMARY | 2025-10-05 11:30 | XMS_ITS | Encounter Summary ---
Author Organization [facility] Address [address] [place] [address] Care Team Providers Care Data Reporting Analyst Name Role Phone Lauren Adams MD Primary Care Provider [phone] Encounter Details Date Type Department Care Team (Latest Contact Info) Description 10/05/2025 11:30 AM EST Clinical Support [facility] Transplant Program & [facility] Liver [address] [phone] Ruth Villagran MD [address] [address] Maria Teresa Mercado LCSW [address] [address] Pre-transplant evaluation for kidney transplant (Primary Dx) Social History Tobacco Use Types Packs/Day Years Used Date Smoking Tobacco: Never Assessed Sex and Gender Information Value Date Recorded Sex Assigned at Male 08/28/2025 3:07 PM EDT Legal Sex Male 4:38 PM EDT Gender Identity Male 08/28/2025 3:07 PM EDT Sexual Orientation Heterosexual (straight) 08/28 3:07 PM EDT documented as of this encounter Progress Notes * Maria Teresa Mercado LCSW - 10/05/2025 1:01 PM EST A note to patients: The below note is a summary used to inform our assessment and treatment recommendations. For reasons of privacy and briefness, this note does not attempt to highlight all topics discussed during the visit. In documenting, we may use certain medical or psychiatric terms or abbreviations that have been agreed upon by the medical community. These terms/abbreviations may have different meanings when used here than how you may be used to seeing them. If you have any questions or concerns about this note, please discuss with me via phone or at our next appointment. Social Work Initial Assessment Patient is a 44 y.o., male accompanied by Veronica seen for initial kidney pre-transplant evaluation. Pt presented alert and oriented x3 and oriented to person, place, time and situation during the initial evaluation. Transplant Treatment Plan Summary: Follow up: Annually / As needed Recommendations: Notify team of any changes to support, Notify team when initiating dialysis, and Adherence to medical recommendation and medication regimen Concerns: The following absolute contraindication(s) have been identified: N/A. The following relative contraindication(s) have been identified: Pt states he's fine with pain meds under supervision Plan for Recovery: Pt presents with a realistic and safe plan for recovery. The patient will be primarily supported by Veronica, [facility] and Dtr Silke (23). Transportation Plan: Veronica SIPAT Total Score & Interpretation SIPAT: 8 (Good Candidate) Patient was informed the evaluation was requested to assess their current levels of psychiatric functioning and to determine psychosocial risk factors as they relate to his candidacy for a kidney transplant. Pt expressed an understanding of this information and agreed to proceed with evaluation. Pt presented with basic understanding of the short and buttermaker helper medical and psychosocial risks related to transplant. Pt presents with basic understanding of the process and appears motivated to move forward with the transplant process. The following risks were identified from this psychosocial evaluation that may complicate the recovery and could be identified as risks for poor psychosocial outcome: History/cause of organ failure: ESRD secondary to IgA Nephropathy and HTN. Pt is not on dialysis at this time. Pt also with h/o KD stones, enlarged prostate, HAYLEY, asthma, Obesity (BMI 36.48), Anxiety and Depression, Gout and smoking hx. Potential living donors identified: Son Nate (21) and possibly Friend Jesus Advance Directives: Yes Legal NoK: Veronica is HCR Developmental history: Preferred Name: Michele Preferred Language: Jamaican Preferred Pronouns: He/Him Relationship status: x 24 years Children (Names/Ages): 3 kids: Silke (23; with pt), Nate (21; [place])- Graduating college in October, Calin (15; home) Pt was born in [place], [place], raised primarily by Mom, noting father wasn't around. Pt is 1 of 3 children. Pt graduated college; denies learning or behavioral concerns during upbringing. They don'trepot any financial concerns. Pt, and kids reside in a [facility] 2 levels with their 3 cats (2 normal and 1 murder cat) and pt reports knowing precautions. The patient will be primarily supported by Veronica, [facility] and Dtr Silke (23). Pt reports he is fully independent with ADL's at this time. Substance use history: ETOH: Reports social use in the past; No use currently Tobacco: Started at age 15, smoked 1 PPD x 40 years until quitting 2 years ago Cannabis: Started age 15, currently uses vape pen 3-4 times/week before bed and has THC drinks a few times per week (educated about about only edibles post transplant) Cocaine: Tried when younger Pain Medications: Pt reports he is fine with pain medication under supervision BEHAVIORAL HEALTH CONSULTANT: Checked Mental health history: Pt stated, I'm fine . Pt reports having a long h/o depression and anxiety, but notes he is coping well at this time and actually is taking a break from his therapist until November 2025 . Pt reportsmeds in the past, but nothing at this time. Pt reports his appetite is good, notes he falls asleep but wakes up and can't fall back to sleep and reports after a long day at work, pt states he's wiped by the end of the day. Pt reports his memory and concentration are ok except he has some issues with recall. Pt denies any history or current suicidal ideation, suicide attempts or self-injurious behaviors. Based on this evaluation, pt presents without concerns related to the ability to make an in formed decision about transplant. Pt presents with the ability to cope with the major surgery and related stress. 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 They're supportedby pt's income and covered by [employer]. Pt presents with basic understanding of the potential financial implications of transplant. Adherence: Pt states he is able to manage his medical appointments and medications and feels he will be able to manage the complex regimen associated with transplant. SW reviewed post txp medication regimen andrisks of non-adherence post txp with pt. Screening Tools PHQ9: 1 - Minimal Depression GAD7: - Negative anxiety DAST: - Negative substance use AUDIT: - Negative alcohol use PTSD: Negative MMAS-4: 11/08 - Intermediate Adherence SF-12: physical health subscore 17 out of 20, or 79% of optimal mental health subscore 23 out of 27, or 81% of optimal total score 40 out of 47, or 80% of optimal SUICIDE RISK ASSESSMENT MODULE [place]-SUICIDE SEVERITY RATING SCALE Screen Version - Recent In the past month, Have you wished you were or wished you could go to sleep and not wake up?: No Have you actually had thoughts about killing yourself?: No Have you done anything, started to do anything, prepared to do anything to end your life?: No CSSRS Risk Level: Low documented in this encounter Plan of Treatment Upcoming Encounters Date Type Department Care Team (Late st Contact Info) Description 10/19/2025 3:00 PM EST Appointment [facility] Rehabilitation [address] [facility], [address] [place] [phone] Ruth Villagran MD [address] [address] documented as of this encounter Visit Diagnoses Diagnosis Pre-transplant evaluation for kidney transplant- Primary documented in this encounter Care Teams Data Reporting Analyst Relationship Specialty Start Date End Date Lauren Adams MD [address] [place] [id number] PCP - General Internal Medicine 08/28/25 documented as of this encounter
--- OUTSIDE RECORDS SUMMARY | 2025-10-05 12:00 | XMS_ITS | Encounter Summary ---
Author Organization [facility] Address [address] [place] [address] Care Team Providers Care Marine Oiler Name Role Phone Lauren Adams MD Primary Care Provider [phone] Encounter Details Date Type Department Care Team (Latest Contact Info) Description 10/05/2025 12:00 PM EST Clinical Support [facility] Transplant Program & [facility] Liver [address] [phone] Ruth Villagran MD [address] [phone] Pietro Gamboa RN [address] [phone] CKD (chronic kidney disease) stage 5, GFR less than 15 ml/min (HCC) (Primary Dx) Social History Tobacco Use Types Packs/Day Years Used Date Smoking Tobacco: Never Assessed Sex and Gender Information Value Date Recorded Sex Assigned at Male 08/28/2025 3:07 PM EDT Legal Sex Male 4:38 PM EDT Gender Identity Male 08/28/2025 3:07 PM EDT Sexual Orientation Heterosexual (straight) 08/28 3:07 PM EDT documented as of this encounter Progress Notes * Pietro Gamboa RN - 10/05/2025 10:58 AM EST New Patient Kidney Transplant Evaluation Coordinator Consult: The patient came to the office today for his initial evaluation visit accompanied by his . The patient is preemptive with a very low GFR. 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 We discussed medication compliance, partnership, the risks of the transplant surgery, and the side effects of immunosuppression. Additional material was provided for review and direct contact informationwas provided if questions arise in the future. The patient was seen by Dr. Villagran, surgical consult/consenting by Dr. Sorenson, living donor coordinator, financial, social work, dietitian, and this airport operations coordinator. The patient appeared attentive and eager to proceed. The patient has [employer] coverage. PLAN: Cardiology consult, nuclear stress testing, and risk stratification with Consulting Cardiologists (echo done in OR, need report) Imaging:CT ap done, need report and images from [facility] screening: colonoscopy done 2022 at [facility], need report Labs: ABO, PRA, HLA, serologies- [facility] Additional testing: PFTs- smoker, at Time Spent: Face to face-30 Documentation-20 Pre-Kidney Transplant Nurse Education Patient Information Patient ID: [id number] [id number] Functional Status this encounter: 100% - Normal, No Complaints, No Evidence of Disease Patient Education Primary Learner: Patient and Family Preferred Learning Styles: Reading Material/Handout, Demonstration, TV/Video if available, and Discussion Barriers to Learning: None Identified Date/Initials Patient Outcomes Primary learner shows evidence of comprehension at assessment or following instruction by verbalizing an understanding of: P Prior Knowledge T/R Taught But Needs Reinforcement O Taught and Outcome Met Pre-Transplant Evaluation process including pre-transplant testing, members of the transplant team and notification of activation of transplant list. Importance of remaining reachable via telephone or pager. 10/06/25 Details of hospitalization including time needed to arrive at the hospital, ICU stay and length of hospital stay. 10/06/25 Feelings associated with waiting for a transplant and importance of support from family and friends. Identifies availability of support group. At least two people. 10/06/25 Expectation that transplant patients are to remain free of substance use, including prescription drugs, alcohol and smoking. 10/06/25 Needs to continue follow-up lab work and outpatient visits during pre-transplant period. 10/06/25 Life long commitment to good health practices. 10/06/25 Date/Initials Patient Outcomes Primary learner shows evidence of comprehension at assessment or following instruction by verbalizing an understanding of: P Prior Knowledge T/R Taught But Needs Reinforcement O Taught and Outcome Met Transplant Possible short-term and long-term complications of transplant including rejection, infections, diabetes, cancers, nephrotoxicity and reoccurence of disease. 10/06/25 Importance of taking all immunosuppressive medications forever as directed and basic knowledge of possible side effects. 10/06/25 Possibility of need for taking other medications as directed if side effects develop. 10/06/25 Basic knowledge of required pre and post longterm dietary and activity changes. 10/06/25 Demonstrates an understanding of the consent form for [employer] TR[employer]ES [employer]IST[employer] donors. 10/06/25 Date/Initials Patient Outcomes Primary learner shows evidence of comprehension at assessment or following instruction by verbalizing an understanding of: P Prior Knowledge T/R Taught But Needs Reinforcement O Taught and Outcome Met Follow-Up Care Intensity and frequency of post transplant monitoring including self vital sign monitoring, clinic visits, biopsies, blood work, medication changes and cardiac rehabilitation schedule (local). 10/06/25 Financial expenses associated with medication costs, hospital and physician bills; financial resources including protective services social worker. 10/06/25 Need to notify transplant center of any insurance changes or possible future changes (both before and after surgery). 10/06/25 Knowledge of vocational and appropriate resources available post transplant surgery. 10/06/25 Teaching Materials Used: Attended Pre-Kidney Class, Multiple Listing and Waiting Time Transfer (UNOS), What Every Patient Needs to Know (UNOS), Organ Specific Handbook, and Consent for [employer] Donor documented in this encounter Plan of Treatment Upcoming Encounters Date Type Department Care Team (Late st Contact Info) Description 10/19/2025 3:00 PM EST Appointment [facility] Pulmonary Laboratory & Rehabilitation [address] [facility], [address] [place] [address] Ruth Villagran MD 85 [facility] [address] [place] [address] documented as of this encounter Visit Diagnoses Diagnosis CKD (chronic kidney disease) stage 5, GFR less than 15 ml/min (HCC)- Primary Chronic kidney disease, Stage V documented in this encounter Care Teams Marine Oiler Relationship Specialty Start Date End Date Lauren Adams MD [address] [place] [address] PCP - General Internal Medicine 08/28/25 documented as of this encounter
--- OUTSIDE RECORDS SUMMARY | 2025-10-05 13:00 | XMS_ITS | Encounter Summary ---
Author Organization [facility] Address [address] [place] [id number] Care Team Providers Care Learning Specialist Name Role Phone Lauren Adams MD Primary Care Provider [phone] Encounter Details Date Type Department Care Team (Latest Contact Info) Description 10/05/2025 1:00 PM EST Office Visit [facility] [address] [phone] Ruth Villagran MD [address] [phone] CKD (chronic kidney disease) stage 5, GFR [...] Time Taken Comments Blood Pressure 140/80 10/05/2025 11:18 AM EST Pulse 60 10/05/2025 11:18 AM EST Temperature 36.3 C (97.4 F) 10/05/2025 11:18 AM EST Respiratory Rate - - Oxygen Saturation 99% 10/05/2025 11:18 AM EST Inhaled Oxygen Concentration - - Weight 96.4 kg (212 lb 8.4 oz) 10/05/2025 11:18 AM EST Height 170 cm (5' 6.93 ) 10/05/2025 11:18 AM EST Body Mass Index 33.36 10/05/2025 11:18 AM EST documented in this encounter Progress Notes * Ruth Villagran MD - 10/05/2025 11:16 AM EST Images from the original note were not included. Mack Goodson : 1980 Kidney Transplant Evaluation Reason for evaluation: Evaluation for kidney transplantation History of present illness: The patient is a 44 y.o. male who is here for evaluation for kidney transplantation. He is accompanied by his spouse today. The patient has chronic kidney disease stage V and presently is not yet on dialysis. Etiology of renal failure is attributed to biopsy-proven IgA nephropathy and hypertension. Kidney biopsy was done 07/16/2025. No specific treatment for the IgA. From 08/08/2025, his creatinine is 8.44 with eGFR of 7 w hich he says is stable. He had an unremarkable urological evaluation for hematuria and proteinuria.He is planning on PD when needed. Records are very limited in [facility]. He is being evaluated at other transplant programs including [facility]. 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 -Hypertension -Sleep apnea, on CPAP -Gout -BPH -COVID 2020, not hospitalized. Social history: He is . He has 3 children. 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 He was a prior heavier smoker when he was young. He mainly quit heavy smoking at age 21 but he smokes currently 2-3 cigarettes/week. He was encouraged to quit. No ETOH. He currently smokes marijuana via vaping and edibles. He is aware to only have edibles after transplant. He lives in [place], [place] and [facility]. He has 3 pet cats and doesn't change the lorraine litter. He has 3 tattoos, under sterile technique. He went to [place] and [facility] this year. He has been vaccinated against COVID. He's not sure if he's been vaccinated against Hep B. Allergies: No Known Allergies Past surgical history: Left inguinal hernia repair Family history: Mother from a NH at age 50. Father from prostate cancer. Maternal grandmother of colon cancer at age 35. No dialysis in the family. Current outpatient medications: Current Outpatient Medications Medication Sig Dispense Refill calcitRIOL (ROCALTROL) 0.25 MCG capsule calcium acetate (PHOSLO) 667 MG capsule take 1 capsule by mouth three times daily with meals carvedilol (COREG) 6.25 MG tablet Take 1 tablet (6.25 mg total) by mouth 2 (two) times a day with meals. Ferrous Sulfate (Iron) 28 MG Tab Take 1 tablet by mouth daily. hydrALAZINE (APRESOLINE) 25 MG tablet 3 tablets (75 mg total) by Mouth/Oral Cavity route 3 times a day. NIFEdipine ER (ADALAT CC) 30 MG 24 hr tablet ondansetron (ZOFRAN) 4 MG tablet Take 1 tablet (4 mg total) by mouth. oxybutynin (DITROPAN-XL) 10 MG 24 hr tablet Take by mouth. sodium bicarbonate 650 MG tablet 1 tablet (650 mg total) by Mouth/Oral Cavity route 3 times a day. No current facility-administered medications for this visit. Review of systems: He believes he is blood group A. No prior blood transfusion. Normal UOP. No DM/CAD/stroke/cancer/COPD. He has had gross hematuria when he got sick. He has lost weight through lifestyle changes and Ozempic (no longer). He used to exercise but not exercising currently due to fatigue. He walks a lot though at work. Heaviest weight was 340 pounds in 2017. He feels fatigued at the end of the day, but otherwise feels well. He drives. He can take stairs. Appetite is good. He eats 3 meals/day, on a renal diet. No LE edema. No N/V. He gets palpitations occasionally. No CP/SOB. No claudication. All other 14 point review of systems reviewed and is negative except as documented. Physical exam: Vitals: 10/05/25 1118 BP: (!) 140/80 BP Location: Right arm Patient Position: Sitting Cuff Size: Medium (Standard) Pulse: 60 Temp: 97.4 ??F (36.3 ??C) TempSrc: Tympanic SpO2: 99% Weight: 96.4 kg (212 lb 8.4 oz) Height: 1.626 m (5' 4 ) Body mass index is 36.48 kg/m??. Wt Readings from Last 3 Encounters: 10/05/25 96.4 kg (212 lb 8.4 oz) 10/05/25 96.4 kg (212 lb 8.4 oz) General: well developed, well nourished overweight male, no acute distress, alert, glasses HEENT: normocephalic, atraumatic, moist mucous membranes, OP is clear, ears pierced Neck: supple, no carotid bruits Heart: regular rate and rhythm, without murmur, rubs or gallops Lungs: clear to auscultation bilaterally with good air flow Abdomen: soft, nontender, nondistended, round, + bowel sounds Pulses: 2+ femoral and DP pulses Extremities: No clubbing, cyanosis or edema Skin: no rash Neuro: alert and oriented, nonfocal Psych: appropriate and cooperative Dialysis access: none Healthcare maintenance and imaging data: CT abdomen and pelvis without contrast 12/28/2023 KIDNEYS/URETERS: No hydronephrosis, stones, or solid mass. Bilateral renal cysts. IMPRESSION: No acute findings in the abdomen or pelvis. No mass or hernia. Cystoscopy 07/02/2025 Findings: nml urethra, no papillary bladder tumor Final Diagnosis A. Urinary Bladder, Urine, ThinPrep: Negative for high grade urothelial carcinoma. Note: UroVysion testing to follow. B. Ureter, Left, washing, ThinPrep: Negative for high grade urothelial carcinoma. Note: UroVysion testing to follow. C. Ureter, Right, washing, ThinPrep: Negative for high grade urothelial carcinoma. Kidney biopsy 07/16/2025 Assessment and plan: The patient is a 44 y.o. male who is here for kidney transplant evaluation. He has CKD stage V due to biopsy-proven IgA nephropathy. He is an excellent candidate for transplantation. He may have a potential living donor. We will check our routine CXR and serologies today. He reports having a CT abd scan 07/2025; will try to obtain report. He will need cardiology clearance. Will refer to Consulting Cardiology. He reports having an Echo done 07/2025; will try to obtain report. Will check PFTs given current smoking status. Encouraged to quit. Will need colonoscopy report from 1-2 years ago. He will see the rest of the team today. Risk of recurrent disease (IgA) discussed which he understands. No need for LFTs (no liver disease). No need for vascular studies (no history of PVD). No need for dental clearance. He gets regular checkup and doesn't have any acute issues. No need for Tox screen (no history of drug use except marijuana). The patient's case will be discussed at a future multidisciplinary selection committee meeting and I will update you with the results. Thank you for allowing me to participate in the care of your patient. Sincerely, Ruth Villagran MD (Cheri) 10/05/2025 Total time spent counseling and coordinating care: 50 minutes, with greater than 50% of total time spent counseling the patient regarding kidney transplantation, risks and benefits, and eligibility. documented in this encounter Plan of Treatment Upcoming Encounters Date Type Department Care Team (Late st Contact Info) Description 10/19/2025 3:00 PM EST Appointment [facility] Rehabilitation [address] [facility], [address] [place] [address] Ruth Villagran MD 85 [facility] [address] [place] [address] Scheduled Orders Name Type Priority Associated Diagnoses Orde r Schedule ABO - Blood Bank Blood Bank Routine CKD (chronic kidney disease) stage 5, GFR less than 15 ml/min ([facility]) Ordered: 10/05/2025 Nitza-Gee Virus Ab, EBNA IgG Lab Routine CKD (chronic kidney disease) stage 5, GFR less than 15 ml/min (HCC) Ordered: 10/05/2025 Quantiferon -TB Gold Plus, 1 Tube Lab Routine CKD (chronic kidney disease) stage 5, GFR less than 15 ml/min (HCC) Ordered: 10/05/2025 Nitza-Gee Virus Ab, VCA IgG Lab Routine CKD (chronic kidney disease) stage 5, GFR less than 15 ml/min (HCC) Ordered: 10/05/2025 Hepatitis A Antibody, Total Lab Routine CKD (chronic kidney disease) stage 5, GFR less than 15 ml/min (HCC) Ordered: 10/05/2025 Hepatitis A Virus (HAV) Antibody IgM Lab Routine CKD (chronic kidney disease) stage 5, GFR less than 15 ml/min (HCC) Ordered: 10/05/2025 Hepatitis B Surface Antigen Screen, Reflex Confirmation Lab Routine CKD (chronic kidney disease) stage 5, GFR less than 15 ml/min (HCC) Ordered: 10/05/2025 Hepatitis B Virus (HBV) Surface Antibody (Quant) Lab Routine CKD (chronic kidney disease) stage 5, GFR less than 15 ml/min (HCC) Ordered: 10/05/2025 Hepatitis B Core Antibody Total Reflex IgM Lab Routine CKD (chronic kidney disease) stage 5, GFR less than 15 ml/min (HCC) Ordered: 10/05/2025 Hepatitis C antibody Lab Routine CKD (chronic kidney disease) stage 5, GFR less than 15 ml/min (HCC) Ordered: 10/05/2025 HCV RT-PCR Quantitative Lab Routine CKD (chronic kidney disease) stage 5, GFR less than 15 ml/min (HCC) Ordered: 10/05/2025 Syphilis ALIN reflex RPR Titer & TPPA Lab Routine CKD (chronic kidney disease) stage 5, GFR less than 15 ml/min (HCC) Ordered: 10/05/2025 Toxoplasma Antibody IgG Lab Routine CKD (chronic kidney disease) stage 5, GFR less than 15 ml/min (HCC) Ordered: 10/05/2025 Toxoplasma Antibody IgM Reflex Confirm Lab Routine CKD (chronic kidney disease) stage 5, GFR less than 15 ml/min (HCC) Ordered: 10/05/2025 Cytomegalovirus (CMV) Antibody IgG Lab Routine CKD (chronic kidney disease) stage 5, GFR less than 15 ml/min (HCC) Ordered: 10/05/2025 HSV 1/2 IgG HerpeSelect TypeSpec Ab RF/HSV2 Inhib Lab Routine CKD (chronic kidney disease) stage 5, GFR less than 15 ml/min (HCC) Ordered: 10/05/2025 HIV 1/2 Ag/Ab CMIA Reflex to Confirmation Lab Routine CKD (chronic kidney disease) stage 5, GFR less than 15 ml/min (HCC) Ordered: 10/05/2025 Varicella Zoster (VZV) Antibody IgG Lab Routine CKD (chronic kidney disease) stage 5, GFR less than 15 ml/min (HCC) Ordered: 10/05/2025 Mumps Antibody IgG Lab Routine CKD (chronic kidney disease) stage 5, GFR less than 15 ml/min (HCC) Ordered: 10/05/2025 Rubella Antibody, IgG Lab Routine CKD (chronic kidney disease) stage 5, GFR less than 15 ml/min (HCC) Ordered: 10/05/2025 Rubeola Antibody IgG Lab Routine CKD (chronic kidney disease) stage 5, GFR less than 15 ml/min (HCC) Ordered: 10/05/2025 Hemoglobin A1c Lab Routine CKD (chronic kidney disease) stage 5, GFR less than 15 ml/min (HCC) Ordered: 10/05/2025 PSA Lab Routine CKD (chronic kidney disease) stage 5, GFR less than 15 ml/min (HCC) Ordered: 10/05/2025 Complete Blood Count, with Differential Lab Routine CKD (chronic kidney disease) stage 5, GFR less than 15 ml/min (HCC) Ordered: 10/05/2025 Albumin Lab Routine CKD (chronic kidney disease) stage 5, GFR less than 15 ml/min (HCC) Ordered: 10/05/2025 ABO (Immunology Lab) Lab Routine CKD (chronic kidney disease) stage 5, GFR less than 15 ml/min (HCC) Ordered: 10/05/2025 Antibody Testing (PRA) Lab Routine CKD (chronic kidney disease) stage 5, GFR less than 15 ml/min (HCC) Ordered: 10/05/2025 HLA Typing Lab Routine CKD (chronic kidney disease) stage 5, GFR less than 15 ml/min (HCC) Ordered: 10/05/2025 XR Chest 2 views Imaging Routine CKD (chronic kidney disease) stage 5, GFR less than 15 ml/min (HCC) Expected: 10/05/2025, Expires: 10/05/2026 documented as of this encounter Visit Diagnoses Diagnosis CKD (chronic kidney disease) stage 5, GFR less than 15 ml/min (HCC)- Primary Chronic kidney disease, Stage V documented in this encounter Care Teams Learning Specialist Relationship Specialty Start Date End Date Lauren Adams MD [address] [place] [id number] PCP - General Internal Medicine 08/28/25 documented as of this encounter
--- OUTSIDE RECORDS SUMMARY | 2025-10-05 14:00 | XMS_ITS | Encounter Summary ---
Author Organization [facility] Address [address] [place] [address] Care Team Providers Care Marine Engine Machinist Apprentice Name Role Phone Lauren Adams MD Primary Care Provider [phone] Encounter Details Date Type Department Care Team (Latest Contact Info) Description 10/05/2025 2:00 PM EST Office Visit [facility] Transplant [facility] & [address] [phone] Ruth Villagran MD [address] [place] [phone] Dickson Sorenson MD [address] [place] [phone] CKD (chronic kidney disease) stage 5, GFR [...] as of this encounter Progress Notes * Dickson Sorenson MD - 10/05/2025 2:25 PM EST Images from the original note were not included. [facility] TRANSPL[facility] [address] [facility] [phone] Dept: [phone] Dept Transplant Surgery Kidney Transplant Evaluation Clinic Note Chief Complaint: End-stage renal disease/evaluation for kidney transplant. HPI: Mack Goodson is a 44 y.o. malepresenting for evaluation for kidney transplant. 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 He has not started dialysis as of yet. PMHx: HTN, sleep apnea, iga nephropathy, hernia. PSHx: inguinal hernia repair with mesh - left. 3-4 cigarettes per week. 25 pack year history (10 years 1.5 ppd and 20 years avg 0.5 ppd), denies current alcohol use. Marijuana use - vape pen - few puffs before bed. The kidney transplant evaluation process as well as surgery, postoperative stay, and general recovery were discussed in layman's terms. Timeline of scheduled visits postoperatively as well as lab draws was also discussed. Risks benefits and alternatives to surgery were discussed. No past medical history on file. No past surgical history on file. Social History Socioeconomic History Marital status: Spouse name: Not on file Number of children: Not on file Years of education: Not on file Highest education level: Not on file Occupational History Not on file Tobacco Use Smoking status: Not on file Smokeless tobacco: Not on file Substance and Sexual Activity Alcohol use: Not on file Drug use: Not on file Sexual activity: Not on file Other Topics Concern Not on file Social History Narrative Not on file Social Drivers of Health Financial Resource Strain: Not on file Food Insecurity: Not on file Transportation Needs: Not on file Physical Activity: Not on file Stress: Not on file Social Connections: Not on file Housing Stability: Not on file Encounter Medications[1] Allergies[2] Review of Systems: Constitutional: Negative for fever, chills, fatigue and unintentional weight loss. HEENT: Negative for congestion and hearing loss. Negative for visual changes. Respiratory: Negative for cough and SOB. Cardiovascular: Negative for chest pains, palpitations and dyspnea on exertion. Gastrointestinal: Negative for abdominal pain, nausea, diarrhea and constipation. : Negative for blood in the urine Endocrine: Negative for polydipsia and polyuria. Musculoskeletal: Negative for myalgias, joint swelling, arthralgias and neck pain. Skin: Negative for color change, pallor, rash and wound. Allergic/Immunologic: Negative for food allergies. Neurological: Negative for tremors, headaches and balance disorders. Hematology: Negative for difficulty healing wounds and easy bruisability. Psychiatric/Behavioral: Negative for confusion and dysphoric mood. Review of Systems: Constitutional: Negative for fever, chills, fatigue and unintentional weight loss. HEENT: Negative for congestion and hearing loss. Negative for visual changes. Respiratory: Negative for cough and SOB. Cardiovascular: Negative for chest pains, palpitations and dyspnea on exertion. Gastrointestinal: Negative for abdominal pain, nausea, diarrhea and constipation. : Negative for blood in the urine Endocrine: Negative for polydipsia and polyuria. Musculoskeletal: Negative for myalgias, joint swelling, arthralgias and neck pain. Skin: Negative for color change, pallor, rash and wound. Allergic/Immunologic: Negative for food allergies. Neurological: Negative for tremors, headaches and balance disorders. Hematology: Negative for difficulty healing wounds and easy bruisability. Psychiatric/Behavioral: Negative for confusion and dysphoric mood. Physical Exam Constitutional: Appearance: Normal appearance. HENT: Head: Normocephalic and atraumatic. Mouth/Throat: Mouth: Mucous membranes are moist. Cardiovascular: Rate and Rhythm: Normal rate and regular rhythm. Pulses: Femoral pulses are 2+ on the right side and 2+ on the left side. Pulmonary: Effort: Pulmonary effort is normal. Abdominal: General: Abdomen is flat. Palpations: Abdomen is soft. Musculoskeletal: General: Normal range of motion. Cervical back: Neck supple. Skin: General: Skin is warm. Neurological: Mental Status: He is alert and oriented to person, place, and time. Radiology No visits with results within 1 Month(s) from this visit. Latest known visit with results is: No results found for any previous visit. Assessment and Plan 1. CKD (chronic kidney disease) stage 5, GFR less than 15 ml/min ([facility]) Patient is a 44 y.o. with CKD 5 who presents for kidney transplant evaluation. The patient appears to be an appropriate candidate for kidney transplantation with no obvious surgical contraindicationsat this time. Excellent candidate for kidney transplant No contraindications to proceeding with evaluation Living donor kidney transplant encouraged Will review CT abdomen pelvis when available. The risks, benefits and alternatives to kidney transplantation were discussed with the patient. potential life years gained after transplant versus expected mortality on dialysis, the average wait times for donor kidney transplantation in the context of current donor allocation policies, the significant benefit of living donor kidney transplantation as it pertains to life years gained versus donor transplantation, as well as the surgical risks of kidney transplantation and subsequent need for lifelong immunosuppression. This discussion included, but was not limited to, an explanation of risks such as of infection, bleeding, blood transfusion, heart attack, stroke, reoperation, delayed graft function, graft loss, vascular complications, , rejection, donor-derived disease transmission and complications of anti-rejection therapy. The meaning of the Kidney Donor Profile Index (KDPI) was also explained and questions answered. Information regarding kidney donor organ options was summarized for the patient and information was provided. Following our discussion the patient has agreed to consider kidneys from donors with the following characteristics. NOTE: The final decision and consent will be obtained at the time an organ offer is made. - after Cardiac (DCD) organs: YES - Hepatitis C (HCV) Positive serologies organs: - HCV Antibody +/ HCV JARED: YES - HCV Antibody +/ HCV JARED + : YES - Hepatitis B Positive serologies: - HBVcAb + :NO - HBV sAg + and/or HBV JARED + : NO - KDPI > 85% organs: NO Patient's full evaluation packet to be presented and discussed at multidisciplinary listing conference. I spent 60 minutes with the patient. [1] calcitRIOL (ROCALTROL) 0.25 MCG capsule calcium acetate [...] Mouth/Oral Cavity route 3 times a day. [2] No Known Allergies documented in this encounter Plan of Treatment Upcoming Encounters Date Type Department Care Team (Late st Contact Info) Description 10/19/2025 3:00 PM EST Appointment [facility] Pulmonary Laboratory & Rehabilitation [address] [facility], [address] [place] [phone] Ruth Villagran MD 85 [facility] [address] [place] [address] documented as of this encounter Visit Diagnoses Diagnosis CKD (chronic kidney disease) stage 5, GFR less than 15 ml/min (HCC)- Primary Chronic kidney disease, Stage V documented in this encounter Care Teams Marine Engine Machinist Apprentice Relationship Specialty Start Date End Date Lauren Adams MD [address] [place] [address] PCP - General Internal Medicine 08/28/25 documented as of this encounter
--- OUTSIDE RECORDS SUMMARY | 2025-10-05 14:30 | XMS_ITS | Encounter Summary ---
Author Organization [facility] Address [address] [place] [address] Care Team Providers Care Pelt Salter Name Role Phone Lauren Adams MD Primary Care Provider Encounter Details Date Type Department Care Team (Late st Contact Info) Description 10/05/2025 2:30 PM EST Clinical Support [facility] [address] [place] [phone] Ruth Villagran MD [address] [address] Bj Caro RN [address] [address] Social History Tobacco Use Types Packs/Day Years Used Date Smoking Tobacco: Never Assessed Sex and Gender Information Value Date Recorded Sex Assigned at Male 08/28/2025 3:07 PM EDT Legal Sex Male 4:38 PM EDT Gender Identity Male 08/28/2025 3:07 PM EDT Sexual Orientation Heterosexual (straight) 08/28 3:07 PM EDT documented as of this encounter Progress Notes * Bj Caro RN - 10/05/2025 12:06 PM EST I met with a potential recipient 20min for their new referral evaluation. Client was accompanied today by his significant other. Living donation was discussed in detail along with its benefits and the client was given the opportunity to ask questions with all misconceptions clarified. Due to HIPPA,it was explained that their information is confidential along with all donor information. Discussed that it would be important for them to communicate with their potential donors about the evaluationprocess. Client aware that all donors must contact me themselves, and the donor screen QR code and links were provided. Client also provided with Microsite registration information, donor shield, andremote donation education. We reviewed the donor map for potential living donors. Clients son is interested in living donation. My contact information was provided for future utilization documented in this encounter Plan of Treatment Upcoming Encounters Date Type Department Care Team (Late st Contact Info) Description 10/19/2025 3:[address] [facility] Pulmonary Laboratory & Rehabilitation [address] [facility], [address] [place] [phone] Ruth Villagran MD 85 [facility] [address] [place] [address] documented as of this encounter Visit Diagnoses Not on filedocumented in this encounter Care Teams Pelt Salter Relationship Specialty Start Date End Date Lauren Adams MD [address] [place] [phone] PCP - General Internal Medicine 08/28/25 documented as of this encounter
--- OUTSIDE RECORDS SUMMARY | 2025-10-05 15:00 | XMS_ITS | Encounter Summary ---
Author Organization [facility] Address [address] [place] [address] Care Team Providers Care Document Processing Specialist Name Role Phone Lauren Adams MD Primary Care Provider [phone] Encounter Details Date Type Department Care Team (Late st Contact Info) Description 10/05/2025 3:00 PM EST Clinical Support [facility] Transplant Program & [facility] [address] [phone] Ruth Villagran MD [address] [address] Hetal Campoverde [address] [place] [address] Social History Tobacco Use Types Packs/Day Years Used Date Smoking Tobacco: Never Assessed Sex and Gender Information Value Date Recorded Sex Assigned at Male 08/28/2025 3:07 PM EDT Legal Sex Male 4:38 PM EDT Gender Identity Male 08/28/2025 3:07 PM EDT Sexual Orientation Heterosexual (straight) 08/28 3:07 PM EDT documented as of this encounter Progress Notes * Hetal Campoverde - 10/05/2025 2:24 PM EST Patient presents to the transplant clinic for initial assessment as part of the kidney transplant evaluation process. Video was viewed prior to clinic visit. Patient met with members of the transplant team and was accompanied by his . Past medical history is notable for CKD, IgA Nephropathy, HTN, Sleep Apnea, Gout Dialysis history: No hx Pertinent labs: Reviewed Relevant medications: Calcitrol, Phoslo, Coreg, Iron, Hydralazine, Adalat, Zofran, Ditropan, SodiumBicarbonate Anthropometrics: 5' 7 , 212#, BMI 33.36 NFPE: by visual assessment patient appears to be well nourished / obese by BMI classification Nutritional intake and diet history: Renal, low protein diet x 3 months Diet recall: 3 meals per day Breakfast: Lite french muffin with egg whites and peppers and onions Lunch: chicken wrap with lettuce and vegan sarmiento Dinner: Chicken or turkey meatloaf or fish with rice and vegetable, occasional pasta with meatballs, Restaurant meal twice a month ( food or Chipotle) Snacks: cucumbers or berries or grapes, non-dairy ice cream Appetite: Good Meal support: self or Chewing/swallowing issues: No GI symptoms reported: None identified Physical activity: Fair energy, but tired at the end of the day Assessment: 44 yo presents to the clinic for pre-kidney transplant evaluation. Met with pt along with his . PMH includes CKD, IgA Nephropathy, HTN, Sleep Apnea, Gout. Diet hx indicates pt has been following a renal diet for the last 3 months when he became aware of his kidney disease. Appetite is good. He eats 3 meals per day with snacks as needed. 15# wt loss in the last 3 months of making these diet changes. BMI currently 33.36. Energy remains fair, but admits he is tired by the end of the day. Discussed nutrition before kidney transplant, emphasized importance of maintaining a healthy body weight. Advised patient to adhere to current diet restrictions. Reviewed nutrition/lifestyle modification following kidney transplant and rationale. Contact information provided. Nutritional goals: Maintain/achieve healthy weight Sustain renal labs in target range Verbalize the importance of dietary compliance as indicated From a nutritional stand point patient appears to be an acceptable candidate for kidney transplant if deemed appropriate by team Follow up: will follow up with patient at next team visit or PRN documented in this encounter Plan of Treatment Upcoming Encounters Date Type Department Care Team (Late st Contact Info) Description 10/19/2025 3:00 PM EST Appointment [facility] Pulmonary Laboratory & Rehabilitation [address] [facility], [address] [place] [phone] Ruth Villagran MD 85 [facility] [address] [place] [address] documented as of this encounter Visit Diagnoses Not on filedocumented in this encounter Care Teams Document Processing Specialist Relationship Specialty Start Date End Date Lauren Adams MD [address] [place] [address] PCP - General Internal Medicine 08/28/25 documented as of this encounter
--- OUTSIDE RECORDS SUMMARY | 2025-10-08 11:05 | XMS_ITS | Encounter Summary ---
Author Organization [facility] Address [address] [place] [address] Care Team Providers Care Dogman/Woman Name Role Phone Lauren Adams MD Primary Care Provider [phone] Encounter Details Date Type Department Care Team (Late st Contact Info) Description 10/08/2025 11:05 AM EST Ancillary Procedure [facility] Radiology [address] [place] [address] Provider, File Room Arrived Social History Tobacco Use Types Packs/Day Years Used Date Smoking Tobacco: Never Assessed Sex and Gender Information Value Date Recorded Sex Assigned at Male 08/28/2025 3:07 PM EDT Legal Sex Male 4:38 PM EDT Gender Identity Male 08/28/2025 3:07 PM EDT Sexual Orientation Heterosexual (straight) 08/28 3:07 PM EDT documented as of this encounter Plan of Treatment Upcoming Encounters Date Type Department Care Team (Late st Contact Info) Description 10/19/2025 3:00 PM EST Appointment [facility] Pulmonary Laboratory & Rehabilitation [address] [facility], [address] [place] [address] Ruth Villagran MD [address] [address] documented as of this encounter Procedures Procedure Name Priority Date/Time Associated Diagnosis Comments CT ABDOMEN ARCHIVE FOR REFERENCE ONLY Routine 10/08/2025 11:04 AM EST documented in this encounter Results * CT Abdomen Archive for Reference Only (10/08/2025 11:04 AM EST) Narrative GABBIE - 10/08/2025 11:04 AM EST This study has been auto finalized and does not contain a result. us File Room Provider IMG DIGITIZE FILMS Final Resu lt GABBIE [phone] documented in this encounter Visit Diagnoses Not on filedocumented in this encounter Care Teams Dogman/Woman Relationship Specialty Start Date End Date Lauren Adams MD [address] [place] [address] PCP - General Internal Medicine 08/28/25 documented as of this encounter
--- OUTSIDE RECORDS SUMMARY | 2025-10-08 11:10 | XMS_ITS | Encounter Summary ---
Author Organization [facility] Address [address] [place] [address] Care Team Providers Care Sheet Metal Mechanic Name Role Phone Lauren Adams MD Primary Care Provider [phone] Encounter Details Date Type Department Care Team (Late st Contact Info) Description 10/08/2025 11:10 AM EST Ancillary Procedure [facility] Radiology [address] [place] [address] Provider, File Room Arrived Social History Tobacco [...] Info) Description 10/19/2025 3:00 PM EST Appointment [facility] Pulmonary Laboratory & Rehabilitation [address] [facility], [address] [place] [address] Ruth Villagran MD [address] [phone] documented as of this encounter Procedures Procedure Name Priority Date/Time Associated Diagnosis Comments GISSELLE ARCHIVE FOR REFERENCE ONLY CT Routine 10/08/2025 11:10 AM EST documented in this encounter Results * GISSELLE Archive for reference only CT (10/08/2025 11:10 AM EST) Narrative GABBIE - 10/08/2025 11:04 AM EST This order has been auto-finalized and does not contain a result. us File Room Provider IMG DIGITIZE FILMS Final Resu lt GABBIE [phone] documented in this encounter Visit Diagnoses Not on filedocumented in this encounter Care Teams Sheet Metal Mechanic Relationship Specialty Start Date End Date Lauren Adams MD [address] [place] [address] PCP - General Internal Medicine 08/28/25 documented as of this encounter
--- OUTSIDE RECORDS SUMMARY | 2025-10-08 11:10 | XMS_ITS | Encounter Summary ---
Author Organization [facility] Address [address] [place] [address] Care Team Providers Care Director Chemistry Name Role Phone Lauren Adams MD Primary Care Provider [phone] Encounter Details Date Type Department Care Team (Late st Contact Info) Description 10/08/2025 11:10 AM EST Ancillary Procedure [facility] Radiology [address] [place] [address] Provider, File Room Arrived Social History Tobacco [...] [facility] Pulmonary Laboratory & Rehabilitation [address] [facility], [address] [place] [address] Ruth Villagran MD [address] [phone] documented as of this encounter Procedures Procedure Name Priority Date/Time Associated Diagnosis Comments GISSELLE ARCHIVE FOR REFERENCE ONLY US Routine 10/08/2025 11:10 AM EST documented in this encounter Results * GISSELLE Archive for reference only US (10/08/2025 11:10 AM EST) Narrative GABBIE - 10/08/2025 11:09 AM EST This order has been auto-finalized and does not contain a result. us File Room Provider IMG DIGITIZE FILMS Final Resu lt GABBIE [phone] documented in this encounter Visit Diagnoses Not on filedocumented in this encounter Care Teams Director Chemistry Relationship Specialty Start Date End Date Lauren Adams MD [address] [place] [phone] PCP - General Internal Medicine 08/28/25 documented as of this encounter
--- NOTE | 2025-10-08 15:21 | HO.NEPHOV_ITS ---
Vital Signs 10/08/25 15:23 Height 5 ft 8.5 in Weight 209 lb 8 oz BMI 31.4 BP 160/80 H Blood Pressure Location Lt brachial Position Sitting Pulse 55 Pulse Source Pulse Oximeter Pulse Oximetry (%) 99 Oxygen Delivery Method Room Air Intake Visit Reasons: 1mon f/u w/labs-LVM Maintenance Services Dispatcher Required: No Accompanied by: Spouse Allergies No Known Allergies Allergy (Verified 10/08/25 15:23) HPI Comments Details: Mack was seen in follow up for CKD Stage 5 ( IgA nephropathy) and hypertension . He is 44 years of age who has hypertension as well as H/O blood and protein in the urine in the past.He has seen Urology and was worked up including imaging studies which did not show any etiology for his M/S hematuria. He denied any H/O macroscopic heamturia. He was no ACEI in the past but was discontinued ( ? Had KEYONNA at that time). He had high BMI which has improved with exercise, diet and Ozempic for sometime. He has no H/O renal calculi . He recently had cramps as well as joint pains which is better. He is active and employed. He denies any regular excessive NSAID's. He has been having HAYLEY and is on CPAP. He has H/O gout with exacerbations more so when he was taking HCTZ for hypertension long ago. He has no H/O cardiac issues. He denies any neuropathic symptoms. CVA, CHF, CAD, PAD. He has no H/O blood clots but has was a smoker in the past. He has H/O smoking but no hemoptysis or unintentional weight loss( quit now) . He is not a diabetic and has no H/O liver dysfunction. His energy is better. He underwent extensive work up including renal biopsy. Renal biopsy showed advanced chronic changes with close to 70 % glomerulosclerosis as well as interstitial fibrosis( IgA nephropathy). He also had marked vascular sclerosis. His BP has been high and carvedilol has been initiated with improvement. He denies uremic symptoms.He was evaluated by transplant team in [facility] Medical History Enlarged prostate HAYLEY (obstructive sleep apnea) Polyp of colon Asthma Chronic kidney disease, stage 3a Obesity Hemorrhoids with complication Anxiety with depression Gout Tobacco use Essential (primary) hypertension Surgical History S/P left inguinal herniorrhaphy Family History Father Prostate cancer Mother Heart attack Hypertension Social History Household Members: Spouse and Children Housing: House Do you presently have visiting nurse or other home services: No Alcohol intake: never Patient Tobacco Use Status: Current everyday Tobacco user Tobacco use type: Cigarette Second Hand Smoke Exposure: No service: No Review of Systems Const All systems reviewed & are unremarkable except as noted in HPI and below Physical Exam Vital Signs: Last Vital Signs Pulse 55 10/08/25 15:23 BP 160/80 H 10/08/25 15:23 Pulse Ox 99 10/08/25 15:23 Oxygen Delivery Method Room Air 10/08/25 15:23 BMI result Body Mass Index 31.4 Const General: comfortable and no acute distress Orientation/consciousness: patient oriented x3 HEENT Head: Yes normocephalic Mouth: Normal oral and palatal mucosa present Eyes EOM: EOMs intact bilaterally Neck Neck: Yes supple Resp Auscultation: clear to auscultation bilaterally Cardio Jugular venous distension: no JVD Rate: regular rate GI Palpation (GI): Soft to palpation Auscultation: normal bowel sounds General: Yes no CVA tenderness Back/Spine/Pelvis Back: no CVA tenderness Skin General skin exam: no rashes or lesions noted Neuro General: patient oriented x3 and moves all extremities Extrem General: Yes no pedal edema Results Reviewed Nephrology Results: Hgb, (14.0-18.0) 8.5 g/dl L 07/16/25 WBC, (4.8-10.8) 10.0 X10*3/uL 07/16/25 Plt Count, (160-400) 161 X10*3/uL 07/16/25 Sodium, (135-145) 140 mmol/L 07/16/25 Potassium, (3.3-5.1) 4.1 mmol/L 07/16/25 Chloride, (96-108) 113 mmol/L H 07/16/25 Carbon Dioxide, (22-29) 16 mmol/L L 07/16/25 BUN, (9-16) 98 mg/dL H 07/16/25 Creatinine, (0.5-1.4) 7.07 mg/dL H* 07/16/25 Calcium, (8.4-10.2) 8.0 mg/dL L 07/16/25 Phosphorus, (2.7-4.5) 6.6 mg/dL H 07/16/25 PTH Intact, (8.7-77.1) 298.2 pg/mL H 07/15/25 Urine Protein, (Neg-Trace) 300 (3+) mg/dL H 07/15/25 Urine Creatinine 40.61 mg/dL 07/14/25 Protein/Creatinin Ratio, (<0.2) 3.69 H 07/14/25 Renal US 07/15/25 Assessment & Plan Assessment & Plan (1) Hypertension: Code(s): I10 - Essential (primary) hypertension Category: Medical Qualifiers: Hypertension type: secondary to other renal disorders Qualified Code(s): I15.1 - Hypertension secondary to other renal disorders (2) Secondary hyperparathyroidism (of renal origin): Code(s): N25.81 - Secondary hyperparathyroidism of renal origin Category: Medical (3) IgA nephropathy: Code(s): N02.B9 - Other recurrent and persistent immunoglobulin A nephropathy Category: Medical (4) CKD (chronic kidney disease) stage 5, GFR less than 15 ml/min: Code(s): N18.5 - Chronic kidney disease, stage 5 Category: Medical (5) Proteinuria: Code(s): R80.9 - Proteinuria, unspecified Category: Medical Qualifiers: Proteinuria type: other Qualified Code(s): R80.8 - Other proteinuria (6) Iron deficiency: Code(s): E61.1 - Iron deficiency Category: Medical Plan Mack has CKD 5 from biopsy proven IgA nephropathy. Clinically denying uremic symptoms; Serum HCO3 better on replacement Phosphorus high/better- counseled about low Phos containing food- On Ca acetate( before meals) On calcitriol 0.25mcg PO 3x weekly and calcium acetate 667mg PO TID C/W Iron tablets( increased to 2 tabs ). When T Sat is > 20 %, will need Procrit( through my office)- likely next week Discussed about need for HD/ renal transplantation( Blood type A) Referral made for renal transplant evaluation to get listed( awaited in [place]; Seen in [facility]) Answered his and his 's questions; Follow up appointment given Coding Level of Care Code Est Pt Level 4 (33064) Diagnoses Hypertension secondary to other renal disorders I15.1 Hypertension type: secondary to other renal disorders Secondary hyperparathyroidism (of renal origin) N25.81 IgA nephropathy N02.B9 CKD (chronic kidney disease) stage 5, GFR less than 15 ml/min N18.5 Other proteinuria R80.8 Proteinuria type: other Iron deficiency E61.1
[2025-10-08 15:23] VITALS: BP 160/80; PULSE 55; O2SAT 99; BMI 31.4
--- OUTSIDE RECORDS SUMMARY | 2025-10-08 21:27 | XMS_ITS | Encounter Summary ---
Author Organization [facility] Address [address] [place] [address] Care Team Providers Care Rotary Soil Stabilizer Name Role Phone Lauren Adams MD Primary Care Provider [phone] Encounter Details Date Type Department Care Team (Late st Contact Info) Description 10/08/2025 Scanned Document [facility] Transplant Program & [facility] [address] [address] Florencia Mullen MA Social History Tobacco Use Types Packs/Day Years [...] Info) Description 10/19/2025 3:00 PM EST Appointment [facility] Pulmonary Laboratory & Rehabilitation [address] [facility], [address] [place] [phone] Ruth Villagran MD [address] [address] documented as of this encounter Visit Diagnoses Not on filedocumented in this encounter Care Teams Rotary Soil Stabilizer Relationship Specialty Start Date End Date Lauren Adams MD [address] [place] [phone] PCP - General Internal Medicine 08/28/25 documented as of this encounter
--- OUTSIDE RECORDS SUMMARY | 2025-10-08 21:27 | XMS_ITS | Encounter Summary ---
Author Organization [facility] Address [address] [place] [address] Care Team Providers Care Clinical Nurse Name Role Phone Lauren Adams MD Primary Care Provider [phone] Encounter Details Date Type Department Care Team (Late st Contact Info) Description 10/06/2025 Scanned Document [facility] Transplant Program & [facility] [address] [address] Florencia Mullen MA Social History [...] Info) Description 10/19/2025 3:00 PM EST Appointment [facility] Pulmonary Laboratory & Rehabilitation [address] [facility], [address] [place] [phone] Ruth Villagran MD [address] [address] documented as of this encounter Visit Diagnoses Not on filedocumented in this encounter Care Teams Clinical Nurse Relationship Specialty Start Date End Date Lauren Adams MD [address] [place] [phone] PCP - General Internal Medicine 08/28/25 documented as of this encounter
--- OUTSIDE RECORDS SUMMARY | 2025-10-08 21:28 | XMS_ITS | Encounter Summary ---
Author Organization [facility] Address [address] [place] [address] Care Team Providers Care Or Manager Name Role Phone Lauren Adams MD Primary Care Provider [phone] Encounter Details Date Type Department Care Team (Late st Contact Info) Description 08/25/2025 Scanned Document [facility] Transplant Program & [facility] 85 [facility] [address] [place] [phone] Maria Teresa Bruce MA [address] [phone] Social History Tobacco Use Types Packs/Day Years [...] Description 10/19/2025 3:00 PM EST Appointment [facility] Pulmonary Laboratory & Rehabilitation [address] [facility], [address] [place] [address] Ruth Villagran MD 85 [facility] [address] [place], [place] [phone] documented as of this encounter Visit Diagnoses Not on filedocumented in this encounter Care Teams Or Manager Relationship Specialty Start Date End Date Lauren Adams MD [address] [place] [address] PCP - General Internal Medicine 08/28/25 documented as of this encounter
--- OUTSIDE RECORDS SUMMARY | 2025-10-08 21:28 | XMS_ITS | Encounter Summary ---
Author Organization [facility] Address [address] [place] [address] Care Team Providers Care Human Resources Representative Name Role Phone Lauren Adams MD Primary Care Provider [phone] Encounter Details Date Type Department Care Team (Late st Contact Info) Description 10/05/2025 Scanned Document [facility] Transplant Program & [facility] [address] [address] Lee Ann Green [address] [phone] Social History Tobacco Use Types Packs/Day Years [...] [facility] [address] [facility], [address] [place] [address] Ruth Villagran MD [address] [phone] documented as of this encounter Visit Diagnoses Not on filedocumented in this encounter Care Teams Human Resources Representative Relationship Specialty Start Date End Date Lauren Adams MD [facility] [place] [address] PCP - General Internal Medicine 08/28/25 documented as of this encounter
--- OUTSIDE RECORDS SUMMARY | 2025-10-08 21:28 | XMS_ITS | Clinical Summary ---
Author Organization Formerly [facility] Address [address] [place] [address] Care Team Providers Care Microsoft Dynamics Consultant Name Role Phone Lauren Adams MD Primary Care Provider [phone] Allergies No known active allergies Medications calcitRIOL (ROCALTROL) 0.25 MCG capsule 09/08/2025 Active calcium acetate (PHOSLO) 667 MG capsule take 1 capsule by mouth three times daily with meals 09/10/2025 Active hydrALAZINE (APRESOLINE) 25 MG tablet 3 tablets (75 mg total) by Mouth/Oral Cavity route 3 times a day. 09/08/2025 Active carvedilol (COREG) 6.25 MG tablet Take 1 tablet (6.25 mg total) by mouth 2 (two) times a day with meals. 09/08/2025 Active NIFEdipine ER (ADALAT CC) 30 MG 24 hr tablet 09/29/2025 Act nadia oxybutynin (DITROPAN-XL) 10 MG 24 hr tablet Take by mouth. Active sodium bicarbonate 650 MG tablet 1 tablet (650 mg total) by Mouth/Oral Cavity route 3 times a day. 09/09/2025 Active ondansetron (ZOFRAN) 4 MG tablet Take 1 tablet (4 mg total) by mouth. 07/17/2025 Active Ferrous Sulfate (Iron) 28 MG Tab Take 1 tablet by mouth daily. Active Active Problems Problem Noted Date Diagnosed Date CKD (chronic kidney disease) stage 5, GFR less than 15 ml/min 10/05/2025 Encounters Date Type Department Care Team Description 10/08/2025 11:10 AM EST Ancillary Procedure [facility] Radiology [address] [place] [address] Provider, File Room Arrived 10/08/2025 11:10 AM EST Ancillary Procedure [facility] Radiology [address] [place] [address] Provider, File Room Arrived 10/08/2025 11:05 AM EST Ancillary Procedure [facility] Radiology [address] [place] [address] Provider, File Room Arrived 10/08/2025 Scanned Document [facility] Transplant Program & [facility] [place] [address] [address] Florencia Mullen MA 10/06/2025 Scanned Document [facility] Transplant Program & [address] [address] Florencia Mullen MA 10/05/2025 3:00 PM EST Clinical Support [facility] Transplant Program & [facility] Liver [address] [address] Ruth Villagran MD Giana, Karen 10/05/2025 2:30 PM EST Clinical Support [facility] Transplant Program & [facility] [address] [address] Ruth Villagran MD Anane, Asamoah, RN 10/05/2025 2:00 PM EST Office Visit [facility] Transplant Program & [facility] Liver [address] [address] Ruth Villagran MD Emmanuel, Bishoy, MD CKD (chronic kidney disease) stage 5, GFR less than 15 ml/min (HCC) (Primary Dx) 10/05/2025 1:00 PM EST Office Visit [facility] Transplant Program & [facility] Liver [address] [address] Ruth Villagran MD CKD (chronic kidney disease) stage 5, GFR less than 15 ml/min (HCC) (Primary Dx) 10/05/2025 12:00 PM EST Clinical Support [facility] Transplant Program & [facility] Liver [address] [address] Ruth Villagran MD Haberman, Andrew, RN CKD (chronic kidney disease) stage 5, GFR less than 15 ml/min (HCC) (Primary Dx) 10/05/2025 11:30 AM EST Clinical Support [facility] Transplant Program & [facility] [address] [address] Ruth Villagran MD Bruneau, Jessica, LCSW Pre-transplant evaluation for kidney transplant (Primary Dx) 10/05/2025 10:30 AM EST Clinical Support [facility] Transplant Program & [address] [address] Yusuf Samson MD Ye, Xiaoyi, MD Haberman, Andrew, RN 10/05/2025 Documentation [facility] Transplant Program & [address] [address] Lee Ann Green 10/05/2025 Scanned Document [facility] Transplant Program & [facility] [address] [address] Lee Ann Green 08/25/2025 Scanned Document [facility] Transplant Program & [facility] [address] [address] Maria Teresa Bruce MA 08/25/2025 Scanned Document [facility] Transplant Program & [address] [address] Maria Teresa Bruce MA from Last 3 Months Social History Tobacco Use Types Packs/Day Years Used Date Smoking Tobacco: Never Assessed Sex and Gender Information Value Date Recorded Sex Assigned at Male 08/28/2025 3:07 PM EDT Legal Sex Male 4:38 PM EDT Gender Identity Male 08/28/2025 3:07 PM EDT Sexual Orientation Heterosexual (straight) 08/28 3:07 PM EDT Last Filed Vital Signs Vital Sign Reading [...] Mass Index 33.36 10/05/2025 11:18 AM EST Plan of Treatment Upcoming Encounters Date Type Department Care Team (Late st Contact Info) Description 10/19/2025 3:00 PM EST Appointment [facility] Pulmonary Laboratory & Rehabilitation [address] [facility], [address] [place] [address] Ruth Villagran MD [address] [facility] [address] [place], [place] [phone] Health Maintenance Due Date Last Done Comments Hepatitis C Virus Screening 1978 HIV Screening 1991 DTaP/Tdap/Td Vaccines (1 - Tdap) 1997 Hepatitis B Vaccines (1 of 3 - 19+ 3-dose series) 1997 Pneumococcal Vaccine: Pediat anastasia (0-5 Years) and At-Risk Patients (6 to 49 Years) (1 of 2 - PCV) 1997 COVID-19 Vaccine (2 - Jansse n risk series) 03/05/2021 02/05/2021 Colonoscopy 2023 Influenza Vaccine 06/05/2025 11/12/2015, , 10/31/2012, Additional history exists Procedures Procedure Name Priority Date/Time Associated Diagnosis Comments GISSELLE ARCHIVE FOR REFERENCE ONLY US Routine 10/08/2025 11:10 AM EST GISSELLE ARCHIVE FOR REFERENCE ONLY CT Routine 10/08/2025 11:[address] ABDOMEN ARCHIVE FOR REFERENCE ONLY Routine 10/08/2025 11:04 AM EST ECHOCARDIOGRAM-SCAN Routine 07/15/2025 8 :[address] SCAN Routine 07/14/2025 8:40 AM EDT from Last 3 Months Results * GISSELLE Archive for reference only US (10/08/2025 11:10 AM EST) Narrative [place] - 10/08/2025 11:09 AM EST This order has been auto-finalized and does not contain a result. us File Room Provider IMG DIGITIZE FILMS Final Resu lt Performing Organization Address [facility] de Phone Number GABBIE [phone] * GISSELLE Archive for reference only CT (10/08/2025 11:10 AM EST) Narrative [place] - 10/08/2025 11:04 AM EST This order has been auto-finalized and does not contain a result. File Room Provider IMG DIGITIZE FILMS Final Resu lt Performing Organization Address [facility] de Phone Number GABBIE [phone] * CT Abdomen Archive for Reference Only (10/08/2025 11:04 AM EST) Narrative [place] - 10/08/2025 11:04 AM EST This study has been auto finalized and does not contain a result. File Room Provider IMG DIGITIZE FILMS Final Resu lt Performing Organization Address [facility] de Phone Number GABBIE [phone] * ECHOCARDIOGRAM-SCAN (07/15/2025 8:35 AM EDT) Anatomical Region Laterality Modality Other External Provider HX AMB PROCEDURES Final Res ult * CT SCAN (07/14/2025 8:40 AM EDT) Anatomical Region Laterality Modality Other Sharita Martinez NON PROFIT DIRECTOR IMG LEGACY PROCEDURES Final Result from Last 3 Months Insurance CIGNA HMO CIGNA HMO CIGNA HMO Care Teams Microsoft Dynamics Consultant Relationship Specialty Start Date End Date Lauren Adams MD [address] [place] [phone] PCP - General Internal Medicine 08/28/25
--- OUTSIDE RECORDS SUMMARY | 2025-10-08 21:28 | XMS_ITS | Clinical Summary ---
Author Organization [facility] Address [address], [place] [address] Phone Care Team Providers Care Cerner Analyst Name Role Phone Susan Dsouza Primary Care Provider Social History Tobacco Use Types Packs/Day Years Used Date Smoking Tobacco: Never Assessed Sex and Gender Information Value Date Recorded Sex Assigned at Not on file Legal Sex Male 7:24 AM MDT Gender Identity Not on file Sexual Orientation Not on file Plan of Treatment Health Maintenance Due Date Last Done Comments Pneumococcal PPSV23 Highest Risk Adult (1 of 3 - PCV13 ) 1997 Influenza Vaccine (#1) 2025 Insurance CIG[employer] Care Teams Cerner Analyst Relationship Specialty Start Date End Date Susan Dsouza PA [address] [place] [phone] PCP - General Internal Medicine 07/08/25
--- OUTSIDE RECORDS SUMMARY | 2025-10-08 21:28 | XMS_ITS ---
Author Organization [facility] Address [address] [place] [address] Phone Care Team Providers Care Mouthpiece Maker Name Role Phone Pcp, Unknown Primary Care Provider Unavailabl e Transplant Episode Kidney Candidate [facility] ([place], [place]) [facility] Referred on 08/24/2025 Marked as Active on 08/24/2025 Kidney CoordinatorWinnie Lozada RN Email: Scores Score Value Updated Exceptions/Reas ons CPRA Not available EPTS (Calc) 13 10/08/2025 Care Team Name Role Phone Fax Email Winnie Lozada RN Kidney Coordinator [phone] [email or web address] Miguelito Chen MD Referring Physician [phone] N/A N/A Events Pre-Transplant Referred: 08/24/2025
--- OUTSIDE RECORDS SUMMARY | 2025-10-08 21:28 | XMS_ITS ---
Author Organization Formerly [facility] Address [address] [place] [address] Care Team Providers Care Licensed Midwife Name Role Phone Lauren Adams MD Primary Care Provider [phone] Transplant Episode Kidney Candidate [facility] ([place], [place]) - [facility] Evaluation began on 10/05/2025 Marked as Active on 10/05/2025 Kidney CoordinatorPietro Gamboa RN Email: N/A Scores Score Value Updated Exceptions/Reas ons CPRA Not available EPTS (Calc) 13 10/08/2025 Care Team Name Role Phone Fax Email Pietro Gamboa RN Kidney Coordinator [phone] N/A Miguelito Chen MD Referring Provider [phone] N/A Lauren Adams MD Primary Care Provider [phone] N/A Events Pre-Transplant Referred: 08/24/2025 Evaluation began: 10/05/2025 Appointments (09/08/2025 - 11/08/2025) When With Visit Type Description 10/05/2025 Transplant - Gary Sorenson Consultation CKD (chronic kidney disease) stage 5, GFR less than 15 ml/min (HCC) (Primary Dx) 10/05/2025 Transplant - Shagufta Villagran Consultation CKD (student specialist brigette kidney disease) stage 5, GFR less than 15 ml/min (HCC) (Primary Dx) 10/05/2025 Transplant - Chris Mercado PRE KIDNEY NEW (C S) Pre-transplant evaluation for kidney transplant (Primary Dx) 10/05/2025 Transplant - Shakeel Campoverde PRE KIDNEY NEW (CS) 10/05/2025 Transplant - Dyan Caro PRE KIDNEY NEW (CS) 10/05/2025 Transplant - [place] PRE KIDNE Y NEW (CS) 10/05/2025 Transplant - Dyan Gamboa PRE KIDNEY NEW ( CS) CKD (chronic kidney disease) stage 5, GFR less than 15 ml/min (HCC) (Primary Dx) 10/05/2025 Transplant - Dyan Gamboa TRANSPL ANT KIDNEY PRE CLASS
--- OUTSIDE RECORDS SUMMARY | 2025-10-08 21:28 | XMS_ITS | Clinical Summary ---
Author Organization [address] Address [address] [place] [phone] Phone Care Team Providers Care Label Printer Name Role Phone Lauren Adams MD Primary Care Provider [phone] Allergies No known active allergies Medications lisinopriL [...] following the same meal each day. Active Surgical History Surgery Date Site/Laterality Comments COLONOSCOPY 2003 PROCEDURE: NM COLONOSCOPY STOMA DX INCLUDING COLLJ SPEC SPX; [...] Aunt Father Maternal Grandmother Mother (Age 403/01/09) [place] ag e 50 Paternal Grandfather Social History [...] 10/15/2025 3:20 PM EST Consult Gastroenterology - [address] [phone] Sera Hunter PA [address] [place] [phone] Health Maintenance Due Date Last Done Comments [...] on patient's age to complete this topic Insurance CIG[employer] Advance Directives Documents on File Type Date Recorded Patient Rail Flaw Detector Operator Expl anation Health Care Decision (hx) 10/18/2010 AD SHAVONNE DIRECTIVE Care Teams Label Printer Relationship Specialty Start Date End Date Lauren Adams MD [address] [place] [phone] PCP - General 06/28/23
--- OUTSIDE RECORDS SUMMARY | 2025-10-08 21:28 | XMS_ITS | Clinical Summary ---
Author Organization [facility] Address [email or web address] [place] [address] Phone Care Team Providers Care Jboss Developer Name Role Phone Pcp, Unknown Primary Care Provider Unavailabl e Encounters Date Type Department Care Team Description 09/10/2025 Telephone [facility] Trans[facility] Clinic [address] [address] Winnie Lozada, RN 09/10/2025 Telephone [facility] Trans[facility] Clinic [address] [address] Winnie Lozada, RN from Last 3 Months Social History Tobacco Use Types Packs/Day Years Used Date Smoking Tobacco: Never Assessed Education Answer Date Recorded Are you interested in more education? Not on chad e 09/10/2025 Are you concerned about learning? Not on file 09/10/2025 No 09/10/2025 No 09/10/2025 Digital Access Answer Date Recorded No 09/10/2025 No 09/10/2025 Reliable internet access at home? Not on file 09/10/2025 Device with a working camera? Not on file Sex and Gender Information Value Date Recorded Sex Assigned at Male 08/25/2025 4:00 PM EDT Legal Sex Male 3:50 PM EDT Gender Identity Male 08/25/2025 4:00 PM EDT Sexual Orientation Straight 08/25/2025 4: 00 PM EDT Plan of Treatment Health Maintenance Due Date Last Done Comments Adult Td,Tdap Booster 1978 LIPID PANEL 1978 DEPRESSION SCREENING 1990 SMOKING Hx and SMOKELESS TOB ACCO SCREENING 1991 HEPATITIS C SCREENING 1996 HIV ONE-TIME SCREENING (18-6 5 YEARS) 1996 COLOGUARD 2023 COLONOSCOPY 2023 COLORECTAL CANCER SCREENING 2023 FIT TEST 2023 FOBT 2023 SIGMOIDOSCOPY 2023 VIRTUAL COLONOSCOPY 2023 INFLUENZA VACCINE (#1) 2025 COVID-19 VACCINE ( - 2024-2 6 season) 2025 HEPATITIS A VACCINES Aged Out No long er eligible based on patient's age to complete this topic HIB VACCINES Aged Out No longer eligi ble based on patient's age to complete this topic MENINGOCOCCAL VACCINES (ACWY) Aged Out No longer eligible based on patient's age to complete this topic MENINGOCOCCAL VACCINES (B) Aged Out N o longer eligible based on patient's age to complete this topic PNEUMOCOCCAL VACCINES (0-49 years) Aged Out No longer eligible based on patient's age to complete this topic Medical Devices Not on file Insurance CIGLEONA PPO CIGLEONA PPO CIGNA PPO Member Subscriber Plan / Payer (Ef fective 2010-Present) Name:Mack Goodson Relation to Subscriber:Self Name:Mack Goodson Payer ID:[id number] (NAIC) Type:PPO Address: [address] [place] [id number] CIGNA PPO CIGNA PPO CIGLEONA PPO Care Teams Jboss Developer Relationship Specialty Start Date End Date Pcp, Unknown PCP - General 08/25/25 Additional Source Comments The information contained in this document represents components of the legal health record. It is not the complete legal health record.[facility]
--- OUTSIDE RECORDS SUMMARY | 2025-10-08 21:28 | XMS_ITS | Encounter Summary ---
Author Organization [facility] Address [address] [place] [address] Care Team Providers Care Client Support Associate Name Role Phone Lauren Adams MD Primary Care Provider [phone] Encounter Details Date Type Department Care Team (Late st Contact Info) Description 08/25/2025 Scanned Document [facility] 85 [facility] [address] [place] [phone] Maria Teresa Bruce MA [address] [id number] Social History Tobacco Use Types Packs/Day Years [...] [facility] [place] [facility] [address] [facility], [address] [place] [address] Ruth Villagran MD 85 [facility] [address] [place], [place] [phone] documented as of this encounter Visit Diagnoses Not on filedocumented in this encounter Care Teams Client Support Associate Relationship Specialty Start Date End Date Lauren Adams MD [address] [place] [phone] PCP - General Internal Medicine 08/28/25 documented as of this encounter
--- OUTSIDE RECORDS SUMMARY | 2025-10-08 21:28 | XMS_ITS | Patient Health Record ---
Author Organization [facility] [address] Address [address] [place] [address] Care Team Providers Care Supervising Airplane Pilot Name Role Phone SERENA WALKER Unavailable [phone] CESAR ADAMS Unavailable [phone] ISIDRAPHU Unavailable [phone] Allergies No Known Allergies Results Component Value Reference Range Flag Notes Calprotectin, Fecal-[id number] Reviewed date:07/17/2025 08:13:56 AM Interpretation: Performing Lab:[facility], [address] [place] [address], Phone - [phone], Director - Job Notes/Report: Clinical Information:SRC:[facility] SRC:AM Calprotectin, Fecal 84 0-120 ug/g Concentration Interpretation Follow-Up < 5 - 50 ug/g Normal None >50 -120 ug/g Borderline Re-evaluate in 4-6 weeks >120 ug/g Abnormal Repeat as clinically indicated C difficile Toxins A+B, EIA- [id number] Reviewed date:07/17/2025 08:13:45 AM Interpretation: Performing Lab:[facility], [address] [place] [address], Phone - [phone], Director - Job Notes/Report: Clinical Information:SRC:[facility] SRC:AM C difficile Toxins A+B, EIA Negative Negative White Blood Cells (WBC), [facility] ol-[id number] Reviewed date:07/17/2025 08:13:28 AM Interpretation: Performing Lab:[facility], [address] [place] [address], Phone - [phone], Director - Job Notes/Report: Clinical Information:SRC:[facility] SRC:AM White Blood Cells (WBC), Stool TNP Test not perform ed. No Ova / Parasite transport containers received. Request Problem TNP Test not performed. No Ova / Parasite transport containers received. TEST: [id number] Ova + Parasite Exam [id number] White Blood Cells (WBC), Stool Ova + Parasite Exam-[id number] Reviewed date:07/17/2025 08:13:15 AM Interpretation: Performing Lab:[facility] [place], [address] [place] [address], Phone - [phone], Director - Job Notes/Report: Clinical Information:SRC:[facility] SRC:AM Ova + Parasite Exam TNP Test not performed. No Ova / Parasite transport containers received. These results were obtained using wet preparation(s) and trichrome stained smear. This test does not include testing for Cryptosporidium parvum, Cyclospora, or Microsporidia. Stool Culture-[id number] Reviewed date:07/17/2025 08:13:41 AM Interpretation: Performing Lab:[facility] [place], [address] [place] [address], Phone - [phone], Director - Job Notes/Report: Clinical Information:SRC:[facility] SRC:AM Clinical Information:SRC:[facility] SRC:AM Clinical Information:SRC:[facility] SRC:AM Salmonella/Shigella Screen Final report Campylobacter Culture Final report E coli Shiga Toxin EIA Negative Negative Result 1 No Salmonella or Shigella recovered. Result 1 No Campylobact er species isolated. T3, FREE Reviewed date:03/06/2025 08:09:24 AM Interpretation: Performing Lab:NL2, [employer] [facility] [employer] Rashel Phillips Notes/Report: FASTING:YES FASTING: YES T3, FREE 3.0 2.3-4.2 pg/mL N TSH Reviewed date:03/06/2025 08:09:24 AM Interpretation: Performing Lab:NL2, [employer] [facility] Rashel Phillips Notes/Report: FASTING:YES FASTING: YES TSH 2.59 0.40-4.50 mIU/L N T4, FREE Reviewed date:03/06/2025 08:09:24 AM Interpretation: Performing Lab:NL[facility], [employer] [facility] Rashel Phillips Notes/Report: FASTING:YES FASTING: YES T4, FREE 1.2 0.8-1.8 ng/dL N PSA (FREE AND TOTAL) Reviewed date:03/06/2025 12:15:53 PM Interpretation: Performing Lab:NL2, [employer] [facility] [id number] [place], [place] [address] Rashel Phillips Notes/Report: FASTING:YES FASTING: YES PSA, TOTAL 2.4 < OR = 4.0 ng/mL N PSA, FREE 0.9 N PSA, % FREE 38 >25 % (calc) N PSA(ng/mL) Free PSA(%) Estimated(x) Probability of Cancer(as%) 0-2.5 (*) Approx. 1 2.6-4.0(1) 0-27(2) 24(3) 4.1-10(4) 0-10 56 11-15 28 16-20 20 21-25 16 >or =26 8 >10(+) N/A >50 References:(1)Mary xiao et al.:Urology 60: 469-474 (2001) (2)Greta et al.:J.Urol 168: 922-925 (2001) Free PSA(%) Sensitivity(%) Specificity(%) < or = 25 85 19 < or = 30 93 9 (3)Catalona et al.:CUONG 277: 6072-0233 (1996) (4)Catalona et al.:CUONG 279: 8185-1164 (1997) (x)These estimates vary with age, ethnicity, [...] mind. PSA was performed using the Lauri Stephen Immunoassay method. Values obtained from different assay methods cannot be used interchangeably. PSA levels, regardless of value, should not be interpreted as absolute evidence of the presence or absence of disease. VITAMIN B12 Reviewed date:03/06/2025 08:09:24 AM Interpretation: Performing Lab:NL2, [employer] [facility] [facility] Notes/Report: FASTING:YES FASTING: YES VITAMIN B12 510 292-3953 pg/mL N HEMOGLOBIN A1c Reviewed date:03/06/2025 08:09:24 AM Interpretation: Performing Lab:NL2, [employer] [facility] [facility] Notes/Report: FASTING:YES FASTING: YES HEMOGLOBIN A1c 5.2 <5.7 % N For the purpose of screening for the presence of diabetes: <5.7% Consistent with the absence of diabetes 5.7-6.4% Consistent with increased risk for diabetes (prediabetes) > or =6.5% Consistent with diabetes This assay result is consistent with a decreased risk of diabetes. Currently, no consensus exists regarding use of hemoglobin A1c for diagnosis of diabetes in children. According to [place] [employer] (ADA) guidelines, hemoglobin A1c <7.0% represents optimal control in non- diabetic patients. Different metrics may apply to specific patient populations. Standards of Medical Care in Diabetes(ADA). URINALYSIS, COMPLETE Reviewed date:03/06/2025 08:09:14 AM Interpretation: Performing Lab:RAYSHAWN2, [employer] [facility] [facility] Notes/Report: FASTING:YES FASTING: YES COLOR YELLOW YELLOW N APPEARANCE CLEAR CLEAR N SPECIFIC GRAVITY 1.013 1.001-1.035 N PH 5.5 5.0-8.0 N GLUCOSE NEGATIVE NEGATIVE N BILIRUBIN NEGATIVE NEGATIVE N KETONES NEGATIVE NEGATIVE N OCCULT BLOOD TRACE NEGATIVE A PROTEIN 3+ NEGATIVE A NITRITE NEGATIVE NEGATIVE N LEUKOCYTE ESTERASE NEGATIVE NEGATIVE N WBC 0-5 < OR = 5 /HPF N RBC 3-10 < OR = 2 /HPF A SQUAMOUS EPITHELIAL CELLS NONE SEEN < OR = 5 /HPF N BACTERIA NONE SEEN NONE SEEN /HPF N HYALINE CAST NONE SEEN NONE SEEN /LPF N NOTE This urine was analyzed for the presence of WBC, RBC, bacteria, casts, and other formed elements. Only those elements seen were reported. CBC (INCLUDES DIFF/PLT) Reviewed date:03/06/2025 08:07:58 AM Interpretation: Performing Lab:NL2, [employer] [facility] [id number] [facility] Rashel Phillips Notes/Report: FASTING:YES FASTING: YES WHITE BLOOD CELL COUNT 8.9 3.8-10.8 Thousand/uL N RED BLOOD CELL COUNT 4.06 4.20-5.80 Million/uL L HEMOGLOBIN 12.1 13.2-17.1 g/dL L HEMATOCRIT 37.1 38.5-50.0 % L MCV 91.4 80.0-100.0 fL N MCH 29.8 27.0-33.0 pg N MCHC 32.6 32.0-36.0 g/dL N For adults, a slight decrease in the calculated MCHC value (in the range of 30 to 32 g/dL) is most likely not clinically significant; however, it should be interpreted with caution in correlation with other red cell parameters and the patient's clinical condition. RDW 12.7 11.0-15.0 % N PLATELET COUNT 203 140-400 Thousand/uL N MPV 10.9 7.5-12.5 fL N ABSOLUTE NEUTROPHILS 6542 0119-3641 cells/uL N ABSOLUTE LYMPHOCYTES 0845 684-5455 cells/uL N ABSOLUTE MONOCYTES 721 200-950 cells/uL N ABSOLUTE EOSINOPHILS 142 15-500 cells/uL N ABSOLUTE BASOPHILS 36 0-200 cells/uL N NEUTROPHILS 73.5 N LYMPHOCYTES 16.4 N MONOCYTES 8.1 N EOSINOPHILS 1.6 N BASOPHILS 0.4 N BASIC METABOLIC PANEL Reviewed date:03/09/2025 08:12:27 AM Interpretation: Performing Lab:[facility] [address] [address] [id number] Elizabeth Ivey Notes/Report: FASTING:NO FASTING: NO GLUCOSE 101 65-139 mg/dL N Non-fasting reference interval UREA NITROGEN (BUN) 64 7-25 mg/dL H CREATININE 3.55 0.60-1.29 mg/dL H EGFR 21 > OR = 60 mL/min/1.73m2 L BUN/CREATININE RATIO 18 6-22 (calc) N SODIUM 139 135-146 mmol/L N POTASSIUM 4.8 3.5-5.3 mmol/L N CHLORIDE 109 98-110 mmol/L N CARBON DIOXIDE 24 20-32 mmol/L N CALCIUM 8.5 8.6-10.3 mg/dL L Your request to have a duplicate copy faxed has been acknowledged. Queued to: [id number] COMPREHENSIVE METABOLIC PANE L Reviewed date:03/06/2025 09:49:26 AM Interpretation: Performing Lab:NL2, [employer] [facility] Rashel Phillips Notes/Report: FASTING:YES FASTING: YES GLUCOSE 103 65-99 mg/dL H Fasting reference interval For someone without known diabetes, a glucose value between 100 and 125 mg/dL is consistent with prediabetes and should be confirmed with a follow-up test. UREA NITROGEN (BUN) 71 7-25 mg/dL H CREATININE 3.38 0.60-1.29 mg/dL H EGFR 22 > OR = 60 mL/min/1.73m2 L BUN/CREATININE RATIO 21 6-22 (calc) N SODIUM 139 135-146 mmol/L N POTASSIUM 5.2 3.5-5.3 mmol/L N CHLORIDE 110 98-110 mmol/L N CARBON DIOXIDE 24 20-32 mmol/L N CALCIUM 8.8 8.6-10.3 mg/dL N PROTEIN, TOTAL 5.7 6.1-8.1 g/dL L ALBUMIN 3.6 3.6-5.1 g/dL N GLOBULIN 2.1 1.9-3.7 g/dL (calc) N ALBUMIN/GLOBULIN RATIO 1.7 1.0-2.5 (calc) N BILIRUBIN, TOTAL 0.2 0.2-1.2 mg/dL N ALKALINE PHOSPHATASE 46 36-130 U/L N AST 28 10-40 U/L N ALT 31 9-46 U/L N LIPID PANEL, STANDARD Reviewed date:03/06/2025 08:09:24 AM Interpretation: Performing Lab:[facility] Housing, [employer] [facility] Rashel Phillips Notes/Report: FASTING:YES FASTING: YES CHOLESTEROL, TOTAL 162 <200 mg/dL N HDL CHOLESTEROL 53 > OR = 40 mg/dL N TRIGLYCERIDES 78 <150 mg/dL N LDL-CHOLESTEROL 92 N Reference range: <100 Desirable range <100 mg/dL for primary prevention; <70 mg/dL for patients with CHD or diabetic patients with > or = 2 CHD risk factors. LDL-C is now calculated using the Ramiro-Matthew calculation, which is a validated novel method providing better accuracy than the Friedewald equation in the estimation of LDL-C. Ramiro SHIPLEY et al. CUONG. 2013;310(19): 2067-5048 (http://Numecent.TerraEchos.365looks/faq /SLA717) CHOL/HDLC RATIO 3.1 <5.0 (calc) N NON HDL CHOLESTEROL 109 <130 mg/dL (calc) N For patients with diabetes plus 1 major ASCVD risk factor, treating to a non-HDL-C goal of <100 mg/dL (LDL-C of <70 mg/dL) is considered a therapeutic option. NON-GYNECOLOGIC CYTOLOGY Reviewed date:07/28/2025 03:17:46 PM Interpretation: [...] paraffin embedded. Technical cytopathology services provided by [facility], at [address] [place] [address] (IA # [id number]/Marian Jerez MD, Lumber Stacker Operator.) Addendum A. Urinary Bladder, urovision: Specimen C Adequacy Satisfactory for evaluation TISSUE [...] Interpretation: Performing Lab: Notes/Report: Note See Note [facility], a member of [facility] Patient Name: MARIAN GOODSON Date of : 1980 Reason for Exam: pain Exam Date: 07/02/2025 [id number] EST Report Status: Final Ordering Provider: JULISSA [...] Signed Date: 07/02/2025 12:11 ET Workstation ID: [id number] Transcribed By: Self Edit Transcribed Date: 07/02/2025 12:10 ET Comp. Metabolic Panel ([id number] Reviewed date:07/13/2025 04:33:46 PM Interpretation: Performing Lab:[facility], [address], [place], Phone - [phone], Director - Job Notes/Report: Glucose 88 70-99 mg/dL BUN 97 6-24 mg/dL HH Creatinine 6.64 0.76-1.27 mg/dL H eGFR 10 >59 mL/min/1.73 L BUN/Creatinine Ratio 15 9-20 Sodium 141 134-144 mmol/L Potassium 4.9 3.5-5.2 mmol/L Chloride 108 96-106 mmol/L H Carbon Dioxide, Total 12 20-29 mmol/L L * *Verified by repeat analysis Calcium 8.3 8.7-10.2 mg/dL L Protein, Total 5.5 6.0-8.5 g/dL L Albumin 3.6 4.1-5.1 g/dL L Globulin, Total 1.9 1.5-4.5 g/dL Bilirubin, Total [...] ALT (SGPT) 31 0-44 IU/L Albumin/Creatinine Ratio,Uri ne-[id number] Reviewed date:07/13/2025 04:34:06 PM Interpretation: Performing Lab:[facility] [place], [address] [place] [address], Phone - [phone], Director - Job Notes/Report: Creatinine, Urine 59.3 Not Estab. mg/dL Albumin, Urine 1234.7 Not Estab. ug/mL Results confirmed on dilution. Alb/Creat Ratio 2082 0-29 mg/g creat H Normal: 0 - 29 Moderately increased: 30 - 300 Severely increased: >300 CBC With Differential/Platel et-[id number] Reviewed date:07/13/2025 04:33:56 PM Interpretation: Performing Lab:[facility] [place], [address] [place] [address], Phone - [phone], Director - Job Notes/Report: WBC 8.2 3.4-10.8 x10E3/uL RBC 3.10 4.14-5.80 x10E6/uL L Hemoglobin 9.3 13.0-17.7 g/dL L Hematocrit 28.1 37.5-51.0 % L MCV 91 79-97 fL MCH 30.0 26.6-33.0 [...] Immature Grans (Abs) 0.1 0.0-0.1 x10E3/uL Urinalysis, Complete-[id number] Reviewed date:07/13/2025 04:34:16 PM Interpretation: Performing Lab:[facility] [place], [address] [facility], [place], Phone - [phone], Director - Job Notes/Report: Specific Toponas 1.013 1.005-1.030 pH 5.5 5.0-7.5 Urine-Color Yellow Yellow Appearance Clear Clear WBC Esterase Negative Negative Protein 3+ Negative/Trace A Glucose Negative Negative Ketones Negative Negative Occult Blood 2+ Negative A Bilirubin Negative Negative Urobilinogen,Semi-Qn 0.2 0.2-1.0 mg/dL Nitrite, Urine Negative Negative Microscopic Examination See below: Microscopic was indicated and was performed. WBC 0-5 0 - 5 /hpf RBC 3-10 0 - 2 /hpf A Epithelial Cells (non renal) None seen 0 - 10 /hpf Casts None seen None seen /lpf Bacteria None seen None seen/Few Reason For Referral Reason evaluate & treat. (i ncrease createne) Diagnosis 1 Enlarged prostate (N 40.0) Referral Organization [facility] SARITA Referring Provider First Name SERENA Referring Provider Last Name AARON Referring Provider [facility] Referred Provider Specialty Urology Clinical Notes Grey Correia 07/2025 02:52:06 PM > faxed pt info to urology [facility]. p) [phone] f) [phone] Earl Adam 04/02/2025 01:29:45 PM > Spoke with Radha. Booked on April 16 1:40PM Referral Priority Routine Reason evaluate & treat. ( 3.38) Diagnosis 1 Creatinine elevation (R79.89) Diagnosis 2 Acute kidney failure , unspecified (N17.9) Diagnosis 3 Chronic kidney disea se, unspecified (N18.9) Referral Organization [facility] MICHAEL STEIN Referring Provider First Name SERENA Referring Provider Last Name AARON Referring Provider [facility] Referred Provider Specialty Nephrology Clinical Notes Grey Correia 07/2025 02:56:50 PM > [facility] p) [phone] f) [phone] Earl Adam 03/24/2025 03:27:27 PM > Spoke with Maria C, she gave me this fax [phone]. Refaxed twice. Booking out until the end of the year. Sent task to Cecy CASTANEDA Earl Adam 05/06/2025 03:21:20 PM > Spoke with Mayi, they called patient and lvm but they haven't heard back. Mayi said [facility] can accommodate pt sooner. LVM to patient, David Sam 05/13/2025 02:21:44 PM > Spoke with the patient and gave him the number. [facility] call [facility], elma momin 05/19/2025 08:24:09 AM >olga into april 2026- needs scott sent to [facility] nephrology [address] [place] [address], [address], [place] [address], , fax # [phone], and [facility] phone # [phone], fax# [phone], David Sam 06/11/2025 01:51:55 PM > spoke with Elizabeth ([facility]), they left a msg on 06/01 to book an appt. LVM to pt, David Sam 07/08/2025 02:49:38 PM > He already have an appt in November but he was asking if there are offices having sooner appt. I gave him number of [facility]. Referral Priority Urgent Reason evaluate and treat colonic finding on ct Diagnosis 1 Abdominal pain, lowe r (R10.30) Referral Organization [facility] Referring Provider First Name SERENA Referring Provider Last Name AARON Referring Provider Speciality Internal M edicine Referred Provider Specialty Gastrointest inal surgeon General Notes faxed to wa s seen there better for colonoscopy Clinical Notes elma momin 0 06/26/2025 08:53:16 AM >, Keyona Phan 08/26/2025 02:44:52 PM > faxed ct results to Dr. Hadley for review and expedited appt, Samm Shah 09/18/2025 02:24:36 PM EST > Scheduled for 10/15 at 3:20 pm. Pt aware Referral Priority Routine Medications Medication SIG (Take, Route, Frequency, Duration) Notes Start Date End Date Status B Complex - Capsule as directed Orally Active Magnesium Active amLODIPine Besylate 5 MG Tablet 1 tablet Orally Once a day; Duration: 90 days 04/03/2025 Active Vitamin B12 Active Sodium Bicarbonate 650 MG Tablet TAKE 1 TABLET BY MOUTH THREE TIMES DAILY Oral; Duration: 30 Days Active Calcium Acetate (Phos Binder) 667 MG Capsule TAKE 1 CAPSULE BY MOUTH THREE TIMES DAILY WITH MEALS Oral; Duration: 30 Days Active hydrALAZINE HCl 25 MG Tablet TAKE 3 TABLETS BY MOUTH THREE TIMES DAILY Oral; Duration: 30 Days Active Calcitriol 0.25 MCG Capsule 1 capsule Or al daily; Duration: 30 days Active Carvedilol 6.25 MG Tablet 1 tablet with food Orally Twice a day; Duration: 30 days 07/17/2025 Active Ondansetron HCl 4 MG Tablet 1 tablet Ora lly Once a day; Duration: 30 days 07/17/2025 Active Tamsulosin HCl 0.4 MG Capsule 2 cap Orally Once a day; Duration: 30 days 05/18/2025 Active Immunizations Vaccine Route Administration Date Status Comme nts Tdap IM Intramuscular 03/12/2025 Administered Social History Tobacco Use: Social History Observation Description Date Details (start date - stop date) Current Smoker NA - NA Social History Drugs/Alcohol: Social Info Question Answer Notes Alcohol Screen (Audit-C) Did you have a drink containing alcohol in the past year? Yes Points 0 Interpretation Negative Tobacco Use: Social Info Question Answer Notes Tobacco Use/Smoking Are you a current smoker How often do you smoke cigarettes? every day Additional Details Category Social Info Options Details Drugs/Alcohol: Do you smoke marijuana? Ad mits Do you drink alcohol? 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 Problems Problem Type SNOMED Code ICD Code Onset Dates Problem Status W/U Status Risk Notes Problem Localized adiposity (828955295) Localized adiposity (E65) Active confirmed Problem Essential hypertension (80306195) Essential (primary) hypertension (I10) Active confirmed Problem Melena (0350741) Melena (K92.1) Active confirme d Problem Backache (853055256) Dorsalgia, unspecified (M54.9) Active confirmed Problem End stage renal disease (04181974) End stage renal disease (N18.6) Active confirmed Problem Chronic kidney disease (699781765) Chronic kidney disease, unspecified (N18.9) Active confirmed Problem Abnormal blood pressure (46985654) Encounter for examination of blood pressure with abnormal findings (Z01.31) Active confirmed Problem Screening for malignant neoplasm of prostate (538605057) Encounter for screening for malignant neoplasm of prostate (Z12.5) Active confirmed Problem Diabetes mellitus screening (029222244) Encounter for screening for diabetes mellitus (Z13.1) Active confirmed Problem Lipid screening (679539397) Encounter for screening for lipoid disorders (Z13.220) Active confirmed Problem Morbid obesity (356485128) Morbid obesity (E66.01) Active confirmed Problem Acquired hypothyroidism (180753542) Acquired hypothyroidism (E03.9) Active confirmed Problem Hyperlipoproteinemia (0930992) Acquired hyperlipoproteinemia (E78.5) Active confirmed Problem Adult health examination (876142619) Adult general medical exam (Z00.00) Active confirmed Problem Abdominal pain (02327882) Abdominal pain, unspecified abdominal location (R10.9) Active confirmed Problem Annual health maintenance examination (09824516) Annual physical exam (Z00.00) Active confirmed Problem Vitamin D deficiency (77905824) Vitamin D deficiency (E55.9) Active confirmed Problem Male hypogonadism (43973855) Hypogonadism in male (E29.1) Active confirmed Problem Enlarged prostate (881247642) Enlarged prostate (N40.0) Active confirmed Problem Blood in stool (078591428) Blood in stool (K92.1) Active confirmed Problem Obstructive sleep apnea syndrome (01319679) HAYLEY (obstructive sleep apnea) (G47.33) Active confirmed Problem Diabetes mellitus screening (379209117) Diabetes mellitus screening (Z13.1) Active confirmed Problem Obesity (674464614) Obesity (BMI 30-39.9) (E66.9) Active confirmed Problem Chronic kidney disease stage 3B (disorder) (438418570) Chronic kidney disease, stage 3b (N18.32) Active confirmed Problem Obese class II (915651123252182) BMI 37.0-37.9, adult (Z68.37) Active confirmed Problem Vitamin B>12< deficiency anaemia (34731374) Anemia due to vitamin B12 deficiency, 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) Active confirmed Problem Body mass index 30.0 0 to 34.99 (639260598459426) BMI 31.0-31.9,adult (Z68.31) Active confirmed Problem Blood chemistry abnormal (272737450) Creatinine elevation (R79.89) Active confirmed Problem Benign prostatic hypertrophy without outflow obstruction (849966933) BPH loc w/o ur obs/LUTS (N40.0) Active confirmed Problem Microcytic anemia (303100567) Microcytic anemia (D50.9) Active confirmed Problem Rib pain (514387078) Rib pain (R07.81) Active c onfirmed Problem Right sided abdomina l pain (055160053) Right sided abdominal pain (R10.9) Active confirmed Problem Avitaminosis D (04424716) Avitaminosis D (E55.9) Active confirmed Problem Endocrine/metabolic screening (925431681) Encounter for screening for endocrine disorder (Z13.29) Active confirmed Problem Abnormal metabolic state due to diabetes mellitus (867029284) Abnormal metabolic state due to diabetes mellitus (E11.9) Active confirmed Problem Lipid screening (366604929) Lipid screening (Z13.220) Active confirmed Problem Blood chemistry abnormal (256350971) Abnormal blood creatinine level (R79.89) Active confirmed Problem Chronic kidney disease stage 4 (417017649) CKD (chronic kidney disease), stage IV (N18.4) Active confirmed Vital Signs Heart Rate 89 /min 08/18/2025 Oximetry 99 % 08/18/2025 Blood pressure diastolic 80 mm Hg 08/18/2025 Height 68 in 08/18/2025 Blood pressure systolic 148 mm Hg 08/18/2025 Weight 206 lbs 08/18/2025 BMI 31.32 kg/m2 08/18/2025 Encounters Encounter Location Date Provider Diagnosis [facility] [address] [place] [address] 03/12/2025 SERENA WALKER Hematochezia K92.1 ; Annual physical exam Z00.00 ; Essential (primary) hypertension I10 ; Tobacco abuse disorder Z72.0 ; Morbid obesity E66.01 ; HAYLEY (obstructive sleep apnea) G47.33 ; Encounter for examination of blood pressure with abnormal findings Z01.31 ; Chronic kidney disease, stage 3b N18.32 and Encounter for immunization Z23 [facility] [address] [place] [address] 04/03/2025 SERENA WALKER Essential (primary) hypertension I10 ; Tobacco abuse disorder Z72.0 ; Morbid obesity E66.01 ; HAYLEY (obstructive sleep apnea) G47.33 ; Encounter for examination of blood pressure with abnormal findings Z01.31 ; Chronic kidney disease, stage 3b N18.32 ; Encounter for immunization Z23 ; KEYONNA (acute kidney injury) N17.9 and BPH loc w/o ur obs/LUTS N40.0 [facility] [address] [place] [address] 05/18/2025 SERENA WALKER Essential (primary) hypertension I10 ; BPH loc w/o ur obs/LUTS N40.0 ; KEYONNA (acute kidney injury) N17.9 ; Tobacco abuse disorder Z72.0 ; Morbid obesity E66.01 ; HAYLEY (obstructive sleep apnea) G47.33 ; Chronic kidney disease, stage 3b N18.32 and Encounter for examination of blood pressure with abnormal findings Z01.31 [facility] [address] [place], [place] 07/10/2025 SERENA AARON Muscle cramp R25.2 ; Diarrhea, unspecified R19.7 ; Essential (primary) hypertension I10 ; BPH loc w/o ur obs/LUTS N40.0 ; Chronic kidney disease, stage 3b N18.32 ; Tobacco abuse disorder Z72.0 ; Morbid obesity E66.01 ; HAYLEY (obstructive sleep apnea) G47.33 ; Encounter for examination of blood pressure with abnormal findings Z01.31 and Dehydration E86.[address] [facility] [address] [place], [place] 08/18/2025 SERENA AARON Essential (primary) hypertension I10 ; End stage renal disease N18.6 ; BPH loc w/o ur obs/LUTS N40.0 ; Tobacco abuse disorder Z72.0 ; AHYLEY (obstructive sleep apnea) G47.33 and Encounter for examination of blood pressure with abnormal findings Z01.[address] [facility] [address] [place], [place] 12/25/2024 SERENA WALKER Annual physical exam Z00.00 ; Lipid screening Z13.220 ; Encounter for screening for diabetes mellitus Z13.1 ; Acquired hypothyroidism E03.9 ; Anemia due to vitamin B12 deficiency, unspecified B12 deficiency type D51.9 and Encounter for screening for malignant neoplasm of prostate Z12.5 [facility] [address] 03/06/2025 SERENA AARON Creatinine elevation R79.[address] [facility] [address] [place], [place] 03/06/2025 SERENA AARON [facility] [address] [facility] [address] 03/09/2025 SERENA AARON Creatinine elevation R79.[address] [facility] [address] [place], [place] 03/24/2025 SERENA AARON [facility] [address] 06/26/2025 SERENA AARON [facility] [address] [place] [address] 07/10/2025 SERENA AARON Bilateral leg cramps R25.2 ; Abnormal metabolic state due to diabetes mellitus E11.9 ; Acute colitis K52.9 and Adult general medical exam Z00.[address] [facility] [address] [place], [place] 07/13/2025 SERENA AARON [facility] [address] [facility] [address] [facility] [address] [place] [address] 07/13/2025 SERENA AARON [facility] [address] [place], [place] 07/17/2025 CESAR ADAMS [facility] [address] [place], [place] 07/30/2025 SERENA AARON [facility] [address] [place], [place] 08/21/2025 SERENA WALKER Assessments Encounter Date Diagnosis (ICD [...] log exercise and discussed fitness Apps like Ellevation which can help keep log off calories [...] Dictation was accomplished with the use of AirInSpace voice recognition software, prone to medical misidentifications [...] log exercise and discussed fitness Apps like Ellevation which can help keep log off calories [...] Dictation was accomplished with the use of AirIn[employer] voice recognition software, prone to medical misidentifications [...] Dictation was accomplished with the use of AirIn[employer] voice recognition software, prone to medical misidentifications [...] Dictation was accomplished with the use of AirIn[employer] voice recognition software, prone to medical misidentifications [...] Dictation was accomplished with the use of AirIn[employer] voice recognition software, prone to medical misidentifications [...] Dictation was accomplished with the use of AirInSpace voice recognition software, prone to medical misidentifications [...] Dictation was accomplished with the use of AirInSpace voice recognition software, prone to medical misidentifications [...] Dictation was accomplished with the use of AirInSpace voice recognition software, prone to medical misidentifications [...] Dictation was accomplished with the use of AirInSpace voice recognition software, prone to medical misidentifications [...] Dictation was accomplished with the use of AirInSpace voice recognition software, prone to medical misidentifications [...] Dictation was accomplished with the use of AirInSpace voice recognition software, prone to medical misidentifications [...] Dictation was accomplished with the use of AirInSpace voice recognition software, prone to medical misidentifications [...] Dictation was accomplished with the use of AirIn[employer] voice recognition software, prone to medical misidentifications [...] Dictation was accomplished with the use of AirIn[employer] voice recognition software, prone to medical misidentifications [...] log exercise and discussed fitness Apps like Ellevation which can help keep log off calories [...] Dictation was accomplished with the use of AirInSpace voice recognition software, prone to medical misidentifications [...] log exercise and discussed fitness Apps like Ellevation which can help keep log off calories [...] Dictation was accomplished with the use of AirInSpace voice recognition software, prone to medical misidentifications [...] Dictation was accomplished with the use of AirInSpace voice recognition software, prone to medical misidentifications [...] Dictation was accomplished with the use of AirInSpace voice recognition software, prone to medical misidentifications [...] Dictation was accomplished with the use of AirInSpace voice recognition software, prone to medical misidentifications [...] Dictation was accomplished with the use of AirInSpace voice recognition software, prone to medical misidentifications [...] Dictation was accomplished with the use of AirInSpace voice recognition software, prone to medical misidentifications [...] Dictation was accomplished with the use of AirInSpace voice recognition software, prone to medical misidentifications [...] log exercise and discussed fitness Apps like Ellevation which can help keep log off calories [...] Dictation was accomplished with the use of AirInSpace voice recognition software, prone to medical misidentifications [...] Dictation was accomplished with the use of AirInSpace voice recognition software, prone to medical misidentifications [...] Dictation was accomplished with the use of AirInSpace voice recognition software, prone to medical misidentifications [...] log exercise and discussed fitness Apps like Ellevation which can help keep log off calories [...] Dictation was accomplished with the use of AirInSpace voice recognition software, prone to medical misidentifications [...] Dictation was accomplished with the use of AirInSpace voice recognition software, prone to medical misidentifications [...] Dictation was accomplished with the use of AirInSpace voice recognition software, prone to medical misidentifications [...] Dictation was accomplished with the use of AirInSpace voice recognition software, prone to medical misidentifications [...] Dictation was accomplished with the use of AirInSpace voice recognition software, prone to medical misidentifications [...] Dictation was accomplished with the use of AirInSpace voice recognition software, prone to medical misidentifications [...] Dictation was accomplished with the use of AirInSpace voice recognition software, prone to medical misidentifications [...] Dictation was accomplished with the use of AirIn[employer] voice recognition software, prone to medical misidentifications [...] log exercise and discussed fitness Apps like Ellevation which can help keep log off calories [...] Dictation was accomplished with the use of AirInSpace voice recognition software, prone to medical misidentifications [...] cancer. PSA was negative. Due to possible EKYONNA on CKD versus regular CKD, I will [...] log exercise and discussed fitness Apps like Ellevation which can help keep log off calories [...] Dictation was accomplished with the use of AirInSpace voice recognition software, prone to medical misidentifications [...] Dictation was accomplished with the use of AirInSpace voice recognition software, prone to medical misidentifications [...] Dictation was accomplished with the use of AirInSpace voice recognition software, prone to medical misidentifications [...] Dictation was accomplished with the use of AirInSpace voice recognition software, prone to medical misidentifications [...] Dictation was accomplished with the use of AirInSpace voice recognition software, prone to medical misidentifications [...] Dictation was accomplished with the use of [employer]In[employer] voice recognition software, prone to medical misidentifications [...] log exercise and discussed fitness Apps like Ellevation which can help keep log off calories [...] Dictation was accomplished with the use of [employer] voice recognition software, prone to medical misidentifications [...] Dictation was accomplished with the use of [employer] voice recognition software, prone to medical misidentifications [...] Microalb/Creat Ratio, [facility] Ur 5 Microalb/Creat Ratio, [facility] Ur 5 Stool Culture -O&P 07/10/2025 CT [...] Chest W/ Contrast 04/12/2023 TESTOSTERONE 05/18/2025 Hemoglobin [id number] 12/25/2024 TSH+T4F+T3Free 12/25/2024 Next Appt Details Provider Name:SERENA WALKER, 10/19/2025 03:30:00 PM, [address], [place], [address], Insurance Providers Payer Name Payer Address Payer Phone Subscriber Number Group Number Insured Name Patient Relationship to Insured Coverage Start Date Coverage End Date [employer] [address] [place] [address] [phone] [id number] Marian Goodson Self - patient is the insured 9 Medications Administered Medication Instructions Date of Administration Dosage Notes [facility] B12 INJECTION 03/12/2023 lot # [id number] Medical (General) History Medical History History ICD Code Essential hypertension I10 Tobacco abuse Z72.0 Gout, unspecified M10.9 Anxiety with depression F41.8 Hemorrhoids with complication K64.8 Obesity (BMI 30-39.9) E66.9 Asthma J45.909 Polyp of colon K63.5 Obstructive sleep apnea G47.33 Enlarged prostate N40.0 Blood Type A+ IgA Nephropathy ESRD Surgical History Surgery Date(Month/Year) Left inguinal herniorraphy 2009
--- OUTSIDE RECORDS SUMMARY | 2025-10-08 21:28 | XMS_ITS | Encounter Summary ---
Author Organization [facility] Address [address] [place] [address] Care Team Providers Care Basket Filler Name Role Phone Lauren Adams MD Primary Care Provider [phone] Encounter Details Date Type Department Care Team (Late st Contact Info) Description 10/05/2025 Documentation [facility] Transplant Program & [facility] [address] [address] Lee Ann Green 85 [facility] [address] [place], [place] [id number] Social History Tobacco Use Types Packs/Day Years Used Date Smoking Tobacco: Never Assessed Sex and Gender Information Value Date Recorded Sex Assigned at Male 08/28/2025 3:07 PM EDT Legal Sex Male 4:38 PM EDT Gender Identity Male 08/28/2025 3:07 PM EDT Sexual Orientation Heterosexual (straight) 08/28 3:07 PM EDT documented as of this encounter Progress Notes * Lee Ann Green - 10/05/2025 12:28 PM EST Received fax from [employer]: Zone 1 - Kidney Transplant Evaluation Authorization #[id number] eff 10/05/25-04/04/26 Solution Engineer: Reema solomon [phone] [id number] [phone] Approval letter scanned documented in this encounter Plan of Treatment Upcoming Encounters Date Type Department Care Team (Late st Contact Info) Description 10/19/2025 3:00 PM EST Appointment [facility] Pulmonary Laboratory & Rehabilitation [address] [facility], [address] [place] [address] Ruth Villagran MD [address] [address] documented as of this encounter Visit Diagnoses Not on filedocumented in this encounter Care Teams Basket Filler Relationship Specialty Start Date End Date Lauren Adams MD [address] [place] [id number] PCP - General Internal Medicine 08/28/25 documented as of this encounter
== END 2025-10-08 16:01 | disposition home or self-care (01) ==
LOC: HO.HKAS 15:11
PROVIDERS: PCP Internal Medicine; Visit Provider Internal Medicine Nephrology
DX: I15.1 Hypertension secondary to other renal disorders (principal); N25.81 Secondary hyperparathyroidism of renal origin; N02.B9 Other recurrent and persistent immunoglobulin A nephropathy; N18.5 Chronic kidney disease, stage 5; R80.8 Other proteinuria; E61.1 Iron deficiency
CPT/HCPCS: 99214

== ENCOUNTER 2025-10-16 16:03 | Outpatient (AMB) | payer OTHER, SELFPAY ==
--- OUTSIDE RECORDS SUMMARY | 2025-02-17 09:30 | XMS_ITS ---
Author Organization [facility] [address] Address [address] [facility] [address] Care Team Providers Care Cutting Table Operator Name Role Phone SERENA WALKER Unavailable [phone] PHU MINER Unavailable [phone] Encounters Encounter Location Date Provider Diagnosis [facility] [address] [place] [address] 02/17/2025 PHU MINER Plan Of Treatment No Information Progress Notes * Mack GOODSONDOB: [birth year] (44 yo M)Acc No.[id number]:02/17/2025 CPE Patient: Mack Morrissey Provider: Seth MINER PA-C :1980 A ge:44 Y S ex:Male Date:02/17/2025 Address:[address] [facility] [place], [id number] Care Plan Details* * Electronic signature of NAV MINER PA-C on 10/16/2025 at 02:44 PM EST Sign off status: Pending * Provider: Seth MINER PA-C Date: 0 02/17/2025 Generated for Azam maher/Lj/eTransmitting on: 1 12/17/2024 02:44 PM EST
--- OUTSIDE RECORDS SUMMARY | 2025-10-05 11:30 | XMS_ITS | Encounter Summary ---
Author Organization [facility] Address [address] [place] [address] Care Team Providers Care Paleobotanist Name Role Phone Lauren Adams MD Primary Care Provider [phone] Encounter Details Date Type Department Care Team (Latest Contact Info) Description 10/05/2025 11:30 AM EST Clinical Support [facility] Transplant Program & [facility] Liver [address] [phone] Ruth Villagran MD [address] [address] Maria Teresa Mercado LCSW [address] [address] Pre-transplant evaluation for kidney transplant (Primary Dx) [...] with basic understanding of the short and longterm medical and psychosocial risks related to transplant. [...] Developmental history: Preferred Name: Michele Preferred Language: Liberian Preferred Pronouns: He/Him Relationship status: x 24 years Children (Names/Ages): 3 kids: Silke (23; with pt), Nate (21; [place])- Graduating college in October, Calin (15; home) Pt was born in [place], [place], raised primarily by Mom, noting father wasn't around. Pt is 1 of 3 children. Pt graduated college; denies learning or behavioral concerns during upbringing. They don'trepot any financial concerns. 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 They're supportedby pt's income and covered by [employer]. Pt presents with basic understanding of the [...] Contact Info) Description 10/19/2025 3:00 PM EST Hospital Encounter [facility] [address] [facility], [address] [place] [phone] Ruth Villagran MD [address] [address] documented as of this encounter Visit Diagnoses Diagnosis Pre-transplant evaluation for kidney transplant- Primary documented in this encounter Care Teams Paleobotanist Relationship Specialty Start Date End Date Lauren Adams MD [address] [place] [address] PCP - General Internal Medicine 08/28/25 documented as of this encounter
--- OUTSIDE RECORDS SUMMARY | 2025-10-15 15:20 | XMS_ITS | Encounter Summary ---
Author Organization [facility] Address [address] [place] [address] Care Team Providers Care Otr Driver Name Role Phone Lauren Adams MD Primary Care Provider Reason for Visit * Reason Comments Abdominal Pain Rectal Bleeding Encounter Details Date Type Department Care Team ([facility] st Contact Info) Description 10/15/2025 3:20 PM EST Consult Gastroenterology - [address] [facility] [address] [place] [address] Sera Hunter PA 299 [facility] [address] [place] [address] of the abdomen (Primary Dx); RUQ abdominal pain; BRBPR (bright red blood per rectum) Social History Tobacco Use Types Packs/Day Years [...] on file Sexual Orientation Not on file documented as of this encounter Last Filed Vital Signs Vital Sign Reading Time Taken Comments Blood Pressure - - Pulse - - Temperature - - Respiratory Rate - - Oxygen Saturation - - Inhaled Oxygen Concentration - - Weight 95.3 kg (210 lb) 10/15/2025 3:23 PM EST Height 172.7 cm (5' 8 ) 10/15/2025 3:23 PM EST Body Mass Index 31.93 10/15/2025 3:23 PM EST documented in this encounter Progress Notes * LAZARA Zavaleta - 10/15/2025 3:20 PM EST Images from the original note were not included. CHIEF COMPLAINT: Chief Complaint Patient presents with Abdominal Pain Rectal Bleeding IDENTIFIER: Mack Goodson is a 44 y.o. old male History of Present Illness The patient presents for evaluation of rectal bleeding. Rectal bleeding has been ongoing for several years, with recent escalation to the point of experiencing prolapse during bowel movements. There is no associated abdominal pain, nausea, vomiting, fever, chills, or abnormal weight loss. Bowel movements are generally regular, but are accompanied by daily deep red blood. Instances of spontaneous bleeding have occurred, resulting in wet underwear. There have been no recent surgeries, but a bladder biopsy and a kidney biopsy were performed. NSAIDs are not taken. The primary care physician is Dr. Adams. There has been no recent weight loss, although intentional weight loss occurred a few years ago. Appetite remains good. Occasional muscle spasms are experienced in the abdomen. Manual repositioning of the prolapse is necessary to prevent further bleeding. Stools are dark and hard due to iron supplements taken for anemia related to kidney disease. A colonoscopy was recommended following a CT scan, which revealed an abnormality in the colon. A colonoscopy performed in [address] Vernon revealed medium-sized internal hemorrhoids but no polyps or lesions. An upper endoscopy conducted at the same time was normal, as were biopsies taken during the procedure. Stage 5 kidney disease with IgA nephropathy is present, and clearance for a kidney transplant is required. Dialysis is not currently being administered. PAST SURGICAL HISTORY: Bladder biopsy Kidney biopsy SOCIAL HISTORY Alcohol: The patient does not drink alcohol. Tobacco: The patient smokes on occasion. FAMILY HISTORY - Maternal grandmother: Colon cancer, at age 35. - Mother: Multiple polyps. - Brother: Multiple polyps. ROS: GENERAL: No malaise, significant weight loss or fever HEENT: No changes in hearing or vision, nose bleeds or other nasal problems NECK: No lumps, goiter, pain or significant neck swelling RESPIRATORY: No cough, wheezing or shortness of breath CARDIOVASCULAR: No chest pain, leg swelling or palpitations GI: See HPI. MUSCULOSKELETAL: No joint pain or swelling, back pain, or muscle pain. SKIN: No lesions, rash or itching NEURO: No persistent headache, syncope, seizures, weakness or numbness PAST MEDICAL HISTORY: Medical History[1] Surgical History[2] SOCIAL HISTORY: Social History Tobacco Use Smoking status: Some Days Current packs/day: 1.00 Types: Cigarettes Smokeless tobacco: Never Substance Use Topics Alcohol use: No Alcohol/week: 500.0 standard drinks of alcohol FAMILY HISTORY: Family History[3] MEDICATIONS DISCONTINUED/REORDERED: There are no discontinued medications. ACTIVE MEDICATIONS: Current Medications[4] ALLERGIES: Current Allergies[5] PHYSICAL EXAM: Visit Vitals Ht 1.727 m (68 ) Wt 95.3 kg (210 lb) BMI 31.93 kg/m?? Smoking Status Some Days BSA 2.09 m?? APPEARANCE: Alert and in no acute distress HEART: RRR with normal S1 and S2, no murmurs LUNG: clear to auscultation ABDOMEN: Bowel sounds normoactive, no bruits, soft, RUQ discomfort EXTREMITIES: Extremities warm and well perfused without clubbing, cyanosis, or edema NEURO: Awake, alert and oriented x 3 with symmetrical reflexes Physical Exam LABS: Tissue exam: [id number] Order: [id number] Collected 07/02/2025 12:02 Status: Final result Dx: Neoplasm of unspecified behavior of b... Test Result Released: Yes (seen) 0 Result Notes Component Ref Range & Units (hover) Final Diagnosis A. Urinary Bladder, Posterior wall, [...] propria is present. - Negative for dysplasia. at 1235 EDT Gross Description A. Urinary Bladder, Posterior wall: [...] in formalin, on Telfa is a soft, juarez- pink, 0.3 cm in greatest diameter tissue fragment [...] 10% NB formalin fixed and paraffin embedded. Resulting Agency [facility] Specimen Collected: 07/02/25 12:02 EDT Last Resulted: 07/03/25 12:35 EDT Tissue exam Order: [id number] Status: Final result Test Result Released: No 0 Result Notes Component Ref Range & Units (hover) 2 yr ago Case Results Small bowel; biopsy: - BENIGN DUODENAL MUCOSA WITH NO SPECIFIC PATHOLOGIC CHANGE. - No villous blunting or increased intraepithelial lymphocytes identified. Aster Hdz M.D. , Pathologist (Case electronically signed 07 17 2023) Pre-Op/Clinical Diagnosis: ANEMIA-? SPRUE Specimen and Site: SMALL BOWEL-BIOPSY IMPRESSION: 1. Abnormal CT of the abdomen (Primary) 2. RUQ abdominal pain 3. BRBPR (bright red blood per rectum) PLAN: 44 years old gentleman whose past medical history includes ankle fracture, hematuria, hypertension,sleep apnea also kidney disease, however not on dialysis, who presents today with abnormal CAT scan, right upper quadrant abdomen discomfort and rectal bleeding. Patient did have an endoscopy and colonoscopy done on 07/16/2023. Upper endoscopy was normal. Colonoscopy showed internal hemorrhoids. Duodenal biopsy unrevealing. CAT scan of abdomen pelvis done on 06/15/2025 showed multiple kidney cysts, bladder wall thickening,enlarged prostate, and persistent focal narrowing of the hepatic flexure with the remaining colon being well-distended and stool-filled throughout for which underlying neoplasm needs to be excluded. Remaining colon is moderately stool-filled throughout. Assessment & Plan 1. Rectal bleeding/abdominal pain/abnormal CAT scan: - Reports rectal bleeding for a few years, with recent episodes of prolapse requiring manual reduction to stop the bleeding. - Colonoscopy in 2022 showed medium-sized internal hemorrhoids but no polyps or lesions. - CT scan on 06/15/2025 was abnormal - Colonoscopy will be scheduled to further investigate the findings from the CT scan. - Advised to stay hydrated during the preparation period. 2. ROV-depending on results. Cynthia ZavaletaS Gastroenterology [facility] [address] [place] [address] I have obtained verbal consent from Mack Goodson prior to the recording. I have advised Mack Goodson that he may refuse the recording and require the recording to be turned off at any time during this encounter. [1] Past Medical History: Diagnosis Date Ankle fracture 08/06/2008 DX:Ankle fracture; COMMENT: Leigh Ann; 07/13 Hematuria 05/17/2009 DX:Hematuria Hypertension Sleep apnea [2] Past Surgical History: Procedure Laterality Date COLONOSCOPY 2003 PROCEDURE: MO COLONOSCOPY STOMA DX INCLUDING COLLJ SPEC SPX; COMMENT: Nayeli; neg HERNIA REPAIR 10/14 PROCEDURE: REPAIR INGUINAL HERNIA; COMMENT: Left; Dr Galicia [3] Family History Problem Relation Name Age of Onset Thyroid disease Mother Colon polyps Mother Hypertension Mother Other (Other: Other) Mother sudden dysrhythmia Colon cancer Maternal Grandmother 32 Heart attack Paternal Grandfather Prostate cancer Father Ovarian cancer Aunt Diabetes Neg Hx [4] Current Outpatient Medications Medication Sig Dispense Refill calcitrioL (ROCALTROL) 0.25 mcg capsule calcium acetate,phosphat bind, (PHOSLO) 667 mg capsule Take 1 capsule (667 mg total) by mouth 3 (three) times a day with meals. carvedilol (COREG) 6.25 mg tablet Take 1 tablet (6.25 mg total) by mouth 2 (two) times a day with meals. hydrALAZINE (APRESOLINE) 25 mg tablet Take 3 tablets (75 mg total) by mouth 3 times daily. NIFEdipine (ADALAT CC) 30 mg 24 hr tablet oxyBUTYnin XL (DITROPAN-XL) 10 mg 24 hr tablet Take by mouth. Do not crush, chew, or split. sildenafiL (VIAGRA) 100 mg tablet Take 1 tablet (100 mg total) by mouth 1 (one) time each day if needed for erectile dysfunction. bisacodyL (DULCOLAX) 5 mg EC tablet Take 2 tablets by mouth right before beginning bowel prep. See instructions provided by the office 2 tablet 0 lisinopriL (PRINIVIL,ZESTRIL) 10 mg tablet Take 1 tablet (10 mg total) by mouth 1 (one) time each day. (Patient not taking: Reported on 10/15/2025) polyethylene glycol (Golytely) 236-22.74-6.74 -5.86 gram solution Take 4L by mouth once for one dose. May substitue any PEG. Starting at 2PM the day before your procedure drink 1 8oz glasses at your own pace until you complete half of the gallon. Finish 2nd half of the gallon at 8PM. 4000 mL 0 tamsulosin (FLOMAX) 0.4 mg 24 hr capsule Take 1 capsule (0.4 mg total) by mouth 1 (one) time each day. Capsules should be taken 30 minutes following the same meal each day. (Patient not taking: Reported on 10/15/2025) No current facility-administered medications for this visit. [5] No Known Allergies documented in this encounter Plan of Treatment Upcoming Encounters Date Type Department Care Team (Late st Contact Info) Description 10/22/2025 12:30 PM EST Hospital Encounter [facility] Endoscopy [address] [place] [id number] Christoph Roberts MD [address] [address] documented as of this encounter Visit Diagnoses Diagnosis Abnormal CT of the abdomen- Primary Nonspecific (abnormal) findings on radiological and other examination of abdominal area, including retroperitoneum RUQ abdominal pain Abdominal pain, right upper quadrant BRBPR (bright red blood per rectum) Hemorrhage of rectum and anus documented in this encounter Historical Medications * This list may reflect changes made after this encounter. sildenafiL (VIAGRA) 100 mg tablet Take 1 tablet (100 mg total) by mouth 1 (one) time each day if needed for erectile dysfunction. NIFEdipine (ADALAT CC) 30 mg 24 hr tablet 09/29/2025 carvedilol (COREG) 6.25 mg tablet Take 1 tablet (6.25 mg total) by mouth 2 (two) times a day with meals. 09/08/2025 hydrALAZINE (APRESOLINE) 25 mg tablet Take 3 tablets (75 mg total) by mouth 3 times daily. 07/16/2025 calcium acetate,phosphat bind, (PHOSLO) 667 mg capsule Take 1 capsule (667 mg total) by mouth 3 (three) times a day with meals. 07/16/2025 calcitrioL (ROCALTROL) 0.25 mcg capsule 07/16/2025 added in this encounter Care Teams Otr Driver Relationship Specialty Start Date End Date Lauren Adams MD [address] [place] [id number] PCP - General 06/28/23 documented as of this encounter
--- NOTE | 2025-10-16 16:13 | HO.NEPHOV ---
Vital Signs 10/16/25 16:14 Height 5 ft 8.5 in Weight 212 lb BMI 31.8 BP 140/80 H Blood Pressure Location Rt brachial Position Sitting Pulse 55 Pulse Source Pulse Oximeter Pulse Oximetry (%) 98 Oxygen Delivery Method Room Air Intake Visit Reasons: Retacrit appt-Conf C.O.D. Clerk Required: No Accompanied by: Spouse Allergies No Known Allergies Allergy (Verified 10/16/25 16:13) HPI Comments Details: Mack was seen in follow up for CKD Stage 5 ( IgA nephropathy) and hypertension . He is 44 years of age who has hypertension as well as H/O blood and protein in the urine in the past.He has seen Urology and was worked up including imaging studies which did not show any etiology for his M/S hematuria. He denied any H/O macroscopic heamturia. He was no ACEI in the past but was discontinued ( ? Had KEYONNA at that time). He had high BMI which has improved with exercise, diet and Ozempic for sometime. He has no H/O renal calculi . He recently had cramps as well as joint pains which is better. He is active and employed. He denies any regular excessive NSAID's. He has been having HAYLEY and is on CPAP. He has H/O gout with exacerbations more so when he was taking HCTZ for hypertension long ago. He has no H/O cardiac issues. He denies any neuropathic symptoms. CVA, CHF, CAD, PAD. He has no H/O blood clots but has was a smoker in the past. He has H/O smoking but no hemoptysis or unintentional weight loss . He is not a diabetic and has no H/O liver dysfunction. His energy is better. He underwent extensive work up including renal biopsy. Renal biopsy showed advanced chronic changes with close to 70 % glomerulosclerosis as well as interstitial fibrosis( IgA nephropathy). He also had marked vascular sclerosis. His BP has been high and carvedilol has been initiated with improvement. He denies uremic symptoms.He was evaluated by transplant team in [facility] Medical History Enlarged prostate HAYLEY (obstructive sleep apnea) Polyp of colon Asthma Chronic kidney disease, stage 3a Obesity Hemorrhoids with complication Anxiety with depression Gout Tobacco use Essential (primary) hypertension Surgical History S/P left inguinal herniorrhaphy Family History Father Prostate cancer Mother Heart attack Hypertension Social History Household Members: Spouse and Children Housing: House Do you presently have visiting nurse or other home services: No Alcohol intake: never Patient Tobacco Use Status: Current everyday Tobacco user Tobacco use type: Cigarette Second Hand Smoke Exposure: No service: No Review of Systems Const All systems reviewed & are unremarkable except as noted in HPI and below Physical Exam Vital Signs: Last Vital Signs Pulse 55 10/16/25 16:14 BP 140/80 H 10/16/25 16:14 Pulse Ox 98 10/16/25 16:14 Oxygen Delivery Method Room Air 10/16/25 16:14 BMI result Body Mass Index 31.8 Const General: comfortable and no acute distress Orientation/consciousness: patient oriented x3 HEENT Head: Yes normocephalic Mouth: Normal oral and palatal mucosa present Eyes EOM: EOMs intact bilaterally Neck Neck: Yes supple Resp Auscultation: clear to auscultation bilaterally Cardio Jugular venous distension: no JVD Rate: regular rate GI Palpation (GI): Soft to palpation Auscultation: normal bowel sounds General: Yes no CVA tenderness Back/Spine/Pelvis Back: no CVA tenderness Skin General skin exam: no rashes or lesions noted Neuro General: patient oriented x3 and moves all extremities Extrem General: Yes no pedal edema Office Meds epoetin [id number] 10,000 unit/mL injection solution Performing Provider: Miguelito Chen MD Performing Location: [facility] Administered by: Miguelito Chen MD on 10/16/25 16:31 Dose Route Admin Location Dispensed Lot Number Expiration Date [facility] Nuclear Chemistry Technician 40,000 unit subcut RUE 4 mL [id number] 12/06/26 8559-1061-78 [employer] Total Dispensed Waste 4 mL 0 % Results Reviewed Nephrology Results: Hgb, (14.0-18.0) 8.5 g/dl L 07/16/25 WBC, (4.8-10.8) 10.0 X10*3/uL 07/16/25 Plt Count, (160-400) 161 X10*3/uL 07/16/25 Sodium, (135-145) 140 mmol/L 07/16/25 Potassium, (3.3-5.1) 4.1 mmol/L 07/16/25 Chloride, (96-108) 113 mmol/L H 07/16/25 Carbon Dioxide, (22-29) 16 mmol/L L 07/16/25 BUN, (9-16) 98 mg/dL H 07/16/25 Creatinine, (0.5-1.4) 7.07 mg/dL H* 07/16/25 Calcium, (8.4-10.2) 8.0 mg/dL L 07/16/25 Phosphorus, (2.7-4.5) 6.6 mg/dL H 07/16/25 PTH Intact, (8.7-77.1) 298.2 pg/mL H 07/15/25 Urine Protein, (Neg-Trace) 300 (3+) mg/dL H 07/15/25 Urine Creatinine 40.61 mg/dL 07/14/25 Protein/Creatinin Ratio, (<0.2) 3.69 H 07/14/25 Renal US 07/15/25 Assessment & Plan Assessment & Plan (1) Hypertension: Code(s): I10 - Essential (primary) hypertension Category: Medical Qualifiers: Hypertension type: secondary to other renal disorders Qualified Code(s): I15.1 - Hypertension secondary to other renal disorders (2) Anemia in chronic kidney disease: Code(s): N18.9 - Chronic kidney disease, unspecified; D63.1 - Anemia in chronic kidney disease Category: Medical Qualifiers: Chronic kidney disease stage: stage 5 (GFR < 15), not on chronic dialysis Qualified Code(s): N18.5 - Chronic kidney disease, stage 5; D63.1 - Anemia in chronic kidney disease (3) Secondary hyperparathyroidism (of renal origin): Code(s): N25.81 - Secondary hyperparathyroidism of renal origin Category: Medical (4) CKD (chronic kidney disease) stage 5, GFR less than 15 ml/min: Code(s): N18.5 - Chronic kidney disease, stage 5 Category: Medical Plan Mack has CKD 5 from biopsy proven IgA nephropathy. Clinically denying uremic symptoms; Serum HCO3 better on replacement Phosphorus high/better- counseled about low Phos containing food- On Ca acetate( before meals) On calcitriol 0.25mcg PO 3x weekly and calcium acetate 667mg PO TID C/W Iron tablets( increased to 2 tabs ). T Sat is > 20 %, ; Gave 40 000 U Procrit( through my office)today Discussed about need for HD/ renal transplantation( Blood type A) Referral was made for renal transplant evaluation to get listed( awaited in [place]; Seen in [place]) Answered his and his 's questions; Follow up appointment given Orders: Orders Creatinine 3 Weeks D63.1 - Anemia in chronic kidney disease, I15.1 - Hypertension secondary to other renal disorders, N18.5 - Chronic kidney disease, stage 5, N25.81 - Secondary hyperparathyroidism of renal origin Blood Urea Nitrogen 3 Weeks D63.1 - Anemia in chronic kidney disease, I15.1 - Hypertension secondary to other renal disorders, N18.5 - Chronic kidney disease, stage 5, N25.81 - Secondary hyperparathyroidism of renal origin Electrolytes 3 Weeks D63.1 - Anemia in chronic kidney disease, I15.1 - Hypertension secondary to other renal disorders, N18.5 - Chronic kidney disease, stage 5, N25.81 - Secondary hyperparathyroidism of renal origin Calcium 3 Weeks D63.1 - Anemia in chronic kidney disease, I15.1 - Hypertension secondary to other renal disorders, N18.5 - Chronic kidney disease, stage 5, N25.81 - Secondary hyperparathyroidism of renal origin Phosphorus 3 Weeks D63.1 - Anemia in chronic kidney disease, I15.1 - Hypertension secondary to other renal disorders, N18.5 - Chronic kidney disease, stage 5, N25.81 - Secondary hyperparathyroidism of renal origin Complete Blood Count Auto Diff 3 Weeks D63.1 - Anemia in chronic kidney disease, I15.1 - Hypertension secondary to other renal disorders, N18.5 - Chronic kidney disease, stage 5, N25.81 - Secondary hyperparathyroidism of renal origin Ferritin 3 Weeks D63.1 - Anemia in chronic kidney disease, I15.1 - Hypertension secondary to other renal disorders, N18.5 - Chronic kidney disease, stage 5, N25.81 - Secondary hyperparathyroidism of renal origin IRON PROFILE 3 Weeks D63.1 - Anemia in chronic kidney disease, I15.1 - Hypertension secondary to other renal disorders, N18.5 - Chronic kidney disease, stage 5, N25.81 - Secondary hyperparathyroidism of renal origin AMB Epoetin Injection Practice Supplied Today D63.1 - Anemia in chronic kidney disease, N18.5 - Chronic kidney disease, stage 5 Coding Level of Care Code Est Pt Level 4 (97416) Diagnoses Hypertension secondary to other renal disorders I15.1 Hypertension type: secondary to other renal disorders Anemia in stage 5 chronic kidney disease, not on chronic dialysis N18.5; D63.1 Chronic kidney disease stage: stage 5 (GFR < 15), not on chronic dialysis Secondary hyperparathyroidism (of renal origin) N25.81 CKD (chronic kidney disease) stage 5, GFR less than 15 ml/min N18.5
[2025-10-16 16:14] VITALS: BP 140/80; PULSE 55; O2SAT 98; BMI 31.8
--- OUTSIDE RECORDS SUMMARY | 2025-10-16 20:38 | XMS_ITS | Encounter Summary ---
Author Organization [facility] Address [address] [place] [address] Care Team Providers Care Extractor Loader And Unloader Name Role Phone Lauren Adams MD Primary Care Provider [phone] Encounter Details Date Type Department Care Team (Late st Contact Info) Description 10/08/2025 Scanned Document [facility] [address] [address] Florencia Mullen MA Social History [...] Description 10/19/2025 3:00 PM EST Hospital Encounter [facility] [address] [facility], [address] [place] [phone] Ruth Villagran MD [address] [address] documented as of this encounter Visit Diagnoses Not on filedocumented in this encounter Care Teams Extractor Loader And Unloader Relationship Specialty Start Date End Date Lauren Adams MD [address] [place] [id number] PCP - General Internal Medicine 08/28/25 documented as of this encounter
--- OUTSIDE RECORDS SUMMARY | 2025-10-16 20:38 | XMS_ITS | Clinical Summary ---
Author Organization [facility] [address] [place] [address] [place] [phone] Phone Care Team Providers Care Topology Professor Name Role Phone Lauren Adams MD Primary Care Provider [phone] Allergies No known active allergies Medications lisinopriL [...] following the same meal each day. Active calcitrioL (ROCALTROL) 0.25 mcg capsule 5 Active calcium acetate,phospha t bind, (PHOSLO) 667 mg capsule Take 1 capsule (667 mg total) by mouth 3 (three) times a day with meals. 5 Active hydrALAZINE (APRESOLINE) 25 mg tablet Take 3 tablets (75 mg total) by mouth 3 times daily. 5 Active carvedilol (COREG) 6.25 mg tablet Take 1 tablet (6.25 mg total) by mouth 2 (two) times a day with meals. 5 Active NIFEdipine (ADALAT CC) 30 mg 24 hr tablet 5 Active sildenafiL (VIAGRA) 100 mg tablet Take 1 tablet (100 mg total) by mouth 1 (one) time each day if needed for erectile dysfunction. Active polyethylene glycol (Golytely) 236-22.74-6.74 -5.86 gram solution Take 4L by mouth once for one dose. May substitue any PEG. Starting at 2PM the day before your procedure drink 1 8oz glasses at your own pace until you complete half of the gallon. Finish 2nd half of the gallon at 8PM. 4000 mL 5 Active bisacodyL (DULCOLAX) 5 mg EC tablet Take 2 tablets by mouth right before beginning bowel prep. See instructions provided by the office 2 tablet 5 Active Encounters Date Type Department Care Team Description 10/15/2025 3:20 PM EST Consult Gastroenterology - [address] [facility] [address] [place] [address] Sera Hunter [address] Abnormal CT of the abdomen (Primary Dx); RUQ abdominal pain; BRBPR (bright red blood per rectum) from Last 3 Months Surgical History Surgery Date Site/Laterality Comments COLONOSCOPY 2003 PROCEDURE: ME COLONOSCOPY STOMA DX INCLUDING COLLJ SPEC SPX; [...] Aunt Father Maternal Grandmother Mother (Age 403/01/09) PR ag e 50 Paternal Grandfather Social History [...] on file Sexual Orientation Not on file Last Filed Vital Signs Vital Sign Reading Time Taken Comments Blood Pressure 175/98 07/02/2025 1:16 PM EDT Pulse 50 07/02/2025 1:16 PM EDT Temperature 35.9 C (96.6 F) 07/02/2025 1:16 PM EDT Respiratory Rate 18 07/02/2025 1:16 PM EDT Oxygen Saturation 100% 07/02/2025 1:16 PM EDT Inhaled Oxygen Concentration - - Weight 95.3 kg (210 lb) 10/15/2025 3:23 PM EST Height 172.7 cm (5' 8 ) 10/15/2025 3:23 PM EST Body Mass Index 31.93 10/15/2025 3:23 PM EST Plan of Treatment Upcoming Encounters Date Type Department Care Team (Late st Contact Info) Description 10/22/2025 12:30 PM EST Hospital Encounter [facility] Endoscopy [address] [place] [phone] Christoph Roberts MD [address] [address] Health Maintenance Due Date Last Done Comments [...] on patient's age to complete this topic Goals Goal Patient Goal Type Associated Problems Recent Progress Patient-Stated? Author Autogenera vernon Goal Care Plan Autogenerated Problem No Ewa Staples Additional Health Concerns Active Problems Noted Date Diagnosed Date Autogenerated Problem 10/16/2025 Insurance CIG Advance Directives Documents on File Type Date Recorded Patient Pulp Drier Expl [facility] Care Decision (hx) 10/18/2010 AD SHAVONNE DIRECTIVE Care Teams Topology Professor Relationship Specialty Start Date End Date Lauren Adams MD [address] [place] [id number] PCP - General 06/28/23
--- OUTSIDE RECORDS SUMMARY | 2025-10-16 20:38 | XMS_ITS | Encounter Summary ---
Author Organization [facility] Address [address] [place] [address] Care Team Providers Care Sandfill Operator Surface Name Role Phone Lauren Adams MD Primary Care Provider [phone] Encounter Details Date Type Department Care Team (Late st Contact Info) Description 08/25/[address] [facility] 85 [facility] [address] [place] [phone] Maria Teresa Bruce MA [address] [phone] Social History Tobacco Use Types Packs/Day Years [...] Description 10/19/2025 3:00 PM EST Hospital Encounter [facility] Rehabilitation [address] [facility], [address] [place] [address] Ruth Villagran MD 85 [facility] [address] [place], [place] [phone] documented as of this encounter Visit Diagnoses Not on filedocumented in this encounter Care Teams Sandfill Operator Surface Relationship Specialty Start Date End Date Lauren Adams MD [address] [place] [address] PCP - General Internal Medicine 08/28/25 documented as of this encounter
--- OUTSIDE RECORDS SUMMARY | 2025-10-16 20:38 | XMS_ITS | Encounter Summary ---
Author Organization [facility] Address [address] [place] [address] Care Team Providers Care Director Of Philanthropy Name Role Phone Lauren Adams MD Primary Care Provider Encounter Details Date Type Department Care Team (Late st Contact Info) Description 10/05/2025 Scanned Document [facility] [address] [phone] Lee Ann Green [address] [phone] Social History Tobacco Use Types Packs/Day Years [...] Description 10/19/2025 3:00 PM EST Hospital Encounter [facility] Rehabilitation 80 [facility], [address] [place] [address] Ruth Villagran MD [address] [phone] documented as of this encounter Visit Diagnoses Not on filedocumented in this encounter Care Teams Director Of Philanthropy Relationship Specialty Start Date End Date Lauren Adams MD [address] [place] [address] PCP - General Internal Medicine 08/28/25 documented as of this encounter
--- OUTSIDE RECORDS SUMMARY | 2025-10-16 20:38 | XMS_ITS | Encounter Summary ---
Author Organization [facility] Address [address] [place] [address] Care Team Providers Care Registered Nurse Maternal Child Name Role Phone Lauren Adams MD Primary Care Provider [phone] Encounter Details Date Type Department Care Team (Late st Contact Info) Description 08/25/2025 Scanned Document [facility] 85 [facility] [address] [place] [phone] Maria Teresa Bruce MA [address] [phone] Social History Tobacco Use Types Packs/Day Years [...] Description 10/19/2025 3:00 PM EST Hospital Encounter [facility] [address] [facility], [address] [place] [address] Ruth Villagran MD 85 [facility] [address] [place], [place] [phone] documented as of this encounter Visit Diagnoses Not on filedocumented in this encounter Care Teams Registered Nurse Maternal Child Relationship Specialty Start Date End Date Lauren Adams MD [address] [place] [address] PCP - General Internal Medicine 08/28/25 documented as of this encounter
--- OUTSIDE RECORDS SUMMARY | 2025-10-16 20:38 | XMS_ITS | Clinical Summary ---
Author Organization [facility] Address [address] [address] Phone Care Team Providers Care Inside Sales Professional Name Role Phone Susan Dsouza Primary Care Provider [phone] Social History Tobacco Use Types Packs/Day Years [...] Vaccine (#1) 2025 Insurance [employer] Care Teams Inside Sales Professional Relationship Specialty Start Date End Date Susan Dsouza PA [address] [place] [phone] PCP - General Internal Medicine 07/08/25
--- OUTSIDE RECORDS SUMMARY | 2025-10-16 20:38 | XMS_ITS | Encounter Summary ---
Author Organization [facility] Address [address] [place] [address] Care Team Providers Care Favor Maker Name Role Phone Lauren Adams MD Primary Care Provider [phone] Encounter Details Date Type Department Care Team (Late st Contact Info) Description 10/06/2025 Scanned Document [facility] [address] [phone] Florencia Mullen MA Social History [...] Description 10/19/2025 3:00 PM EST Hospital Encounter [facility] [address] [facility], [address] [place] [phone] Ruth Villagran MD [address] [address] documented as of this encounter Visit Diagnoses Not on filedocumented in this encounter Care Teams Favor Maker Relationship Specialty Start Date End Date Lauren Adams MD [address] [place] [phone] PCP - General Internal Medicine 08/28/25 documented as of this encounter
--- OUTSIDE RECORDS SUMMARY | 2025-10-16 20:39 | XMS_ITS | Clinical Summary ---
Author Organization [facility] Address [address] [place] [address] [address] Care [address] Crew Member Name Role Phone Lauren Adams MD Primary Care Provider [phone] Allergies No known active allergies Medications calcitRIOL [...] Encounters Date Type Department Care Team Description 10/12/2025 Scanned Document [facility] & [facility] [address] [place] [address] Florencia Mullen MA 10/08/2025 11:10 AM EST Ancillary Procedure [facility] [address] [place] [address] Provider, File Room 10/08/2025 11:10 AM EST Ancillary Procedure [facility] [address] [place] [address] Provider, File Room 10/08/2025 11:05 AM EST Ancillary Procedure [facility] [address] [place] [address] Provider, File Room 10/08/2025 Scanned Document [facility] & [facility] [address] [place] [address] Florencia Mullen MA 10/06/2025 Scanned Document [facility] & [address] [address] Florencia Mullen MA 10/05/2025 3:00 PM EST Clinical Support [facility] & [address] [address] Ruth Villagran MD Giana, Karen 10/05/2025 2:30 PM EST Clinical Support [facility] & [address] [address] Ruth Villagran MD Anane, Asamoah, RN 10/05/2025 2:00 PM EST Office Visit [facility] & [address] [address] Ruth Villagran MD Emmanuel, Bishoy, MD CKD (chronic kidney disease) stage 5, GFR less than 15 ml/min (HCC) (Primary Dx) 10/05/2025 1:00 PM EST Office Visit [facility] & [facility] [address] [address] Ruth Villagran MD CKD (chronic kidney disease) stage 5, GFR less than 15 ml/min (HCC) (Primary Dx) 10/05/2025 12:00 PM EST Clinical Support [facility] & [address] [address] Ruth Villagran MD Haberman, Andrew, RN CKD (chronic kidney disease) stage 5, GFR less than 15 ml/min (HCC) (Primary Dx) 10/05/2025 11:30 AM EST Clinical Support [facility] & [address] [address] Ruth Villagran MD Bruneau, Jessica, LCSW Pre-transplant evaluation for kidney transplant (Primary Dx) 10/05/2025 10:30 AM EST Clinical Support [facility] & [address] [address] Yusuf Samson MD Ye, Xiaoyi, MD Haberman, Andrew, RN 10/05/2025 Documentation [facility] & [address] [address] Lee Ann Green 10/05/2025 Scanned Document [facility] & [address] [address] Lee Ann Green 08/25/2025 Scanned Document [facility] & [address] [address] Maria Teresa Bruce MA 08/25/2025 Scanned Document [facility] & [address] [address] Maria Teresa Bruce MA from Last 3 [...] Description 10/19/2025 3:00 PM EST Hospital Encounter [facility] [address] [facility], [address] [place] [phone] Ruth Villagran MD [address] [facility] [address] [place] [address] Health Maintenance Due Date Last Done Comments Hepatitis C Virus Screening 1978 HIV Screening 1991 DTaP/Tdap/Td Vaccines (1 - Tdap) 1997 Hepatitis B Vaccines (1 of 3 - 19+ 3-dose series) 1997 Pneumococcal Vaccine: Pediat anastasia (0-5 Years) and At-Risk Patients (6 to 49 Years) (1 of 2 - PCV) 1997 COVID-19 Vaccine (2 - Jansse n risk series) 03/05/2021 02/05/2021 Influenza Vaccine 06/05/2025 11/12/2015, , 10/31/2012, Additional history exists Colonoscopy 07/16/2033 07/16/2023, 07/16/2023 Procedures Procedure Name Priority Date/Time Associated Diagnosis Comments GISSELLE ARCHIVE FOR REFERENCE ONLY US Routine 10/08/2025 11:10 AM EST GISSELLE ARCHIVE FOR REFERENCE ONLY CT Routine 10/08/2025 11:[address] ABDOMEN ARCHIVE FOR REFERENCE ONLY Routine 10/08/2025 11:04 AM EST COLONOSCOPY (CC) Routine 07/16/2023 7:4 4 AM EDT from Last 3 Months or Most Recently Relevant to Health Maintenance Results * GISSELLE Archive for reference only US (10/08/2025 11:10 AM EST) Narrative DRYDEN - 10/08/2025 11:09 AM EST This order has been auto-finalized and does not contain a result. us File Room Provider IMG DIGITIZE FILMS Final Resu lt Performing Organization Address [facility] de Phone Number GABBIE [phone] * GISSELLE Archive for reference only CT (10/08/2025 11:10 AM EST) Narrative DRYDEN - 10/08/2025 11:04 AM EST This order has been auto-finalized and does not contain a result. File Room Provider IMG DIGITIZE FILMS Final Resu lt Performing Organization Address [facility] de Phone Number GABBIE [phone] * CT Abdomen Archive for Reference Only (10/08/2025 11:04 AM EST) Narrative [facility] 10/08/2025 11:04 AM EST This study has been auto finalized and does not contain a result. us File Room Provider IMG DIGITIZE FILMS Final Resu lt Performing Organization Address [facility] de Phone Number GABBIE [phone] * COLONOSCOPY (CC) (07/16/2023 7:44 AM EDT) External Provider MD ANDERSON ORDERABLE PERFORMABLE F inal Result from Last 3 Months or Most Recently Relevant to Health Maintenance Insurance [employer]IG[employer] HMO CIGNA HMO CIGNA HMO Care Teams Road Crew Member Relationship Specialty Start Date End Date Lauren Adams MD [address] [place] [phone] PCP - General Internal Medicine 08/28/25
--- OUTSIDE RECORDS SUMMARY | 2025-10-16 20:39 | XMS_ITS ---
Author Organization [facility] Address [address] [place] [address] Phone Care Team Providers Care Cupola Patcher Helper Name Role Phone Pcp, Unknown Primary Care Provider Unavailabl e Transplant Episode Kidney Candidate [facility] ([place], [place]) - [facility] Referred on 08/24/2025 Marked as Active on 08/24/2025 Kidney CoordinatorWinnie Lozada RN Email: Scores Score Value Updated Exceptions/Reas ons CPRA Not available EPTS (Calc) 13 10/16/2025 Care Team Name Role Phone Fax Email Winnie Lozada RN Kidney Coordinator [phone] [email or web address] Miguelito Chen MD Referring Physician [phone] N/A N/A Events Pre-Transplant Referred: 08/24/2025
--- OUTSIDE RECORDS SUMMARY | 2025-10-16 20:39 | XMS_ITS ---
Author Organization [facility] Address [address] [place] [address] Care Team Providers Care Range Mechanic Name Role Phone Lauren Adams MD Primary Care Provider [phone] Transplant Episode Kidney Candidate [facility] ([place], [place]) - [facility] Evaluation began on 10/05/2025 Marked as Active on 10/05/2025 Kidney CoordinatorPietro Gamboa RN Email: N/A Scores Score Value Updated Exceptions/Reas ons CPRA Not available EPTS (Calc) 13 10/16/2025 Care Team Name Role Phone Fax Email Pietro Gamboa RN Kidney Coordinator [phone] N/A Miguelito Chen MD Referring Provider [phone] N/A Lauren Adams MD Primary Care Provider [phone] N/A Events Pre-Transplant Referred: 08/24/2025 Evaluation began: 10/05/2025 Appointments (09/16/2025 - 11/16/2025) When With Visit Type Description 10/05/2025 Transplant - Gary Sorenson Consultation CKD (chronic kidney disease) stage 5, GFR less than 15 ml/min (HCC) (Primary Dx) 10/05/2025 Transplant - Shagufta Villagran Consultation CKD (turbine room attendant brigette kidney disease) stage 5, GFR less [...]
--- OUTSIDE RECORDS SUMMARY | 2025-10-16 20:39 | XMS_ITS | Encounter Summary ---
Author Organization [facility] Address [address] [place] [address] Care Team Providers Care Packing Line Worker Name Role Phone Lauren Adams MD Primary Care Provider [phone] Encounter Details Date Type Department Care Team (Late st Contact Info) Description 10/12/2025 Scanned Document [facility] [address] [address] Florencia Mullen MA Social History [...] Description 10/19/2025 3:00 PM EST Hospital Encounter [facility] [address] [facility], [address] [place] [phone] Ruth Villagran MD [address] [address] documented as of this encounter Visit Diagnoses Not on filedocumented in this encounter Care Teams Packing Line Worker Relationship Specialty Start Date End Date Lauren Adams MD [address] [place] [address] PCP - General Internal Medicine 08/28/25 documented as of this encounter
--- OUTSIDE RECORDS SUMMARY | 2025-10-16 20:39 | XMS_ITS | Clinical Summary ---
Author Organization [facility] Address [address] [place] [address] Phone Care Team Providers Care Binder Stripper Machine Name Role Phone Pcp, Unknown Primary Care Provider Unavailabl e Encounters Date Type Department Care Team Description 09/10/2025 [place] [facility] [address] [address] Winnie Lozada, RN 09/10/2025 Tele[place] [facility] [address] [address] Winnie Lozada, RN from Last 3 Months [...] Payer ID:[id number] (NAIC) Type:PPO Address: [address] [place] [id number] CIGNA PPO CIGNA PPO [place] PPO Care Teams Binder Stripper Machine Relationship Specialty Start Date End Date Pcp, Unknown PCP - General 08/25/25 Additional Source Comments The information contained in this document represents components of the legal health record. It is not the complete legal health record.[facility]
== END 2025-10-16 16:38 | disposition home or self-care (01) ==
LOC: HO.HKA 16:04
PROVIDERS: PCP Internal Medicine; Visit Provider Internal Medicine Nephrology
DX: I15.1 Hypertension secondary to other renal disorders (principal); N18.5 Chronic kidney disease, stage 5; D63.1 Anemia in chronic kidney disease; N25.81 Secondary hyperparathyroidism of renal origin
CPT/HCPCS: 99214

== ENCOUNTER → 2025-10-16 16:03 | Outpatient (BNVA) | payer OTHER, SELFPAY | PROVIDERS: PCP Internal Medicine; Visit Provider Internal Medicine Nephrology | DX: N18.5 Chronic kidney disease, stage 5 (principal); I15.1 Hypertension secondary to other renal disorders; D63.1 Anemia in chronic kidney disease; N25.81 Secondary hyperparathyroidism of renal origin; N02.B9 Other recurrent and persistent immunoglobulin A nephropathy | CPT/HCPCS: 96372; Q5106 ==